=== PATIENT | female | born 1970 | race Caucasian/White ===

== ENCOUNTER 2023-02-09 09:51 | Outpatient (OUT) | payer BC, OTHER, SELFPAY ==
--- NOTE | 2023-02-09 09:52 | VEIN_ITS ---
Patient: GWYN ALVA Exam Date: 02/09/2023 : 1970 Gender:F Ordering : DR KETTY EVERETT M.D. Admission #: [id number] Family : Order #: [id number] CLICK HERE TO VIEW EXAM RADIOLOGY REPORT PROCEDURE: [facility] EST COM[facility]HENS[facility] - OFFICE VISIT INITIAL COMPARISON: None. PROGRESS NOTES: [age] year old female who presents with a 3 year history of leg pain, swelling, muscle cramping, dilated discolored veins. The patient's left leg symptoms are worse than the right. There has been a progression of symptoms over past 3 years. This increases with prolonged leg dependency. The patient describes an improvement with rest, elevation, exercise, support stockings, and [id number] medication. The patient denies any signs and symptoms to suggest arterial ischemia. The patient describes a family history varicose veins on maternal side. The patient has drinking and smoking history of : Occasional alcohol consumption; remote history of smoking. Patient has a past medical history significant for hypercholesterolemia, arthritis. The patient denies a history of deep venous thrombus or pulmonary embolus. See separate history and physical for medication list. No prior treatment for varicose or spider veins. Current use of compression stockings. After review of nurse notes, history and physical exam I discussed at length the pathophysiology of venous hypertension and possible treatments, therapies and strategies available. We discussed at length the importance of elevating the lower extremities above the level of the heart, increased physical activity and compression stocking use. Ultrasound venous reflux study performed today was discussed at length with the patient. The report demonstrates minimal dilation and incompetency of the left great saphenous vein. Additional scattered areas of mild reflux but no corresponding abnormal vein dilation.. PHYSICAL EXAM: The right leg demonstrates no significant varicosities, extensive reticular and spider veins, no ulceration, mild edema, no skin discoloration. The left leg demonstrates no significant varicosities, extensive reticular and spider veins, no ulceration, mild edema, no skin discoloration. Both thighs, legs and feet were symmetrically warm to the touch. Good posterior tibial and dorsalis pedis pulses were present bilaterally. VEIN/[facility] Facility EST Comprehensive IMPRESSION: 1. Prominent bilateral reticular veins and spider veins, but no significant treatable venous insufficiency other than with sclerotherapy. 2. Early developing lower extremity varicose veins 3. Mild lower extremity subcutaneous edema 4. No flow significant arterial disease 5. CEAP: C, E, A, P PLAN: 1. Continued use of compression stockings 2. Elevated legs and increased physical activity symptomatic relief 3. Patient will hold off until varicose vein disease progresses to the point of being amendable to treatment. Patient declined sclerotherapy at this time. Nurse notes, history and physical were reviewed and confirmed, see attached forms. The nurse was present throughout the physical exam and consultation Dictated by: Karl Hardy M.D. on 02/09/2023 at 11:50 Approved by: Karl Hardy M.D. on 02/09/2023 at 11:55
--- NOTE | 2023-02-09 09:52 | VEIN_ITS ---
Patient: GWYN ALVA Exam Date: 02/09/2023 : 1970 Gender:F Ordering : DR KETTY EVERETT M.D. Admission #: [id number] Family : Order #: [id number] CLICK HERE TO VIEW EXAM RADIOLOGY REPORT PROCEDURE: VC EXT VENOUS REFLUX LINA LMTD COMPARISON: None. INDICATIONS: I83.813 Painful varicose veins of bilat lower extremities TECHNIQUE: Duplex imaging of the lower extremity to assess the deep and superficial venous system for the presence of deep or superficial venous incompetence and to document the location and severity of disease. The study includes evaluation of the great saphenous vein (GSV), anterior accessory saphenous vein (AASV) and small saphenous vein (SSV). Patient scanned in reverse Trendelenburg and standing. FINDINGS: RIGHT LOWER EXTREMITY: Saphenofemoral Junction Reflux: Yes 7.6mm 0.8 sec GSV: Diam (mm) Reflux/ Time (sec) Proximal Thigh 2.7 Yes 0.4 Mid Thigh 2.9 No Distal Thigh 3.7 Yes 0.6 Prox Calf 1.8 No Mid Calf 2.0 Yes 0.6 Saphenopopliteal Junction Reflux: 3.4mm No SSV: Proximal Calf 2.2 No Mid Calf 2.1 No AASV: Not present Proximal Thigh Mid Thigh Distal Thigh Thrombi: No acute or chronic thrombus visualized Compressibility: Normal Flow: Normal Preforator: Dist/med calf 2.6mm with 0s reflux. Tech Note: Incompetent SFJ. Patent varicose vein mid/med calf 1.8mm with 0.4s reflux. Patent varicose vein mid/med thigh 2.0mm with 0s reflux. LEFT LOWER EXTREMITY: Saphenofemoral Junction Reflux: Yes 5.6 mm 0.5 sec GSV: Diam (mm) Reflux/Time (sec) Proximal Thigh 5.5 Yes 0.9 Mid Thigh 3.3 Yes 0.6 Distal Thigh 4.5 Prox Calf 3.3 Yes 0.4 Mid Calf 2.6 Saphenopopliteal Junction Relux: 4.4 mm No SSV: Proximal Calf 1.9 No Mid Calf 1.7 Yes 0.7 AASV: Not present Proximal Thigh Mid Thigh Distal Thigh Thrombi: No acute or chronic thrombus visualized Compressibility: Normal Flow: Normal Brazing Machine Feeder: Dist/med 2.5mm with 0.6s reflux. Tech Note: Incompetent SFJ and GSV. No patent varicose vein visualized. CONCLUSION: 1. Mild dilation and reflux within the proximal left GSV. 2. Scattered areas of mild reflux without abnormal vessel dilation. Dictated by: Karl Hardy M.D. on 02/09/2023 at 11:16 Approved by: Karl Hardy M.D. on 02/09/2023 at 11:49
== END 2023-02-09 09:52 | disposition home or self-care (01) ==
PROVIDERS: PCP Radiology Diagnostic Radiology; Visit Provider Radiology Diagnostic Radiology
DX: I83.813 Varicose veins of bilateral lower extremities with pain (principal)
CPT/HCPCS: 93970; G0463

== ENCOUNTER 2023-02-16 08:49 | Outpatient (OUT) | payer BC, OTHER, SELFPAY ==
--- NOTE | 2023-02-16 | MM_ITS ---
Patient: GWYN ALVA Exam Date: 02/16/2023 : 1970 Gender:F Ordering : MRS. BERTHA NETTLES EGYPTOLOGIST-C Admission #: [id number] Family : Order #: [id number] CLICK HERE TO VIEW EXAM RADIOLOGY REPORT PROCEDURE: MM TOMOSYNTHESIS DIAGNOSTIC BI, 02/16/2023, 13:09 US BREAST BI LIMITED, 02/16/2023, 09:00 COMPARISON: MG MAMM SCREEN 3D LINA CAD, 03/10/2022. MG MAMM SCREEN 3D LINA CAD, 02/27/2021. MG MAMM SCREEN LINA W CAD, 03/19/2020. MAMMO LINA SCREEN, 02/12/2018. INDICATIONS: enlarged lymph nodes r59.9 Calculator Name NCI Breast Cancer Risk Assessment Tool 5 Year Breast Cancer Risk 0.70% Lifetime Breast Cancer Risk 5.60% Personal Breast Cancer No Personal Ovarian Cancer No Treatments None Family Cancers None LOCATION: [facility] BREAST COMPOSITION: Extremely dense, which lowers the sensitivity of mammography. FINDINGS: DIAGNOSTIC CATEGORY 1--NEGATIVE. RIGHT BREAST: Skin surface marker localizing patient's palpable lump to the posterior upper-outer quadrant. No significant suspicious finding. No significant change has occurred. LEFT BREAST: Skin surface marker localizing patient's palpable lump to the posterior upper-outer quadrant. No significant suspicious finding. No significant change has occurred. RECOMMENDATIONS: ROUTINE MAMMOGRAM AND CLINICAL EVALUATION IN 12 MONTHS. PLEASE NOTE: A NORMAL MAMMOGRAM DOES NOT EXCLUDE THE POSSIBILITY OF BREAST CANCER. A CLINICALLY SUSPICIOUS PALPABLE LUMP SHOULD BE BIOPSIED. Dictated by: Karl Hardy M.D. on 02/16/2023 at 13:45 Approved by: Karl Hardy M.D. on 02/16/2023 at 13:49
--- NOTE | 2023-02-16 08:53 | US_ITS ---
Patient: GWYN ALVA Exam Date: 02/16/2023 : 1970 Gender:F Ordering : MRS. BERTHA NETTLES TEACHING PASTOR-C Admission #: [id number] Family : Order #: [id number] CLICK HERE TO VIEW EXAM RADIOLOGY REPORT PROCEDURE: MM TOMOSYNTHESIS DIAGNOSTIC BI, 02/16/2023, 13:09 US BREAST BI LIMITED, 02/16/2023, 09:00 COMPARISON: MG MAMM SCREEN 3D LIAN CAD, 03/10/2022. MG MAMM SCREEN 3D LINA CAD, 02/27/2021. MG MAMM SCREEN LINA W CAD, 03/19/2020. MAMMO LINA SCREEN, 02/12/2018. INDICATIONS: enlarged lymph nodes r59.9 Calculator Name NCI Breast Cancer Risk Assessment Tool 5 Year Breast Cancer Risk 0.70% Lifetime Breast Cancer Risk 5.60% Personal Breast Cancer No Personal Ovarian Cancer No Treatments None Family Cancers None LOCATION: [facility] BREAST COMPOSITION: Extremely dense, which lowers the sensitivity of mammography. FINDINGS: DIAGNOSTIC CATEGORY 1--NEGATIVE. RIGHT BREAST: Skin surface marker localizing patient's palpable lump to the posterior upper-outer quadrant. No significant suspicious finding. No significant change has occurred. LEFT BREAST: Skin surface marker localizing patient's palpable lump to the posterior upper-outer quadrant. No significant suspicious finding. No significant change has occurred. RECOMMENDATIONS: ROUTINE MAMMOGRAM AND CLINICAL EVALUATION IN 12 MONTHS. PLEASE NOTE: A NORMAL MAMMOGRAM DOES NOT EXCLUDE THE POSSIBILITY OF BREAST CANCER. A CLINICALLY SUSPICIOUS PALPABLE LUMP SHOULD BE BIOPSIED. Dictated by: Karl Hardy M.D. on 02/16/2023 at 13:45 Approved by: Karl Hardy M.D. on 02/16/2023 at 13:49
== END 2023-02-16 08:50 | disposition home or self-care (01) ==
LOC: US 08:49
PROVIDERS: PCP Nurse Practitioner Family; Visit Provider Nurse Practitioner Family
DX: R59.9 Enlarged lymph nodes, unspecified (principal); R92.8 Other abnormal and inconclusive findings on diagnostic imaging of breast
CPT/HCPCS: 76642; 77066; G0279

== ENCOUNTER 2024-02-15 13:35 | Outpatient (OUT) | payer OTHER, SELFPAY ==
--- NOTE | 2024-02-15 13:39 | MM_ITS ---
Patient Name: GWYN ALVA MR#: [id number] : 1970 Exam Date: 02/15/2024 Ordering Doctor: DR MEGAHAN SWEET RADIOLOGY REPORT PROCEDURE: MM TOMOSYNTHESIS SCREENING BI COMPARISON: MG MAMM SCREEN 3D LINA CAD, 03/10/2022. MM TOMOSYNTHESIS DIAGNOSTIC BI, 02/16/2023. INDICATIONS: Screening Calculator Name NCI Breast Cancer Risk Assessment Tool 5 Year Breast Cancer Risk 0.80% Lifetime Breast Cancer Risk 5.50% Personal Breast Cancer No Personal Ovarian Cancer No Treatments None Family Cancers None LOCATION: [facility] BREAST COMPOSITION: The breasts are extremely dense, which lowers the sensitivity of mammography. FINDINGS: DIAGNOSTIC CATEGORY 2--BENIGN FINDING. NO CHANGE FROM COMPARISON. Scattered benign-appearing calcifications are present. Scattered benign-appearing lymph nodes are present. RIGHT BREAST: No significant suspicious finding. LEFT BREAST: No significant suspicious finding. RECOMMENDATIONS: ROUTINE MAMMOGRAM AND CLINICAL EVALUATION IN 12 MONTHS. PLEASE NOTE: A NORMAL MAMMOGRAM DOES NOT EXCLUDE THE POSSIBILITY OF BREAST CANCER. A CLINICALLY SUSPICIOUS PALPABLE LUMP SHOULD BE BIOPSIED. Dictated by: Moustapha Kidd MD on 02/15/2024 at 15:38 Approved by: Moustapha Kidd MD on 02/15/2024 at 15:40
--- OUTSIDE RECORDS SUMMARY | 2024-02-15 13:47 | XMS_ITS | CCD ---
Author Organization [facility] Care Team Providers Care Manager [employer] Name Role Phone Sharla Richter Primary Care Provider [phone] Vivian Ortiz Primary Care Provider SHARLA RICHTER Primary Care Physician DIANA, DR VIVIAN Connolly Admitting Unavailable DIANA, DR VIVIAN Connolly Attending Unavailable KEE, DR HARDING Attending Unavailable KEE, DR HARDING Admitting Unavailable KARLOS, DR KETTY Barnett Consulting Unavailable KEE, DR HARDING Consulting Unavailable Vivian Ortiz Primary Care Provider VIVIAN ORTIZ Primary Care Unavailable CANDE RAMIREZ Referring Unavailable VIVIAN ORTIZ Primary Care Unavailable CANDE RAMIREZ Attending Unavailable Sharla Richter Primary Care Provider SHARLA RICHTER Primary Care Unavailable JEYSON QUIÑONES Attending Unavailable CEDRIC KATZ Primary Care Physician MIRANDA NETTLES NP-C Primary Care Physician Candace Verdin Unavailable Tim Alcaraz Consulting Unavaila ble HOPE ABEL Karin L Referring Unavailable PAGE, HOPE Karin L Attending Unavailable PAGE, HOPE Karin L Admitting Unavailable Tim Alcaraz Consulting UnavailTim Shultz Consulting UnavailTim Shultz Attending UnavailTim Shultz Admitting Unavaila ble NONE, XXXX Referring Unavailable KONSTANTIN CHAVES Attending Unavailable MIRANDA NETTLES Primary Care Unavailable Melvin CHARGEBACK SPECIALIST-Miranda ARNETT Primary Care Provider Nicki Amin MD Primary Care Provider [phone] Miranda Nettles NP Unavailable MILTON WEN Attending Unavailable MIRANDA NETTLES Attending Unavailable MEAGHAN SWEET Attending Unavailable MEAGHAN SWEET Referring Unavailable MIRANDA NETTLES Attending Unavailable MILTON WEN Attending Unavailable MEAGHAN SWEET Attending Unavailable MILTON WEN Attending Unavailable CORA DRAKE Attending Unavailable CORA DRAKE Referring Unavailable SALIMA NAVARRETE Attending Unavailable CORA DRAKE Referring Unavailable SULEMA VAZQUEZ Attending Unavailable CORA DRAKE Referring Unavailable SALIMA NAVARRETE Attending Unavailable CORA DRAKE Referring Unavailable Allergies Allergy Classification Reported Allergen(s) Allergy Type Date of Onset Reaction(s) Facility (8 sources) bee venom Propensity to adverse reactions to drug 05-09-19 Swelling, Unknown [place], [place] (20 sources) traZODone; Translations: [trazodone] Drug Allergy 03-03-20 Intolerance, function (observable entity), Hives, Unknown [facility] (15 sources) cyclobenzaprine ; Translations: [CYCLOBENZAPRIN E] Drug Allergy 05-09-19 Other: See Comments, Other, Palpitations [facility] (2 sources) BEE VENOM PROTEIN (HONEY BEE); Translations: [BEE VENOM PROTEIN (HONEY BEE)] Propensity to adverse reactions to drug (disorder) 05-09-19 [facility] Repository (1 source) Bee Sting Drug allergy hives awe[facility]sm Other (10 sources) meloxicam; Translations: [MELOXICAM] Drug Allergy 01-18-[address] [facility] 3 Repository (8 sources) Honey bee venom Allergy to substance 09-06-19 23 Unknown [facility] Medications Current Medications Medication Drug Class(es) Dates Sig (Normalized) Sig (Original) Calcium (8 sources) Phosphate Binder, Calcium calcium 200 MG tablet Calcium Active cholecalciferol 0.05 mg oral capsule (8 sources) Vitamin D cholecalciferol (Vitamin D-3) 50 MCG (1999) capsule Orally Active ciclopirox 10 mg/ml medicated shampoo (8 sources) Start: 09-21-2023 Ciclopirox 1 % shampoo Indications: Other seborrheic dermatitis Lather on wet hair, leave on 5 min, rinse 2-3 x week, 30 day supply 120 mL 11 09/21/2023 Active ciprofloxacin 500 mg oral tablet (1 source) Quinolone Antimicrobial take 1 tablet by mouth every twelve hours Cipro 500 MG 1 tablet Orally every 12 hrs Active [id number] 0.3 ml EPINEPHrine 1 mg/ml auto-injector (10 sources) alpha-Adrenergic Agonist, beta-Adrenergic Agonist, Catecholamine Start: 08-14-2023 EPINEPHrine (Epipen) 0.3 MG/0.3ML injection syringe Indications: Anaphylaxis, initial encounter Inject 0.3 mL (0.3 mg) as directed 1 (one) time for 1 dose 0.3 mL 08/14/2023 Active Start: 01-02-2020 EPINEPHrine (E PIPEN 2-NIRMAL) 0.3 MG/0.3ML SOAJ injection Inject 0.3 mLs into the muscle once for 1 dose Use as directed for allergic reaction 0.3 mL 0 01/02/2020 Active famotidine 20 mg oral tablet (2 sources) Histamine-2 Receptor Antagonist Start: 01-02-2020 take 1 tablet by mouth once daily famotidine (PEPCID) 20 MG tablet Take 1 tablet by mouth daily 5 tablet 0 01/02/2020 Active hydrOXYzine hydrochloride 25 mg oral tablet (9 sources) Antihistamine Start: 08-06-2023 take 1 tablet by mouth four times daily as needed for anxiety hydrOXYzine HCl (Atarax) 25 MG tablet Indications: Anxiety Take 1 tablet (25 mg) by mouth 4 (four) times a day as needed for itching (Anxiety) 180 tablet 08/06/2023 Active hydrOXYzine HCl 25 MG Oral for 45 Days Active meloxicam 7.5 mg oral tablet (2 sources) Nonsteroidal Anti-inflammatory Drug Start: 02-02-2023 take 1 tablet by mouth once daily meloxicam 7.5 mg Tab 7.5 mg = 1 tab(s), Oral, Daily, # 30 tab(s), Refills(s) 0 Start Date: 02/02/23 Status: Ordered metoprolol tartrate 25 mg oral tablet (1 source) beta-Adrenergic Mitch Start: 01-21-2024 metoprolol tartrate (Lopressor) 25 mg tablet Indications: Paroxysmal supraventricular tachycardia (CMS-HCC) Take one tablet for palps/fast heart rate. Do no exceed more then 2 tablets a day 30 tablet 1 01/21/2024 Active Start: 01-21-2024 metoprolol tar trate (Lopressor) 25 mg tablet Indications: Paroxysmal supraventricular tachycardia (CMS-HCC) Take one tablet for palps/fast heart rate. Do no exceed more then 2 tablets a day 30 tablet 1 01/21/2024 Active minoxidil 50 mg/ml topical solution (13 sources) Arteriolar Vasodilator Start: 06-29-2023 Minoxid il 5 % solution Indications: Androgenic alopecia Apply to scalp daily/90 days 180 mL 3 06/29/2023 Active Start: 07-01-2022 Minoxidil 5 % foam Indications: Hair thinning Apply to affected area once daily. 60 g 2 07/01/2022 Active Start: 06-30-2022 End: 07-01-2022 Minoxidil 2 % external solut ion Indications: Hair loss Apply 1 mL to affected area twice daily. 180 mL 1 06/30/2022 07/01/2022 Discontinued Comment on above: Apply 1 mL to affect ed area twice daily. Apply to affected ar ea once daily. Multiple Vitamin (CALCIUM COMPLEX PO) (1 source) Multiple Vitamin (CALCIUM COMPLEX PO) Take by mouth 0 Active Multivitamin preparation (1 source) Multivitamin Act jamaal ondansetron 4 mg oral tablet (9 sources) Serotonin-3 Receptor Antagonist Start: 4 take 1 tablet by mouth every eight hours as needed ondansetron (Zofran) 4 MG tablet Take 4 mg by mouth every 8 (eight) hours if needed 09/06/2023 Active take 1 tablet by ravi every eight hours as needed Ondansetron HCl 4 MG TAKE 1 TABLET BY MO RUST EVERY 8 HOURS NEEDED Oral for 10 Days Active predniSONE 20 mg oral tablet (1 source) Start: 01-02-2020 End: 01-07-2020 take 2 tablets by mouth once daily predniSONE (DELTASONE) 20 MG tablet Take 2 tablets by mouth daily for 5 days 10 tablet 0 01/02/2020 01/07/2020 Active Rogaine Womens 5 % (1 source) Rogaine Womens 5 % APPLY TO THE AFFECTED AREA(S) topically ONCE DAILY IN THE MORNING External for 30 Days Active SEMAGLUTIDE SUBQ (1 source) SEMAGLUTIDE SUBQ Inject under the skin. Active VITAMIN D PO (1 source) VITAMIN D PO Placido e by mouth 0 Active Completed/Discontinued Medications Medication Drug Class(es) Dates Sig (Normalized) Sig (Original) [id number] 200 actuat albuterol 0.09 mg/actuat metered dose inhaler (12 sources) beta2-Adrenergic Agonist Start: 05-16-2020 take 2 puff(s) by mouth every four hours albuterol HFA (PROVENTIL HFA, VENTOLIN HFA) 90 mcg/actuation inhaler INHALE 2 PUFFS BY MOUTH EVERY 4 HOURS 0 05/16/2020 Active albuterol HFA 90 mcg/act inhaler albuterol sulfate HFA 90 mcg/actuation aerosol inhaler Active Comment on above: INHALE 2 PUFFS BY MO UTH EVERY 4 HOURS albuterol HFA (PROVENTIL HFA, VENTOLIN HFA) 90 mcg/actuation inhaler (1 source) Start: 05-16-19 21 take 2 puff(s) by mouth every four hours albuterol HFA (PROVENTIL HFA, VENTOLIN HFA) 90 mcg/actuation inhaler INHALE 2 PUFFS BY MOUTH EVERY 4 HOURS 0 05/16/2020 Active Comment on above: INHALE 2 PUFFS BY MO UTH EVERY 4 HOURS ascorbic acid 100 mg oral tablet (5 sources) Vitamin C take 1 tablet by mouth once daily Ascorbic Acid (VITAMIN C) 100 mg tablet Take 100 mg by mouth once daily. 0 Active Comment on above: Take 100 mg by mouth once daily. azelaic acid 0.15 mg/mg topical gel (4 sources) Start: 07-01-19 23 Azelaic Acid (FINACEA) 15 % gel Apply bid to face 50 g 3 06/30/2022 Active Comment on above: Apply bid to face brimonidine 0.0033 mg/mg topical gel (2 sources) alpha-Adrenergic Agonist Start: 06-28-19 End: 07-01-19 23 brimonidine (MIRVASO) 0.33 % glwp Indications: Acne rosacea Apply a pea sized amount to the ENTIRE face qam 30 g 3 06/27/2020 06/30/2022 Discontinued Comment on above: Apply a pea sized am ount to the ENTIRE face qam ergocalciferol, vitamin D2, (VITAMIN D2 ORAL) (5 sources) ergocalciferol, vitamin D2, (VITAMIN D2 ORAL) Take by mouth. 0 Active Comment on above: Take by mouth. fluorouracil 5 mg/ml topical cream (4 sources) Nucleoside Metabolic Inhibitor Start: 07-01-19 23 Fluorouracil 0.5 % cream Indications: Actinic keratosis Apply to affected area once daily. Use for 2 weeks on nose, if not much of a reaction then continue for 2 additional weeks, not to exceed 4 weeks. 30 g 0 06/30/2022 Active Comment on above: Apply to affected ar ea once daily. Use for 2 weeks on nose, if not much of a reaction then continue for 2 additional weeks, not to exceed 4 weeks. fluticasone propionate 0.05 mg/actuat metered dose nasal spray (6 sources) Corticosteroid Start: 05-14-19 21 take 2 spray(s) nasal route once daily fluticasone (FLONASE) 50 mcg/actuation nasal spray Use 2 Sprays in each nostril once daily. 0 05/14/2020 Active Fluticasone Prop ionate 50 MCG/ACT Nasal for 30 Days Active Comment on above: Use 2 Sprays in each nostril once daily. ketoconazole 20 mg/ml topical cream (1 source) Azole Antifungal Start: 1 End: 3 ketoconazole (NIZORAL) 2 % cream Indications: Seborrheic dermatitis Apply to affected area around creases of nose 1-2 times daily as needed 60 g 1 10/30/2020 06/30/2022 Discontinued Comment on above: Apply to affected ar ea around creases of nose 1-2 times daily as needed vitamin b12 0.1 mg oral tablet (5 sources) Vitamin B12 take 1 tablet by mouth once daily cyanocobalamin (VITAMIN B-12) 100 mcg tab Take 100 mcg by mouth once daily. 0 Active Comment on above: Take 100 mcg by mout h once daily. Problems Active Problems Problem Classification Problem Date Documented Date Episodic/Chronic Cardiac dysrhythmias (2 sources) Paroxysmal supraventricular tachycardia; Translations: [Paroxysmal supraventricular tachycardia ([facility])] Onset: 01-21-2024 01-21-2024 Chronic Genitourinary symptoms and ill-defined conditions (8 sources) Urge incontinence of urine; Translations: [Urge incontinence] Onset: 09-05-2022 09-05-2022 Chronic Heart valve disorders (20 sources) Aortic incompetence, non-rheumatic ; Translations: [Nonrheumatic aortic (valve) insufficiency] Onset: 07-28-2019 Chronic Joint disorders and dislocations; trauma-related (8 sources) Derangement of left knee; Translations: [Unspecified internal derangement of left knee] Onset: 09-05-2022 09-05-2022 Chronic Menstrual disorders (8 sources) Menorrhagia; Translations: [Excessive and frequent menstruation with regular cycle] Onset: 09-05-2022 09-05-2022 Chronic Nausea and vomiting (1 source) Nausea with vomiting, unspecified Episodic Nutritional deficiencies (13 sources) Vitamin D deficiency; Translations: [Vitamin D deficiency, unspecified] Onset: 03-14-2019 06-27-2020 Chronic Osteoarthritis (8 sources) Osteoarthritis of knee; Translations: [Osteoarthritis of knee, unspecified] Onset: 09-05-2022 09-05-2022 Chronic Other connective tissue disease (1 source) Pain of left calf; Translations: [Pain in left lower leg] Episodic Other connective tissue disease (1 source) Pain in left lower leg; Translations: [Pain in left lower leg] Onset: 09-03-2022 Episodic Other female genital disorders (8 sources) Pain in female genitalia on intercourse; Translations: [Unspecified dyspareunia] Onset: 09-05-2022 09-05-2022 Chronic Other inflammatory condition of skin (2 sources) Rosacea; Translations: [Acne rosacea] 06-27-2020 Chronic Other inflammatory condition of skin (13 sources) Acne rosacea, erythematous telangiectatic type; Translations: [Other rosacea] Onset: 08-20-2022 Chronic Other inflammatory condition of skin (1 source) Seborrheic dermatitis; Translations: [Seborrheic dermatitis, unspecified] Episodic Other nervous system disorders (8 sources) Difficulty walking; Translations: [Difficulty in walking, not elsewhere classified] Onset: 09-05-2022 09-05-2022 Chronic Other nutritional; endocrine; and metabolic disorders (2 sources) Body mass index (BMI) 25.0-25.9, adult; Translations: [Body mass index (BMI) 25.0-25.9, adult] Onset: 01-21-2024 Episodic Other nutritional; endocrine; and metabolic disorders (2 sources) Overweight in adulthood with body mass index of 25 or more but less than 30; Translations: [Body mass index (BMI) 25.0-25.9, adult] Onset: 01-21-2024 01-21-2024 Episodic Other screening for suspected conditions (not mental disorders or infectious disease) (4 sources) Encounter for screening mammogram for malignant neoplasm of breast; Translations: [ENC SCR MAMMO MALIG NEOPLASM BREAST] Onset: 03-10-2022 Episodic Other skin disorders (1 source) Ehrhardt - lesion ; Translations: [Corns and callosities] Episodic Other skin disorders (1 source) Nonscarring hair loss, unspecified; Translations: [Hair loss] Onset: 06-30-2022 Episodic Other upper respiratory disease (13 sources) Allergic rhinitis due to pollen; Translations: [Allergic rhinitis due to pollen] Onset: 03-03-2022 06-27-2020 Chronic Other upper respiratory infections (1 source) Sinusitis; Translations: [Chronic sinusitis, unspecified] Chronic Poisoning by nonmedicinal substances (1 source) Bee sting; Translations: [Bee sting reaction, accidental or unintentional, initial encounter] Episodic Residual codes; unclassified (1 source) Pain, unspecified Episodic Screening and history of mental health and substance abuse codes (4 sources) Personal history of nicotine dependence; Translations: [Ex-smoker] Onset: 01-21-2024 Episodic Spondylosis; intervertebral disc disorders; other back problems (4 sources) Myofascial pain syndrome; Translations: [Dorsalgia, unspecified] 01-25-2024 Episodic Unclassified (1 source) Supraventricular tachycardia, unspecified (CMS-HCC); Translations: [Supraventricular tachycardia, unspecified (CMS-HCC)] Onset: 01-21-2024 Past or Other Problems Problem Classification Problem Date Documented Date Episodic/Chronic Abdominal pain (9 sources) Epigastric pain; Translations: [Epigastric pain] Onset: 02-08-2018 Episodic Allergic reactions (13 sources) Allergy to bee venom; Translations: [Bee allergy status] Onset: 03-03-2022 06-27-2020 Episodic Asthma (13 sources) Exercise-induced asthma; Translations: [Exercise induced bronchospasm] Onset: 03-03-2022 Resolved: 09-23-2022 06-27-2020 Chronic Cardiac dysrhythmias (11 sources) Palpitations; Translations: [Palpitations] Onset: 05-09-2019 Episodic Gastritis and duodenitis (8 sources) Gastroduodenitis; Translations: [Gastroduodenitis, unspecified, without bleeding] Onset: 02-24-2018 09-08-2022 Episodic Nutritional deficiencies (13 sources) Cobalamin deficiency; Translations: [Deficiency of other specified B group vitamins] Onset: 03-03-2022 06-27-2020 Episodic Other connective tissue disease (8 sources) Iliotibial band friction syndrome of right knee; Translations: [Iliotibial band syndrome, right leg] Onset: 09-05-2022 09-05-2022 Episodic Other lower respiratory disease (8 sources) Dyspnea; Translations: [Shortness of breath] Onset: 09-12-2020 09-08-2022 Episodic Other skin disorders (16 sources) Loss of hair; Translations: [Nonscarring hair loss, unspecified] Onset: 03-03-2022 06-27-2020 Episodic Other skin disorders (15 sources) Actinic keratosis; Translations: [Actinic keratosis] Onset: 03-03-2022 06-27-2020 Episodic Other skin disorders (15 sources) Inflamed seborrheic keratosis; Translations: [Inflamed seborrheic keratosis] Onset: 03-03-2022 06-27-2020 Episodic Otitis media and related conditions (8 sources) Dysfunction of bilateral eustachian tubes; Translations: [Unspecified Eustachian tube disorder, bilateral] Onset: 09-05-2022 09-05-2022 Episodic Thyroid disorders (8 sources) Disorder of thyroid gland; Translations: [Disorder of thyroid, unspecified] Onset: 03-21-2020 09-08-2022 Episodic Unclassified (1 source) Supraventricular tachycardia, unspecified (CMS-HCC); Translations: [Supraventricular tachycardia, unspecified (CMS-HCC)] Onset: 01-21-2024 Results Test Name Value Interpretation Reference Range Facility ECG 12 Leadon 01-21-2024 ECG reveals normal sinus rhythm, normal ECG [facility] Work Phone: COVID/FLU RT-PCRon SARS-CoV-2 (COVID-19) RNA MINA+probe Ql (Unsp spec) Negative [facility] Other COVID/FLU RT-PCR Negative the grafter [facility] [employer] Other Heart and Vascular Office/Cl inic Noteon 03-14-2023 Heart and Vascular Office/Clinic Note Chief Complaint Annual F/U History of Present Illness Gwyn Garcia is a 52-year-old female who presents today for a follow-up evaluation of palpitations. The patient reports that she was administering liquid intravenous fluids during the summer and experienced an increase in her heart rate, which she attributes to the intake of vitamin B. She inquires if vitamin B could have contributed to this sudden increase in her heart rate. She states she was receiving one dose of liquid intravenous fluid per day, unless she was feeling unwell. The patient's recent MRI scan, conducted at the [facility], revealed a minor degree of valve leakage, which is not a significant concern. The patient reports that her pulse rate remains elevated. The most recent Holter monitor reading was within the normal range. She had a discussion with Karin Abel CNP, regarding the initiation of a beta-mitch. However, she has chosen not to proceed with this treatment. She is averse to any medication that could induce fatigue. The patient expresses the importance of physical activity and acknowledges the potential for an elevated heart rate during exertion, she inquires if this is a common occurrence or generally not a cause for concern. The patient is scheduled for a surgical procedure to remove varicose veins from their lower limbs. She reports that she has noticeably large and enlarged veins, suggesting a possible genetic predisposition, as her mother also has similar veins. 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 She has a history of bursitis in her hip, a condition that may have developed as a result of frequent and repetitive movements associated with getting in and out of vehicles. The patient is advised to be cautious when handling heavy packages to prevent injury to her back. She is going to get varicose veins removed from her leg. She notes that she has some very fat and varicose veins. She believes it is hereditary for her mother. Her legs ache a lot from being a roll on worker. The patient is a roll on worker and has consistently reported feelings of stress and dehydration. Review of Systems PHQ Score Initial Depression Screen Score: 0 Constitutional: no fever, no sweats, no weakness Skin: no rash, no lesions, no bruising/petechiae ENMT: no sore throat, no congestion, no hoarseness Respiratory: no shortness of breath, no cough, no orthopnea, no wheezing Cardiovascular: no chest pain, no palpitations, no edema Gastrointestinal: no nausea, no vomiting, no diarrhea, no GI bleeding Genitourinary: no anuria/oliguria no hematuria Musculoskeletal: no back pain, no trauma Neurologic: no headache, no dizziness, no numbness, no weakness Psychiatric: no sleeping problems, no irritability, no anxiety/depression. Heme/Lymph: no bleeding tendency, no bruising tendency Allergy/Immunologic: no recurrent infections, no impaired immunity Additional ROS info: Except as noted in the above Review of Systems and in the History of Present Illness all other systems have been reviewed and are negative or noncontributory Physical Exam Vitals & Measurements HR: 82(Peripheral) BP: 140/84 SpO2: 98% HT: 64 in HT: 162 cm WT: 66.7 kg WT: 146.74 lb BMI: 25.42 General: alert, no acute distress Skin: warm, dry intact Head: atraumatic, normocephalic Neck: trachea midline, no JVD, no bruit Eye: normal conjunctiva, sclera clear ENMT: oral mucosa moist Cardiovascular: regular rate and rhythm, no murmur, normal peripheral perfusion Respiratory: lungs CTA, respirations non labored Chest wall: no deformity. Gastrointestinal: soft, non-distended, no tenderness, no guarding. Back: no tenderness, normal ROM, normal alignment. Extremities: no edema, no deformity, no trauma Neurological: oriented x 4, LOC appropriate for age, sensation equal & normal bilaterally, speech normal Psychiatric: cooperative, affect appropriate for age, normal judgement, normal psychiatric thoughts. Assessment/Plan 1. Palpitations The patient is doing well. She will continue with her current medication regimen. Beta blockers were discussed as a potential treatment option. The patient has the discretion to decide if she wishes to commence this therapy. Follow up in 1 year. ATTESTATION: Portions of this record may have been created with voice recognition artificial intelligence software, specifically [employer], Dragon Express and or [employer] Experience. Substitutions may have occurred due to the inherent limitations of voice recognition and artificial intelligence software. Documentation services were performed after patient or guardian consented to allow [employer] to record this visit. CHARLI screening specialist and provider reviewed before signing. CHARLI: Selene Canseco Follow-up No qualifying data available Problem List/Past Medical History Ongoing No (more content not included)... [facility] Comment on above: Result Comment: Elec tronically Signed By: Lissa PIMENTEL, Tim Ochoa\.br\Date and Time Signed: 03/14/23 13:30 EST\.br\Electronically Co-Signed By: Selene Canseco\.br\Date and Time Co-Signed: 02/02/23 14:27 EDT Consent for Treatmenton 01-18 Consent for Treatment [id number] #1.00TIFF [facility] Physician Orderon 02-02-2023 Physician Order [id number] 5#1.00TIFF [facility] Consent for Treatmenton 12-20 Consent for Treatment [id number] #1.00CD:127 [facility] Insurance Correspondenceon 0 12-29-2022 Insurance Correspondence [id number] 8#1.00CD:127 [facility] BMPon 09-03-2022 Anion gap [Moles/Vol] 7 mmol/L Low 9 - 17 mmol/L SCI Solution Calcium [Mass/Vol] 9.2 mg/dL 8.6 - 10. 4 mg/dL SCI Solution Chloride [Moles/Vol] 103 mmol/L 98 - 10 7 mmol/L SCI Solution CO2 [Moles/Vol] 26 mmol/L 20 - 31 mmol/L SCI Solution Creatinine [Mass/Vol] 0.44 mg/dL Low 0.50 - 0.90 mg/dL SCI Solution GFR/1.73 sq M.predicted MDRD (S/P/Bld) [Vol rate/Area] - PIN[facility] Comment on above: These results are not intended for use in patients <18 years of age. eGFR results are calculated without a race factor using the 2020 CKD-EPI equation. Careful clinical correlation is recommended, particularly when comparing to results calculated using previous equations. The CKD-EPI equation is less accurate in patients with extremes of muscle mass, extra-renal metabolism of creatine, excessive creatine ingestion, or following therapy that affects renal tubular secretion. Glucose [Mass/Vol] 98 mg/dL 70 - 99 mg/dL [facility] Interpretation and review of laboratory results Abnormal [facility] [facility] Potassium [Moles/Vol] 5.2 mmol/L 3.7 - 5.3 mmol/L [facility] Comment on above: HEMOLYSIS NOTED Sodium [Moles/Vol] 136 mmol/L 135 - 144 mmol/L [facility] Urea nitrogen [Mass/Vol] 15 mg/dL 6 - 20 mg/dL [facility] Urea nitrogen/Creatinine [Mass ratio] 34 mg/mg High [facility] Basic Metabolic Profon 09-03 Potassium [Moles/Vol] 5.2 mmol/L Normal 3.7-5.3 [facility] Comment on above: Result Comment: HEMO LYSIS NOTED Performed By: #### D ANNA, CDP, BMP, CK #### [facility] [address] [place] [address] Plug Shaper Hand: Ketty Figueroa MD Anion gap [Moles/Vol] 7 mmol/L Low - [facility] Comment on above: Performed By: #### D ANNA, CDP, BMP, CK #### [facility] [address] [place] [address] Plug Shaper Hand: Ketty Figueroa MD BUN/CRE Ratio 34 High - [facility] Comment on above: Performed By: #### D ANNA, CDP, BMP, CK #### [facility] [address] [place] [address] Plug Shaper Hand: Ketty Figueroa MD Calcium [Mass/Vol] 9.2 mg/dL Normal 8.6-10.4 [facility] Comment on above: Performed By: #### D ANNA, CDP, BMP, CK #### [facility] [address] [place] [address] Plug Shaper Hand: Ketty Figueroa MD Chloride [Moles/Vol] 103 mmol/L Normal 98-107 [facility] Comment on above: Performed By: #### D ANNA, CDP, BMP, CK #### [facility] [address] [place] [address] Plug Shaper Hand: Ktety Figueroa MD CO2 [Moles/Vol] 26 mmol/L Normal 20-31 [facility] Comment on above: Performed By: #### Kianna WHITTAKERE, CDP, BMP, CK #### [facility] [address] [place] [address] [employer] Shaper Hand: Ketty Figueroa MD Creatinine [Mass/Vol] 0.44 mg/dL Low 0.50-0.90 [facility] Comment on above: Performed By: #### MERVIN HERNADEZ, BMP, CK #### [facility] [address] [place] [address] Plug Shaper Hand: Ketty Figueroa MD GFR/1.73 sq M.predicted among non-blacks MDRD (S/P/Bld) [Vol rate/Area] mL/min/{1.73_m2} Normal >60 [facility] Comment on above: Result Comment: These results are not intended for use in patients <18 years of age. eGFR results are calculated without a race factor using the 2020 CKD-EPI equation. Careful clinical correlation is recommended, particularly when comparing to results calculated using previous equations. The CKD-EPI equation is less accurate in patients with extremes of muscle mass, extra-renal metabolism of creatine, excessive creatine ingestion, or following therapy that affects renal tubular secretion. Performed By: #### D ANNA, CDP, BMP, CK #### [facility] [address] [place], [place] [address] [employer] Sh[employer] Hand: Ketty Figueroa MD Glucose [Mass/Vol] 98 mg/dL Normal 70-99 [facility] Comment on above: Performed By: #### D ANNA, CDP, BMP, CK #### [facility] [address] [place], [place] [id number] Plug Shaper Hand: Ketty Figueroa MD Sodium [Moles/Vol] 136 mmol/L Normal 135-144 [facility] Comment on above: Performed By: #### D ANNA, CDP, BMP, CK #### [facility] [address] [place] [address] Plug Shaper Hand: Ketty Figueroa MD Urea nitrogen [Mass/Vol] 15 mg/dL Normal 6-20 [facility] Comment on above: Performed By: #### D ANNA, CDP, BMP, CK #### [facility] [address] [place] [id number] Plug Shaper Hand: Ketty Figueroa MD CBC with Auto Differentialon 09-03-2022 Basophils (Bld) [#/Vol] 0.09 10*3/uL [facility] Basophils/100 WBC (Bld) 1 % 0 - 2 % [facility] Eosinophils (Bld) [#/Vol] 0.29 10*3/uL [facility] Eosinophils/100 WBC (Bld) 4 % 1 - 4 % [facility] Erythrocyte distribution width (RBC) [Ratio] 13.0 % 11.8 - 14.4 % [facility] Hematocrit (Bld) [Volume fraction] 36.2 % Low 36.3 - 47.1 % [facility] Hemoglobin (Bld) [Mass/Vol] 11.4 g/dL Low 11.9 - 15.1 g/dL [facility] Immature granulocytes (Bld) [#/Vol] [facility] Immature granulocytes/100 WBC (Bld) 0 % 0 [facility] Interpretation and review of laboratory results Abnormal [facility] Lymphocytes/100 WBC (Bld) 30 % 24 - 43 % [facility] Lymphocytes/100 WBC (Bld) 2.06 % [facility] MCH (RBC) [Entitic mass] 27.6 pg 25.2 - 33.5 pg [facility] MCHC (RBC) [Mass/Vol] 31.5 g/dL 28.4 - 34.8 g/dL [facility] MCV (RBC) [Entitic vol] 87.7 fL 82.6 - 102.9 fL [facility] Monocytes/100 WBC (Bld) 7 % 3 - 12 % [facility] Monocytes/100 WBC (Bld) 0.49 % [facility] Neutrophils/100 WBC (Bld) 58 % 36 - 65 % [facility] NRBC Automated 0.0 0.0 per 100 WBC [facility] Platelet mean volume (Bld) [Entitic vol] 9.6 fL 8.1 - 13.5 fL [facility] Platelets (Bld) [#/Vol] 318 10*3/uL [facility] RBC (Bld) [#/Vol] 4.13 10*6/uL 3.95 - 5.1 1 m/uL [facility] Segmented neutrophils/100 WBC (Bld) 3.89 % [facility] WBC other (Bld) [#/Vol] 6.8 [facility] CBC with Diffon 09-03-2022 Abs. Basophil 0.09 k/uL Normal 0.00-0.20 [facility] Comment on above: Performed By: #### D ANNA, CDP, BMP, CK #### [facility] [address] [place] [address] Plug Shaper Hand: Ketty Figueroa MD Abs.Imm.Granulocyte <0.03 Normal 0.00-0.30 [facility] Comment on above: Performed By: #### D ANNA, CDP, BMP, CK #### [facility] [address] [place] [address] Plug Shaper Hand: Ketty Figueroa MD Abs.Neutrophil (Seg) 3.89 k/uL Normal 1.50-8.10 [facility] Comment on above: Performed By: #### D ANNA, CDP, BMP, CK #### [address] [place] [address] Plug Shaper Hand: Ketty Figueroa MD Basophils/100 WBC (Bld) 1 % Normal 0-2 [facility] Comment on above: Performed By: #### D ANNA, CDP, BMP, CK #### [address] [place] [place] [address] Plug Shaper Hand: Ketty Figueroa MD Eosinophils (Bld) [#/Vol] 0.29 10*3/uL Normal 0.00-0.44 [facility] Comment on above: Performed By: #### D ANNA, CDP, BMP, CK #### [address] [place], [place] [address] Plug Shaper Hand: Ketty Figueroa MD Eosinophils/100 WBC (Bld) 4 % Normal 1-4 [facility] Comment on above: Performed By: #### Kianna ANNA, CDP, BMP, CK #### [address] [place] [place] [address] Plug Shaper Hand: Ketty Figueroa MD Erythrocyte distribution width (RBC) [Ratio] 13.0 % Normal 11.8-14.4 [facility] Comment on above: Performed By: #### D ANNA, CDP, BMP, CK #### [address] [place], [facility] Plug Shaper Hand: Ketty Figueroa MD Hematocrit (Bld) [Volume fraction] 36.2 % Low 36.3-47.1 [facility] Comment on above: Performed By: #### D ANNA, CDP, BMP, CK #### [address] [place], [facility] Plug Shaper Hand: Ketty Figueroa MD Hemoglobin (Bld) [Mass/Vol] 11.4 g/dL Low 11.9-15.1 [facility] Comment on above: Performed By: #### D ANNA, CDP, BMP, CK #### [address] [place], [place] [address] Plug Shaper Hand: Ketty Figueroa MD Immature granulocytes/100 WBC (Bld) 0 % Normal 0 [facility] Comment on above: Performed By: #### D ANNA, CDP, BMP, CK #### [facility] [address] [place] [address] Plug Shaper Hand: Ketty Figueroa MD Lymphocytes (Bld) [#/Vol] 2.06 10*3/uL Normal 1.10-3.70 [facility] Comment on above: Performed By: #### Kianna WHITTAKERE, CDP, BMP, CK #### [address] [place], [place] [address] Plug Shaper Hand: Ketty Figueroa MD Lymphocytes/100 WBC (Bld) 30 % Normal 24-43 [facility] Comment on above: Performed By: #### Kianna ANNA, CDP, BMP, CK #### [address] [place], [place] [id number] Plug Shaper Hand: Ketty Figueroa MD MCH (RBC) [Entitic mass] 27.6 pg Normal 25.2-33.5 [facility] Comment on above: Performed By: #### D ANNA, CDP, BMP, CK #### [address] [place], [place] [id number] Plug Shaper Hand: Ketty Figueroa MD MCHC (RBC) [Mass/Vol] 31.5 g/dL Normal 28.4-34.8 [facility] Comment on above: Performed By: #### Kianna ANNA, CDP, BMP, CK #### [address] [place], [place] [address] Plug Shaper Hand: Ketty Figueroa MD MCV (RBC) [Entitic vol] 87.7 fL Normal 82.6-102.9 [facility] Comment on above: Performed By: #### D ANNA, CDP, BMP, CK #### [facility] [address] [place], [place] [address] Plug Shaper Hand: Ketty Figueroa MD Monocytes (Bld) [#/Vol] 0.49 10*3/uL Normal 0.10-1.20 [facility] Comment on above: Performed By: #### D ANNA, CDP, BMP, CK #### [facility] [address] [place] [address] Plug Shaper Hand: Ketty Figueroa MD Monocytes/100 WBC (Bld) 7 % Normal 3-12 [facility] Comment on above: Performed By: #### Kianna ANNA, CDP, BMP, CK #### [address] [place], [place] [address] Plug Shaper Hand: Ketty Figueroa MD Neutrophil (Seg) 58 % Normal 36-65 [facility] Comment on above: Performed By: #### D ANNA, CDP, BMP, CK #### [address] [place], [place] [address] Plug Shaper Hand: Ketty Figueroa MD NRBC Automated 0.0 per 100 WBC Normal 0.0 [facility] Comment on above: Performed By: #### Kianna ANNA, CDP, BMP, CK #### [facility] [address] [place] [address] Dr[place], [facility] Plug Shaper Hand: Ketty Figueroa MD Platelet mean volume (Bld) [Entitic vol] 9.6 fL Normal 8.1-13.5 [facility] Comment on above: Performed By: #### Kianna ANNA, CDP, BMP, CK #### [facility] [address] [place] [address] Plug Shaper Hand: Ketty Figueroa MD Platelets (Bld) [#/Vol] 318 10*3/uL Normal 138-453 [facility] Comment on above: Performed By: #### D ANNA, CDP, BMP, CK #### [facility] [address] [place] [address] Plug Shaper Hand: Ketty Figueroa MD RBC (Bld) [#/Vol] 4.13 10*6/uL Normal 3.95-5.11 [facility] Comment on above: Performed By: #### D ANNA, CDP, BMP, CK #### [facility] [address] [place] [address] Plug Shaper Hand: Ketty Figueroa MD WBC (Bld) [#/Vol] 6.8 10*3/uL Normal 3.5-11.3 [facility] Comment on above: Performed By: #### Kianna ANNA, CDP, BMP, CK #### [facility] [address] [place] [address] Plug Shaper Hand: Ketty Figueroa MD CKon 09-03-2022 CK [Catalytic activity/Vol] 130 U/L 26 - 192 U/L [facility] Creatine Kinaseon 09-03-2022 CK [Catalytic activity/Vol] 130 U/L Normal 26-192 [facility] Comment on above: Performed By: #### Kianna ANNA, CDP, BMP, CK #### [facility] [address] [place] [address] Plug Shaper Hand: Ketty Figueroa MD D-Dimer Teston 09-03-2022 D-Dimer Test <0.27 Normal 0.00-0.59 [facility] Comment on above: Result Comment: When combined with a low clinical probability, a D dimer value of <0.50 ug/mL FEU is considered negative for DVT and PE (negative predictive value of 98%, sensitivity of 97%). If this test is not being used to help rule out DVT and PE, then the following reference range should be utilized: 0.00 - 0.59 ug/mL FEU. The D-Dimer assay is intended for use as an aid in the diagnosis of venous thromboembolism (DVT and PE) and the results should be interpreted in conjunction with the patient's medical history, clinical presentation, and other findings. Elevated levels of D-dimer activity can be seen in any state of coagulation activation and is not recommended in patients with therapeutic dose anticoagulant therapy for >24 hours, fibrinolytic therapy within the previous 7 days, trauma or surgery within the previous 4 weeks, disseminated malignancies, aortic aneurysm, sepsis, severe infections, pneumonia, severe skin infections, liver cirrhosis, advanced age, coronary disease, diabetes, and . A very low percentage of patients with DVT may yield D-dimer results below the cutoff of 0.5 ug/mL FEU. This is known to be more prevalent in patients with distal DVT. Performed By: #### D ANNA, CDP, BMP, CK #### [facility] [address] [place] [address] Plug Shaper Hand: Ketty Figueroa MD D-Dimer, Quantitativeon 08-18 Fibrin D-dimer FEU IA (Bld) [Mass/Vol] [facility] Comment on above: When combined with a low clinical probability, a D dimer value of <0.50 ug/mL FEU is considered negative for DVT and PE (negative predictive value of 98%, sensitivity of 97%). If this test is not being used to help rule out DVT and PE, then the following reference range should be utilized: 0.00 - 0.59 ug/mL FEU. The D-Dimer assay is intended for use as an aid in the diagnosis of venous thromboembolism (DVT and PE) and the results should be interpreted in conjunction with the patient's medical history, clinical presentation, and other findings. Elevated levels of D-dimer activity can be seen in any state of coagulation activation and is not recommended in patients with therapeutic dose anticoagulant therapy for >24 hours, fibrinolytic therapy within the previous 7 days, trauma or surgery within the previous 4 weeks, disseminated malignancies, aortic aneurysm, sepsis, severe infections, pneumonia, severe skin infections, liver cirrhosis, advanced age, coronary disease, diabetes, and . A very low percentage of patients with DVT may yield D-dimer results below the cutoff of 0.5 ug/mL FEU. This is known to be more prevalent in patients with distal DVT. [facility] No Panel Informationon 09-03 [facility] CNPNon 07-01-2022 [facility] GWYN GARCIA ([id number]) 1970 F Date Time Provider Department 07/01/22 CANDE RAMIREZ During your visit today, we recorded the following information about you: Rachel Church MA 07/01/2022 2:47 PM Signed Prior Auth approved for Azelaic Acid (Finacea) 15% gel. Rachel Church MA Allergies As of Date: 07/01/2022 Noted Allergy Reaction BEE VENOM PROTEIN (HONEY BEE) 06/27/2020 7 - Swelling TRAZODONE 03/03/2022 4 - Hives 16 - Unknown CYCLOBENZAPRINE 05/09/2019 14 - Other: See Comments Date Reviewed: 06/30/2022 Reviewed by: Cande Ramirez MD - Fully Assessed Reason for Visit: Medication Problem [65] Cmt: Prior Auth approved for Azelaic Acid 15% gel Prescriptions as of 07/01/2022 - Minoxidil 5 % foam Apply to affected area once daily. - Fluorouracil 0.5 % cream Apply to affected area once daily. Use for 2 weeks on nose, if not much of a reaction then continue for 2 additional weeks, not to exceed 4 weeks. - Azelaic Acid (FINACEA) 15 % gel Apply bid to face - fluticasone (FLONASE) 50 mcg/actuation nasal spray Use 2 Sprays in each nostril once daily. - albuterol HFA (PROVENTIL HFA, VENTOLIN HFA) 90 mcg/actuation inhaler INHALE 2 PUFFS BY MOUTH EVERY 4 HOURS - cyanocobalamin (VITAMIN B-12) 100 mcg tab Take 100 mcg by mouth once daily. - Ascorbic Acid (VITAMIN C) 100 mg tablet Take 100 mg by mouth once daily. - ergocalciferol, vitamin D2, (VITAMIN D2 ORAL) Take by mouth. Problem List As Of Date 07/01/2022 Noted Resolved Bee sting allergy [Z91.030] Vitamin D deficiency [E55.9] Seasonal allergic rhinitis due to pollen [J30.1] Exercise-induced asthma [J45.990] B12 deficiency [E53.8] Acne rosacea, erythematous telangiectatic type * Inflamed seborrheic keratosis [L82.0] Actinic keratosis [L57.0] Hair thinning [L65.9] Mild aortic valve regurgitation [I35.1] 10/30/2020 Encounter Status:Closed by RACHEL CHURCH on 07/01/22 Normal [facility] 25(OH)D3 SerPl-mCncon 2022 25-hydroxyvitamin D3 [Mass/Vol] 87.0 ng/mL High 31.0-80.0 [facility] Comment on above: Order Comment: Spectuyet ball Type: BLOOD SPECIMEN Ordering Facility: [facility] Address: [address] [id number] Result Comment: Clas sification of 25 [place] Vitamin D status: Deficiency/Insufficiency: < or = 30 ng/ml. Sufficiency/Optimal Levels: 31-80 ng/mL Toxicity: > 100 ng/mL. Test performed by chemiluminescent immunoassay. Performed By: #### 1 989-3 #### [facility] CLIA [id number] [address] [place] [address] [place] CBC panel Auto (Bld)on 06-30 Erythrocyte distribution width (RBC) [Ratio] 13.2 % Normal 11.5-15.0 [facility] Comment on above: Order Comment: Bradley ball Type: BLOOD SPECIMEN Ordering Facility: [facility] Address: [address] [id number] Performed By: #### 5 8410-2 #### [facility] CLIA [id number] [address] [place] [address] [place] Hematocrit (Bld) [Volume fraction] 38.6 % Normal 36.0-46.0 [facility] Comment on above: Order Comment: Speci men Type: BLOOD SPECIMEN Ordering Facility: [facility] Address: [address] [place] [address] Performed By: #### 5 8410-2 #### [facility] CLIA [id number] [address] [place] [address] [place] Hemoglobin (Bld) [Mass/Vol] 11.7 g/dL Normal 11.5-15.5 [facility] Comment on above: Order Comment: Speci men Type: BLOOD SPECIMEN Ordering Facility: [facility] Address: [address] [place] [address] Performed By: #### 5 8410-2 #### [facility] CLIA [id number] [address] [place] [address] [place] MCH (RBC) [Entitic mass] 27.2 pg Normal 26.0-34.0 [facility] Comment on above: Order Comment: Speci men Type: BLOOD SPECIMEN Ordering Facility: [facility] Address: [address] [place] [address] Performed By: #### 5 8410-2 #### [facility] CLIA [id number] [address] [place] [address] [place] MCHC (RBC) [Mass/Vol] 30.3 g/dL Low 30.5-36.0 [facility] Comment on above: Order Comment: Speci men Type: BLOOD SPECIMEN Ordering Facility: [facility] Address: [address] [address] Performed By: #### 5 8410-2 #### [facility] CLIA [id number] [address] [place] [address] [place] MCV (RBC) [Entitic vol] 89.8 fL Normal 80.0-100.0 [facility] Comment on above: Order Comment: Speci men Type: BLOOD SPECIMEN Ordering Facility: [facility] Address: [address] [place] [address] Performed By: #### 5 8410-2 #### [facility] CLIA [id number] [address] [place] [address] [place] Nucleated RBC (Bld) [#/Vol] 10*3/uL Normal <0.01 [facility] Comment on above: Order Comment: Speci men Type: BLOOD SPECIMEN Ordering Facility: [facility] Address: [address] [place] [address] Performed By: #### 5 8410-2 #### [facility] CLIA [id number] [address] [place] [address] [place] Platelet mean volume (Bld) [Entitic vol] 9.4 fL Normal 9.0-12.7 [facility] Comment on above: Order Comment: Speci men Type: BLOOD SPECIMEN Ordering Facility: [facility] Address: [address] [place] [address] Performed By: #### 5 8410-2 #### [facility] CLIA [id number] [address] [place] [address] [place] Platelets (Bld) [#/Vol] 324 10*3/uL Normal 150-400 [facility] Comment on above: Order Comment: Speci men Type: BLOOD SPECIMEN Ordering Facility: [facility] Address: [address] [place] [address] Performed By: #### 5 8410-2 #### [facility] CLIA [id number] [address] [place] [address] [place] RBC (Bld) [#/Vol] 4.30 10*6/uL Normal 3.90-5.20 [facility] Comment on above: Order Comment: Speci men Type: BLOOD SPECIMEN Ordering Facility: [facility] Address: [address] [place] [address] Performed By: #### 5 8410-2 #### [facility] CLIA [id number] [address] [place] [address] [place] WBC (Bld) [#/Vol] 7.63 10*3/uL Normal 3.70-11.00 [facility] Comment on above: Order Comment: Speci men Type: BLOOD SPECIMEN Ordering Facility: [facility] Address: [place] [address] Performed By: #### 5 8410-2 #### [facility] CLIA [id number] [address] [place] [address] [place] Erythrocyte distribution width (RBC) [Ratio] 13.2 % 11.5 - 15.0 % [facility] Hematocrit (Bld) [Volume fraction] 38.6 % 36.0 - 46.0 % [facility] ic Hemoglobin (Bld) [Mass/Vol] 11.7 g/dL 11.5 - 15.5 g/dL [facility] MCH (RBC) [Entitic mass] 27.2 pg 26.0 - 34.0 pg [facility] MCHC (RBC) [Mass/Vol] 30.3 g/dL Low 30.5 - 36.0 g/dL [facility] MCV (RBC) [Entitic vol] 89.8 fL 80.0 - 100.0 fL [facility] Nucleated RBC (Bld) [#/Vol] <0.01 k/uL [facility] Platelet mean volume (Bld) [Entitic vol] 9.4 fL 9.0 - 12.7 fL [facility] inic Platelets (Bld) [#/Vol] 324 10*3/uL 150 - 400 k/uL [facility] RBC (Bld) [#/Vol] 4.30 10*6/uL 3.90 - 5.2 0 m/uL [facility] WBC (Bld) [#/Vol] 7.63 10*3/uL 3.70 - 11. 00 k/uL [facility] CNOVon 06-30-2022 CNOV Office Visit ([facility]) GWYN GARCIA ([id number]) 1970 F Date Time Provider Department 06/30/22 2:00 PM CANDE RAMIREZ During your visit today, we recorded the following information about you: Weight Height 65.8 kg 1.626 m Cande Ramirez MD 06/30/2022 4:06 PM Signed Patient presents with: Derm Problem: Lesion on face Hair Loss: Requesting medication to help hair loss Rx: Minoxidil HPI: Gwyn Garcia, 52 year old female, presents in the office today for 2-3 year history of hair loss. She states worst when she washes her hair. She would like to try minoxidil. She has an appointment with dermatology at [facility] for consultation. She also has a lesion on the left side of her nose that is flaky and comes and goes. She also has a lesion on her right forearm that she would like evaluated. She also asked about a freeze lesion on her fourth toe. She has a history of telangiectatic rosacea and face that was prescribed to her but it was too expensive. She wonders if there is a less expensive alternative. She had blood work in February ordered by her PCP. It was a lipid panel and a CMP. PAST MEDICAL HISTORY Diagnosis Date Acne rosacea, erythematous telangiectatic type Actinic keratosis B12 deficiency Bee sting allergy Exercise-induced asthma Hair thinning Inflamed seborrheic keratosis Mild aortic valve regurgitation 10/30/2020 Followed by cardiology/Dr. Allen Seasonal allergic rhinitis due to pollen Vitamin D deficiency Current Outpatient Medications on File Prior to Visit Medication Sig fluticasone (FLONASE) 50 mcg/actuation nasal spray Use 2 Sprays in each nostril once daily. albuterol HFA (PROVENTIL HFA, VENTOLIN HFA) 90 mcg/actuation inhaler INHALE 2 PUFFS BY MOUTH EVERY 4 HOURS cyanocobalamin (VITAMIN B-12) 100 mcg tab Take 100 mcg by mouth once daily. Ascorbic Acid (VITAMIN C) 100 mg tablet Take 100 mg by mouth once daily. ergocalciferol, vitamin D2, (VITAMIN D2 ORAL) Take by mouth. ketoconazole (NIZORAL) 2 % cream Apply to affected area around creases of nose 1-2 times daily as needed (Patient not taking: Reported on 06/30/2022) brimonidine (MIRVASO) 0.33 % glwp Apply a pea sized amount to the ENTIRE face qam (Patient not taking: Reported on 06/30/2022) No current facility-administere d medications on file prior to visit. Allergies: Bee Venom Protein (* Swelling Trazodone Hives, Unknown Cyclobenzaprine Other: See Comments Review of Systems Constitutional: Negative for chills and fever. HENT: Negative for congestion, ear pain and sore throat. Eyes: Negative for discharge. Respiratory: Negative for shortness of breath and wheezing. Cardiovascular: Negative for chest pain and palpitations. Gastrointestinal: Negative for abdominal pain, constipation, diarrhea and nausea. Genitourinary: Negative for dysuria and hematuria. Skin: Negative for rash. Hair loss/hair thinning. Lesion on nose. Lesion on right forearm. Psychiatric/Behavior al: Negative for confusion. Ht 162.6 cm (5' 4 ) Wt 65.8 kg (145 lb) BMI 24.89 kg/m? Physical Exam Vitals reviewed. Constitutional: Appearance: Normal appearance. HENT: Head: Normocephalic and atraumatic. Pulmonary: Effort: Pulmonary effort is normal. Skin: General: Skin is warm. Findings: No bruising. Comments: Erythematous scaly papule on left side of nose. Brown verruciform papule with surrounding erythema on right forearm. Telangiectasias on bilateral cheeks. Mild dryness to scalp. Thinning noted. No bald patches. Firm papule on fourth toe. Neurological: Mental Status: She is alert. Cholesterol 150 - 200 mg/dL 191 Triglycerides 27 - 150 mg/dL 54 HDL Cholesterol >39 mg/dL 76 Comment: HDL <40 mg/dL - High Risk HDL > or = 40mg/dL- Desirable HDL >60 mg/dL - Negative Risk ----- VLDL 0 - 30 mg/dL 11 LDL (calc) <130 mg/dL 104 Sodium 134 - 146 mmol/L 138 Potassium 3.5 - 5.0 mmol/L 4.6 Chloride 98 - 109 mmol/L 104 Carbon Dioxide 22 - 32 mmol/L 27 Anion Gap 5 - 15 mmol/L 7 BUN 5 - 23 mg/dL 13 Creatinine 0.40 - 1.00 mg/dL 0.59 Comment: METHOD TRACEABLE TO IDMS STANDARD Glucose 65 - 99 mg/dL 96 Calcium 8.5 - 10.5 mg/dL 9.2 Total Protein 6.0 - 8.0 g/dL 6.4 Albumin 3.2 - 5.3 g/dL 4.0 Alkaline Phosphatase 39 - 130 U/L 62 AST 0 - 41 U/L 16 ALT 0 - 31 U/L 13 Total bilirubin 0.3 - 1.2 mg/dL 0.4 eGFR (CKD-EPI)non-race dependent >59 ml/min/1.73sq.m >90 Comment: Reported eGFR is based on the CKD-EPI 2020 equation that does not use a race coefficient. ASSESSMENT/PLAN: 1. Hair loss - ICD9: 704.00, ICD10: L65.9 (primary diagnosis) - MINOXIDIL 2 % TOPICAL SOLUTION. Advised her that she may see increased hair growth on face in general. - TSH BLD - VITAMIN D 25 HYDROXY - CONSULT TO DERMATOLOGY - CBC - (more content not included)... Normal [facility] CNPNon 06[facility]30-20[facility] ([facility]) GWYN GARCIA ([id number]) 1970 F Date Time Provider Department 06/30/22 CANDE RAMIREZ [facility] During your visit today, we recorded the following information about you: Estefania Montero Pss 06/30/2022 3:39 PM Signed [facility] [phone] can't order minoxidil 2% but has the 5%. Please advise pharmacy on what to fill for patient. Cande Ramirez MD 07/01/2022 9:03 AM Signed New Rx for the 5% sent but will be once daily. Allergies As of Date: 06/30/2022 Noted Allergy Reaction BEE VENOM PROTEIN (HONEY BEE) 06/27/2020 7 - Swelling TRAZODONE 03/03/2022 4 - Hives 16 - Unknown CYCLOBENZAPRINE 05/09/2019 14 - Other: See Comments Date Reviewed: 06/30/2022 Reviewed by: Cande Ramirez MD - Fully Assessed Reason for Visit: Medication Problem [65] Primary Visit Diagnosis:Hair thinning [L65.9] Order(s):Minoxidil 5 % foamApply to affected area once daily.Disp: 60 gRfl: 2 Prescriptions as of 07/03/2022 - Minoxidil 5 % foam Apply to affected area once daily. - Fluorouracil 0.5 % cream Apply to affected area once daily. Use for 2 weeks on nose, if not much of a reaction then continue for 2 additional weeks, not to exceed 4 weeks. - Azelaic Acid (FINACEA) 15 % gel Apply bid to face - fluticasone (FLONASE) 50 mcg/actuation nasal spray Use 2 Sprays in each nostril once daily. - albuterol HFA (PROVENTIL HFA, VENTOLIN HFA) 90 mcg/actuation inhaler INHALE 2 PUFFS BY MOUTH EVERY 4 HOURS - cyanocobalamin (VITAMIN B-12) 100 mcg tab Take 100 mcg by mouth once daily. - Ascorbic Acid (VITAMIN C) 100 mg tablet Take 100 mg by mouth once daily. - ergocalciferol, vitamin D2, (VITAMIN D2 ORAL) Take by mouth. Problem List As Of Date 06/30/2022 Noted Resolved Bee sting allergy [Z91.030] Vitamin D deficiency [E55.9] Seasonal allergic rhinitis due to pollen [J30.1] Exercise-induced asthma [J45.990] B12 deficiency [E53.8] Acne rosacea, erythematous telangiectatic type * Inflamed seborrheic keratosis [L82.0] Actinic keratosis [L57.0] Hair thinning [L65.9] Mild aortic valve regurgitation [I35.1] 10/30/2020 Prescriptions ordered this encounter Disp Refills Start End MINOXIDIL 5 % TOPICAL FOAM 60 g 2 07/01/2022 Route: TOPICAL Sig: Apply to affected area once daily. Medications Discontinued During This Encounter Prescriptions - Minoxidil 2 % external solution (Discontinued) Apply 1 mL to affected area twice daily. Encounter Status:Closed by RACHEL CHURCH on 07/01/22 Normal [facility] TSH SerPl-aCncon 06-30-2022 TSH Qn 1.170 m[IU]/L Normal 0.270-4.200 [facility] Comment on above: Order Comment: Speci men Type: BLOOD SPECIMEN Ordering Facility: [facility] Address: [address] [place] [address] Performed By: #### 2 132-9, 3016-3 #### [facility] CLIA [id number] [address] [place] [address] OF [facility] Vit B12 SerPl-mCncon 023 Cobalamin (Vitamin B12) [Mass/Vol] 621 pg/mL Normal 232-1245 [facility] Comment on above: Order Comment: Speci men Type: BLOOD SPECIMEN Ordering Facility: [facility] Address: [address] [place] [address] Performed By: #### 2 132-9, 3016-3 #### [facility] CLIA [id number] [address] [place] [address] [place] MG MAMM SCREEN 3D LINA CADon 03-10-2022 MG MAMM SCREEN 3D LINA CAD Patient: GWYN GARCIA Exam Date: 03/10/2022 : 1970 Gender:F Ordering : DR MEAGHAN SWEET Admission #: [id number] Family : Order #: [id number] CLICK HERE TO VIEW EXAM RADIOLOGY REPORT PROCEDURE: MAMMOGRAM SCREENING 3D BILATERAL CAD COMPARISON: MG MAMM SCREEN LINA W CAD, 03/19/2020. MG MAMM SCREEN 3D LINA CAD, 02/27/2021. INDICATIONS: Screening mammography Calculator Name NCI Breast Cancer Risk Assessment Tool 5 Year Breast Cancer Risk 0.70% Lifetime Breast Cancer Risk 5.60% Personal Breast Cancer No Personal Ovarian Cancer No Treatments None Family Cancers None LOCATION: [facility] BREAST COMPOSITION: Extremely dense, which lowers the sensitivity of mammography. FINDINGS: DIAGNOSTIC CATEGORY 1--NEGATIVE. NO CHANGE FROM COMPARISON ASSESSMENT. Scattered benign-appearing calcifications are present. Scattered benign-appearing lymph nodes are present. RIGHT BREAST: No significant suspicious finding. LEFT BREAST: No significant suspicious finding. RECOMMENDATIONS: ROUTINE MAMMOGRAM AND CLINICAL EVALUATION IN 12 MONTHS. PLEASE NOTE: A NORMAL MAMMOGRAM DOES NOT EXCLUDE THE POSSIBILITY OF BREAST CANCER. A CLINICALLY SUSPICIOUS PALPABLE LUMP SHOULD BE BIOPSIED. Dictated by: Ketty Kidd MD on 03/10/2022 at 12:50 Approved by: Ketty Kidd MD on 03/10/2022 at 12:51 Normal [facility] CBC (INCLUDES DIFF/PLT)on Basophils (Bld) [#/Vol] 0.092 10*3/uL Normal 0-200 [facility] Comment on above: Performed By: #### 1 0231, 73141, 6399 #### [facility] of [place] [address] [employer]: Alex Mcfadden MD Basophils/100 WBC (Bld) 2.1 % Normal [facility] Comment on above: Performed By: #### 1 0231, 59746, 6399 #### [facility] of [place] [address] [employer]: Alex Mcfadden MD Eosinophils (Bld) [#/Vol] 0.321 10*3/uL Normal 15-500 [facility] Comment on above: Performed By: #### 1 0231, 60920, 6399 #### [facility] of [place] [address] [employer]: Alex Mcfadden MD Eosinophils/100 WBC (Bld) 7.3 % Normal [facility] Comment on above: Performed By: #### 1 0231, 77231, 6399 #### [facility] of [place] [address] [employer]: Alex Mcfadden MD Erythrocyte distribution width (RBC) [Ratio] 13.1 % Normal 11.0-15.0 [facility] Comment on above: Performed By: #### 1 0231, 05721, 6399 #### [facility] [place] [address] [employer]: Alex Mcfadden MD Hematocrit (Bld) [Volume fraction] 39.3 % Normal 35.0-45.0 [facility] Comment on above: Performed By: #### 1 0231, 47077, 6399 #### [facility] of [address], [address] [place] [address] [employer]: Alex Mcfadden MD Hemoglobin (Bld) [Mass/Vol] 12.4 g/dL Normal 11.7-15.5 [facility] Comment on above: Performed By: #### 1 0231, 49067, 6399 #### [facility] of [place] [address] [employer]: Alex Mcfadden MD Lymphocytes (Bld) [#/Vol] 1.065 10*3/uL Normal 850-3900 [facility] Comment on above: Performed By: #### 1 230, 58777, 6399 #### [facility] of [place] [address] [employer]: Alex Mcfadden MD Lymphocytes/100 WBC (Bld) 24.2 % Normal [facility] Comment on above: Performed By: #### 1 023, 51472, 6399 #### [facility] of [place] [address] [employer]: Alex Mcfadden MD MCH (RBC) [Entitic mass] 28.1 pg Normal 27.0-33.0 [facility] Comment on above: Performed By: #### 1 023, 64845, 6399 #### [facility] of [place] [address] [employer]: Alex Mcfadden MD MCHC (RBC) [Mass/Vol] 31.6 g/dL Low 32.0-36.[address] [facility] Comment on above: Performed By: #### 1 023, 75855, 6399 #### [facility] of [place] [address] [employer]: Alex Mcfadden MD MCV (RBC) [Entitic vol] 88.9 fL Normal 80.0-100.0 [facility] Comment on above: Performed By: #### 1 0231, 81961, 6399 #### [facility] of [place] [address] [employer]: Alex Mcfadden MD Monocytes (Bld) [#/Vol] 0.392 10*3/uL Normal 200-950 [facility] Comment on above: Performed By: #### 1 0231, 36999, 6399 #### [facility] of [place] [address] [employer]: Alex Mcfadden MD Monocytes/100 WBC (Bld) 8.9 % Normal [facility] Comment on above: Performed By: #### 1 023, 44629, 6399 #### [facility] of [place] [address] [employer]: Alex Mcfadden MD Neutrophils (Bld) [#/Vol] 2.53 10*3/uL Normal 4630-9808 [facility] Comment on above: Performed By: #### 1 023, 57728, 6399 #### [facility] of [place] [address] [employer]: Alex Mcfadden MD Neutrophils/100 WBC (Bld) 57.5 % Normal [facility] Comment on above: Performed By: #### 1 023, 67500, 6399 #### [facility] [place] [address] [employer]: Alex Mcfadden MD Platelet mean volume (Bld) [Entitic vol] 9.6 fL Normal 7.5-12.5 [facility] Comment on above: Performed By: #### 1 0231, 41331, 6399 #### [facility] of [place] [address] [employer]: Alex Mcfadden MD Platelets (Bld) [#/Vol] 307 10*3/uL Normal 140-400 [facility] Comment on above: Performed By: #### 1 0231, 88143, 6399 #### [facility] of [address], [address] [place] [address] [employer]: Alex Mcfadden MD RBC (Bld) [#/Vol] 4.42 10*6/uL Normal 3.80-5.10 [facility] Comment on above: Performed By: #### 1 0231, 06431, 6399 #### [facility] of [address], [address] [place] [address] [employer]: Alex Mcfadden MD WBC (Bld) [#/Vol] 4.4 10*3/uL Normal 3.8-10.8 [facility] Comment on above: Performed By: #### 1 0231, 79840, 6399 #### [facility] of [address], [address] [place] [address] [employer]: Alex Mcfadden MD [facility] METABOLIC PANE [facility] 10-05-2021 Albumin [Mass/Vol] 4.2 g/dL Normal 3.6-5.1 [facility] Comment on above: Performed By: #### 1 0231, 54867, 6399 #### [facility] of [address], [address] [place] [address] [employer]: Alex Mcfadden MD Albumin/Globulin [Mass ratio] 1.6 {ratio} Normal 1.0-2.5 [facility] Comment on above: Performed By: #### 1 0231, 90998, 6399 #### [facility] of [address], [address] [place] [address] [employer]: Alex Mcfadden MD ALP [Catalytic activity/Vol] 55 U/L Normal 37-153 [facility] Comment on above: Performed By: #### 1 0231, 43589, 6399 #### [facility] of [address], [address] [place] [address] [employer]: Alex Mcfadden MD ALT [Catalytic activity/Vol] 13 U/L Normal 6-29 [facility] Comment on above: Performed By: #### 1 0231, 14005, 6399 #### [facility] of [address], [address] [place] [address] [employer]: Alex Mcfadden MD AST [Catalytic activity/Vol] 16 U/L Normal 10-35 [facility] Comment on above: Performed By: #### 1 0231, 65802, 6399 #### [facility] of [address], [address] [place] [address] [employer]: Alex Mcfadden MD Bilirubin [Mass/Vol] 0.4 mg/dL Normal 0.2-1.2 [facility] Comment on above: Performed By: #### 1 0231, 48516, 6399 #### [facility] of [address], [address] [place] [address] [employer]: Alex Mcfadden MD BUN/CREATININE RATIO NOT APPLICABLE Normal 6-22 [facility] Comment on above: Performed By: #### 1 0231, 84215, 6399 #### [facility] of [address], [address] [place] [address] [employer]: Alex Mcfadden MD Calcium [Mass/Vol] 9.4 mg/dL Normal 8.6-10.4 [facility] Comment on above: Performed By: #### 1 0231, 91390, 6399 #### [facility] of [address], [address] [place] [address] [employer]: Alex Mcfadden MD Chloride [Moles/Vol] 104 mmol/L Normal 98-110 [facility] Comment on above: Performed By: #### 1 0231, 49438, 6399 #### [facility] of [place] [address] [employer]: Alex Mcfadden MD CO2 [Moles/Vol] 27 mmol/L Normal 20-32 [facility] Comment on above: Performed By: #### 1 0231, 30877, 6399 #### [facility] of [address], [address] [place] [address] [employer]: Alex Mcfadden MD Creatinine [Mass/Vol] 0.60 mg/dL Normal 0.50-1.05 [facility] Comment on above: Result Comment: For patients >49 years of age, the reference limit for Creatinine is approximately 13% higher for people identified as -Prydeinig. Performed By: #### 1 0231, 17886, 6399 #### [facility] [place] [address] [employer]: Alex Mcfadden MD eGFR NON-AFR. GUINEAN 104 mL/min/1.73m2 Normal > OR = 60 [facility] Comment on above: Performed By: #### 1 023, 71807, 6399 #### [facility] [place] [address] [employer]: Alex Mcfadden MD GFR/1.73 sq M.predicted among blacks MDRD (S/P/Bld) [Vol rate/Area] 121 mL/min/{1.73_m2} Normal > OR = 60 [facility] Comment on above: Performed By: #### 1 230, 91965, 6399 #### [facility] [place] [address] [employer]: Alex Mcfadden MD Globulin (S) [Mass/Vol] 2.6 g/dL Normal 1.9-3.7 [facility] Comment on above: Performed By: #### 1 023, 47759, 6399 #### [facility] [place] [address] [employer]: Alex Mcfadden MD Glucose [Mass/Vol] 88 mg/dL Normal 65-99 [facility] Comment on above: Result Comment: Fasting reference interval Performed By: #### 1 0231, 18452, 6399 #### [facility] [place] [address] [employer]: Alex Mcfadden MD Potassium [Moles/Vol] 4.7 mmol/L Normal 3.5-5.[address] [facility] Comment on above: Performed By: #### 1 0231, 57401, 6399 #### [facility] of [place] [address] [employer]: Alex Mcfadden MD Protein [Mass/Vol] 6.8 g/dL Normal 6.1-8.1 [facility] Comment on above: Performed By: #### 1 0231, 53634, 6399 #### [facility] of [place] [address] [employer]: Alex Mcfadden MD Sodium [Moles/Vol] 137 mmol/L Normal 135-146 [facility] Comment on above: Performed By: #### 1 0231, 12614, 6399 #### [facility] of [place] [address] [employer]: Alex Mcfadden MD Urea nitrogen [Mass/Vol] 15 mg/dL Normal 7-25 [facility] Comment on above: Performed By: #### 1 023, 36259, 6399 #### [facility] [place] [address] [employer]: Alex Mcfadden MD TSH+FREE T4on 10-05-2021 Free T4 [Mass/Vol] 1.1 ng/dL Normal 0.8-1.8 [facility] Comment on above: Performed By: #### 1 0231, 78646, 6399 #### [facility] [place] [address] [employer]: Alex Mcfadden MD TSH Qn 1.30 m[IU]/L Normal [facility] Comment on above: Result Comment: Refe rence Range > or = 20 Years 0.40-4.50 Ranges First trimester 0.26-2.66 Second trimester 0.55-2.73 Third trimester 0.43-2.91 Performed By: #### 1 0231, 94179, 6399 #### [facility] of [address] [place] [address] [employer]: Alex Mcfadden MD MRI Knee w/o Lefton 03-26-20 MRI Knee w/o Left HISTORY: Internal derangement of left knee. Osteoarthritis of left knee. Medial meniscus tear. Medial knee pain. COMPARISON: Radiographs of the knee 03/05/2021 TECHNIQUE: Multiplanar multisequence MRI of the left knee was performed without contrast. FINDINGS: Quadriceps and patellar tendons are intact. No knee joint effusion. The anterior ligament and posterior cruciate ligament are intact. The medial collateral ligament, lateral collateral ligament, and popliteus myotendinous unit are intact. The medial meniscus is intact. Discoid lateral meniscus. Tiny vertical tear of the inner margin of the posterior horn of the lateral meniscus. No well defined or measurable articular cartilage defect or subchondral bone marrow edema. Popliteal fossa structures are intact. No Hoffman's cyst. IMPRESSION: Tiny vertical tear of the inner margin of the posterior horn of the lateral meniscus. Report reported and signed by Junaid Mims on 03/27/[address] [facility] COMPREHENSIVE METABOLIC PANE [facility] 03-02-2021 Albumin [Mass/Vol] 4.5 g/dL Normal 3.6-5.1 [facility] Comment on above: Performed By: #### 1 0231, 7600, 39217, 1005 #### [facility] [place] [address] [employer]: Alex Mcfadden MD Albumin/Globulin [Mass ratio] 1.7 {ratio} Normal 1.0-2.5 [facility] Comment on above: Performed By: #### 1 0231, 7600, 34802, 1005 #### [facility] [place] [address] [employer]: Alex Mcfadden MD ALP [Catalytic activity/Vol] 58 U/L Normal 37-153 [facility] Comment on above: Performed By: #### 1 0231, 7600, 46188, 1005 #### [facility] [address], [address] [place], [place] [address] [employer]: Alex Mcfadden MD ALT [Catalytic activity/Vol] 14 U/L Normal 6-29 [facility] Comment on above: Performed By: #### 1 0231, 7600, 47949, 1005 #### [facility] of [place] [address] [employer]: Alex Mcfadden MD AST [Catalytic activity/Vol] 18 U/L Normal 10-35 [facility] Comment on above: Performed By: #### 1 0231, 7600, 53576, 1005 #### [facility] of [address], [address] [place] [address] [employer]: Alex Mcfadden MD Bilirubin [Mass/Vol] 0.4 mg/dL Normal 0.2-1.2 [facility] Comment on above: Performed By: #### 1 0231, 7600, 33617, 1005 #### [facility] [place] [address] [employer]: Alex Mcfadden MD BUN/CREATININE RATIO NOT APPLICABLE Normal 6-22 [facility] Comment on above: Performed By: #### 1 0231, 7600, 62072, 1005 #### [facility] [place] [address] [employer] Operator: Alex Mcfadden MD Calcium [Mass/Vol] 9.5 mg/dL Normal 8.6-10.4 [facility] Comment on above: Performed By: #### 1 0231, 7600, 04188, 1005 #### [facility] [place] [address] [employer]: Alex Mcfadden MD Chloride [Moles/Vol] 104 mmol/L Normal 98-110 [facility] Comment on above: Performed By: #### 1 0231, 7600, 50081, 1005 #### [facility] [place] [address] [employer]: Alex Mcfadden MD CO2 [Moles/Vol] 30 mmol/L Normal 20-32 [facility] Comment on above: Performed By: #### 1 0231, 7600, 79599, 1005 #### [facility] [place] [address] [employer]: Alex Mcfadden MD Creatinine [Mass/Vol] 0.68 mg/dL Normal 0.50-1.05 [facility] Comment on above: Result Comment: For patients >49 years of age, the reference limit for Creatinine is approximately 13% higher for people identified as -Prydeinig. Performed By: #### 1 0231, 7600, 61409, 1005 #### [facility] [address], [address] [place] [address] [employer]: Alex Mcfadden MD eGFR NON-AFR. GUINEAN 100 mL/min/1.73m2 Normal > OR = 60 [facility] Comment on above: Performed By: #### 1 0231, 7600, 67178, 1005 #### [facility] [place] [address] [employer]: Alex Mcfadden MD GFR/1.73 sq M.predicted among blacks MDRD (S/P/Bld) [Vol rate/Area] 116 mL/min/{1.73_m2} Normal > OR = 60 [facility] Comment on above: Performed By: #### 1 0231, 7600, 54362, 1005 #### [facility] [place] [address] [employer]: Alex Mcfadden MD Globulin (S) [Mass/Vol] 2.6 g/dL Normal 1.9-3.7 [facility] Comment on above: Performed By: #### 1 0231, 7600, 43827, 1005 #### [facility] [place] [address] [employer]: Alex Mcfadden MD Glucose [Mass/Vol] 98 mg/dL Normal 65-99 [facility] Comment on above: Result Comment: Fasting reference interval Performed By: #### 1 0231, 7600, 38581, 1005 #### [facility] [address] [employer] [employer] Operator: Alex Mcfadden MD Potassium [Moles/Vol] 4.7 mmol/L Normal 3.5-5.3 [facility] Comment on above: Performed By: #### 1 0231, 7600, 17570, 1005 #### [facility] [place] [address] [employer]: Alex Mcfadden MD Protein [Mass/Vol] 7.1 g/dL Normal 6.1-8.1 [facility] Comment on above: Performed By: #### 1 0231, 7600, 52585, 1005 #### [facility] [place] [address] [employer] Operator: Alex Mcfadden MD Sodium [Moles/Vol] 136 mmol/L Normal 135-146 [facility] Comment on above: Performed By: #### 1 0231, 7600, 76223, 1005 #### [facility] [place] [address] [employer] Operator: Alex Mcfadden MD Urea nitrogen [Mass/Vol] 16 mg/dL Normal 7-25 [facility] Comment on above: Performed By: #### 1 0231, 7600, 95093, 1005 #### [facility] [place] [address] [employer] Operator: Alex Mcfadden MD LIPID PANEL, [address] Cholesterol [Mass/Vol] 220 mg/dL High <200 [facility] Comment on above: Order Comment: FASTI NG:YES FASTING: YES Performed By: #### 1 0231, 7600, 49245, 1005 #### [facility] of [place] [address] [employer]: Alex Mcfadden MD Cholesterol in HDL [Mass/Vol] 77 mg/dL Normal > OR = 50 [facility] Comment on above: Order Comment: FASTI NG:YES FASTING: YES Performed By: #### 1 0231, 7600, 10376, 1005 #### [facility] of [address], [address] [place] [address] [employer]: Alex Mcfadden MD Cholesterol in LDL [Mass/Vol] 130 mg/dL High [facility] Comment on above: Order Comment: FASTI NG:YES FASTING: YES Result Comment: Refe rence range: <100 Desirable range <100 mg/dL for primary prevention; <70 mg/dL for patients with CHD or diabetic patients with > or = 2 CHD risk factors. LDL-C is now calculated using the Dinesh calculation, which is a validated novel method providing better accuracy than the Friedewald equation in the estimation of LDL-C. Darvin SS et al. GABY. 2013;310(39): 8821-1421 (http://education.VisibleGains/faq/TXV443) Performed By: #### 1 0231, 7600, 08377, 1005 #### [facility] [place] [address] [employer]: Alex Mcfadden MD Cholesterol.total/Cho lesterol in HDL [Mass ratio] 2.9 {ratio} Normal <5.0 [facility] Comment on above: Order Comment: FASTI NG:YES FASTING: YES Performed By: #### 1 0231, 7600, 31078, 1005 #### [facility] [place] [address] [employer]: Alex Mcfadden MD NON HDL CHOLESTEROL 143 mg/dL (calc) High <130 [facility] Comment on above: Order Comment: FASTI NG:YES FASTING: YES Result Comment: For patients with diabetes plus 1 major ASCVD risk factor, treating to a non-HDL-C goal of <100 mg/dL (LDL-C of <70 mg/dL) is considered a therapeutic option. Performed By: #### 1 0231, 7600, 30698, 1005 #### [facility] [place] [address] [employer] Operator: Alex Mcfadden MD Triglyceride [Mass/Vol] 43 mg/dL Normal <150 [facility] Comment on above: Order Comment: FASTI NG:YES FASTING: YES Performed By: #### 1 0231, 7600, 89848, 1005 #### [facility] [address], [address] [place] [address] [employer]ing [employer] Operator: Alex Mcfadden MD TEST AUTHORIZATIONon 021 CLIENT CONTACT: EM Hutchison Normal [facility] Comment on above: Performed By: #### 1 0231, 7600, 53746, 1005 #### [facility] [address], [address] [place] [address] [employer] Operator: Alex Mcfadden MD COMMENT Normal [facility] Comment on above: Result Comment: Plea se have the ordering physician or his or her authorized union contract representative sign a copy of this report and promptly return it by faxing it to: [phone] or by returning the form to your resource conservation manager. Performed By: #### 1 0231, 7600, 67227, 1005 #### [facility] [address], [address] [place] [address] [employer] Operator: Alex Mcfadden MD REPORT ALWAYS MESSAGE SIGNATURE Normal [facility] Comment on above: Result Comment: The laboratory testing on this patient was verbally requested or confirmed by the ordering physician or his or her authorized union contract representative after contact with an employee of [facility] [employer]. Federal regulations require that we maintain on file written authorization for all laboratory testing. Accordingly we are asking that the ordering physician or his or her authorized union contract representative sign a copy of this report and promptly return it to the client success director. Signature: Performed By: #### 1 0231, 7600, 40069, 1005 #### [facility] [address], [address] [place] [address] [employer] Operator: Alex Mcfadden MD TEST CODE: [id number] Normal [facility] Comment on above: Performed By: #### 1 0231, 7600, 06368, 1005 #### [facility] [address], [address] [place] [phone] [employer]ing Mill Operator: Alex Mcfadden MD TEST NAME: VITAMIN D,25-OH,TOTAL,IA Normal [facility] Comment on above: Performed By: #### 1 0231, 7600, 74872, 1005 #### [facility] [address] [facility], [address] [place] [phone] [employer]ing [employer] Operator: Alex Mcfadden MD VITAMIN D,25-OH,TOTAL,IAon 1 05-02-2020 VITAMIN D,25-OH,TOTAL,IA 72 ng/mL Normal 30-100 [facility] Comment on above: Result Comment: Kerry min D Status 25-OH Vitamin D: Deficiency: <20 ng/mL Insufficiency: 20 - 29 ng/mL Optimal: > or = 30 ng/mL For 25-OH Vitamin D testing on patients on D2-supplementation and patients for whom quantitation of D2 and D3 fractions is required, the QuestAssureD(TM) 25-OH VIT D, (D2,D3), LC/MS/MS is recommended: order code 76709 (patients >2yrs). See Note 1 Note 1 For additional information, please refer to http://education.LedgerX.Vint Training/faq/[email or web address] (This link is being provided for informational/ educational purposes only.) Performed By: #### 1 0231, 7600, 49856, 1005 #### [facility] [address] [facility], [address] [place] [phone] [employer]ing Mill Operator: Alex Mcfadden MD Vital Signs Date Time Vital Sign Value Performing Clinician Carol simpson 01-21-2024 10:11 Diastolic blood pressure 82 mm[Hg] Konstantin Chaves MD Work Phone: [facility] 01-21-2024 10:11 Systolic blood pressure 134 mm[Hg] Konstantin Chaves MD Work Phone: [facility] 01-21-2024 10:10040 Body height 162.6 cm Konstantin Chaves MD Work Phone: [facility] 01-21-2024 10:100400 Body mass index (BMI) [Ratio] 25.06 kg/m2 Konstantin Chaves MD Work Phone: [facility] 01-21-2024 10:10-0400 Body weight 66.22 kg Konstantin Chaves MD Work Phone: [facility] 01-21-2024 10:10-0400 Heart rate 87 /min Konstantin Chaves MD Work Phone: [facility] 03-14-2023 11:20-0500 Body height 162.56 cm Candace Verdin Other [employer] Other 03-14-2023 11:20-0500 Body mass index (BMI) [Ratio] 25.2 kg/m2 Candace Velvet Other [facility] Other 03-14-2023 11:20-0500 Body temperature 99.1 [degF] Candace Velvet Other [facility] Other 03-14-2023 11:20-0500 Body weight 66.59 kg Candace Velvet Other [facility] Other 03-14-2023 11:20-0500 Diastolic blood pressure 64 mm[Hg] Candace Velvet Other [facility] Other 03-14-2023 11:20-0500 Respiratory rate 18 /min Candace Velvet Other [facility] Other 03-14-2023 11:20-0500 SaO2% (BldA) [Mass fraction] 97 % Candace Velvet Other [facility] Other 03-14-2023 11:20-0500 Systolic blood pressure 120 mm[Hg] Candace Velvet Other [facility] [employer] Other 02-02-2023 13:10-0400 Diastolic blood pressure 84 mm[Hg] Tim Alcaraz [facility] 02-02-2023 13:10-0400 Mean blood pressure 103 mm[Hg] Tim Alcaraz [facility] 02-02-2023 13:10-0400 Systolic blood pressure 140 mm[Hg] Tim Alcaraz [facility] 02-02-2023 13:00-0400 Blood Pressure Location Tim Alcaraz [facility] 02-02-2023 13:00-0400 Heart rate 82 /min Tim Alcaraz [facility] 02-02-2023 13:00-0400 SaO2% (BldA) [Mass fraction] 98 % Tim Alcaraz [facility] 02-02-2023 13:00-0400 Systolic blood pressure 144 mm[Hg] Tim Alcaraz [facility] 09-03-2022 16:50-0400 Body height 162.6 cm Jeyson Quiñones MD [facility] [employer] 09-03-2022 16:50-0400 Body mass index (BMI) [Ratio] 24.03 kg/m2 Jeyson Quiñones MD [facility] 09-03-2022 16:50-0400 Body temperature 98.2 [degF] Jeyson Quiñones MD [facility] [employer] 09-03-2022 16:50-0400 Body weight 63.5 kg Jeyson Quiñones MD [facility] [employer] 09-03-2022 16:50-0400 Diastolic blood pressure 76 mm[Hg] Jeyson Quiñones MD [facility] 09-03-2022 16:50-0400 Heart rate 92 /min Jeyson Quiñones MD [facility] 09-03-2022 16:50-0400 Respiratory rate 14 /min Jeyson Quiñones MD [facility] 09-03-2022 16:50-0400 SaO2% (BldA) [Mass fraction] 99 % Jeyson Quiñones MD [facility] 09-03-2022 16:50-0400 Systolic blood pressure 158 mm[Hg] Jeyson Quiñones MD [facility] 06-30-2022 14:06-0400 Body height 162.6 cm Cande Ramirez MD Work Phone: [facility] 06-30-2022 14:06-0400 Body weight 65.77 kg Cande Ramirez MD Work Phone: [facility] 01-10-2022 11:25-0400 Blood Pressure Location Karinmaxwell ABEL [facility] 01-10-2022 11:25-0400 Diastolic blood pressure 80 mm[Hg] Karin ABEL [facility] 01-10-2022 11:25-0400 Heart rate 77 /min Karin ABEL [facility] 01-10-2022 11:25-0400 Respiratory rate 18 /min Karin ABEL [facility] 01-10-2022 11:25-0400 SaO2% (BldA) [Mass fraction] 100 % Karin ABEL [facility] 01-10-2022 11:25-0400 Systolic blood pressure 125 mm[Hg] Karinmaxwell [facility] 11-15-2021 14:17-0400 Blood Pressure Location Tim Alcaraz [facility] 11-15-2021 14:17-0400 Diastolic blood pressure 74 mm[Hg] Tim Alcaraz [facility] 11-15-2021 14:17-0400 Heart rate 86 /min Tim Alcaraz [facility] 11-15-2021 14:17-0400 Respiratory rate 18 /min Tim Alcaraz [facility] 11-15-2021 14:17-0400 SaO2% (BldA) [Mass fraction] 100 % Tim Alcaraz [facility] 11-15-2021 14:17-0400 Systolic blood pressure 140 mm[Hg] Tim Alcaraz [facility] 06-27-2020 13:40-0500 Body weight 61.96 kg [facility] 06-27-2020 13:40-0500 BP Diastolic 67 mm[Hg] [facility] 06-27-2020 13:40-0500 BP Systolic 125 mm[Hg] [facility] 06-27-2020 13:40-0500 Height 162.6 cm [facility] 06-27-2020 13:40-0500 Pulse (Heart Rate) 91 /min [facility] 06-27-2020 13:40-0500 Pulse Oximetry 100 % [facility] 01-02-2020 16:16-0400 BP Diastolic 79 mm[Hg] [facility] [place] 01-02-2020 16:16-0400 BP Systolic 151 mm[Hg] [facility] [place] 01-02-2020 16:16-0400 Pulse Oximetry 100 % [facility] [place] 01-02-2020 15:34-0400 BMI (Body Mass Index) 23.03 kg/m2 [facility], [place] 01-02-2020 15:34-0400 Body Temperature 98.29 [degF] [facility], [place] 01-02-2020 15:34-0400 Body weight 58.97 kg [facility] [place] 01-02-2020 15:34-0400 Height 160 cm [facility] [place] 01-02-2020 15:34-0400 Pulse (Heart Rate) 102 /min [facility], [place] 01-02-2020 15:34-3700 Respiratory Rate 16 /min Sharla Richter [facility], [place] Encounters Encounter Date Encounter Type Care Provider Facility Start: 02-15-2024 End: 02-15-2024 Bamboo flowsheet Salima Navarrete PT [facility] Start: 02-15-2024 End: 02-15-2024 Bamboo flowsheet Salima Navarrete PT [facility] Start: 02-15-2024 End: 02-15-2024 ambulatory Salima Navarrete PT [facility] Comment on above: Trigger point with b ack pain (Primary Dx) Start: 02-08-2024 End: 02-08-2024 Bamboo flowsheet Salima Navarrete PT [facility] Start: 02-08-2024 End: 02-08-2024 Bamboo flowsheet Salima Navarrete PT [facility] Start: 02-08-2024 End: 02-08-2024 ambulatory Salima Navarrete PT [facility] Comment on above: Trigger point with b ack pain (Primary Dx) Start: 02-01-2024 End: 02-01-2024 Bamboo flowsheet Sulema Vazquez PT Work Phone: [facility] Start: 02-01-2024 End: 02-01-2024 Bamboo flowsheet Sulema Vazquez PT Work Phone: [facility] Start: 02-01-2024 End: 02-01-2024 ambulatory Sulema Vazquez PT Work Phone: [facility] Comment on above: Trigger point with b ack pain (Primary Dx) Start: 01-25-2024 End: 01-25-2024 Bamboo flowsheet Salima Navarrete PT [facility] Start: 01-25-2024 End: 01-25-2024 Bamboo flowsheet Salima Navarrete PT [facility] Start: 01-25-2024 End: 01-25-2024 ambulatory Salima Navarrete PT [facility] Comment on above: Trigger point with b ack pain (Primary Dx) Start: 01-21-2024 End: 01-21-2024 ambulatory KONSTANTIN CHAVES [facility] Ambulatory Start: 01-21-2024 End: 01-21-2024 Office outpatient new 45 minutes Konstantin Chaves MD Work Phone: [facility] Comment on above: Paroxysmal supravent ricular tachycardia (CMS-HCC) (Primary Dx); BMI 25.0-25.9,adult; Former smoker; Mild aortic regurgitation; Palpitations Start: 01-18-2024 End: 01-18-2024 ambulatory CORA Leticia DRAKE Not Available Start: 10-05-2023 End: 10-05-2023 ambulatory MEAGHAN SWEET Not Available Start: 09-21-2023 End: 09-21-2023 ambulatory MILTON A PETITTI Not Available Start: 09-08-2023 End: 09-08-2023 ambulatory MIRANDA NETTLES Not Available Start: 07-14-2023 End: 07-14-2023 ambulatory MEAGHAN SWEET Not Available Start: 06-22-2023 End: 06-22-2023 ambulatory MILTON A PETITTI Not Available Start: 03-23-2023 End: 03-23-2023 ambulatory MILTON A PETITTI Not Available Start: 03-14-2023 End: 03-14-2023 ambulatory Candace Verdin Other [facility] Other Start: 03-14-2023 Office outpatient vi sit 15 minutes Candace Verdin [facility] [place] Start: 03-10-2023 End: 03-10-2023 ambulatory MIRANDA NETTLES Not Available Start: 02-02-2023 End: 02-03-2023 ambulatory Tim Alcaraz Facility[facility] Start: 02-02-2023 End: 02-02-2023 Patient encounter procedure Tim Alcaraz [facility] Start: 01-12-2023 End: 01-13-2023 ambulatory Tim Alcaraz Facility:[facility] Start: 01-12-2023 End: 01-13-2023 Pre-admission assessment Tim Alcaraz [facility] Start: 01-12-2023 End: 01-12-2023 Patient encounter procedure Karin ABEL [facility] Start: 09-03-2022 End: 09-03-2022 Emergency department patient visit SHARLA RICHTER [facility] Start: 09-03-2022 End: 09-03-2022 Emergency department patient visit Jeyson Quiñones MD [facility] ED Comment on above: Pain of left calf (P rimary Dx) Start: 07-01-2022 ambulatory Pcp ([facility] Start: 07-01-2022 Telephone encounter Cande morgan MD Work Phone: [facility] [place] [facility] Comment on above: Medication Problem ( Prior Auth approved for Azelaic Acid 15% gel) Start: 06-30-2022 End: 07-01-2022 ambulatory VIVIAN ORTIZ Facility:[facility] Start: 06-30-2022 End: 06-30-2022 Patient encounter procedure Cande Ramirez MD Work Phone: [facility] [place] Comment on above: Hair loss (Primary D x); Seborrheic dermatitis; Ehrhardt; Inflamed seborrheic keratosis; Actinic keratosis; Acne rosacea, erythematous telangiectatic type Start: 06-30-2022 Telephone encounter Cande morgan MD Work Phone: [facility] [place] Comment on above: Medication Problem Start: 03-10-2022 End: 03-11-[address] MEAGHAN SWEET Facility:[facility] Start: 01-17-[address] VIVIAN ORTIZ Facility :[facility] Start: 01-10-2022 End: 01-10-2022 Patient encounter procedure Karin ABEL [facility] Start: 01-03-2022 End: 01-03-2022 Patient encounter procedure Tim Alcaraz [facility] Start: 12-06-2021 End: 12-06-2021 Patient encounter procedure Tim Alcaraz [facility] Start: 11-15-2021 End: 11-15-2021 Patient encounter procedure Tim Omalleykimberly [facility] Start: 06-27-2020 End: 06-27-2020 Patient encounter procedure Cande Reed Clintlinger Work Phone: [facility] [place] Comment on above: Acne rosacea; Hair thinning; Inflamed seborrheic keratosis; Actinic keratosis Start: 01-02-2020 End: 01-02-2020 Emergency department patient visit [facility] ED Comment on above: Bee sting reaction, accidental or unintentional, initial encounter (Primary Dx) Procedures Date Procedure Procedure Detail Performing Clinician Start: 01-21-2024 Ecg routine ecg w/le ast 12 lds w/i&r Konstantin Chaves MD Work Phone: Start: 10-05-2023 Microscopic observat ion [Identifier] in Cervix by Cyto stain Salima Navarrete PT Start: 02-16-2023 Mammography Salima Navarrete PT Start: 09-03-2022 Basic metabolic pane l calcium total Jeyson Quiñones MD Start: 03-10-2022 Mammography Konstantin dawkins MD Work Phone: Knee region structur e (body structure) Tim Alcaraz Comment on above: Left knee Tear Plan of Treatment Date Care Activity Detail Author Start: 09-09-2027 Screening for malign ant neoplasm of cervix [facility] Start: 02-24-2027 LIPID SCREEN LIPID SCREEN [facility] Start: 10-04-2026 Screening for malign ant neoplasm of cervix Pap Smear [facility] Start: 02-09-2026 Screening for malign ant neoplasm of colon [facility] Start: 09-27-2024 End: 09-27-2024 Patient encounter procedure 09/27/2024 9:50 AM EDT Office Visit [address] [place] [id number] Konstantin Chaves MD [address] [facility] [address] [place] [address] [facility] Start: 09-19-2024 End: 09-19-2024 Patient encounter procedure 09/19/2024 1:05 PM EDT Office Visit [facility] [address] [place] [address] Milton Wen MD [address] [place] [address] [facility] Start: 03-07-2024 End: 03-07-2024 ambulatory 03/07/2024 8:30 AM EST Treatment [facility] [address] [place] [address] Salima Navarrete, PT [facility] Start: 02-17-2024 Screening for malign ant neoplasm of breast Mammogram [facility] Start: 02-16-2024 End: 02-16-2024 Patient encounter procedure 02/16/2024 11:00 AM EDT Office Visit [facility] [address] [facility] [address] [place] [id number] Miranda Nettles, FUSION OPERATOR [address] [place] [address] [facility] Start: 02-15-2024 End: 02-15-2024 ambulatory 02/15/2024 8:30 AM EDT Treatment [facility] [address] [place] [address] Salima Navarrete, PT [facility] Start: 02-08-2024 End: 02-08-2024 ambulatory 02/08/2024 8:30 AM EDT Treatment [facility] [address] [place] [address] Salima Navarrete, PT [facility] Start: 02-01-2024 End: 02-01-2024 ambulatory [facility] Comment on above: Arrived Start: 01-25-2024 End: 01-25-2024 ambulatory 01/25/2024 11:00 AM EDT Evaluation [facility] [address] [place] [address] Salima Navarrete, PT Trigger point with back pain [facility] Comment on above: Trigger point with b ack pain Start: 12-20-2023 COVID-19 Vaccine ( season) COVID-19 Vaccine ( season) [facility] Start: 12-20-2023 Influenza vaccination Influenza Vacc ine (#1) [facility] Start: 07-01-2023 ANNUAL 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 Work Phone: Comment on above: Expected: 06/30/2022 , Expires: 08/30/2022 Start: 06-30-2022 End: 08-30-2022 Cobalamin (Vitamin B12) [Mass/volume] in Serum or Plasma [facility] Work Phone: Comment on above: Expected: 06/30/2022 , Expires: 08/30/2022 Start: 06-30-2022 End: 08-30-2022 Thyrotropin [Units/volume] in Serum or Plasma 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 DISEASE VISIT ANNUAL PCP TEAM CHRONIC DISEASE VISIT [facility] Start: 12-20-2019 Influenza vaccination [facility] [place] [place] Start: 11-10-2019 SHINGRIX VACCINE (2 of 2) SHINGRIX VACCINE (2 of 2) [facility] Start: 02-19-2018 Screening for malign ant neoplasm of colon [facility] Start: 02-19-2013 COLOGUARD (FIT-DNA) COLOGUARD (FIT-D NA) [facility] Start: 02-19-2013 Colonoscopy COLONOSCOPY [facility] Start: 02-19-2013 COLORECTAL CANCER SCREENING COLORECTAL CANCER SCREENING [facility] Start: 02-19-[address] COLONOGRAPHY [facility] Start: 02-19-2013 DIABETES SCREEN DIABETES SCREEN [facility] Start: 02-19-2013 FECAL OCCULT BLOOD FECAL OCCULT BLOO D [facility] Start: 02-19-2013 LIPID SCREEN LIPID SCREEN [facility] Start: 02-19-2013 SIGMOIDOSCOPY SIGMOIDOSCOPY [facility] Start: 2008 Mammography MAMMOGRAM [facility] Start: 02-19-1998 HPV TESTING HPV TESTING [facility] Start: 02-19-1990 DTaP/Tdap/Td Vaccine s (1 - Tdap) DTaP/Tdap/Td Vaccines (1 - Tdap) [facility] Start: 02-19-1989 PAP TESTING PAP TESTING [facility] Start: 02-19-1989 Screening for malign ant neoplasm of cervix [facility] Start: 02-19-1987 DTaP/Tdap/Td vaccine (1 - Tdap) DTaP/Tdap/Td vaccine (1 - Tdap) [facility] Start: 02-19-1987 Hepatitis B Vaccines (1 of 3 - 19+ 3-dose series) Hepatitis B Vaccines (1 of 3 - 19+ 3-dose series) [facility] Start: 02-19-1987 Urine microalbumin profile DTAP,TDAP,TD (1 - Tdap) [facility] Start: 02-19-1986 Diabetes mellitus screening Diabetes Screening [facility] Start: 02-19-1986 HEPATITIS C SCREENING HEPATITIS C [facility] Start: 02-19-1986 Hepatitis C screening Hepatitis C [facility] Start: 02-19-1986 HIV SCREENING HIV SCREENING [facility] Start: 02-19-1986 SPIROMETRY SPIROMETRY [facility] Start: 1980 Adult depression screening assessment DEPRESSION SCREENING [facility] Start: 02-19-1974 PNEUMOCOCCAL (1 - PCV) PNEUMOCOCCAL (1 - PCV) [facility] Start: 02-19-1974 Pneumococcal Vaccine : Pediatrics (0 to 5 Years) and At-Risk Patients (6 to 64 Years) (1 of 2 - PCV) Pneumococcal Vaccine: Pediatrics (0 to 5 Years) and At-Risk Patients (6 to 64 Years) (1 of 2 - PCV) [facility] Start: 02-19-1969 MMR Vaccines (1 of 1 - Standard series) MMR Vaccines (1 of 1 - Standard series) [facility] Start: 1968 COVID-19 VACCINE (#1) COVID-19 VACCI NE (#1) [facility] Start: 1968 HEPATITIS B (1 of 3 - 3-dose series) HEPATITIS B (1 of 3 - 3-dose series) [facility] Start: 1968 HIV screening HIV Screening [facility] Start: 1968 Lipid panel Lipid Panel [facility] Start: 1968 Screening for malign ant neoplasm of colon [facility] Start: 1968 Yearly Adult Physical Yearly Adult P hysical [facility] Immunizations Immunization Date Immunization Notes Care Provider Corry dai 09-15-2019 zoster vaccine recombinant [facility] 03-27-2019 zoster vaccine, unspecified formulation [facility] 03-21-2019 zoster vaccine recombinant Cande Ramirez MD Work Phone: [facility] NEGATED: Highlighted row has not occurred!02-02-2023 influenza virus vaccine, unspecified formulation Tim Alcaraz [facility] Payers Date Payer Category Payer Unknown [id number] 2021 Unknown [employer] FEP PPO [id number] 2021-Present [phone] [address] [place] [address] PPO [id number] 2018 Private Health Insurance AETJEAN NOE CHOICE POS II [id number] 2018-Present POS [id number] 2009 Managed Care HMO (unspecified) [id number] 2009 Private Health Insurance [id number] 2009 Private Health Insurance [id number] 1968 Unknown [id number] [id number] .593 1968 Unknown [id number] 2.16.840.1.591724.3.579.2 .593 1968 Unknown [id number] 2.16.840.1.380790.3.579.2 .173 1968 Unknown [id number] 2.16.840.1.340223.3.579.2 .727 1968 Unknown [id number] 2.16.840.1.742701.3.579.2 .727 1968 Unknown [id number] 2.16.840.1.201425.3.579.2 .1244 1968 Unknown [id number] 2.16.840.1.442235.3.579.2 .1259 1968 Unknown [id number] 2.16.840.1.700963.3.579.2 .1259 1968 Unknown [id number] 2.16.840.1.544062.3.579.2 .1259 1968 Unknown [id number] 2.16.840.1.413502.3.579.2 .1259 1968 Unknown [id number] 2.16.840.1.445183.3.579.2 .9 1968 Unknown [id number] 2.16.840.1.096256.3.579.2 .1259 1968 Unknown [id number] 2.16.840.1.538381.3.579.2 .9 1968 Unknown [id number] 2.16.840.1.174040.3.579.2 .9 1968 Unknown [id number] 2.16.840.1.191636.3.579.2 .9 1968 Unknown [id number] 2.16.840.1.486049.3.579.2 .9 1968 Unknown [id number] 2.16.840.1.775509.3.579.2 .9 1968 Unknown [id number] 2.16.840.1.419596.3.579.2 .1259 1959 Self-pay 1959 Unknown [id number] Social History Date Type Detail Facility Start: 01-02-2020 End: 08-25-2022 Tobacco smoking status MOIS Never smoker [place] Start: 01-02-2020 End: 08-25-2022 Tobacco use and exposure Never used [place] Start: 01-02-2020 End: 01-18-2024 Alcohol intake Current drinker of alcohol (finding) [place] Start: 01-02-2020 Alcohol Comment occasionaly [place] Start: 1970 Sex Assigned At Not on file [place] Start: 06-27-2020 End: 01-21-2024 Tobacco smoking status MOIS Former smoker [facility] End: 03-31-2012 History of tobacco use Current smoker [facility] Start: 06-27-2020 Alcohol Comment WINE ONCE A MONTH [facility] Start: 01-11-2024 End: 01-21-2024 Exposure to SARS-CoV-2 (event) Not sure [facility] Tobacco smoking status No Smokin g Status Entered [facility] Start: 09-08-2023 End: 10-05-2023 Sex Assigned At Female [facility] End: 03-31-2012 History of tobacco use Cigarette Smoker [facility] Start: 09-03-2022 History SDOH Alcohol Frequency 1 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 Yes [facility] Are you now , , , , never or living with a partner? [facility] How often to you hav e a drink containing alcohol? Monthly or less [facility] How many standard dr inks containing alcohol do you have on a typical day? 1 or 2 [facility] How often do you hav e 6 or more drinks on 1 occasion? Never [facility] Do you feel stress - tense, restless, nervous, or anxious, or unable to sleep at night because your mind is troubled all the time - these days [OSQ] Only a little [facility] (I/We) worried wheth er (my/our) food would run out before (I/we) got money to buy more. Never true [facility] In the past 12 month s, was there a time when you were not able to pay the mortgage or rent on time? No [facility] Start: 08-25-2022 Alcohol Comment Frequency: Monthly or less; Caffeine: 1 energy drink daily [facility] Functional Status Date Assessment Result Facility 02-02-2023 Functional Status No [facility] 01-10-2022 Functional Status N/A [facility] 11-15-2021 Functional Status N/A [facility] Clinical Notes 12-28-2019 to 02-15-2024 Salima Navarrete, PT - 02/15/2024 8:30 AM Josef Navarrete, PT - 02/08/2024 8:30 AM Michael Vazquez, PT - 02/01/2024 8:00 AM Rene Chaves MD - 01/21/2024 9:50 AM EDT Note Date & Type Note Facility 02-15-2024 History of Present illness Narrative Physical Therapy Treatment Visit Patient Name: Gwyn Garcia Today's Date: 02/15/2024 Encounter Diagnoses Name Primary? Trigger point with back pain Yes Visit number: 4 Timed Code Treatment Minutes: 54 minutes Total Treatment Time: 54 minutes Time In: 829 Time Out: 931 History: Pt states she has been having pain in low back and right hip for quite some time. Pt states she has been doing massage, chiropractor, and stretching with min relief. States she was given an injection in her right low back which helped some but states she has also been noticing aching in bilateral LE's which has not changed. Having trouble sleeping. Pt states at the end of her work day, the aching in bilateral thighs is really bad. 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 Has a heel lift for right shoe and states it helps when she uses it. States she has to lift a lot at work also, expectation is anything under 75lbs. Precautions: [place] Subjective: Pt states she replaced mattress last week. Back has felt better in the morning. Still gets aching in bilateral thighs throughout the day and during the night hours. Cupping last session helped back pain. Pain: 07/28 Objective: PT Evaluation (01/25/2024) LUMBAR SPINE AROM: full flexion without ERP, extension full without ERP, bilateral SB full without ERP Joint play: hypermobility noted lower lumbar region Strength: bilateral hips 4-/5, quads and ankle DF 4+/5; core strength is good/fair Palpation: mild to moderate tenderness bilateral lumbar paraspinals Special Test: increase low back pain noted with right Slump Testing Neurological: Reflexes: 2+ bilateral patellar Myotomes: negative bilateral Dermatomes: negative bilateral Special Test: negative clonus Treatment: Education: HEP education with demonstration, Educated on Eval Findings and POC Manual Therapy: (12 minutes) Passive ROM, Joint mobilization, Soft Tissue Mobilization, Myofascial Release, Muscle Energy Technique, Neural Mobilization, Myofascial Cupping, Dry Needling, IASTM, and Scar mobilization as needed. MFD with one cup sliding and static placement to lumbar region. Performed stretches with cups in place. Therapeutic Exercise: (42 minutes) Strength, Endurance, Flexibility, ROM, HEP, Neural Mobilization, Power, and Core Stability as needed. Reviewed HEP and issued pictures this date. Added tband ex and issued bands and pictures for home program. Therapeutic Activity: Exercises to improve dynamic activities, functional tasks, functional mobility to return to prior activity level as needed. Neuromuscular re-education: Balance Training, Muscle Facilitation, Dynamic Stability, Core Stabilization, and Blood Flow Restriction Training (BFRT) as needed. Modalities: Heat, Ice, Electrical Stimulation, Ultrasound, Cervical Mechanical Traction, Lumbar Mechanical Traction, Iontophoresis, and Fluidotherapy as needed. Assessment: Pt has completed 4 PT sessions for low back pain and tightness. Pt with 4/5 strength left hip, 4-/5 right hip. Core strength if good/fair. Will re-assess in 2-3 weeks; pt to continue with HEP. Outcome Measure: Back Index: 15/50 Rehab Diagnosis: low back pain Short Term Goal: To be met in 2 weeks Goal 1: Pt to be instructed in home exercise program. It Support Consultant Goals: To be met in 10 weeks Goal 1: Pt to report independence and compliance with home program. Goal 2: Pt to have full trunk ROM without complaints of increase pain at end ranges to assist with functional tasks. Goal 3: Pt to report pain no greater than 1/10 with function tasks, ADL's, and work related activities. Goal 4: Pt to score no greater than 4/50 on Back Index indicating improved QOL. Goal 5: Pt to demo good core strength for improved strength and lumbar stability. Pt will benefit from skilled PT for 2x/week from 01/25/2024 to 04/04/2024 to address the above impairments. I hereby deem this POC medically necessary. Please sign below. Date: documented in this encounter [facility] 02-08-2024 History of Present illness Narrative Physical Therapy Evaluation Visit Patient Name: Gwyn Garcia Today's Date: 02/08/2024 Encounter Diagnoses Name Primary? Trigger point with back pain Yes Visit number: 3 Timed Code Treatment Minutes: 47 minutes Total Treatment Time: 57 minutes Time In: 829 Time Out: 930 History: Pt states she has been having pain in low back and right hip for quite some time. Pt states she has been doing massage, chiropractor, and stretching with min relief. States she was given an injection in her right low back which helped some but states she has also been noticing aching in bilateral LE's which has not changed. Having trouble sleeping. Pt states at the end of her work day, the aching in bilateral thighs is really bad. 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 Has a heel lift for right shoe and states it helps when she uses it. States she has to lift a lot at work also, expectation is anything under 75lbs. Precautions: [place] Subjective: Pt reports getting a massage over the weekend which has helped quite a bit. Still has aching in LE's at night. Continues to feel tightness in back when trying to lift at work. Pain: /10 Objective: PT Evaluation (01/25/2024) LUMBAR SPINE AROM: full flexion without ERP, extension full without ERP, bilateral SB full without ERP Joint play: hypermobility noted lower lumbar region Strength: bilateral hips 4-/5, quads and ankle DF 4+/5; core strength is good/fair Palpation: mild to moderate tenderness bilateral lumbar paraspinals Special Test: increase low back pain noted with right Slump Testing Neurological: Reflexes: 2+ bilateral patellar Myotomes: negative bilateral Dermatomes: negative bilateral Special Test: negative clonus Treatment: Education: HEP education with demonstration, Educated on Eval Findings and POC Manual Therapy: (12 minutes) Passive ROM, Joint mobilization, Soft Tissue Mobilization, Myofascial Release, Muscle Energy Technique, Neural Mobilization, Myofascial Cupping, Dry Needling, IASTM, and Scar mobilization as needed. MFD with one cup sliding and static placement to lumbar region. Performed stretches with cups in place. Therapeutic Exercise: (35 minutes) Strength, Endurance, Flexibility, ROM, HEP, Neural Mobilization, Power, and Core Stability as needed. Progressed core strengthening ex this date with good daxa. Therapeutic Activity: Exercises to improve dynamic activities, functional tasks, functional mobility to return to prior activity level as needed. Neuromuscular re-education: Balance Training, Muscle Facilitation, Dynamic Stability, Core Stabilization, and Blood Flow Restriction Training (BFRT) as needed. Modalities: Heat, Ice, Electrical Stimulation, Ultrasound, Cervical Mechanical Traction, Lumbar Mechanical Traction, Iontophoresis, and Fluidotherapy as needed. CP to lumbar in prone at end of treatment x 10 minutes Assessment: Pt has completed 3 PT sessions for low back pain and tightness. Added core strengthening this date; core strength is good/fair. Bilateral hip strength 4-/5. Will continue to progress as pt tolerates. Outcome Measure: Back Index: 15/50 Rehab Diagnosis: low back pain Short Term Goal: To be met in 2 weeks Goal 1: Pt to be instructed in home exercise program. Fdc Goals: To be met in 10 weeks Goal 1: Pt to report independence and compliance with home program. Goal 2: Pt to have full trunk ROM without complaints of increase pain at end ranges to assist with functional tasks. Goal 3: Pt to report pain no greater than 1/10 with function tasks, ADL's, and work related activities. Goal 4: Pt to score no greater than 4/50 on Back Index indicating improved QOL. Goal 5: Pt to demo good core strength for improved strength and lumbar stability. Pt will benefit from skilled PT for 2x/week from 01/25/2024 to 04/04/2024 to address the above impairments. I hereby deem this POC medically necessary. Please sign below. Date: documented in this encounter [facility] 02-01-2024 History of Present illness Narrative Physical Therapy Evaluation Visit Patient Name: Gwyn Garcia Today's Date: 02/01/2024 Encounter Diagnoses Name Primary? Trigger point with back pain Yes Visit number: 2 Timed Code Treatment Minutes: 42 minutes Total Treatment Time: 52 minutes Time In: 0800 Time Out: 0852 History: Pt states she has been having pain in low back and right hip for quite some time. Pt states she has been doing massage, chiropractor, and stretching with min relief. States she was given an injection in her right low back which helped some but states she has also been noticing aching in bilateral LE's which has not changed. Having trouble sleeping. Pt states at the end of her work day, the aching in bilateral thighs is really bad. 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 Has a heel lift for right shoe and states it helps when she uses it. States she has to lift a lot at work also, expectation is anything under 75lbs. Precautions: [place] Subjective: No change in her back pain. C/c is back feel really tight. Pain: 4-5/10 Objective: PT Evaluation (01/25/2024) LUMBAR SPINE AROM: full flexion without ERP, extension full without ERP, bilateral SB full without ERP Joint play: hypermobility noted lower lumbar region Strength: bilateral hips 4-/5, quads and ankle DF 4+/5; core strength is good/fair Palpation: mild to moderate tenderness bilateral lumbar paraspinals Special Test: increase low back pain noted with right Slump Testing Neurological: Reflexes: 2+ bilateral patellar Myotomes: negative bilateral Dermatomes: negative bilateral Special Test: negative clonus Treatment: Education: HEP education with demonstration, Educated on Eval Findings and POC Manual Therapy: (14 minutes) Passive ROM, Joint mobilization, Soft Tissue Mobilization, Myofascial Release, Muscle Energy Technique, Neural Mobilization, Myofascial Cupping, Dry Needling, IASTM, and Scar mobilization as needed. IDN to right L 3/4/5, piriformis 2x with static placement (5 mins) no charge Therapeutic Exercise: (25 minutes) Strength, Endurance, Flexibility, ROM, HEP, Neural Mobilization, Power, and Core Stability as needed. Pt instructed in and performed home program with good pt understanding. Discussed frequent standing trunk extension ex; following trunk flexion and activities and when getting out of car. Therapeutic Activity: Exercises to improve dynamic activities, functional tasks, functional mobility to return to prior activity level as needed. Neuromuscular re-education: Balance Training, Muscle Facilitation, Dynamic Stability, Core Stabilization, and Blood Flow Restriction Training (BFRT) as needed. Modalities: Heat, Ice, Electrical Stimulation, Ultrasound, Cervical Mechanical Traction, Lumbar Mechanical Traction, Iontophoresis, and Fluidotherapy as needed. CP to lumbar in prone at end of treatment x 10 minutes Assessment: Pt is 53 y/o female with complaints of low back pain and bilateral quad pain. No reproduction of LE sx's noted during eval. Continues to demonstrate increase right piriformis and lumbar paraspinal muscle tightness. DN today to help improve muscle flexibility. Outcome Measure: Back Index: 15/50 Rehab Diagnosis: low back pain Short Term Goal: To be met in 2 weeks Goal 1: Pt to be instructed in home exercise program. It Support Consultant Goals: To be met in 10 weeks Goal 1: Pt to report independence and compliance with home program. Goal 2: Pt to have full trunk ROM without complaints of increase pain at end ranges to assist with functional tasks. Goal 3: Pt to report pain no greater than 1/10 with function tasks, ADL's, and work related activities. Goal 4: Pt to score no greater than 4/50 on Back Index indicating improved QOL. Goal 5: Pt to demo good core strength for improved strength and lumbar stability. Pt will benefit from skilled PT for 2x/week from 01/25/2024 to 04/04/2024 to address the above impairments. I hereby deem this POC medically necessary. Please sign below. Date: documented in this encounter [facility] 01-21-2024 History of Present illness Narrative Cardiology Consultation- New Consult Reason for referral: Self-referral for tachycardia HPI: Gwyn Garcia is a 53 y.o. female who had previously followed with Dr. Gutierrez. When asked why she was following with them she did not know much about her cardiac history. Reviewing the records including notes from Dr. Gutierrez indicated that she had history of mild aortic regurgitation with previous cardiac MRI revealing the same. Her main concern though seem to be tachycardia that comes infrequently but when it comes it is very severe and her watch tells her heart rate of 180 bpm with the last episode several days ago lasting for 20 minutes. This is highly suggestive of PSVT. She has no previous syncope or chest pain, echocardiogram she had done earlier this year revealed normal ejection fraction and normal cardiac size and function with mild aortic regurgitation. Her examination revealed no cardiac murmurs. Her EKG revealed normal sinus rhythm and no abnormalities. She has no other significant medical history whatsoever. She is non-smoker nondrinker and her caffeine consumption is normal. 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 Review of system was essentially unremarkable and examination was normal. Assessment/recommendations: 1-clinical history highly suggestive of PSVT. The events are sporadic and not frequent. Maneuvered to and PSVT was explained in detail to the patient. Will be provided with metoprolol tartrate 25 mg to be used as needed. Avoiding caffeine and alcohol was recommended. She was advised to check into the closest facility to get EKG should this event recur. An event monitor that was carried previously did not capture these events. We discussed about the ablation if this becomes recurrent and captured on EKG. She understands and is going to follow my recommendations. 2-mild aortic regurgitation based on echocardiogram and MRI. Last echocardiogram was done at [facility] January 12, 2023. I will try to pull the echo video for my review. Past Medical History: She has no past medical history on file. Surgical History: She has a past surgical history that includes Patella fracture surgery (Left). Family History: Family History Problem Relation Name Age of Onset Hyperlipidemia Mother Heart attack Father Hyperlipidemia Father Hyperlipidemia Sister Social History: Social History Tobacco Use Smoking status: Former Types: Cigarettes Smokeless tobacco: Never Substance Use Topics Alcohol use: Yes Comment: rarely Allergies: Bee venom protein (honey bee), Meloxicam, Trazodone, and Cyclobenzaprine Current Medications: Current Outpatient Medications: SEMAGLUTIDE SUBQ, Inject under the skin., Disp: , Rfl: metoprolol tartrate (Lopressor) 25 mg tablet, Take one tablet for palps/fast heart rate. Do no exceed more then 2 tablets a day, Disp: 30 tablet, Rfl: 1 Vitals: Vitals: 01/21/24 1010 01/21/24 1011 BP: 136/84 134/82 BP Location: Left arm Left arm Patient Position: Sitting Sitting Pulse: 87 Weight: 66.2 kg (146 lb) Height: 1.626 m (5' 4 ) Review of Systems Cardiovascular: Positive for irregular heartbeat. Neurological: Positive for dizziness and headaches. All other systems reviewed and are negative. Objective Physical Exam Constitutional: Appearance: Normal appearance. HENT: Nose: Nose normal. Neck: Vascular: No carotid bruit. Cardiovascular: Rate and Rhythm: Normal rate. Pulses: Normal pulses. Heart sounds: Normal heart sounds. Pulmonary: Effort: Pulmonary effort is normal. Abdominal: General: Bowel sounds are normal. Palpations: Abdomen is soft. Musculoskeletal: General: Normal range of motion. Cervical back: Normal range of motion. Right lower leg: No edema. Left lower leg: No edema. Skin: General: Skin is warm and dry. Neurological: General: No focal deficit present. Mental Status: She is alert. Psychiatric: Mood and Affect: Mood normal. Behavior: Behavior normal. Thought Content: Thought content normal. Judgment: Judgment normal. Assessment and Plan: 1. Paroxysmal supraventricular tachycardia (CMS-HCC) Follow Up In Cardiology ECG 12 Lead metoprolol tartrate (Lopressor) 25 mg tablet 2. BMI 25.0-25.9,adult 3. Former smoker Scribe Attestation By signing my name below, Puja Pemberton LPN , Scribe attest that this documentation has been prepared under the direction and in the presence of Konstantin Chaves MD. Provider Attestation - Scribe documentation All medical record entries made by the Scribe were at my direction and personally dictated by me. I have reviewed the chart and agree that the record accurately reflects my personal performance of the history, physical exam, discussion and plan. documented in this encounter [facility] Work Phone: 01-21-2024 Instructions Puja Clinton LPN - 01/21/2024 9:50 AM EDT Please bring all medicines, vitamins, and herbal supplements with you when you come to the office. Prescriptions will not be filled unless you are compliant with your follow up appointments or have a follow up appointment scheduled as per instruction of your physician. Refills should be requested at the time of your visit. BMI was above normal measurement. Current weight: 66.2 kg (146 lb) Weight change since last visit (-) denotes wt loss 146 lbs Weight loss needed to achieve BMI 25: 0.7 Lbs Weight loss needed to achieve BMI 30: -28.4 Lbs Provided instructions on dietary changes. PSVT DISCUSSED 6 months Metoprolol as needed documented in this encounter [facility] Work Phone: 03-14-2023 Evaluation note Encounter Date Diagnosis Assessment Notes Feb, Body aches (ICD-10 - R52) Feb, Nausea and vomiting, unspecified vomiting type (ICD-10 - R11.2) Nausea and vomiting: adult material was printed Drink plenty fluids, get plenty of rest. Continue to take your Zofran for nausea. It is highly recommended that you go to the ER today for further evaluation of your abdominal pain and nausea and vomiting. Patient failed a fluid challenge at home after taking Zofran. Patient states she has not kept any fluids down at all today. It is recommended that the patient go to the ER for further evaluation and treatment Feb, Epigastric abdominal pain (ICD-10 - R10.13) [facility] Other 09-26-2023 NoteEchocardiology Procedure Exam Date/Time Accession # Ordering Dr. Grover Transthoracic 01/12/2023 13:48 EDT [id number] Karin ABEL CNP Complete CPT code 64438 [id number] Reason for Exam (Echo Transthoracic Complete) Congenital heart problems;I35.1 Report Version: 1 Study ID: [id number] [id number] Adult Echocardiogram Report Name: GWYN GARCIA Study Date: 01/12/2023, 1: 08 PM Patient Location: [facility] : 1970 (MM/DD/YYYY) Gender: Female Age: 52 Years Height: 162.56 cm BP: 127 / 78 mmHg Weight: 65.318 kg HR: 70 bpm BSA: 1.70 m? Ordering Physician: Karin ABEL Referring Physician: Karin ABEL Performed By: Barbara Zheng RDCS Reason For Study: Congenital heart problems History: Aortic regurgitation Interpretation Summary Ejection Fraction = 60-65%. Normal LV and RV. Mild AI, MR, TR. Normal estimated PA pressure. Normal diastolic filling pattern. Procedure A complete two-dimensional transthoracic echocardiogram was performed (2D, M- mode, spectral and color flow Doppler). Study quality is good. Left Ventricle The left ventricle is normal in size. There is normal left ventricular wall thickness. Ejection Fraction = 60-65%. The left ventricular wall motion is normal. Normal diastolic function. Left Atrium The left atrial size is normal. Echocardiology Report Right Atrium Right atrial size is normal. Right Ventricle The right ventricular systolic function is normal. The right ventricle is normal size. The right ventricular wall motion is normal. Aortic Valve The aortic valve is trileaflet. Mild aortic regurgitation. There is no aortic stenosis. Mitral Valve The mitral valve is normal in structure and function. There is mild mitral regurgitation. No mitral valve stenosis. Tricuspid Valve Structurally normal tricuspid valve. Right ventricular systolic pressure is normal. There is mild tricuspid regurgitation. Pulmonic Valve No evidence of stenosis. There is no pulmonic valve regurgitation. Arteries The aortic root is normal in size. Normal ascending aorta. Pulmonary artery diameter is normal. Venous The inferior vena cava is normal in size, and collapses normally with respiration. Effusion There is no pericardial effusion. Left Ventricle IVSd: 0.93 cm LVIDd: 4.4 cm LVPWd: 0.83 cm LVIDs: 3.1 cm EDV(MOD-sp4): 86.6 ml LVLd ap4: 7.8 cm ESV(MOD-sp4): 36.6 ml LVLs ap4: 6.2 cm EDV(MOD-sp2): 111.0 ml LVLd ap2: 7.7 cm ESV(MOD-sp2): 42.7 ml LVLs ap2: 6.3 cm Right Ventricle TAPSE: 2.06 cm Aortic Valve AI max amy: 366.7 cm/sec AI max P.9 mmHg AI dec slope: 276.3 cm/sec? LV V1 mean P.1 mmHg LV V1 mean: 83.8 cm/sec LV V1 VTI: 24.6 cm Ao V2 VTI: 27.8 cm Ao mean P.5 mmHg Ao V2 mean: 87.8 cm/sec LV V1 max: 115.9 cm/sec LV V1 max P.4 mmHg Ao max P.0 mmHg Ao V2 max: 132.3 cm/sec Mitral Valve MV P1/2t-pr_phl: 52.6 msec Tricuspid Valve TR max P.4 mmHg TR max amy: 247.0 cm/sec Aorta Ao root diam: 2.9 cm asc Aorta Diam: 3.0 cm Echocardiology Report Atria LA dimension: 3.2 cm Diastolic funtion MV dec slope: 475.3 cm/sec? Med Peak E' Amy: 8.1 cm/sec Lat Peak E' Amy: 10.7 cm/sec MV dec time: 0.18 sec MV E max amy: 85.3 cm/sec MV A max amy: 70.6 cm/sec AI dec slope: 276.3 cm/sec? AI max P.9 mmHg AI max amy: 366.7 cm/sec AI P1/2t: 388.7 msec Ao max P.0 mmHg Ao mean P.5 mmHg Ao root area: 6.8 cm? Ao root diam: 2.9 cm Ao V2 max: 132.3 cm/sec Ao V2 mean: 87.8 cm/sec Ao V2 VTI: 27.8 cm AV P1/2t-pr: 389.4 msec AV VR: 0.86 EDV(MOD-sp4): 86.6 ml EDV(Teich): 89.0 ml EF(MOD-sp4): 57.7 % EF(Teich): 56.4 % ESV(MOD-sp4): 36.6 ml ESV(Teich): 38.8 ml FS: 29.3 % IVC Diam: 1.58 cm IVSd: 0.93 cm LA dimension: 3.2 cm LV V1 max: 115.9 cm/sec LV V1 max P.4 mmHg LV V1 mean: 83.8 cm/sec LV V1 mean P.1 mmHg LV V1 VTI: 24.6 cm LVIDd: 4.4 cm LVIDs: 3.1 cm LVLd ap4: 7.8 cm LVLs ap4: 6.2 cm LVPWd: 0.83 cm MV A max amy: 70.6 cm/sec MV dec slope: 475.3 cm/sec? MV dec time: 0.18 sec MV E max amy: 85.3 cm/sec MV E/A: 1.21 MV P1/2t-pr_phl: 52.6 msec RAP systole: 3.0 mmHg RVDd: 3.1 cm RVIDd/LVIDd: 0.70 RVSP(TR): 27.4 mmHg SV(MOD-sp4): 50.0 ml TAPSE: 2.06 cm TR max P.4 mmHg TR max amy: 247.0 cm/sec Echocardiology Report asc Aorta Diam: 3.0 cm E/E' Lat: 8.0 E/E' Med: 10.6 EDV(MOD-sp2): 111.0 ml EF (MOD-bp): 59.4 % EF(MOD-sp2): 61.5 % ESV(MOD-sp2): 42.7 ml LA Vol Index: 24.4 ml/m? Lat Peak E' Amy: 10.7 cm/sec LVLd ap2: 7.7 cm LVLs ap2: 6.3 cm Med Peak E' Amy: 8.1 cm/sec Electronically signed by: Tim Alcaraz MD 01/13/2023, 8: 48 AM FINAL REPORT Dictated: 01/12/2023 1:08 pm Tim Alcaraz MD Signed (Electronic Signature): 12/20 (more content not included)...[facility]05-17-2023 Hospital Discharge instructions* Discharge Instructions * Jeyson Quiñones MD - 09/03/2022 6:05 PM EDT Return to the ED for increasing pain, changes in strength or sensation or any other concerns. At this time there is no evidence of a blood clot. However, persistent or worsening symptoms may require ultrasound imaging. OTC pain medications can be used as needed (according to the instructions on the box) for pain control. * Attachments The following attachments cannot be sent through Care Everywhere. * Leg Pain (Cambodian) documented in this encounterBON [facility] Phone: [phone] Miscellaneous Notes* Telephone Encounter - Rachel Church MA - 07/01/2022 2:45 PM EDT Images from the original note were not included. Prior Auth approved for Azelaic Acid (Finacea) 15% gel. Rachel Church MA documented [facility] NotePatient Outreach ([facility]) GWYN GARCIA ([id number]) 1970 F Date Time Provider Department 07/01/22 PCP (HISTORICAL) [facility] During your visit today, we recorded the following information about you: Eneida De 07/01/2022 11:54 AM Signed POPULATION HEALTH NAVIGATION OUTREACH Action/FYI Pt requested she will call back Patient Identified by Name and : YES, via phone Outreach Outcome/Action Spoke to patient / parent / legal guardian: Patient will return the call or ask for return call Did you use a PCP flex slot to schedule this appointment? No Reason for Outreach Care Gap or Scheduling/Wellness visits Payer: Payor: COMFORT / Plan: COMFORT BCBS FEP PPO / Product Type: PPO / Care Gap Reviewed:: Specialty Scheduling Reminder: Reminder note to check Health Maintenance for items below Health Maintenance items due: HEPATITIS B(1 of 3 - 3-dose series) Never done COVID-19 VACCINE(1) Never done PNEUMOCOCCAL(1 - PCV) Never done SPIROMETRY Never done HEPATITIS C SCREENING Never done HIV SCREENING Never done DTAP,TDAP,TD(1 - Tdap) Never done PAP TESTING Never done HPV TESTING Never done MAMMOGRAM Never done DIABETES SCREEN Never done COLORECTAL CANCER SCREENING Never done INFLUENZA(1) Never done DEPRESSION ASSESSMENT Never done Navigation Signature: Eneida De July 01, 2022 11:54 AM Allergies As of Date: 07/01/2022 Noted Allergy Reaction BEE VENOM PROTEIN (HONEY BEE) 06/27/2020 7 - Swelling TRAZODONE 03/03/2022 4 - Hives 16 - Unknown CYCLOBENZAPRINE 05/09/2019 14 - Other: See Comments Date Reviewed: 06/30/2022 Reviewed by: Cande Ramirez MD - Fully Assessed Prescriptions as of 07/01/2022 - Minoxidil 5 % foam Apply to affected area once daily. - Fluorouracil 0.5 % cream Apply to affected area once daily. Use for 2 weeks on nose, if not much of a reaction then continue for 2 additional weeks, not to exceed 4 weeks. - Azelaic Acid (FINACEA) 15 % gel Apply bid to face - fluticasone (FLONASE) 50 mcg/actuation nasal spray Use 2 Sprays in each nostril once daily. - albuterol HFA (PROVENTIL HFA, VENTOLIN HFA) 90 mcg/actuation inhaler INHALE 2 PUFFS BY MOUTH EVERY 4 HOURS - cyanocobalamin (VITAMIN B-12) 100 mcg tab Take 100 mcg by mouth once daily. - Ascorbic Acid (VITAMIN C) 100 mg tablet Take 100 mg by mouth once daily. - ergocalciferol, vitamin D2, (VITAMIN D2 ORAL) Take by mouth. Problem List As Of Date 07/01/2022 Noted Resolved Bee sting allergy [Z91.030] Vitamin D deficiency [E55.9] Seasonal allergic rhinitis due to pollen [J30.1] Exercise-induced asthma [J45.990] B12 deficiency [E53.8] Acne rosacea, erythematous telangiectatic type * Inflamed seborrheic keratosis [L82.0] Actinic keratosis [L57.0] Hair thinning [L65.9] Mild aortic valve regurgitation [I35.1] 10/30/2020 Encounter Status:Closed by ENEIDA DE on 07/01/22[facility] 07-01-2022 NoteHNO ID: [id number] Author: Eneida De Service: ? Author Type: ? Type: Progress Notes Filed: 07/01/2022 11:54 AM Note Text: POPULATION HEALTH NAVIGATION OUTREACH Action/FYI Pt requested she will call back Patient Identified by Name and : YES, via phone Outreach Outcome/Action Spoke to patient / parent / legal guardian: Patient will return the call or ask for return call Did you use a PCP flex slot to schedule this appointment? No Reason for Outreach Care Gap or Scheduling/Wellness visits Payer: Payor: COMFORT / Plan: COMFORT FLOYD FEP PPO / Product Type: PPO / Care Gap Reviewed:: Specialty Scheduling Reminder: Reminder note to check Health Maintenance for items below Health Maintenance items due: HEPATITIS B(1 of 3 - 3-dose series) Never done COVID-19 VACCINE(1) Never done PNEUMOCOCCAL(1 - PCV) Never done SPIROMETRY Never done HEPATITIS C SCREENING Never done HIV SCREENING Never done DTAP,TDAP,TD(1 - Tdap) Never done PAP TESTING Never done HPV TESTING Never done MAMMOGRAM Never done DIABETES SCREEN Never done COLORECTAL CANCER SCREENING Never done INFLUENZA(1) Never done DEPRESSION ASSESSMENT Never done Navigation Signature: Eneida De July 01, 2022 11:[address] [facility]03-14-2023 History of Present illness Narrative* Eneida De - 07/01/2022 11:53 AM EDT POPULATION HEALTH NAVIGATION OUTREACH Action/FYI Pt requested she will call back Patient Identified by Name and : YES, via phone Outreach Outcome/Action Spoke to patient / parent / legal guardian: Patient will return the call or ask for return call Did you use a PCP flex slot to schedule this appointment? No Reason for Outreach Care Gap or Scheduling/Wellness visits Payer: Payor: COMFORT / Plan: COMFORT [employer] FEP PPO / Product Type: PPO / Care Gap Reviewed:: Specialty Scheduling Reminder: Reminder note to check Health Maintenance for items below Health Maintenance items due: HEPATITIS B(1 of 3 - 3-dose series) Never done COVID-19 VACCINE(1) Never done PNEUMOCOCCAL(1 - PCV) Never done SPIROMETRY Never done HEPATITIS C SCREENING Never done HIV SCREENING Never done DTAP,TDAP,TD(1 - Tdap) Never done PAP TESTING Never done HPV TESTING Never done MAMMOGRAM Never done DIABETES SCREEN Never done COLORECTAL CANCER SCREENING Never done INFLUENZA(1) Never done DEPRESSION ASSESSMENT Never done Navigation Signature: Eneida De July 01, 2022 11:54 AM documented in this encounterCommunity [facility]03-[facility]23 Miscellaneous Notes* Telephone Encounter - Cande Ramirez MD - 07/01/2022 9:03 AM EDT New Rx for the 5% sent but will be once daily. * Telephone Encounter - Estefania Harvey - 06/30/2022 3:38 PM EDT [facility] [phone] can't order minoxidil 2% but has the 5%. Please advise pharmacy on what to fill for patient. documented in this encounterCommunity [facility]03-13-[facility]23 NoteHNO ID: [id number] Author: Cande Ramirez MD Service: ? Author Type: Physician Type: Progress Notes Filed: 06/30/2022 4:06 PM Note Text: Patient presents with: Derm Problem: Lesion on face Hair Loss: Requesting medication to help hair loss Rx: Minoxidil HPI: Gwyn Garcia, 52 year old female, presents in the office today for 2-3 year history of hair loss. She states worst when she washes her hair. She would like to try minoxidil. She has an appointment with dermatology at [facility] for consultation. She also has a lesion on the left side of her nose that is flaky and comes and goes. She also has a lesion on her right forearm that she would like evaluated. She also asked about a freeze lesion on her fourth toe. She has a history of telangiectatic rosacea and face that was prescribed to her but it was too expensive. She wonders if there is a less expensive alternative. She had blood work in February ordered by her PCP. It was a lipid panel and a CMP. PAST MEDICAL HISTORY Diagnosis Date Acne rosacea, erythematous telangiectatic type Actinic keratosis B12 deficiency Bee sting allergy Exercise-induced asthma Hair thinning Inflamed seborrheic keratosis Mild aortic valve regurgitation 10/30/2020 Followed by cardiology/Dr. Allen Seasonal allergic rhinitis due to pollen Vitamin D deficiency Current Outpatient Medications on File Prior to Visit Medication Sig fluticasone (FLONASE) 50 mcg/actuation nasal spray Use 2 Sprays in each nostril once daily. albuterol HFA (PROVENTIL HFA, VENTOLIN HFA) 90 mcg/actuation inhaler INHALE 2 PUFFS BY MOUTH EVERY 4 HOURS cyanocobalamin (VITAMIN B-12) 100 mcg tab Take 100 mcg by mouth once daily. Ascorbic Acid (VITAMIN C) 100 mg tablet Take 100 mg by mouth once daily. ergocalciferol, vitamin D2, (VITAMIN D2 ORAL) Take by mouth. ketoconazole (NIZORAL) 2 % cream Apply to affected area around creases of nose 1-2 times daily as needed (Patient not taking: Reported on 06/30/2022) brimonidine (MIRVASO) 0.33 % glwp Apply a pea sized amount to the ENTIRE face qam (Patient not taking: Reported on 06/30/2022) No current facility-administered medications on file prior to visit. Allergies: Bee Venom Protein (* Swelling Trazodone Hives, Unknown Cyclobenzaprine Other: See Comments Review of Systems Constitutional: Negative for chills and fever. HENT: Negative for congestion, ear pain and sore throat. Eyes: Negative for discharge. Respiratory: Negative for shortness of breath and wheezing. Cardiovascular: Negative for chest pain and palpitations. Gastrointestinal: Negative for abdominal pain, constipation, diarrhea and nausea. Genitourinary: Negative for dysuria and hematuria. Skin: Negative for rash. Hair loss/hair thinning. Lesion on nose. Lesion on right forearm. Psychiatric/Behavioral: Negative for confusion. Ht 162.6 cm (5' 4 ) Wt 65.8 kg (145 lb) BMI 24.89 kg/m? Physical Exam Vitals reviewed. Constitutional: Appearance: Normal appearance. HENT: Head: Normocephalic and atraumatic. Pulmonary: Effort: Pulmonary effort is normal. Skin: General: Skin is warm. Findings: No bruising. Comments: Erythematous scaly papule on left side of nose. Brown verruciform papule with surrounding erythema on right forearm. Telangiectasias on bilateral cheeks. Mild dryness to scalp. Thinning noted. No bald patches. Firm papule on fourth toe. Neurological: Mental Status: She is alert. Cholesterol 150 - 200 mg/dL 191 Triglycerides 27 - 150 mg/dL 54 HDL Cholesterol >39 mg/dL 76 Comment: HDL <40 mg/dL - High Risk HDL > or = 40mg/dL- Desirable HDL >60 mg/dL - Negative Risk VLDL 0 - 30 mg/dL 11 LDL (calc) <130 mg/dL 104 Sodium 134 - 146 mmol/L 138 Potassium 3.5 - 5.0 mmol/L 4.6 Chloride 98 - 109 mmol/L 104 Carbon Dioxide 22 - 32 mmol/L 27 Anion Gap 5 - 15 mmol/L 7 BUN 5 - 23 mg/dL 13 Creatinine 0.40 - 1.00 mg/dL 0.59 Comment: METHOD TRACEABLE TO IDMS STANDARD Glucose 65 - 99 mg/dL 96 Calcium 8.5 - 10.5 mg/dL 9.2 Total Protein 6.0 - 8.0 g/dL 6.4 Albumin 3.2 - 5.3 g/dL 4.0 Alkaline Phosphatase 39 - 130 U/L 62 AST 0 - 41 U/L 16 ALT 0 - 31 U/L 13 Total bilirubin 0.3 - 1.2 mg/dL 0.4 eGFR (CKD-EPI)non-race dependent >59 ml/min/1.73sq.m >90 Comment: Reported eGFR is based on the CKD-EPI 2020 equation that does not use a race coefficient. ASSESSMENT/PLAN: 1. Hair loss - ICD9: 704.00, ICD10: L65.9 (primary diagnosis) - MINOXIDIL 2 % TOPICAL SOLUTION. Advised her that she may see increased hair growth on face in general. - TSH BLD - VITAMIN D 25 HYDROXY - CONSULT TO DERMATOLOGY - CBC - VITAMIN B12 BLOOD 2. Seborrheic dermatitis - ICD9: 690.10, ICD10: L21.9 3. Ehrhardt - ICD9: 700, ICD10: L84 - CONSULT TO PODIATRY 4. Inflamed seborrheic keratosis - ICD9: 702.11, ICD10: L82.0 Plan: Procedures: Cryoth (more content not included)...[facility] 06-30-2022 Instructions* Patient Instructions* Cnade Ramirez MD - 06/30/2022 3:01 PM EDT CeraVe Facial Moisturizing Lotion with Sunscreen. [employer] or [employer] Life for clothing with sun protection documented in this encounterCommunity [facility]03-13-[facility]23 History of Present illness Narrative* Cande Ramirez MD - 06/30/2022 2:30 PM EDT Patient presents with: Derm Problem: Lesion on face Hair Loss: Requesting medication to help hair loss Rx: Minoxidil HPI: Gwyn Garcia, 52 year old female, presents in the office today for 2-3 year history of hair loss. She states worst when she washes her hair. She would like to try minoxidil. She has an appointment with dermatology at [facility] for consultation. She also has a lesion on the left side of her nose that is flaky and comes and goes. She also has a lesion on her right forearm that she would like evaluated. She also asked about a freeze lesion on her fourth toe. She has a history of telangiectatic rosacea and face that was prescribed to her but it was too expensive. She wonders if there is a less expensive alternative. She had blood work in February ordered by her PCP. It was a lipid panel and a CMP. PAST MEDICAL HISTORY Diagnosis Date Acne rosacea, erythematous telangiectatic type Actinic keratosis B12 deficiency Bee sting allergy Exercise-induced asthma Hair thinning Inflamed seborrheic keratosis Mild aortic valve regurgitation 10/30/2020 Followed by cardiology/Dr. Allen Seasonal allergic rhinitis due to pollen Vitamin D deficiency Current Outpatient Medications on File Prior to Visit Medication Sig fluticasone (FLONASE) 50 mcg/actuation nasal spray Use 2 Sprays in each nostril once daily. albuterol HFA (PROVENTIL HFA, VENTOLIN HFA) 90 mcg/actuation inhaler INHALE 2 PUFFS BY MOUTH EVERY 4 HOURS cyanocobalamin (VITAMIN B-12) 100 mcg tab Take 100 mcg by mouth once daily. Ascorbic Acid (VITAMIN C) 100 mg tablet Take 100 mg by mouth once daily. ergocalciferol, vitamin D2, (VITAMIN D2 ORAL) Take by mouth. ketoconazole (NIZORAL) 2 % cream Apply to affected area around creases of nose 1-2 times daily as needed (Patient not taking: Reported on 06/30/2022) brimonidine (MIRVASO) 0.33 % glwp Apply a pea sized amount to the ENTIRE face qam (Patient not taking: Reported on 06/30/2022) No current facility-administered medications on file prior to visit. Allergies: Bee Venom Protein (* Swelling Trazodone Hives, Unknown Cyclobenzaprine Other: See Comments Review of Systems Constitutional: Negative for chills and fever. HENT: Negative for congestion, ear pain and sore throat. Eyes: Negative for discharge. Respiratory: Negative for shortness of breath and wheezing. Cardiovascular: Negative for chest pain and palpitations. Gastrointestinal: Negative for abdominal pain, constipation, diarrhea and nausea. Genitourinary: Negative for dysuria and hematuria. Skin: Negative for rash. Hair loss/hair thinning. Lesion on nose. Lesion on right forearm. Psychiatric/Behavioral: Negative for confusion. Ht 162.6 cm (5' 4 ) Wt 65.8 kg (145 lb) BMI 24.89 kg/m Physical Exam Vitals reviewed. Constitutional: Appearance: Normal appearance. HENT: Head: Normocephalic and atraumatic. Pulmonary: Effort: Pulmonary effort is normal. Skin: General: Skin is warm. Findings: No bruising. Comments: Erythematous scaly papule on left side of nose. Brown verruciform papule with surroundingerythema on right forearm. Telangiectasias on bilateral cheeks. Mild dryness to scalp. Thinning noted. No bald patches. Firm papule on fourth toe. Neurological: Mental Status: She is alert. Cholesterol 150 - 200 mg/dL 191 Triglycerides 27 - 150 mg/dL 54 HDL Cholesterol >39 mg/dL 76 Comment: HDL <40 mg/dL - High Risk HDL > or = 40mg/dL- Desirable HDL >60 mg/dL - Negative Risk VLDL 0 - 30 mg/dL 11 LDL (calc) <130 mg/dL 104 Sodium 134 - 146 mmol/L 138 Potassium 3.5 - 5.0 mmol/L 4.6 Chloride 98 - 109 mmol/L 104 Carbon Dioxide 22 - 32 mmol/L 27 Anion Gap 5 - 15 mmol/L 7 BUN 5 - 23 mg/dL 13 Creatinine 0.40 - 1.00 mg/dL 0.59 Comment: METHOD TRACEABLE TO IDMS STANDARD Glucose 65 - 99 mg/dL 96 Calcium 8.5 - 10.5 mg/dL 9.2 Total Protein 6.0 - 8.0 g/dL 6.4 Albumin 3.2 - 5.3 g/dL 4.0 Alkaline Phosphatase 39 - 130 U/L 62 AST 0 - 41 U/L 16 ALT 0 - 31 U/L 13 Total bilirubin 0.3 - 1.2 mg/dL 0.4 eGFR (CKD-EPI)non-race dependent >59 ml/min/1.73sq.m >90 Comment: Reported eGFR is based on the CKD-EPI 2020 equation that does not use a race coefficient. ASSESSMENT/PLAN: 1. Hair loss - ICD9: 704.00, ICD10: L65.9 (primary diagnosis) - MINOXIDIL 2 % TOPICAL SOLUTION. Advised her that she may see increased hair growth on face in general. - TSH BLD - VITAMIN D 25 HYDROXY - CONSULT TO DERMATOLOGY - CBC - VITAMIN B12 BLOOD 2. Seborrheic dermatitis - ICD9: 690.10, ICD10: L21.9 3. Ehrhardt - ICD9: 700, ICD10: L84 - CONSULT TO PODIATRY 4. Inflamed seborrheic keratosis - ICD9: 702.11, ICD10: L82.0 Plan: Procedures: Cryotherapy Seborrheic Keratosis Indication: Inflamed Location: Right forearm x1 Consent: Verbal consent was obtained and risks were discussed, including, but not limited to risks of scarring, darker or campus security officer pigmentary changes, recurrence, incomplete removal and infection. Method: Liquid nitrogen was used to treat the lesion(s) with one freeze-thaw cycle. Number of lesions treated: 1 Post Procedure Instructions: Instructions were given orally and in writing. The office will be contacted if the lesion fails to resolve despite treatment, or if a side effect develops, such as abnormal crusting, scabbing, redness or tenderness. 5. Actinic keratosis - ICD9: 702.0, ICD10: L57.0 - FLUOROURACIL 0.5 % TOPICAL CREAM. Declined cryotherapy of lesion on nose. Advised her to use 5-fluorouracil twice daily for 2 weeks. If no significant reaction she will use for an additional 2 weeks. She will take a photo of her nose in about 6 weeks and send it to me through [employer] for follow-up. 6. Acne rosacea, erythematous telangiectatic type - ICD9: 695.3, ICD10: L71.8 - AZELAIC ACID 15 % TOPICAL GEL I spent a total of 23 minutes on the date of the service which included preparing to see the patient, [id number] patient care, completing clinical documentation, obtaining and/or reviewing separately obtained history, performing a medically appropriate examination, counseling and educating the pat ient/family/caregiver, ordering medications, tests, or procedures, independently interpreting results (not separately reported), and communicating results to the patient/family/caregiver. Cande Ramirez MD documented in this encounterCommunity [facility] Hospital07-[facility]22 Hospital Discharge instructions Follow Up Care 11/15/2021 15:36:58 With:Lissa PIMENTEL, Tim Ochoa Address: [address] [place] [id number] When:Within 1 Year(s) [facility]07-29-2022 Evaluation + Plan note Future Scheduled Tests Radiology* Echo Transthoracic Complete 12/10/22 * ECG Stress Exercise 11/15/21 [facility]09-09-2020 Evaluation + Plan note Future Appointments Appointment Date:12/13/2021 01:00:00 PM Scheduled Provider: Location:[facility] Appointment Type:CV Echo (FT) Appointment Date:12/27/2021 02:30:00 PM Scheduled Provider:Karin ABEL CNP Location:[facility] Appointment Type:Cardiology Follow Up (FT) Future Scheduled Tests Radiology* Echo Transthoracic Complete 12/13/21 * ECG Stress [facility] App[facility]ments Appointment Date:12/06/2021 09:00:00 AM Scheduled Provider: Location[facility] Appointment Type:CV Stress (FT) Appointment Date:12/06/2021 10:00:00 AM Scheduled Provider: Location[facility] Appointment Type:CV Holter/Event (FT) Appointment Date:12/27/2021 02:30:00 PM Scheduled Provider:Karin ABEL CNP Location:[facility] Appointment Type:Cardiology Follow Up (FT) Future Scheduled Tests Radiology* Echo Transthoracic Complete 11/15/21 * ECG Stress Exercise 12/06/21 * ECG Stress Exercise 11/15/21 [facility] Future Appointments Appointment Date:01/10/2022 11:15:00 AM Scheduled Provider:Karin ABEL CNP Location:[facility] Appointment Type:Cardiology Follow Up (FT) Future Scheduled Tests Radiology* ECG Stress Exercise 11/15/[address] [facility] + Plan note Future Appointments Appointment Date:02/02/2023 01:15:00 PM Scheduled Provider:Tim Alcaraz MD Location:[facility] Appointment Type:Cardiology Follow Up (FT) [facility] note* Diagnosis Hair loss- Primary Alopecia, unspecified Seborrheic dermatitis Seborrheic dermatitis, unspecified Ehrhardt Corns and callosities Inflamed seborrheic keratosis Actinic keratosis Acne rosacea, erythematous telangiectatic type Rosacea documented in this encounter [facility]* Diagnosis Hair thinning- Primary Alopecia, unspecified [facility] this encounter [facility]* Diagnosis Pain of left calf- Primary documented in this encounter [facility] Phone: evaluation note* Diagnosis Paroxysmal supraventricular tachycardia (CMS-HCC)- Primary Paroxysmal supraventricular tachycardia BMI 25.0-25.9,adult Former smoker Personal history of tobacco use, presenting hazards to health Mild aortic regurgitation Palpitations documented in this encounter [facility] Work Phone: Evaluation note* Diagnosis Trigger point with back pain- Primary Unspecified backache documented [facility] encounter [facility]* Diagnosis Trigger point with back pain- Primary Unspecified backache documented in this encounter [facility] HealthcareHistory general Narrative - Reported* Type Description Date Medical History ANXIETY Surgical History LEFT KNEE SURGERY FOR A TEAR Hospitalization History 3 CHILD BIRTHS [email or web address] Other Hospital course Narrative No data available for this section [facility] No data available for this section [facility] No data available for this section [facility] Narrative* Consultation (Routine) - Authorized Specialty Diagnoses / Procedures Referred By Cali smith Referred To Contact Physical Therapy Diagnoses Trigger point with back pain Procedures PA OFFICE/OUTPATIENT NEW HIGH MDM 60 MINUTES Cora Drake PA [address] [facility] [address] [place] [address] Salima Navarrete, ROBERTA Referral ID Status Reason Start Date Expiration Date Visits Requested Visits Authorized [id number] Authorized Consult and Treat 01/18/2024 07/16/2024 99 99 [facility] HealthcareReason for visit Narrative* Consultation (Routine) - Authorized Specialty Diagnoses / Procedures Referred By Cali smith Referred To Contact Physical Therapy Diagnoses Trigger point with back pain Procedures PA OFFICE/OUTPATIENT NEW HIGH MDM 60 MINUTES Cora Drake PA [address] [facility] [address] [place] [address] Phone: tel: fax: Salima Navarrete, ROBERTA Referral ID Status Reason Start Date Expiration Date Visits Requested Visits Authorized [id number] Authorized Consult and Treat 01/18/2024 07/16/2024 99 99 [facility] Healthcare Discharge Instructions * Instructions* Randall Morin APRN - CNP - 01/02/2020 Return to the emergency department for worsening symptoms. * Attachments The following attachments cannot be sent through Care Everywhere. * Insect Stings and Bites (Cambodian) documented in this encounter Assessments Diagnosis Bee sting reaction, accidental or unintentional, initial encounter Diagnosis Acne rosacea Rosacea Hair thinning Alopecia, unspecified Inflamed seborrheic keratosis Actinic keratosis Instructions * Patient Instructions* Cande Ramirez - 06/27/2020 2:05 PM EST [address] Instructions: If the areas blister, may leave alone or pop with a sterilezed needle. May apply vaseline or antibiotic ointment to affected areas. It may take up to 2-3 weeks for healing. Choosing and Using a Sunscreen Why do I need to use a sunscreen? Skin cancer and precancers are the result of the buildup of sun damage the skin receives over the years. Unfortunately, the skin cannot repair damage from the sun, radiation therapy, or other forms of ionizing radiation. Even damage you received as a child is still present, and any additional sun exposure only adds to this damage. Although there is nothing you can do to reverse the damage, you can prevent further sun damage by routinely using sunscreens. What types of sunscreen should I buy? You can buy many different types of sunscreens without a prescription. Most are broad-spectrum sunscreens, which means they absorb both UVB and UVA rays. Ultraviolet B rays are associated with sunburn. Ultraviolet A rays are considered the main cause of wrinkles. Both UVB and UVA damage the skin and contribute to skin cancers. Each sunscreen has a sun protective factor (SPF) number or a sun protective factor index (PFI) listed on its label. The SPF number tells you how well the product will protect you from UVB, the burning rays of the sun,. The larger the SPF number, the greater the amount of protection. Everyone shoulduse a sunscreen with an SPF of at least 15. If you have had a skin cancer of precancers, you shoulduse a sunscreen with an even higher SPF: Many of the new sunscreens have SPF's of 30, 45, or higher. Tips for Buying Sunscreen Select a sunscreen with an SPF of 15 or higher. If you are at risk for skin cancers, buy a sunscreen with a higher SPF. Zinc oxide, that unsightly white cream, still provides the strongest protection. A sunblock, it reflects all UV light rays. Consider using zinc oxide on the nose and tops of the ears. Look for zinc oxide on the label. Some products contain Z-Juli, a transparent form of zinc oxide. These products block the most ultraviolet light. Buy sunscreen every year. Over time, heat and humidity can break down sunscreens and make them lesseffective. Wear a sunscreen on your face and lips. Sunscreen facial lotions and lip balms work well. If your face is prone to acne, look for a sunscreens that won't clog pores (noncomedogenic). When should I use sunscreen? Use sunscreens year-round. Wear a sunscreen on all veronica days in the summer, winter, spring, and fall and on hazy days throughout the summer. Also wear sunscreen year-round when driving a car (on thedays described above). Amazingly, window glass does not protect you from all of the sun's damaging rays. This fact can be seen in men, who often get skin cancers on the left side of the face. Since men generally do most of the driving, it's likely that these skin cancers are from sunlight that has come through the car window. How should I apply sunscreen? Sunscreens are very effective when used properly. Follow these guidelines to give yourself the mostprotection: Apply the sunscreen at least 20 to 30 minutes before you go outdoors, whenever you will be exposed for 30 minutes or more. Reapply sunscreen every 3 hours while you are outdoors, even if the product is labeled all-day. Cover all exposed areas, including your ears, lips, face and back of your hands. Don't skimp; apply a generous layer. Smooth it on rather than rub it in. Do I really need to reapply sunscreen during the day? YES. A sunscreen will only be effective for 2 to 3 hours after you apply it, no matter how high itsSPF number. It's very important to reapply the sunscreen throughout the day in order to keep yourself fully protected. In addition, though many sunscreens claim to be waterproof, most will come off in the water sooner or later. If you go swimming, reapply the sunscreen as soon as you leave the water to ensure that you stay completely protected. Even products that are made to last 8 hours or more can come off in thewater and when you perspire. Conclusion Go ahead and enjoy the veronica days and summertime activities but be mckay and protect yourself with sunscreens throughout the year. You will prevent additional sun damage that could cause new skin cancers and precancers to form. ROSACEA TRIPWIRES Factors that may trigger rosacea flare-ups Foods Liver Yogurt Sour cream Cheese (except cottage cheese) Chocolate Vanilla Soy Sauce Yeast extract (Bread is ok) Vinegar Eggplant Avocados Spinach Broad-leaf beans and pods, including burger, navy or peas [place] fruits, including tomatoes, bananas, red plums, raisins or figs Spicy and thermally hot foods Foods high in histamine Beverages Alcohol, especially red wine, beer, bourbon, gin, vodka or champagne Hot drinks, including hot cider, hot chocolate, coffee or tea Emotional Influences Stress Anxiety Physical Exertion Exercise 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 [place]-alcohol or acetone substances Any substance that causes redness or stinging documented in this encounter History of Present Illness * Cande Ramirez - 06/27/2020 1:34 PM EST This note was created using SocStock[employer]. Subjective Gwyn Garcia is a 50 year old female. She presents today for a skin check. She denies a personal history of skin cancer. She has no lesions that are itchy. She is concerned about her hair that seems to be falling out more than usual. Shedenies any discrete bald patches. She states she discussed this with her primary care doctor who did some blood work. She reports that she was told her thyroid was a little off and was sent for thyroid ultrasound. She states she was told that thyroid ultrasound was normal. She is asking if I could get a copy of that to look at over. In doing her skin exam I discussed with her that she has rosacea. She states she is aware of this but has never tried any medication for it. Review of Systems Constitutional: Negative for chills and fever. HENT: Negative for congestion, ear pain and sore throat. Eyes: Negative for discharge. Respiratory: Negative for shortness of breath and wheezing. Cardiovascular: Negative for chest pain and palpitations. Gastrointestinal: Negative for abdominal pain, constipation, diarrhea and nausea. Genitourinary: Negative for dysuria and hematuria. Skin: Negative for rash. Itchy skin lesions and thinning hair Psychiatric/Behavioral: Negative for confusion. Objective BP 125/67 (BP Site: Left Arm, BP Position: Sitting, BP Cuff Size: Regular Adult) Pulse 91 Ht 162.6 cm (5' 4 ) Wt 62 kg (136 lb 9.6 oz) SpO2 100% BMI 23.45 kg/m Physical Exam Constitutional: Appearance: Normal appearance. HENT: Head: Normocephalic and atraumatic. Right Ear: Tympanic membrane normal. Left Ear: Tympanic membrane normal. Eyes: Extraocular Movements: Extraocular movements intact. Pupils: Pupils are equal, round, and reactive to light. Cardiovascular: Heart sounds: No murmur. Pulmonary: Breath sounds: No wheezing. Abdominal: Tenderness: There is no abdominal tenderness. Musculoskeletal: Cervical back: Normal range of motion and neck supple. Skin: General: Skin is warm. Findings: No rash. Comments: Bilateral cheeks with scattered telangiectasias and erythema. Brown stuck on papules with surrounding erythema on her upper back x5. Erythematous scaly papules in the following locations: Left lateral cheek x1, right forearm x3. Neurological: General: No focal deficit present. Mental Status: She is alert and oriented to person, place, and time. Assessment and Plan ASSESSMENT/PLAN: 1. Acne rosacea - ICD9: 695.3, ICD10: L71.9 - MIR[place] 0.33 % TOPICAL GEL WITH PUMP 2. Inflamed seborrheic keratosis - ICD9: 702.11, ICD10: L82.0 Plan: Procedures: Cryotherapy Seborrheic Keratosis Indication: Inflamed Location: upper back x 5 Consent: Verbal consent was obtained and risks were discussed, including, but not limited to risks of scarring, darker or campus security officer pigmentary changes, recurrence, incomplete removal and infection. Method: Liquid nitrogen was used to treat the lesion(s) with one freeze-thaw cycle. Number of lesions treated: 5 Post Procedure Instructions: Instructions were given orally and in writing. The office will be contacted if the lesion fails to resolve despite treatment, or if a side effect develops, such as abnormal crusting, scabbing, redness or tenderness. 3. Actinic keratosis - ICD9: 702.0, ICD10: L57.0 Plan: Procedures: Cryotherapy Actinic Keratosis Indication: Precancerous Location: right forearm x 3, left lateral cheek x 1 Consent: Verbal consent was obtained and risks were discussed, including, but not limited to risks of scarring, darker or campus security officer pigmentary changes, recurrence, incomplete removal and infection. Method: Liquid nitrogen was used to treat the lesion(s) with one freeze-thaw cycle. Number of lesions treated: 4 Post Procedure Instructions: Instructions were given orally and in writing. The office will be contacted if the lesion fails to resolve despite treatment, or if a side effect develops, such as abnormal crusting, scabbing, redness or tenderness. 4. Hair Thinning-she will sign a release to get her labs and ultrasound for my review. I told her that I can send her to a specific anthropology department chair and she was open to that idea. I will look into whoto send her to and put in that order. Cande Ramirez MD I spent a total of 16 minutes on the date of the service which included preparing to see the patient, [id number] patient care, completing clinical documentation, obtaining and/or reviewing separately obtained history, performing a medically appropriate examination, counseling and educating the pat ient/family/caregiver and ordering medications, tests, or procedures. documented in this encounter Summary Purpose Family History No Family History Records FoundNo Family History Records FoundNo Family History Records FoundNo Family History Records FoundNo Family History Records Found No data available for this section No Family History Records FoundNo Family History Records FoundNo Family History Records Found Advance Directives No Advanced Directives Records FoundNo Advanced Directives Records FoundNo Advanced Directives Records FoundNo Advanced Directives Records FoundNo Advanced Directives Records FoundNo Advanced Directives Records FoundNo Advanced Directives Records FoundNo Advanced Directives Records Found Reason for Referral Specialty Diagnoses / Procedures Referred By Contac t Referred To Contact Diagnoses Paroxysmal supraventricular tachycardia ([facility]) Procedures ECG 12 Lead Konstantin Chaves MD [address] [facility] [address] [place] [address] Referral ID Status Reason Start Date Expiration Date V isits Requested Visits Authorized [id number] Authorized 01/21/2024 01/20/2025 1 1 Specialty Diagnoses / Procedures Referred By Contac t Referred To Contact Cardiology Diagnoses Paroxysmal supraventricular tachycardia ([facility]) Procedures Follow Up In Cardiology Konstantin Chaves MD [address] [place] [address] [address] [place] [address] Konstantin Chaves MD [address] [place] [address] [address], [address] [place] [address] Referral ID Status Reason Start Date Expiration Date V isits Requested Visits Authorized [id number] Authorized 01/21/2024 01/20/2025 1 1 Specialty Diagnoses / Procedures Referred By Contac t Referred To Contact Dermatology Diagnoses Hair loss Procedures CONSULT TO DERMATOLOGY OFFICE/OUTPATIENT [facility] 60-74 MINUTES Cande Ramirez MD [address] [place] [address] Referral ID Status Reason Start Date Expiration Date Visits Requested Visits Authorized [id number] Pending Review PCP Requested Referral 06/30/2022 06/30/2023 1 1 Specialty Diagnoses / Procedures Referred By Contac t Referred To Contact Podiatry Diagnoses [place] Procedures CONSULT TO PODIATRY OFFICE/OUTPATIENT [facility] 60-74 MINUTES Cande Ramirez MD [address] [place] [address] Referral ID Status Reason Start Date Expiration Date Visits Requested Visits Authorized [id number] Pending Review PCP Requested Referral 06/30/2022 06/30/2023 1 1 Additional Source Comments Reason for Visit (unrecogniz ed section and content) Reason Comments Insect Bite bee sting back of ne ck/back. allergic to bees, used epi pen Reason Comments Skin Check Reason Comments Derm Problem Lesion on face Hair Loss Requesting medicatio n to help hair loss Rx: Minoxidil Reason Comments Medication Problem Reason Comments Medication Problem Prior Auth approved for Azelaic Acid 15% gel Reason Comments Leg Pain Left LE pain x coupl e days. Sent by PCP to R/O DVT Reason Comments New Patient Visit Heart racing, Headac hes Specialty Diagnoses / Procedures Referred By Contac t Referred To Contact Diagnoses Paroxysmal supraventricular tachycardia ([facility]) Procedures ECG 12 Lead Konstantin Chaves MD [address] [facility] [address] [place] [address] Referral ID Status Reason Start Date Expiration Date V isits Requested Visits Authorized [id number] Authorized 01/21/2024 01/20/2025 1 1 Source Comments (unrecognize d section and content) In the event this informatio n is protected by the Federal Confidentiality of Alcohol and Drug Abuse Patient Records regulations: The Federal rules restrict any use of the information to criminally investigate or prosecute any alcohol or drug abuse patient.[facility] the event this information is protected by the Federal Confidentiality of Alcohol and Drug Abuse Patient Records regulations: The Federal rules restrict any use of the information to criminally investigate or prosecute any alcohol or drug abuse patient.[facility] the event this information is protected by the Federal Confidentiality of Alcohol and Drug Abuse Patient Records regulations: The Federal rules restrict any use of the information to criminally investigate or prosecute any alcohol or drug abuse patient.[facility] the event this information is protected by the Federal Confidentiality of Alcohol and Drug Abuse Patient Records regulations: The Federal rules restrict any use of the information to criminally investigate or prosecute any alcohol or drug abuse patient.[facility] Hospital[facility] the event this information is protected by the Federal Confidentiality of Alcohol and Drug Abuse Patient Records regulations: The Federal rules restrict any use of the information to criminally investigate or prosecute any alcohol or drug abuse patient.[facility] INFORMATION SOURCE (unrecogn ized section and content) DATE CREATED AUTHOR 03/28/2021 [facility] dical Specialist DATE CREATED AUTHOR AUTHOR'S ORGANIZ ATION 10/05/2021 [facility] DATE CREATED AUTHOR AUTHOR'S ORGANIZ ATION 03/22/2022 [facility] DATE CREATED AUTHOR AUTHOR'S ORGANIZ ATION 07/04/2022 [facility] DATE CREATED AUTHOR AUTHOR'S ORGANIZ ATION 09/04/2022 [facility] DATE CREATED AUTHOR AUTHOR'S ORGANIZ ATION 03/15/2023 [facility] DATE CREATED AUTHOR AUTHOR'S ORGANIZ ATION 01/23/2024 [facility] DATE CREATED AUTHOR AUTHOR'S ORGANIZ ATION 02/09/2024 [facility] dical Specialists EPIC Care Team (unrecognized sect ion and content) Manager [employer] Sales Relationship Specialty Start Date End [place] [address] PCP - General Family Medicine 06/27/20 Manager [employer] Sales Relationship Specialty Start Date [place] [address] PCP - General Family Medicine 06/27/20 Manager [employer] Sales Relationship Specialty Start Date End [place] [address] PCP - General Family Medicine 06/27/20 Manager [employer] Sales Relationship Specialty Start Date End [place] [address] PCP - General Family Medicine 06/27/20 Manager [employer] Sales Relationship Specialty Start Date End Date Sharla Richter PCP - General Internal Medicine 01/02/20 Manager [employer] Sales Relationship Specialty Start Date End Date Miranda Nettles, CHARGEBACK SPECIALIST-BLEACH BOILER PULLER [address] [place] [address] PCP - General Family Medicine 12/18/23 Manager [employer] Sales Relationship Specialty Start Date End Date Nicki Amin MD [address] [place] [address] PCP - General Family Medicine 11/16/23 Miranda Nettles, FUSION OPERATOR [address] [place] [address] Nurse Practitioner Family Medicine 11/16/23 Manager [employer] Sales Relationship Specialty Start Date End Date Nicki Amin MD [address] [place] [address] PCP - General Family Medicine 11/16/23 Miranda Nettles, FUSION OPERATOR [address] [place] [address] Nurse Practitioner Family Medicine 11/16/23 Manager [employer] Sales Relationship Specialty Start Date End Date Nicki Amin MD [address] [place] [address] PCP - General Family Medicine 11/16/23 Miranda Nettles, FUSION OPERATOR [address] [place] [address] Nurse Practitioner Family Medicine 11/16/23 Manager [employer] Sales Relationship Specialty Start Date End Date Nicki mAin MD [address] [place] [address] PCP - General Family Medicine 11/16/23 Miranda Nettles, FUSION OPERATOR [address] [place] [address] Nurse Practitioner Family Medicine 11/16/23 Manager [employer] Sales Relationship Specialty Start Date End Date Nicki Amin MD [address] [place] [address] PCP - General Family Medicine 11/16/23 Miranda Nettles, FUSION OPERATOR [address] [place] [address] Nurse Practitioner Family Medicine 11/16/23 Manager [employer] Sales Relationship Specialty Start Date End Date Nicki Amin MD [address] [place] [address] PCP - General Family Medicine 11/16/23 Miranda Nettles, FUSION OPERATOR [address] [place] [address] Nurse Practitioner Family Medicine 11/16/23 FOR RECORDS PERTAINING TO PATIENTS WHO ARE OR HAVE BEEN ENROLLED IN A CHEMICAL DEPENDENCY/SUBSTANCEABUSE PROGRAM, SOME INFORMATION MAY BE OMITTED. This clinical summary was aggregated from multiple sources. Caution should be exercised in using it in the provision of clinical care. This summary normalizes information from multiple sources, and as a consequence, information in this document may materially change the coding, format and clinical context of patient data. In addition, data may be omitted in some cases. CLINICAL DECISIONS SHOULD BE BASED ON THE PRIMARY CLINICAL RECORDS. [facility] [employer] provides no warranty or guarantee of the accuracy or completeness of information in this document.
== END 2024-02-15 13:36 | disposition home or self-care (01) ==
LOC: MAMMO 13:36
PROVIDERS: PCP Nurse Practitioner Family; Visit Provider Obstetrics & Gynecology
DX: Z12.31 Encounter for screening mammogram for malignant neoplasm of breast (principal)
CPT/HCPCS: 77063; 77067

== ENCOUNTER 2024-06-02 14:11 | Outpatient (OUT) | payer OTHER, SELFPAY ==
[2024-06-03 15:08] LABS: H. pylori Stool Ag, EIA Negative (Negative)
== END 2024-06-02 14:12 | disposition home or self-care (01) ==
LOC: LAB 14:14
PROVIDERS: PCP Nurse Practitioner Family; Visit Provider Internal Medicine Gastroenterology
DX: A04.8 Other specified bacterial intestinal infections (principal)
CPT/HCPCS: 87338

== ENCOUNTER 2025-01-02 07:53 | Outpatient (OUT) | payer OTHER, SELFPAY ==
--- NOTE | 2025-01-02 07:55 | MM_ITS ---
Patient Name: GWYN ALVA MR#: [id number] : 1970 Exam Date: 01/02/2025 Ordering Doctor: DR MEAGHAN SWEET RADIOLOGY REPORT PROCEDURE: MM TOMOSYNTHESIS SCREENING BI COMPARISON: MM TOMOSYNTHESIS SCREENING BI, 02/15/2024. MM TOMOSYNTHESIS DIAGNOSTIC BI, 02/16/2023. MAMMO LINA SCREEN, 02/12/2018. INDICATIONS: Screening Calculator Name NCI Breast Cancer Risk Assessment Tool 5 Year Breast Cancer Risk 0.80% Lifetime Breast Cancer Risk 5.30% Personal Breast Cancer No Personal Ovarian Cancer No Treatments None Family Cancers None LOCATION: [facility] BREAST COMPOSITION: The breasts are extremely dense, which lowers the sensitivity of mammography. FINDINGS: RIGHT BREAST: No significant suspicious finding. LEFT BREAST: No significant suspicious finding. DIAGNOSTIC CATEGORY 1--NEGATIVE. RECOMMENDATIONS: ROUTINE MAMMOGRAM AND CLINICAL EVALUATION IN 12 MONTHS. Dictated by: Reinaldo Rivera DO on 01/02/2025 at 12:56 Approved by: Reinaldo Rivera DO on 01/02/2025 at 12:57
--- OUTSIDE RECORDS SUMMARY | 2025-01-02 07:56 | XMS_ITS | Encounter Summary ---
Author Organization [facility] Address [address] [place] [address] Care Team Providers Care Lead Embedded Software Engineer Name Role Phone Nicki Amin MD Primary Care Provider [phone] Miranda Chalres NURSE COORDINATOR Unavailable [phone] Galdino Mcdaniel DO Unavailable [phone] Encounter Details Date Type Department Care Team (Late st Contact Info) Description 06/08/2024 Abstract [facility] [address] [facility] [address] [place] [address] Nicki Amin MD 112 [facility] 110 [place] [address] Social History Tobacco Use Types Packs/Day Years Used Date Smoking Tobacco: Former Cigarettes Q uit: 03/31/2012 Smokeless Tobacco: Never Alcohol Use Standard Drinks/Week Comments Yes 0 (1 standard drink = 0.6 oz pure alcohol) Frequency: Monthly or less; Caffeine: 1 energy drink daily Social Connection and Isolat ion Panel [NHANES] Answer Date Recorded In a typical week, how many times do you talk on the phone with family, friends, or neighbors? More than three times a week 09/08/2023 How often do you get togethe r with friends or relatives? Once a week 09/08/2023 How often do you attend chur ch or confucianism services? 1 to 4 times per year 09/08/2023 Do you belong to any clubs o r organizations such as oriental orthodox groups, unions, fraternal or athletic groups, or school groups? Yes 09/08/2023 How often do you attend meet ings of the clubs or organizations you belong to? 1 to 4 times per year 09/08/2023 Are you , , di vorced, , never , or living with a partner? 09/08/2023 AUDIT-C Answer Date Recorded Q1: How often do you have a drink containing alc ohol? Monthly or less 10/05/2023 Q2: How many drinks containi ng alcohol do you have on a typical day when you are drinking? 1 or 2 10/05/2023 Q3: How often do you have si x or more drinks on one occasion? Never 10/05/2023 Overall Financial Resource Strain (CARDIA) Answe r Date Recorded How hard is it for you to pa y for the very basics like food, housing, medical care, and heating? Not hard at all 09/08/2023 PHQ-2 Answer Date Recorded Patient Health Questionnaire-2 Score 0 10/05/2023 [facility] - Occupational Stress Questionnaire Answer Date Recorded Do you feel stress - tense, restless, nervous, or anxious, or unable to sleep at night because your mind is troubled all the time - these days? Only a little 09/08/2023 Exercise Vital Sign Answer Date Recorde d On average, how many days pe r week do you engage in moderate to strenuous exercise (like a brisk walk)? 2 days 09/08/2023 On average, how many minutes do you engage in exercise at this level? 30 min 09/08/2023 Hunger Vital Sign Answer Date Recorded Within the past 12 months, y ou worried that your food would run out before you got the money to buy more. Never true 09/08/19 24 Within the past 12 months, t he food you bought just didn't last and you didn't have money to get more. Never true 09/08/2023 PRAPARE - Transportation Answer Date Re corded In the past 12 months, has l ack of transportation kept you from medical appointments or from getting medications? No 08/19 In the past 12 months, has l ack of transportation kept you from meetings, work, or from getting things needed for daily living? No 09/08/2023 Housing Stability Vital Sign Answer Kd e Recorded In the last 12 months, was t here a time when you were not able to pay the mortgage or rent on time? No 09/08/2023 In the last 12 months, how many places have you lived? 1 09/08/2023 In the last 12 months, was t here a time when you did not have a steady place to sleep or slept in a halfway (including now)? No 09/08/2023 Comments No Sex and Gender Information Value Date Recorded Sex Assigned at Not on file Legal Sex Female 7:35 PM EDT Gender Identity Not on file Sexual Orientation Not on file documented as of this encounter Plan of Treatment Not on file documented as of this encounter Visit Diagnoses Not on filedocumented in this encounter Care Teams Lead Embedded Software Engineer Relationship Specialty Start Date End Date Nicki Amin MD [address] [facility] [address] [place], [place] [id number] PCP - General Family Medicine 11/16/23 Miranda Charles, NURSE COORDINATOR [address] [facility] [address] [place] [address] Nurse Practitioner Family Medicine 11/16/23 Galdino Mcdaniel DO [address] [place] [address] Referring Physician Neurology 07/18/24 documented as of this encounter
--- OUTSIDE RECORDS SUMMARY | 2025-01-02 07:56 | XMS_ITS | Clinical Summary ---
Author Organization [facility] Address [address] [place] [address] Phone Care Team Providers Care Bit Welder Name Role Phone MelvinMiranda APPLIANCE PAINTER AND REFINISHER-VARIETY PERFORMER Primary Care Provider Allergies Active Allergy Reactions Criticality Noted Date Comments Bee Venom Protein (Honey Bee) Swelling,Unknown 05/09/2019 Cyclobenzaprine Other,Palpitations Low 05/09/2019 Other Reaction(s): Other: See Comments Meloxicam GI bleeding 01/18/2024 Trazodone Hives,Unknown 03/03/2022 Medications SEMAGLUTIDE SUBQ Inject under the skin. Active metoprolol tartrate (Lopressor) 25 mg tabletIndications:Pa roxysmal supraventricular tachycardia Take one tablet for palps/fast heart rate. Do no exceed more then 2 tablets a day 30 tablet 1 4 Active Active Problems Problem Noted Date Diagnosed Date BMI 25.0-25.9,adult 01/21/2024 Former smoker 01/21/2024 Palpitations 01/21/2024 Paroxysmal supraventricular tachycardia 01/21/20 24 Family History Medical History Relation Name Comments Heart attack Father Hyperlipidemia Father Hyperlipidemia Mother Hyperlipidemia Sister Relation Name Status Comments Father Mother Sister Social History Tobacco Use Types Packs/Day Years Used Date Smoking Tobacco: Former Cigarettes Smokeless Tobacco: Never Alcohol Use Standard Drinks/Week Comments Yes 0 (1 standard drink = 0.6 oz pur e alcohol) rarely Comments Unknown Sex and Gender Information Value Date Recorded Sex Assigned at Not on file Legal Sex Female 11:34 AM EDT Gender Identity Not on file Sexual Orientation Not on file Last Filed Vital Signs Vital Sign Reading Time Taken Comments Blood Pressure 134/82 01/21/2024 10:11 AM EDT Pulse 87 01/21/2024 10:10 AM EDT Temperature - - Respiratory Rate - - Oxygen Saturation - - Inhaled Oxygen Concentration - - Weight 66.2 kg (146 lb) 01/21/2024 10:10 AM EDT Height 162.6 cm (5' 4 ) 01/21/2024 10:10 AM EDT Body Mass Index 25.06 01/21/2024 10:10 AM EDT Plan of Treatment Upcoming Encounters Date Type Department Care Team (Late st Contact Info) Description 01/02/2025 1:40 PM EDT Office Visit [facility] [address] [facility] [address] [place] [address] Konstantin Wray MD [address] [facility] [address] [place] [address] Health Maintenance Due Date Last Done Comments CT Colonography 1968 Colonoscopy 1968 FIT 1968 HIV Screening 1968 Sigmoidoscopy 1968 MMR Vaccines (1 of 1 - Standard series) 02/19/1969 Diabetes Screening 02/19/1986 Hepatitis C Screening 02/19/1986 Hepatitis B Vaccines (1 of 3 - 19+ 3-dose series) 02/19/1987 Pneumococcal Vaccine (1 of 2 - PCV) 02/19/1987 Cervical Cancer Screening 02/19/1989 HPV/Cotest 02/19/1989 Pap Smear 02/19/1989 DTaP/Tdap/Td Vaccines (1 - Tdap) 02/19/1990 Mammogram 02/17/2024 02/16/2023, 02/19, 02/12/2018 COVID-19 Vaccine ( - season) 2024 Influenza Vaccine (#1) 2024 Yearly Adult Physical 10/11/2025 10/10/2024 , 02/16/2024, 02/16/2024, Additional history exists Colorectal Cancer Screening 02/09/2026 FIT-DNA (Cologuard) 02/09/2026 02/09/2023 Lipid Panel 08/22/2029 08/22/2024 Zoster Vaccines Completed 09/15/2019, 11/2018, 03/21/2019 HIB Vaccines Aged Out No longer eligi ble based on patient's age to complete this topic HPV Vaccines Aged Out No longer eligi ble based on patient's age to complete this topic Hepatitis A Vaccines Aged Out No long er eligible based on patient's age to complete this topic IPV Vaccines Aged Out No longer eligi ble based on patient's age to complete this topic Meningococcal Vaccine Aged Out No roque santos eligible based on patient's age to complete this topic Rotavirus Vaccines Aged Out No longer eligible based on patient's age to complete this topic Insurance [facility] Care Teams Bit Welder Relationship Specialty Start Date End Date Miranda Charles, APPLIANCE PAINTER AND REFINISHER-VARIETY PERFORMER [address] [address] PCP - General Family Medicine 12/18/23
--- OUTSIDE RECORDS SUMMARY | 2025-01-02 07:56 | XMS_ITS | Encounter Summary ---
Author Organization [facility] Address [address] [place] [address] Care Team Providers Care Skilled Nursing Case Manager Name Role Phone Bhupendra Garrido MD Primary Care Provider [phone] Nicki Amin MD Primary Care Provider [phone] Miranda Charles BUSINESS SERVICES SPECIALIST SALES Unavailable [phone] Galdino Mcdaniel DO Unavailable [phone] Encounter Details Date Type Department Care Team (Late st Contact Info) Description 02/16/2023 Orders Only [facility] [address] [place] [id number] Miranda Charles BUSINESS SERVICES SPECIALIST SALES [address] [place] [address] Social History Tobacco Use Types Packs/Day Years Used Date Smoking Tobacco: Never Smokeless Tobacco: Never Alcohol Use Standard Drinks/Week Comments Yes 0 (1 standard drink = 0.6 oz pure alcohol) Frequency: Monthly or less; Caffeine: 1 energy drink daily PHQ-2 Answer Date Recorded Patient Health Questionnaire-2 Score 0 09/08/2022 Comments No Sex and Gender Information Value Date Recorded Sex Assigned at Not on file Legal Sex Female 7:35 PM EDT Gender Identity Not on file Sexual Orientation Not on file documented as of this encounter Plan of Treatment Not on file documented as of this encounter Procedures Procedure Name Priority Date/Time Associated Diagnosis Comments MAMMOGRAM* Routine 02/16/2023 1:56 PM EDT documented in this encounter Results * MAMMOGRAM* (02/16/2023 1:56 PM EDT) Anatomical Region Laterality Modality Radiographic Elissa ging us Miranda Charles BUSINESS SERVICES SPECIALIST SALES IMG XR PROCEDURES Final Resu lt documented in this encounter Visit Diagnoses Not on filedocumented in this encounter Care Teams Skilled Nursing Case Manager Relationship Specialty Start Date End Date Bhupendra Garrido MD PCP - General Internal Medicine 10/13/22 11/15/23 Nicki Amin MD 112 [facility] 110 [place] [address] PCP - General Family Medicine 11/16/23 Miranda Charles, EMMA 112 [facility] 110 [place] [address] Nurse Practitioner Family Medicine 11/16/23 Galdino Mcdaniel DO [address] [place] [address] Referring Physician Neurology 07/18/24 documented as of this encounter
--- OUTSIDE RECORDS SUMMARY | 2025-01-02 07:56 | XMS_ITS | Encounter Summary ---
Author Organization [facility] Address [address] [place] [address] Care Team Providers Care Carrier Associate Name Role Phone Nicki Amin MD Primary Care Provider [phone] Miranda Charles MATERIAL FLOW ENGINEER Unavailable [phone] Galdino Mcdaniel DO Unavailable [phone] Encounter Details Date Type Department Care Team (Late st Contact Info) Description 06/08/2024 Abstract [facility] [address] [facility] 110 [place] [address] Nicki Amin MD 112 [facility] 110 [place] [address] Social History Tobacco Use Types Packs/Day Years [...] often do you attend chur ch or alevism services? 1 to 4 times per year 09/08/2023 Do you belong to any clubs o r organizations such as roman catholic groups, unions, fraternal or athletic groups, or [...] Recorded Patient Health Questionnaire-2 Score 0 10/05/2023 [facility] - Occupational Stress Questionnaire Answer Date Recorded [...] place to sleep or slept in a snf (including now)? No 09/08/2023 Comments No Sex and Gender Information Value Date Recorded Sex Assigned at Not on file Legal Sex Female 7:35 PM EDT Gender Identity Not on file Sexual Orientation Not on file documented as of this encounter Plan of Treatment Not on file documented as of this encounter Visit Diagnoses Not on filedocumented in this encounter Care Teams Carrier Associate Relationship Specialty Start Date End Date Nicki Amin MD [address] [facility] [address] [place], [place] [address] PCP - General Family Medicine 11/16/23 Miranda Charles, MATERIAL FLOW ENGINEER [address] [facility] [address] [place] [address] Nurse Practitioner Family Medicine 11/16/23 Galdino Mcdaniel DO [address] [place] [address] Referring Physician Neurology 07/18/24 documented as of this encounter
--- OUTSIDE RECORDS SUMMARY | 2025-01-02 07:56 | XMS_ITS | Encounter Summary ---
Author Organization [facility] Address [id number] [address] [place] [address] Care Team Providers Care Roads Supervisor Name Role Phone Bhupendra Garrido DO Primary Care Provider [phone] Encounter Details Date Type Department Care Team (Late st Contact Info) Description 09/11/2022 Telephone [facility] Physicians Internal Medicine - Family Medicine [address] [place] [address] Bhupendra Garrido DO [address] [place] [address] Social History Tobacco Use Types Packs/Day Years Used Date Smoking Tobacco: Former Cigarettes 0.5 25 Smokeless Tobacco: Never Alcohol Use Standard Drinks/Week Comments Yes 0 (1 standard drink = 0.6 oz pur e alcohol) Social Connection and Isolat ion Panel [NHANES] Answer Date Recorded In a typical week, how many times do you talk on the phone with family, friends, or neighbors? More than three times a week 03/02/2022 How often do you get togethe r with friends or relatives? Twice a week 03/02/2022 How often do you attend chur ch or denominational services? More than 4 times per year 03/02/2022 Do you belong to any clubs o r organizations such as amish groups, unions, fraternal or athletic groups, or school groups? Yes 03/02/2022 How often do you attend meet ings of the clubs or organizations you belong to? 1 to 4 times per year 03/02/2022 Are you , , di vorced, , never , or living with a partner? 03/02/2022 AUDIT-C Answer Date Recorded Q1: How often do you have a drink containing alc ohol? 2-4 times a month 03/02/2022 Q2: How many drinks containi ng alcohol do you have on a typical day when you are drinking? 1 or 2 03/02/2022 Q3: How often do you have si x or more drinks on one occasion? Never 03/02/2022 Overall Financial Resource Strain (CARDIA) Answe r Date Recorded How hard is it for you to pa y for the very basics like food, housing, medical care, and heating? Not hard at all 03/02/2022 PHQ-2 Answer Date Recorded Total Score 4 03/02/2022 [facility] - Occupational Stress Questionnaire Answer Date Recorded Do you feel stress - tense, restless, nervous, or anxious, or unable to sleep at night because your mind is troubled all the time - these days? To some extent 03/02/2022 Exercise Vital Sign Answer Date Recorde d On average, how many days pe r week do you engage in moderate to strenuous exercise (like a brisk walk)? 5 days 03/02/2022 On average, how many minutes do you engage in exercise at this level? 40 min 03/02/2022 PRAPARE - Transportation Answer Date Re corded In the past 12 months, has l ack of transportation kept you from medical appointments or from getting medications? No 02/18 In the past 12 months, has l ack of transportation kept you from meetings, work, or from getting things needed for daily living? No 03/02/2022 Childcare Answer Date Recorded Do problems getting child ca re make it difficult for you to work or study? No 03/02/2022 Employment Answer Date Recorded Do you need help finding a l ocal career center and/or a training program? No 03/02/2022 Purpose - Life Answer Date Recorded I have a purpose and direction in my life. Agree 03/02/2022 Education Answer Date Recorded What is the highest level of school you have completed or the highest degree you have received? 12th grade 03/02/2022 Comments No Sex and Gender Information Value Date Recorded Sex Assigned at Not on file Legal Sex Female 11:24 AM EDT Gender Identity Not on file Sexual Orientation Not on file documented as of this encounter Miscellaneous Notes * Telephone Encounter - Zoie Barth - 09/11/2022 4:10 PM EDT ----- Message from Bhupendra Garrido DO sent at 08/20/2022 3:25 PM EDT ----- Recheck anxiety * Telephone Encounter - Zoie Barth - 09/11/2022 4:10 PM EDT Talked to the patient and she said that she stopped taking the medication so she said she does not need to come in documented in this encounter Plan of Treatment Not on file documented as of this encounter Visit Diagnoses Not on filedocumented in this encounter Additional Health Concerns Assessment Noted Time PHQ-9 Depression Total Score: 4 03/02/20 22 9:53 AM EST documented as of this encounter Care Teams Roads Supervisor Relationship Specialty Start Date End Date Bhupendra Garrido DO [address] [place] [address] PCP - General Internal Medicine 11/10/16 documented as of this encounter
--- OUTSIDE RECORDS SUMMARY | 2025-01-02 07:56 | XMS_ITS | Encounter Summary ---
Author Organization [facility] Address [address] [place] [address] Care Team Providers Care Regional Sales Engineer Name Role Phone Bhupendra Garrido MD Primary Care Provider [phone] Nicki Amin MD Primary Care Provider [phone] Miranda Charles COSMETICS COUNTER MANAGER Unavailable [phone] Galdino Mcdaniel DO Unavailable [phone] Encounter Details Date Type Department Care Team (Late st Contact Info) Description 11/12/2023 Abstract [facility] [address] [place] [id number] Miranda Charles COSMETICS COUNTER MANAGER [address] [place] [address] Social History Tobacco Use Types Packs/Day Years [...] often do you attend chur ch or hinduism services? 1 to 4 times per year 09/08/2023 Do you belong to any clubs o r organizations such as methodist groups, unions, fraternal or athletic groups, or [...] Recorded Patient Health Questionnaire-2 Score 0 10/05/2023 [facility]at ional [facility] - Occupational Stress Questionnaire Answer Date [...] place to sleep or slept in a fci (including now)? No 09/08/2023 Comments No Sex and Gender Information Value Date Recorded Sex Assigned at Not on file Legal Sex Female 7:35 PM EDT Gender Identity Not on file Sexual Orientation Not on file documented as of this encounter Plan of Treatment Not on file documented as of this encounter Visit Diagnoses Not on filedocumented in this encounter Care Teams Regional Sales Engineer Relationship Specialty Start Date End Date Bhupendra Garrido MD PCP - General Internal Medicine 10/13/22 11/15/23 Nicki Amin MD [address] [facility] [address] [place] [address] PCP - General Family Medicine 11/16/23 Miranda Charles NP [address] [facility] [address] [place] [address] Nurse Practitioner Family Medicine 11/16/23 Galdino Mcdaniel DO [address] [place] [address] Referring Physician Neurology 07/18/24 documented as of this encounter
--- OUTSIDE RECORDS SUMMARY | 2025-01-02 07:56 | XMS_ITS | Encounter Summary ---
Author Organization [facility] Address [address] [place] [address] Care Team Providers Care Benefit Specialist Name Role Phone Bhupendra Garrido MD Primary Care Provider [phone] Nicki Amin MD Primary Care Provider [phone] Miranda Charles DIRECTOR PATIENT ACCOUNTING Unavailable [phone] Galdino Mcdaniel DO Unavailable [phone] Encounter Details Date Type Department Care Team (Late st Contact Info) Description 11/12/2023 Abstract [facility] [address] [place] [id number] Miranda Charles DIRECTOR PATIENT ACCOUNTING [address] [place] [address] Social History Tobacco Use Types Packs/Day Years [...] often do you attend chur ch or baptism services? 1 to 4 times per year 09/08/2023 Do you belong to any clubs o r organizations such as bahai groups, unions, fraternal or athletic groups, or [...] Recorded Patient Health Questionnaire-2 Score 0 10/05/2023 [facility]at [facility] - Occupational Stress Questionnaire Answer Date Recorded [...] place to sleep or slept in a group home (including now)? No 09/08/2023 Comments No Sex and Gender Information Value Date Recorded Sex Assigned at Not on file Legal Sex Female 7:35 PM EDT Gender Identity Not on file Sexual Orientation Not on file documented as of this encounter Plan of Treatment Not on file documented as of this encounter Visit Diagnoses Not on filedocumented in this encounter Care Teams Benefit Specialist Relationship Specialty Start Date End Date Bhupendra Garrido MD PCP - General Internal Medicine 10/13/22 11/15/23 Nicki Amin MD [address] [facility] 110 [place] [address] PCP - General Family Medicine 11/16/23 Miranda Charles NP [address] [facility] 110 [place] [address] Nurse Practitioner Family Medicine 11/16/23 Galdino Mcdaniel DO [address] [place] [address] Referring Physician Neurology 07/18/24 documented as of this encounter
--- OUTSIDE RECORDS SUMMARY | 2025-01-02 07:56 | XMS_ITS | Encounter Summary ---
Author Organization [facility] Address [address] [place] [address] Care Team Providers Care Haircutter Name Role Phone Bhupendra Garrido MD Primary Care Provider [phone] Nicki Amin MD Primary Care Provider [phone] Miranda Charles SUPERVISOR PLASTIC SHEETS Unavailable [phone] Galdino Mcdaniel DO Unavailable [phone] Encounter Details Date Type Department Care Team (Late st Contact Info) Description 03/16/2023 Abstract [facility] [address] [place] [address] [place] [id number] Miranda Charles NP [address] [facility] [address] [place] [address] Social History Tobacco Use Types Packs/Day Years [...] on filedocumented in this encounter Care Teams Haircutter Relationship Specialty Start Date End Date Bhupendra Garrido MD PCP - General Internal Medicine 10/13/22 11/15/23 Nicki Amin MD [address] [facility] [address] [place] [address] PCP - General Family Medicine 11/16/23 Miranda Charles NP [address] [facility] [address] [place] [address] Nurse Practitioner Family Medicine 11/16/23 Galdino Mcdaniel DO [address] [place] [address] Referring Physician Neurology 07/18/24 documented as of this encounter
--- OUTSIDE RECORDS SUMMARY | 2025-01-02 07:56 | XMS_ITS | Encounter Summary ---
Author Organization [facility] Address [address] [place] [address] Care Team Providers Care Pharmacy Technician Per Diem Name Role Phone Nicki Amin MD Primary Care Provider [phone] Miranda Charles CUSTODY OFFICER Unavailable [phone] Galdino Mcdaniel DO Unavailable [phone] Encounter Details Date Type Department Care Team ([facility] Contact Info) Description 02/16/2024 [facility] [address] [facility] [address] [place] [address] Nicki Amin MD 112 [facility] [address] [place] [address] Social History Tobacco Use Types Packs/Day Years [...] often do you attend chur ch or anabaptist services? 1 to 4 times per year 09/08/2023 Do you belong to any clubs o r organizations such as hinduism groups, unions, fraternal or athletic groups, or [...] Recorded Patient Health Questionnaire-2 Score 0 10/05/2023 [facility] - Occupational [...] place to sleep or slept in a residential (including now)? No 09/08/2023 Comments No Sex and Gender Information Value Date Recorded Sex Assigned at Not on file Legal Sex Female 7:35 PM EDT Gender Identity Not on file Sexual Orientation Not on file documented as of this encounter Plan of Treatment Not on file documented as of this encounter Visit Diagnoses Not on filedocumented in this encounter Care Teams Pharmacy Technician Per Diem Relationship Specialty Start Date End Date Nicki Amin MD 112 [facility] [address] [place] [address] PCP - General Family Medicine 11/16/23 Miranda Charles, CUSTODY OFFICER 112 [facility] [address] [place] [address] Nurse Practitioner Family Medicine 11/16/23 Galdino Mcdaniel DO [address] [place] [address] Referring Physician Neurology 07/18/24 documented as of this encounter
--- OUTSIDE RECORDS SUMMARY | 2025-01-02 07:56 | XMS_ITS | Clinical Summary ---
Author Organization [employer] [facility] Address [id number] [address] [place] [address] Care Team Providers Care Tow Mate Name Role Phone Bhupendra Garrido Primary Care Provider [phone] Allergies Active Allergy Reactions Criticality Noted Date Comments Bee Venom Protein (Honey Bee) 2019 Cyclobenzaprine Palpitations Low 05/09/2019 Trazodone Hives 03/03/2022 Medications omega-3 fatty acids-fish oil 300-1,000 mg capsule Take 2 g by mouth daily. Active biotin 1 mg capsule Take by mouth. Activ e regan prim-linoleic- gamolenic ac 1,000 mg capsule Take by mouth. Activ e cholecalcifero l, vitamin D3, 2,000 units tablet Take by mouth daily. Active b complex vitamins capsule Take 1 capsule by mouth daily. Active albuterol (PROVENTIL HFA;VENTOLIN HFA) 90 mcg/actuation inhaler albuterol sulfate HFA 90 mcg/actuation aerosol inhaler Active ascorbic acid, vitamin C, (VITAMIN C) 100 MG tablet Take 1 tablet (100 mg total) by mouth in the morning. Active brimonidine (MIRVASO) 0.33 % gel Mirvaso 0.33 % topical gel with pump APPLY a pea sized amount to the entire face EVERY MORNING Active EPINEPHrine (EPIPEN) 0.3 mg/0.3 mL auto-injector epinephrine 0.3 mg/0.3 mL injection, auto-injector INJECT PEN INTRAMUSCULARLY NEEDED Active hydrocortisone (HYTONE) 2.5 % ointment hydrocortisone 2.5 % topical ointment Active cyanocobalamin (VITAMIN B-12) 100 MCG tablet Take 1 tablet (100 mcg total) by mouth in the morning. Active ergocalciferol (DRISDOL) 200 mcg (8,000 units)/mL drops Take by mouth. Activ e metroNIDAZOLE (METROCREAM) 0.75 % creamIndicatio ns:Acne rosacea Apply 1 application topically in the morning and 1 application before bedtime. 45 g 1 03/03/20 22 Active fluticasone propionate (FLONASE) 50 mcg/actuation nasal sprayIndicatio ns:Seasonal allergic rhinitis due to pollen Administer 2 sprays into each nostril in the morning. 16 mL 2 03/03/20 22 Active norethindrone ac-eth estradioL (FEMHRT 04/24) 1-5 mg-mcg tablet Take 1 tablet by mouth in the morning. 03/03/20 22 Active ondansetron (ZOFRAN) 4 mg tabletIndicati ons:COVID-19 Take 1 tablet (4 mg total) by mouth every 8 (eight) hours as needed for nausea or vomiting. 10 tablet 04/07/20 22 Active minoxidiL 5 % foam Apply 1 application. topically in the morning. 07/02/19 23 Active fluorouraciL (EFUDEX) 5 % cream Apply topically to affected area on nose bid. Use for 2 weeks, if not much of a reaction then continue for 2 additional weeks, not to exceed 4 weeks. 07/04/19 23 Active azelaic acid (FINACEA) 15 % cream APPLY TO THE AFFECTED AREA(S) TO THE FACE TWICE DAILY 07/03/19 23 Active hydrOXYzine (VISTARIL) 100 mg capsule TAKE 1 CAPSULE BY MOUTH EVERY 8 HOURS NEEDED FOR ANXIETY 09/09/19 23 Active Active Problems Problem Noted Date Diagnosed Date Acne rosacea, erythematous telangiectatic type 0 08/20/2022 08/20/2022 Actinic keratosis 03/03/2022 B12 deficiency 03/03/2022 Bee sting allergy 03/03/2022 Exercise-induced asthma 03/03/2022 Hair thinning 03/03/2022 Inflamed seborrheic keratosis 03/03/2022 Seasonal allergic rhinitis due to pollen 022 Mild aortic valve regurgitation 10/30/2020 Overview (03/03/2022): Followed by cardiology/Dr. Allen; repeat echo in 3 years recommended Shortness of breath 09/12/2020 Disorder of thyroid gland 03/21/2020 Nonrheumatic aortic valve insufficiency 07/28/19 20 Tachycardia 05/09/2019 Vitamin D deficiency 03/14/2019 Gastritis and duodenitis 02/24/2018 Epigastric pain 02/08/2018 Resolved Problems Problem Noted Date Diagnosed Date Resolved Date Acne rosacea 03/03/2022 08/20/2022 Immunizations Immunization Administration Dates Next Due Zoster Vaccine Recombinant 09/15/2019,03/21/2019 Zoster, unspecified formulation 03/27/2019 Family History Medical History Relation Name Comments Asthma Daughter No Known Problems Father Osteoporosis Mother Ulcerative colitis Mother Breast cancer Neg Hx Relation Name Status Comments Daughter Father Alive Mother Alive Social History Tobacco Use Types Packs/Day Years [...] 03/02/2022 How often do you attend chur or episcopal services? More than 4 times per year 03/02/2022 Do you belong to any clubs o r organizations such as confucianist groups, unions, fraternal or athletic groups, or [...] Answer Date Recorded Total Score 4 03/02/2022 [facility] - Occupational Stress [...] Recorded Do you need help finding a [facility] career center and/or a training program? No [...] Sign Reading Time Taken Comments Blood Pressure 114/77 03/03/2022 10:09 AM EST Pulse 93 03/03/2022 10:09 AM EST Temperature 36.7 C (98.1 F) 03/03/2022 10:09 AM EST Respiratory Rate 16 02/24/2018 11:06 AM EST Oxygen Saturation 98% 03/03/2022 10:09 AM EST Inhaled Oxygen Concentration - - Weight 68 kg (150 lb) 03/03/2022 10:09 AM EST Height 162.6 cm (5' 4 ) 03/03/2022 10:09 AM EST Body Mass Index 25.75 03/03/2022 10:09 AM EST Plan of Treatment Health Maintenance Due Date Last Done Comments Tobacco Screening 1980 DTaP,Tdap and Td Vaccines (1 - Tdap) 02/19/1987 Pap Smear 02/19/1989 Mammogram 02/12/2019 02/12/2018, 11/10/2016 Depression Screening 03/02/2023 03/02/2022 Adult BMI Screening 03/03/2023 03/03/2022 Influenza Vaccine 12/19/2024 Zoster (Shingles) Vaccine Completed 2019, 03/27/2019, 03/21/2019 Medical Devices Not on file Procedures Procedure Name Priority Date/Time Associated Diagnosis Comments MAMM SCREENING BILATERAL W CAD Routine 02/12/2018 12:16 PM EDT Screening for breast cancer from Last 3 Months or Most Recently Relevant to Health Maintenance Results * Mammography screening bilateral with CAD (02/12/2018 12:16 PM EDT) Anatomical Region Laterality Modality Breast Bilateral Mammography 02/12/2018 2:37 PM EDT Narrative 02/12/2018 2:41 PM EDT History: Screening mammogram Technique: Digital mammographic images of both breasts were obtained in CC and MLO projections. Computer-aided detection was utilized. Tomosynthesis was also performed bilaterally. Comparison: 11/10/2016 Findings: Breast Density: The breasts are extremely dense, which lowers the sensitivity of mammography. . There is no evidence of dominant mass lesion, clustered microcalcifications, or skin thickening in either breast to suggest the presence of malignancy. Impression: Both breasts negative for evidence of malignancy by digital mammography. A screening mammogram in one year is recommended. ACR Category: BIRADS 1 - Negative. Finalized by Moustapha Baker MD on 02/12/2018 2:41 PM MAMM 1 YR 1 d Procedure Note Moustapha Baker MD - 02/12/2018 History: Screening mammogram Technique: Digital mammographic images of both breasts were obtained in CCand MLO projections. Computer-aided detection was utilized.Tomosynthesis was also performed bilaterally. Comparison: 11/10/2016 Findings: Breast Density: The breasts are extremely dense, which lowers thesensitivity of mammography. . There is no evidence of dominant mass lesion, clusteredmicrocalcifications, or skin thickening in either breast to suggest thepresence of malignancy. Impression: Both breasts negative for evidence of malignancy by digitalmammography. A screening mammogram in one year is recommended. ACR Category: BIRADS 1 - Negative. Finalized by Moustapha Baker MD on 02/12/2018 2:41 PM MAMM 1 YR 1 d Vivian Meek EXECUTIVE CHEF ASSISTANT-NUTRITION INTERN IMG MAMMOGRAPHY ORDERABLES Final Result from Last 3 Months or Most Recently Relevant to Health Maintenance Insurance ANTH Care Teams Tow Mate Relationship Specialty Start Date End Date Bhupendra Garrido DO [address] [place] [id number] PCP - General Internal Medicine 11/10/16
--- OUTSIDE RECORDS SUMMARY | 2025-01-02 07:56 | XMS_ITS | Encounter Summary ---
Author Organization [facility] Address [address] [place] [address] Care Team Providers Care Key Entry Operator Name Role Phone Nicki Amin MD Primary Care Provider [phone] Miranda Charles LOCATION MAN Unavailable [phone] Galdino Mcdaniel DO Unavailable [phone] Encounter Details Date Type Department Care Team (Late st Contact Info) Description 07/12/2024 Abstract [facility] [address] [facility] [address] [place] [address] Nicki Amin MD 112 [facility] [address] [place] [address] Social History Tobacco Use Types Packs/Day Years [...] Recorded Patient Health Questionnaire-2 Score 0 10/05/2023 [facility] - Occupational Stress Questionnaire Answer Date [...] place to sleep or slept in a half-way (including now)? No 09/08/2023 Comments No Sex and Gender Information Value Date Recorded Sex Assigned at Not on file Legal Sex Female 7:35 PM EDT Gender Identity Not on file Sexual Orientation Not on file documented as of this encounter Plan of Treatment Not on file documented as of this encounter Visit Diagnoses Not on filedocumented in this encounter Care Teams Key Entry Operator Relationship Specialty Start Date End Date Nicki Amin MD [address] [facility] [address] [place], [place] [id number] PCP - General Family Medicine 11/16/23 Miranda Charles, LOCATION MAN [address] [facility] [address] [place] [address] Nurse Practitioner Family Medicine 11/16/23 Galdino Mcdaniel DO [address] [place] [address] Referring Physician Neurology 07/18/24 documented as of this encounter
--- OUTSIDE RECORDS SUMMARY | 2025-01-02 07:56 | XMS_ITS | Clinical Summary ---
Author Organization [facility] Address [address] [place] [address] Care Team Providers Care Machine Engineer Name Role Phone Vivian Meek Cathleen ARNETT Primary Care Provider [phone] Allergies Active Allergy Reactions Criticality Noted Date Comments Bee Venom Protein (Honey Bee) Swelling 2020 Cyclobenzaprine Other: See Comments Low 05/09/2019 Trazodone Hives,Unknown 03/03/2022 Medications fluticasone (FLONASE) 50 mcg/actuation nasal spray Use 2 Sprays in each nostril once daily. 1 Active albuterol HFA (PROVENTIL HFA, VENTOLIN HFA) 90 mcg/actuation inhaler INHALE 2 PUFFS BY MOUTH EVERY 4 HOURS 1 Active cyanocobalamin (VITAMIN B-12) 100 mcg tab Take 100 mcg by mouth once daily. Active Ascorbic Acid (VITAMIN C) 100 mg tablet Take 100 mg by mouth once daily. Active ergocalciferol, vitamin D2, (VITAMIN D2 ORAL) Take by mouth. Activ e Azelaic Acid (FINACEA) 15 % gel Apply bid to face 50 g 3 3 Active Minoxidil 5 % foamIndications :Hair thinning Apply to affected area once daily. 60 g 2 3 Active Fluorouracil 5 % creamIndication s:Actinic keratosis Apply topically to affected area on nose bid. Use for 2 weeks, if not much of a reaction then continue for 2 additional weeks, not to exceed 4 weeks. 40 g 3 Active OXcarbazepine (TRILEPTAL) 150 mg tablet Take 150 mg by mouth two times a day. Active metoprolol succinate ER (TOPROL XL) 25 mg 24 hr tablet Take 25 mg by mouth once daily. 5 Active Active Problems Problem Noted Date Diagnosed Date Mild aortic valve regurgitation 10/30/2020 Overview (10/30/2020): Followed by cardiology/Dr. Allen; repeat echo in 3 years recommended Bee sting allergy Vitamin D deficiency Seasonal allergic rhinitis due to pollen Exercise-induced asthma B12 deficiency Acne rosacea, erythematous telangiectatic type Inflamed seborrheic keratosis Actinic keratosis Hair thinning Immunizations Immunization Administration Dates Next Due zoster (RZV) vaccine, recombinant (SHINGRIX) ,03/21/2019 zoster vaccine, unspecified formulation 03/27/20 19 Family History Relation Status Comments Father Alive Mother Alive Sister 1 Alive Sister 2 Alive Sister 3 Alive Social History Tobacco Use Types Packs/Day Years Used Date Smoking Tobacco: Former Cigarettes Q uit: 03/31/2012 Smokeless Tobacco: Never Tobacco Cessation:Counseling Given: Not Answered Alcohol Use Standard Drinks/Week Comments Yes 0 (1 standard drink = 0.6 oz pur e alcohol) WINE ONCE A MONTH Area Deprivation Index Answer Date Stanley rded National Score (1-100), lower number is lower ri sk 94 09/27/2024 State Score (1-10), lower number is lower risk 9 09/27/2024 Data from: https://www.neighborhoodatlas.medicine.[facility].edu/. Last address used for calculation [address] [facility] 09/27/2024 Comments Unknown Sex and Gender Information Value Date Recorded Sex Assigned at Not on file Legal Sex Female 3:47 PM EST Gender Identity Not on file Sexual Orientation Not on file Last Filed Vital Signs Vital Sign Reading Time Taken Comments Blood Pressure 129/54 10/30/2020 10:00 AM EDT Pulse 94 10/30/2020 10:00 AM EDT Temperature - - Respiratory Rate - - Oxygen Saturation 99% 10/30/2020 10:00 AM EDT Inhaled Oxygen Concentration - - Weight 65.8 kg (145 lb) 06/30/2022 2:06 PM EDT Height 162.6 cm (5' 4 ) 06/30/2022 2:06 PM EDT Body Mass Index 24.89 06/30/2022 2:06 PM EDT Plan of Treatment Health Maintenance Due Date Last Done Comments Anxiety Screening 02/19/1986 Depression Screening 02/19/1986 HIV Screening 02/19/1986 Hepatitis C Screening 02/19/1986 DTaP,Tdap,Td Vaccine (1 - Tdap) 02/19/1987 Hepatitis B Vaccine (1 of 3 - 19+ 3-dose series) 02/19/1987 Cervical Cancer Screening 02/19/1989 CT Colonography 02/19/2013 Cologuard (FIT-DNA) 02/19/2013 Colonoscopy 02/19/2013 Colorectal Cancer Screening 02/19/2013 Fecal Occult Blood 02/19/2013 Sigmoidoscopy 02/19/2013 Pneumococcal Vaccine: 50+ (1 of 1 - PCV) 02/19/2018 Mammogram Screening 03/10/2023 03/10/2022, 02/12/2018, 02/12/2018, Additional history exists Annual PCP Team Chronic Dise ase Visit 07/01/2023 06/30/2022 Influenza Vaccine (#1) 2024 Diabetes Screening 09/03/2025 09/03/2022, 1 04/26/2021, 04/22/2021 Lipid Screening 02/24/2027 02/24/2022 Shingrix Vaccine Completed 09/15/2019, 11/2018, 03/21/2019 Insurance [employer] Care Teams Machine Engineer Relationship Specialty Start Date End Date Vivian Meek, HOPE [address] [facility] [place] [place] [address] PCP - General Family Medicine 06/27/20
--- OUTSIDE RECORDS SUMMARY | 2025-01-02 07:56 | XMS_ITS | Encounter Summary ---
Author Organization [facility] [employer] [facility] Address [id number] [address] [place] [address] Care Team Providers Care Corporate Legal Assistant Name Role Phone Bhupendra Garrido DO Primary Care Provider [phone] Encounter Details Date Type Department Care Team (Late st Contact Info) Description 06/16/2022 Orders Only [facility] Internal Medicine - Family Medicine [address] [place] [address] Bhupendra Garrido DO [address] [place] [address] Social History Tobacco Use Types Packs/Day Years [...] often do you attend chur ch or catholic services? More than 4 times per year 03/02/2022 Do you belong to any clubs o r organizations such as yarsani groups, unions, fraternal or athletic groups, or [...] Answer Date Recorded Total Score 4 03/02/2022 [facility]at ional Health - Occupational [...] documented as of this encounter Care Teams Corporate Legal Assistant Relationship Specialty Start Date End Date Bhupendra Garrido DO [address] [place] [address] PCP - General Internal Medicine 11/10/16 documented as of this encounter
--- OUTSIDE RECORDS SUMMARY | 2025-01-02 07:56 | XMS_ITS | Encounter Summary ---
Author Organization [email or web address] [facility] [employer] Address [id number] [address] [place] [address] Care Team Providers Care Locker Room Clerk Name Role Phone Bhupendra Garrido Jessi MACARIO Primary Care Provider Encounter Details Date Type Department Care Team (Late st Contact Info) Description 04/07/2022 [facility]phone [facility] [address] [place] [id number] Florinda Hughes CMA Social History Tobacco Use Types Packs/Day Years [...] often do you attend chur ch or jew services? More than 4 times per year 03/02/2022 Do you belong to any clubs o r organizations such as episcopal groups, unions, fraternal or athletic groups, or [...] Answer Date Recorded Total Score 4 03/02/2022 [facility] Occupat ional Health - Occupational Stress [...] encounter Miscellaneous Notes * Telephone Encounter - Florinda Hughes CMA - 04/07/2022 8:38 AM EST Pt called and was off till today and she just is not feeling good enough to go back to work today from recovering from Covid. Would you extend her letter through today that Vivian had already did? * Telephone Encounter - Bhupendra Garrido DO - 04/07/2022 8:38 AM EST Needs a telehealth for this. Work note should have come from the urgent care. We technically cannotwrite if we have not evaluated or treated documented in this encounter Plan of Treatment Not on file documented as of this encounter Visit Diagnoses Not on filedocumented in this encounter Additional Health Concerns Assessment Noted Time PHQ-9 Depression Total Score: 4 03/02/20 22 9:53 AM EST documented as of this encounter Care Teams Locker Room Clerk Relationship Specialty Start Date End Date Bhupendra Garrido DO [address] [id number] PCP - General Internal Medicine 11/10/16 documented as of this encounter
--- OUTSIDE RECORDS SUMMARY | 2025-01-02 07:56 | XMS_ITS | Encounter Summary ---
Author [facility] Address [id number] [address] [place] [address] Care Team Providers Care Pulpwood Buyer Name Role Phone Bhupendra Garrido Primary Care Provider [phone] Encounter Details Date Type Department Care Team (Late st Contact Info) Description 01/10/2022 Orders Only [facility] Internal Medicine - Family Medicine [address] [place] [address] External, Scanning Provider Social History Tobacco Use Types Packs/Day Years Used Date Smoking Tobacco: Former Cigarettes 0.5 25 Smokeless Tobacco: Never Alcohol Use Standard Drinks/Week Comments Yes 0 (1 standard drink = 0.6 oz pur e alcohol) AUDIT-C Answer Date Recorded Frequency of Alcohol Consumption Never 05/09/2019 Average Number of Drinks Not on file 020 Frequency of Binge Drinking Not on file 04/21 Childcare Answer Date Recorded Childcare Unknown 09/29/2018 Employment Answer Date Recorded Employment Unknown 09/29/2018 Purpose - Life Answer Date Recorded Purpose and direction in life Unknown Comments No Sex and Gender Information Value Date Recorded Sex Assigned at Not on file Legal Sex Female 11:24 AM EDT Gender Identity Not on file Sexual Orientation Not on file documented as of this encounter Plan of Treatment Not on file documented as of this encounter Procedures Procedure Name Priority Date/Time Associated Diagnosis Comments ECHO DOPPLER Routine 01/10/2022 documented in this encounter Results * Echo Doppler (01/10/2022) Anatomical Region Laterality Modality Chest N/A Ultrasound us Scanning Provider External CV ECHO ORDERABLES Fi nal Result documented in this encounter Visit Diagnoses Not on filedocumented in this encounter Care Teams Pulpwood Buyer Relationship Specialty Start Date End Date Bhupendra Garrido DO [address] [place] [address] PCP - General Internal Medicine 11/10/16 documented as of this encounter
--- OUTSIDE RECORDS SUMMARY | 2025-01-02 07:56 | XMS_ITS | Encounter Summary ---
Author Organization [facility] Address [address] [place] [address] Care Team Providers Care Seasonal Sales Associate Name Role Phone Nicki Amin MD Primary Care Provider [phone] Miranda Charles RUG RECEIVING CLERK Unavailable [phone] Galdino Mcdaniel DO Unavailable [phone] Encounter Details Date Type Department Care Team (Late st Contact Info) Description 06/07/2024 Abstract [facility] [address] [facility] [address] [place] [address] Nicki Amin MD 112 [facility] [address] [place] [address] Social History Tobacco Use Types Packs/Day Years [...] often do you attend chur ch or temple services? 1 to 4 times per year 09/08/2023 Do you belong to any clubs o r organizations such as samaritan groups, unions, fraternal or athletic groups, or [...] Recorded Patient Health Questionnaire-2 Score 0 10/05/2023 [facility] ional [facility] [...] place to sleep or slept in a [place] health care facility (including now)? No 09/08/2023 Comments No Sex and Gender Information Value Date Recorded Sex Assigned at Not on file Legal Sex Female 7:35 PM EDT Gender Identity Not on file Sexual Orientation Not on file documented as of this encounter Plan of Treatment Not on file documented as of this encounter Visit Diagnoses Not on filedocumented in this encounter Care Teams Seasonal Sales Associate Relationship Specialty Start Date End Date Nicki Amin MD [address] [facility] [address] [place], [place] [id number] PCP - General Family Medicine 11/16/23 Miranda Charles, RUG RECEIVING CLERK [address] [facility] [address] [place] [address] Nurse Practitioner Family Medicine 11/16/23 Galdino Mcdaniel DO [address] [place] [address] Referring Physician Neurology 07/18/24 documented as of this encounter
--- OUTSIDE RECORDS SUMMARY | 2025-01-02 07:56 | XMS_ITS | Encounter Summary ---
Author Organization [facility] Address [address] [place] [address] Care Team Providers Care Brush Stainer Name Role Phone Bhupendra Garrido MD Primary Care Provider [phone] Nicki Amin MD Primary Care Provider [phone] Miranda Charles LINUX SYSTEM ENGINEER Unavailable [phone] Galdino Mcdaniel DO Unavailable [phone] Encounter Details Date Type Department Care Team (Late st Contact Info) Description 08/25/2022 Abstract [facility]ON[facility] [address] [facility] [address] [place] [address] Santhosh Paez DO [address] [facility] [address] [place] [address] Social History Tobacco Use Types Packs/Day Years Used Date Smoking Tobacco: Never Smokeless Tobacco: Never Alcohol Use Standard Drinks/Week Comments Yes 0 (1 standard drink = 0.6 oz pure alcohol) Frequency: Monthly or less; Caffeine: 1 energy drink daily Comments Unknown Sex and Gender Information Value Date Recorded Sex Assigned at Not on file Legal Sex Female 7:35 PM EDT Gender Identity Not on file Sexual Orientation Not on file documented as of this encounter Plan of Treatment Not on file documented as of this encounter Visit Diagnoses Not on filedocumented in this encounter Care Teams Brush Stainer Relationship Specialty Start Date End Date Bhupendra Garrido MD PCP - General Internal Medicine 10/13/22 11/15/23 Nicki Amin MD [address] [facility] [address] [place] [address] PCP - General Family Medicine 11/16/23 Miranda Charles NP [address] [facility] [address] [place] [address] Nurse Practitioner Family Medicine 11/16/23 Galdino Mcdaniel DO [address] [place] [address] Referring Physician Neurology 07/18/24 documented as of this encounter
--- OUTSIDE RECORDS SUMMARY | 2025-01-02 07:56 | XMS_ITS | Encounter Summary ---
Author Organization [facility] Address [address] [place] [address] Care Team Providers Care Fleet Coordinator Name Role Phone Nicki Amin MD Primary Care Provider [phone] Miranda Charles SUPERVISOR LAST MODEL DEPARTMENT Unavailable [phone] Galdino Mcdaniel DO Unavailable [phone] Encounter Details Date Type Department Care Team (Late st Contact Info) Description 06/08/2024 Abstract [facility] [address] [facility] 110 [place] [address] Nicki Amin MD 112 [facility] 110 [place] [address] Social History Tobacco Use Types Packs/Day Years [...] often do you attend chur ch or adventist services? 1 to 4 times per year 09/08/2023 Do you belong to any clubs o r organizations such as anglican groups, unions, fraternal or athletic groups, or [...] Recorded Patient Health Questionnaire-2 Score 0 10/05/2023 [facility] of Occupat ional [facility] - Occupational Stress Questionnaire Answer [...] place to sleep or slept in a assisted (including now)? No 09/08/2023 Comments No Sex and Gender Information Value Date Recorded Sex Assigned at Not on file Legal Sex Female 7:35 PM EDT Gender Identity Not on file Sexual Orientation Not on file documented as of this encounter Plan of Treatment Not on file documented as of this encounter Visit Diagnoses Not on filedocumented in this encounter Care Teams Fleet Coordinator Relationship Specialty Start Date End Date Nicki Amin MD [address] [facility] 110 [place], [place] [id number] PCP - General Family Medicine 11/16/23 Miranda Charles, SUPERVISOR LAST MODEL DEPARTMENT [address] [facility] 110 [place] [address] Nurse Practitioner Family Medicine 11/16/23 Galdino Mcdaniel DO [address] [place] [address] Referring Physician Neurology 07/18/24 documented as of this encounter
--- OUTSIDE RECORDS SUMMARY | 2025-01-02 07:56 | XMS_ITS | Encounter Summary ---
Author Organization [facility] Address [address] [place] [address] Care Team Providers Care Manager Float Name Role Phone Nicki Amin MD Primary Care Provider [phone] Miranda Charles NASCAR DRIVER Unavailable [phone] Galdino Mcdaniel DO Unavailable [phone] Encounter Details Date Type Department Care Team ([facility] Contact Info) Description 02/15/2024 Abstract [facility] [address] [facility] 110 [place] [address] Nicki Amin MD 112 [facility] 110 [place] [address] Social History Tobacco Use Types Packs/Day Years [...] often do you attend chur ch or episcopalian services? 1 to 4 times per year 09/08/2023 Do you belong to any clubs o r organizations such as buddhism groups, unions, fraternal or athletic groups, or [...] Recorded Patient Health Questionnaire-2 Score 0 10/05/2023 [facility] of Occupat ional Health - Occupational Stress [...] place to sleep or slept in a penitentiary (including now)? No 09/08/2023 Comments No Sex and Gender Information Value Date Recorded Sex Assigned at Not on file Legal Sex Female 7:35 PM EDT Gender Identity Not on file Sexual Orientation Not on file documented as of this encounter Plan of Treatment Not on file documented as of this encounter Visit Diagnoses Not on filedocumented in this encounter Care Teams Manager Float Relationship Specialty Start Date End Date Nicki Amin MD 112 [facility] 110 [place] [address] PCP - General Family Medicine 11/16/23 Miranda Charles, NASCAR DRIVER 112 [facility] 110 [place] [address] Nurse Practitioner Family Medicine 11/16/23 Galdino Mcdaniel DO [address] [place] [address] Referring Physician Neurology 07/18/24 documented as of this encounter
--- OUTSIDE RECORDS SUMMARY | 2025-01-02 07:56 | XMS_ITS | Encounter Summary ---
Author Organization [facility] Address [address] [place] [address] Care Team Providers Care Planting Material Carrier Name Role Phone Bhupendra Garrido MD Primary Care Provider [phone] Nicki Amin MD Primary Care Provider [phone] Miranda Charles DIRECTOR OF COUNTERINTELLIGENCE Unavailable [phone] Galdino Mcdaniel DO Unavailable [phone] Encounter Details Date Type Department Care Team (Late st Contact Info) Description 11/12/2023 Abstract [facility] [address] [place] [address] Miranda Charles DIRECTOR OF COUNTERINTELLIGENCE [address] [place] [address] Social History Tobacco Use Types Packs/Day Years [...] often do you attend chur ch or methodist services? 1 to 4 times per year 09/08/2023 Do you belong to any clubs o r organizations such as hindu groups, unions, fraternal or athletic groups, or [...] Recorded Patient Health Questionnaire-2 Score 0 10/05/2023 [facility] of Occupat ional [facility] - Occupational Stress Questionnaire Answer Date Recorded [...] place to sleep or slept in a alf (including now)? No 09/08/2023 Comments No Sex and Gender Information Value Date Recorded Sex Assigned at Not on file Legal Sex Female 7:35 PM EDT Gender Identity Not on file Sexual Orientation Not on file documented as of this encounter Plan of Treatment Not on file documented as of this encounter Visit Diagnoses Not on filedocumented in this encounter Care Teams Planting Material Carrier Relationship Specialty Start Date End Date Bhupendra Garrido MD PCP - General Internal Medicine 10/13/22 11/15/23 Nicki Amin MD [address] [facility] 110 [place] [address] PCP - General Family Medicine 11/16/23 Miranda Charles NP [address] [facility] 110 [place] [address] Nurse Practitioner Family Medicine 11/16/23 Galdino Mcdaniel DO [address] [place] [address] Referring Physician Neurology 07/18/24 documented as of this encounter
--- OUTSIDE RECORDS SUMMARY | 2025-01-02 07:56 | XMS_ITS | Encounter Summary ---
Author Organization [employer] Address [id number] [address] [place] [address] Care Team Providers Care Asphalt Mixer Name Role Phone Bhupendra Garrido Jessi MACARIO Primary Care Provider Encounter Details Date Type Department Care Team (Late st Contact Info) Description 03/06/2022 [facility] [address] [place] [address] Florinda Hughes CMA Social History Tobacco Use [...] often do you attend chur ch or buddhism services? More than 4 times per year 03/02/2022 Do you belong to any clubs o r organizations such as adventism groups, unions, fraternal or athletic groups, or [...] Answer Date Recorded Total Score 4 03/02/2022 [facility] of Occupat ional Health - Occupational Stress [...] on file Sexual Orientation Not on file COVID-19 Exposure Response Date Recorded In the last month, have you been in contact with someone who was confirmed or suspected to have Coronavirus / COVID-19? No / Unsure 03/03/2022 9:54 AM EST documented as of this encounter Miscellaneous Notes * Telephone Encounter - Florinda Hughes CMA - 03/06/2022 2:56 PM EST Pt called and wanted to know if you could send a referral to Dr. Simons for her ears. She said whenshe seen you the other day you guys talked about it. * Telephone Encounter - MARYAM Julien - 03/06/2022 2:56 PM EST I sent a referral * Telephone Encounter - Rosio Reeves CMA - 03/06/2022 2:56 PM EST Spoke with the patient and she is going to wait until next week and if she doesn't hear from them, then she will call them back to schedule documented in this encounter Plan of Treatment Not on file documented as of this encounter Visit Diagnoses Not on filedocumented in this encounter Additional Health Concerns Assessment Noted Time PHQ-9 Depression Total Score: 4 03/02/20 22 9:53 AM EST documented as of this encounter Care Teams Asphalt Mixer Relationship Specialty Start Date End Date Bhupendra Garrido DO [address] [place] [address] PCP - General Internal Medicine 11/10/16 documented as of this encounter
--- OUTSIDE RECORDS SUMMARY | 2025-01-02 07:56 | XMS_ITS | Encounter Summary ---
Author Organization [facility] [email or web address] s tem Address [id number] [address] [place] [address] Care Team Providers Care Licensed Practical Nurse Name Role Phone Bhupendra Garrido DO Primary Care Provider [phone] Encounter Details Date Type Department Care Team (Late st Contact Info) Description 09/11/2022 Orders Only [facility] Internal Medicine - Family Medicine [address] [place] [address] Bhupendra Garrido DO [address] [place] [address] Social History Tobacco Use Types Packs/Day Years [...] often do you attend chur ch or religion services? More than 4 times per year [...] documented as of this encounter Care Teams Licensed Practical Nurse Relationship Specialty Start Date End Date Bhupendra Garrido DO [address] [place] [address] PCP - General Internal Medicine 11/10/16 documented as of this encounter
--- OUTSIDE RECORDS SUMMARY | 2025-01-02 07:56 | XMS_ITS | Encounter Summary ---
Author Organization [facility] Address [address] [place] [address] Care Team Providers Care Value Stream Leader Name Role Phone Bhupendra Garrido MD Primary Care Provider [phone] Nicki Amin MD Primary Care Provider [phone] Miranda Charles PHARMACY TECHNICIAN INFUSION Unavailable [phone] Galdino Mcdaniel DO Unavailable [phone] Encounter Details Date Type Department Care Team (Late st Contact Info) Description 01/13/2023 [facility] [address] [place] [address] A, Unknown Practice [address] [place], [place] [address] Social History Tobacco Use Types Packs/Day Years [...] Procedure Name Priority Date/Time Associated Diagnosis Comments CONGENITAL TRANSTHORACIC ECHO (TTE) COMPLETE Routine 01/12/2023 10:53 AM EDT documented in this encounter Results * Congenital transthoracic echo (TTE) complete (01/12/2023 10:53 AM EDT) Anatomical Region Laterality Modality Heart Ultrasound us Unknown Practice A CV ECHO PROCEDURES Final Resu lt documented in this encounter Visit Diagnoses Not on filedocumented in this encounter Care Teams Value Stream Leader Relationship Specialty Start Date End Date Bhupendra Garrido MD PCP - General Internal Medicine 10/13/22 11/15/23 Nicki Amin MD 112 [facility] 110 [place] [address] PCP - General Family Medicine 11/16/23 Miranda Charles NP 112 [facility] 110 [place] [address] Nurse Practitioner Family Medicine 11/16/23 Galdino Mcdaniel DO [address] [facility] [address] [place] [address] Referring Physician Neurology 07/18/24 documented as of this encounter
--- OUTSIDE RECORDS SUMMARY | 2025-01-02 07:56 | XMS_ITS | Encounter Summary ---
Author Organization [employer] Address [id number] [address] [place] [address] Care Team Providers Care Adult Education Teacher Name Role Phone EllaniaBhupendra DO Primary Care Provider [phone] Encounter Details Date Type Department Care Team (Late st Contact Info) Description 07/26/2019 [facility]phone [facility] [address] [place] [address] Jorge Hu [address], [address] [place] [id number] Social History Tobacco Use Types Packs/Day Years Used Date Smoking Tobacco: Former Cigarettes 0.5 25 Smokeless Tobacco: Never Alcohol Use Standard Drinks/Week Comments No 0 (1 standard drink = 0.6 oz pur e alcohol) AUDIT-C Answer Date Recorded Frequency of Alcohol Consumption Never 05/09/2019 Average Number of Drinks Not on file 020 Frequency of Binge Drinking Not on file 04/21 Childcare Answer Date Recorded Childcare Unknown 09/29/2018 Employment Answer Date Recorded Employment Unknown 09/29/2018 Comments No Sex and Gender Information Value Date Recorded Sex Assigned at Not on file Legal Sex Female 11:24 AM EDT Gender Identity Not on file Sexual Orientation Not on file documented as of this encounter Plan of Treatment Not on file documented as of this encounter Visit Diagnoses Not on filedocumented in this encounter Additional Health Concerns Infection Onset Date Last Indicated Resolved Time COVID-19 Rule-Out 05/06/2021 05/06/202105/0705/07/2021 12:22 PM EST documented as of this encounter Care Teams Adult Education Teacher Relationship Specialty Start Date End Date Bhupendra Garrido DO [address] [place] [address] PCP - General Internal Medicine 11/10/16 documented as of this encounter
--- OUTSIDE RECORDS SUMMARY | 2025-01-02 07:56 | XMS_ITS | Encounter Summary ---
Author Organization [facility] Address [address] [place] [address] Care Team Providers Care Oil Well Pumper Name Role Phone Nicki Amin MD Primary Care Provider [phone] Miranda Charles ORNAMENTAL PLASTER STICKER Unavailable [phone] Galdino Mcdaniel DO Unavailable [phone] Encounter Details Date Type Department Care Team (Late st Contact Info) Description 06/09/2024 Abstract [facility] [address] [facility] 110 [place] [address] Nicik Amin MD 112 [facility] 110 [place] [address] Social History Tobacco Use Types Packs/Day Years [...] often do you attend chur ch or druze services? 1 to 4 times per year [...] [facility] of Occupat ional [facility] - Occupational Stress Questionnaire Answer Date [...] on filedocumented in this encounter Care Teams Oil Well Pumper Relationship Specialty Start Date End Date Nicki Amin MD [address] [facility] [address] [place], [place] [address] PCP - General Family Medicine 11/16/23 Miranda Charles, ORNAMENTAL PLASTER STICKER [address] [facility] 110 [place] [address] Nurse Practitioner Family Medicine 11/16/23 Galdino Mcdaniel DO [address] [place] [address] Referring Physician Neurology 07/18/24 documented as of this encounter
--- OUTSIDE RECORDS SUMMARY | 2025-01-02 07:56 | XMS_ITS | Encounter Summary ---
Author Organization [facility] Address [address] [place] [address] Care Team Providers Care Protective Signal Repairer Name Role Phone Nicki Amin MD Primary Care Provider [phone] Bertha Nettles HISTOLOGIC AIDE Unavailable [phone] Galdino Mcdaniel DO Unavailable [phone] Encounter Details Date Type Department Care Team (Late st Contact Info) Description 02/15/2024 Clinisync Result Encounter [facility] External Department Unsolicited Santhosh Paez, DO [address] [facility] [address] [place] [address] Social History Tobacco Use Types Packs/Day Years [...] often do you attend chur ch or roman catholic services? 1 to 4 times per year 09/08/2023 Do you belong to any clubs o r organizations such as gnosticist groups, unions, fraternal or athletic groups, or [...] Recorded Patient Health Questionnaire-2 Score 0 10/05/2023 [facility] of Occupat ional Health - [...] place to sleep or slept in a correction (including now)? No 09/08/2023 Comments No Sex and Gender Information Value Date Recorded Sex Assigned at Not on file Legal Sex Female 7:35 PM EDT Gender Identity Not on file Sexual Orientation Not on file documented as of this encounter Plan of Treatment Not on file documented as of this encounter Procedures Procedure Name Priority Date/Time Associated Diagnosis Comments MM TOMOSYNTHESIS SCREENING BI 02/15/2024 3:40 PM EDT documented in this encounter Results * MM TOMOSYNTHESIS SCREENING BI (02/15/2024 3:40 PM EDT) Anatomical Region Laterality Modality Other 02/15/2024 3:40 PM EDT Narrative 02/15/2024 3:41 [place] [address] Mammography Report Signed Patient: TESS GARCIA MR#: [id number] : 1970 Acct:[id number] Age/Sex: 53 / F ADM Date: 02/15/24 Loc: MAMMO Attending Dr: SANTHOSH PAEZ Ordering Physician: SANTHOSH PAEZ Results: Date of Service: 02/15/24 Follow Up: Procedure(s): MM tomosynthesis screening BI Accession Number(s): [id number] cc: SANTHOSH PAEZ ; BERTHA NETTLES Patient Name: TESS GARCIA MR#: [id number] : 1970 Exam Date: 02/15/2024 Ordering Doctor: DR SANTHOSH PAEZ RADIOLOGY REPORT PROCEDURE: MM TOMOSYNTHESIS SCREENING BI COMPARISON: MG MAMM SCREEN 3D LINA CAD, 03/10/2022. MM TOMOSYNTHESIS DIAGNOSTIC BI, 02/16/2023. INDICATIONS: Screening Calculator Name NCI Breast Cancer Risk Assessment Tool 5 Year Breast Cancer Risk 0.80% Lifetime Breast Cancer Risk 5.50% Personal Breast Cancer No Personal Ovarian Cancer No Treatments None Family Cancers None LOCATION: [facility] BREAST COMPOSITION: The breasts are extremely dense, which lowers the sensitivity of mammography. FINDINGS: DIAGNOSTIC CATEGORY 2--BENIGN FINDING. NO CHANGE FROM COMPARISON. Scattered benign-appearing calcifications are present. Scattered benign-appearing lymph nodes are present. RIGHT BREAST: No significant suspicious finding. LEFT BREAST: No significant suspicious finding. RECOMMENDATIONS: ROUTINE MAMMOGRAM AND CLINICAL EVALUATION IN 12 MONTHS. PLEASE NOTE: A NORMAL MAMMOGRAM DOES NOT EXCLUDE THE POSSIBILITY OF BREAST CANCER. A CLINICALLY SUSPICIOUS PALPABLE LUMP SHOULD BE BIOPSIED. Dictated by: Moustapha Kidd MD on 02/15/2024 at 15:38 Approved by: Moustapha Kidd MD on 02/15/2024 at 15:40 Dictated By: Moustapha Kidd M.D. Signed By: 02/15/24 1541 DD/ 1540 TD/TT: Mussel Farmer: Procedure Note Radiology, Radiologist, - 02/15/2024 [place] [address] Mammography Report Signed Patient: TESS GARCIA LMR#: [id number] : 1970Acct:[id number] Age/Sex: 53 / FADM Date: 02/15/24 Loc: MAMMO Attending Dr: SANTHOSH PAEZ Ordering Physician: SANTHOSH PAEZResults: Date of Service: 02/15/24Follow Up: Procedure(s): MM tomosynthesis screening BI Accession Number(s): [id number] cc: SANTHOSH PAEZ ; BERTHA NETTLES Patient Name: TESS GARCIA MR#: [id number] : 1970 Exam Date: 02/15/2024 Ordering Doctor: DR SANTHOSH PAEZ RADIOLOGY REPORT PROCEDURE: MM TOMOSYNTHESIS SCREENING BI COMPARISON: MG MAMM SCREEN 3D LINA CAD, 03/10/2022. MM TOMOSYNTHESIS DIAGNOSTIC BI, 02/16/2023. INDICATIONS: Screening Calculator Name NCI Breast Cancer Risk Assessment Tool 5 Year Breast Cancer Risk 0.80% Lifetime Breast Cancer Risk 5.50% Personal Breast Cancer No Personal Ovarian Cancer No Treatments None Family Cancers None LOCATION: [facility] BREAST COMPOSITION: The breasts are extremely dense, which lowers the sensitivity of mammography. FINDINGS: DIAGNOSTIC CATEGORY 2--BENIGN FINDING. NO CHANGE FROM COMPARISON. Scattered benign-appearing calcifications are present. Scattered benign-appearing lymph nodes are present. RIGHT BREAST: No significant suspicious finding. LEFT BREAST: No significant suspicious finding. RECOMMENDATIONS: ROUTINE MAMMOGRAM AND CLINICAL EVALUATION IN 12 MONTHS. PLEASE NOTE: A NORMAL MAMMOGRAM DOES NOT EXCLUDE THE POSSIBILITY OFBREAST CANCER. A CLINICALLY SUSPICIOUS PALPABLE LUMP SHOULD BE BIOPSIED. Dictated by: Moustapha Kidd MD on 02/15/2024 at 15:38 Approved by: Moustapha Kidd MD on 02/15/2024 at 15:40 Dictated By: Moustapha Kidd M.D. Signed By:02/15/24 1541 DD/ 1540 TD/TT: Mussel Farmer: Santhosh Paez DO [facility] Final Resu lt documented in this encounter Visit Diagnoses Not on filedocumented in this encounter Care Teams Protective Signal Repairer Relationship Specialty Start Date End Date Nicki Amin MD [address] [facility] 110 [place] [address] PCP - General Family Medicine 11/16/23 Bertha Nettles NP [address] [facility] 110 [place] [address] Nurse Practitioner Family Medicine 11/16/23 Galdino Mcdaniel DO [address] [place] [address] Referring Physician Neurology 07/18/24 documented as of this encounter
--- OUTSIDE RECORDS SUMMARY | 2025-01-02 07:56 | XMS_ITS | Encounter Summary ---
Author Organization [facility] Address [address] [place] [address] Care Team Providers Care Honing Machine Operator Name Role Phone Nicki Amin MD Primary Care Provider [phone] Miranda Charles CONCRETE PUMP OPERATOR Unavailable [phone] Galdino Mcdaniel DO Unavailable [phone] Encounter Details Date Type Department Care Team (Late st Contact Info) Description 08/16/2024 Abstract [facility] [address] [facility] 110 [place] [address] Nicki Amin MD 112 [facility] 110 [place] [address] Social History Tobacco Use Types Packs/Day Years Used Date Smoking Tobacco: Former Cigarettes 1 22.5 0 09/29/1989 - 03/31/2012 Smokeless Tobacco: Never Alcohol Use Standard Drinks/Week Comments Yes 2 (1 standard drink = 0.6 oz pure [...] 09/08/2023 How often do you attend chur or hinduism services? 1 to 4 times per year 09/08/2023 Do you belong to any clubs o r organizations such as denominational groups, unions, fraternal or athletic groups, or [...] Patient Health Questionnaire-2 Score 0 10/05/2023 [facility] of Occupat ional [facility] - Occupational Stress Questionnaire Answer Date [...] on filedocumented in this encounter Care Teams Honing Machine Operator Relationship Specialty Start Date End Date Nicki Amin MD [address] [facility] 110 [place] [address] PCP - General Family Medicine 11/16/23 Miranda Charles CONCRETE PUMP OPERATOR [address] [facility] 110 [place] [address] Nurse Practitioner Family Medicine 11/16/23 Galdino Mcdaniel DO [address] [place] [address] Referring Physician Neurology 07/18/24 documented as of this encounter
--- OUTSIDE RECORDS SUMMARY | 2025-01-02 07:56 | XMS_ITS | Encounter Summary ---
Author Organization [facility] Address [id number] [address] [place] [address] Care Team Providers Care Print Line Inspector Name Role Phone Bhupendra Garrido Primary Care Provider [phone] Encounter Details Date Type Department Care Team (Late st Contact Info) Description 09/18/2020 Orders Only [facility] [address] [place] [address] External, Scanning Provider Social History Tobacco Use [...] have Coronavirus / COVID-19? No / Unsure 09/13/2020 3:24 PM EDT documented as of this encounter Plan of Treatment Not on file documented as of this encounter Procedures Procedure Name Priority Date/Time Associated Diagnosis Comments MULTIPLE LABS Routine 03/20/2020 LIPID PROFILE Routine 03/20/2020 documented in this encounter Results * Lipid profile (03/20/2020) External Cholesterol 232 MANUALLY TRANSCRIBED RESULTS External Hdl Cholesterol 91 MANUALLY TRANSCRIBED RESULTS External Ldl (Calc) 130 MANUALLY TRANSCRIBED RESULTS External Triglycerides 57 MANUALLY TRANSCRIBED RESULTS us Scanning Provider External LAB BLOOD ORDERABLES Edited Result - Final Performing Organization Address City/[facility]/ZIP Co de Phone Number MANUALLY TRANSCRIBED RESULTS * Multiple labs (03/20/2020) us Scanning Provider External CT IMAGING Final Result Performing Organization Address [facility] [place]/[facility] Co de Phone Number MANUALLY TRANSCRIBED RESULTS documented in this encounter Visit Diagnoses Not on filedocumented in this encounter Additional Health Concerns Infection Onset Date Last Indicated Resolved Time COVID-19 Rule-Out 05/06/2021 05/06/2021 05/07/2021 12:22 PM EST documented as of this encounter Care Teams Print Line Inspector Relationship Specialty Start Date End Date Bhupendra Garrido DO [address] [place] [address] PCP - General Internal Medicine 11/10/16 documented as of this encounter
--- OUTSIDE RECORDS SUMMARY | 2025-01-02 07:56 | XMS_ITS | Encounter Summary ---
Author Organization [facility] Address [id number] [address] [place] [address] Care Team Providers Care Plant Inspector Name Role Phone Bhupendra Garrido Jessi MACARIO Primary Care Provider [phone] Reason for Visit * Reason Onset Date Comments covid 04/04/2022 Encounter Details Date Type Department Care Team (Late st Contact Info) Description 04/04/2022 [facility]phone [facility] [address] [place] [phone] Vivian Meek, BIAS MACHINE OPERATOR HELPER-WATER QUALITY CONTROL ENGINEER [address] [place] [address] covid Social History Tobacco Use Types Packs/Day Years [...] often do you attend chur ch or faith services? More than 4 times per year 03/02/2022 Do you belong to any clubs o r organizations such as yazdanism groups, unions, fraternal or athletic groups, or [...] Answer Date Recorded Total Score 4 03/02/2022 [facility] of Occupat ional [...] * Telephone Encounter - Zoie Barth - 04/04/2022 9:09 AM EST Patient is still very tired from covid she was wondering if you would be okay with giving her another day off of work to rest * Telephone Encounter - MARYAM Julien - 04/04/2022 9:09 AM EST I put a note in thru the weekend * Telephone Encounter - Zoie Barth - 04/04/2022 9:09 AM EST Notified patient documented in this encounter Plan of Treatment Not on file documented as of this encounter Visit Diagnoses Not on filedocumented in this encounter Additional Health Concerns Assessment Noted Time PHQ-9 Depression Total Score: 4 03/02/20 22 9:53 AM EST documented as of this encounter Care Teams Plant Inspector Relationship Specialty Start Date End Date Bhupendra Garrido DO [address] [place] [address] PCP - General Internal Medicine 11/10/16 documented as of this encounter
--- OUTSIDE RECORDS SUMMARY | 2025-01-02 07:56 | XMS_ITS | Encounter Summary ---
Author Organization [facility] Address [address] [place] [address] Care Team Providers Care Baggagemaster Name Role Phone Bhupendra Garrido MD Primary Care Provider [phone] Nicki Amin MD Primary Care Provider [phone] Miranda Charles COPY DIRECTOR Unavailable [phone] Galdino Mcdaniel DO Unavailable [phone] Encounter Details Date Type Department Care Team (Late st Contact Info) Description 09/08/2022 Abstract [facility] [address] [facility] [address] [place] [id number] Jen Cornejo MA Social History Tobacco Use Types Packs/Day Years Used Date Smoking Tobacco: Never Smokeless Tobacco: Never Alcohol Use Standard Drinks/Week Comments Yes 0 (1 standard drink = 0.6 oz pure alcohol) Frequency: Monthly or less; Caffeine: 1 energy drink daily PHQ-2 Answer Date Recorded Patient Health Questionnaire-2 Score 0 09/08/2022 Comments Unknown Sex and Gender Information Value Date Recorded Sex Assigned at Not on file Legal Sex Female 7:35 PM EDT Gender Identity Not on file Sexual Orientation Not on file documented as of this encounter Functional Status * Over the past 2 weeks, how often have you been bothered by any of the following problems? Question Answer Date of Assessment Author Little interest or pleasure in doing things Not at all 09/08/2022 2:40 PM EDT Jaz De Los Santos MA Feeling down, depressed, or hopeless Not at all 09/08/2022 2:40 PM EDT Jaz De Los Santos MA Patient Health Questionnaire -2 Score 0 09/08/2022 2:40 PM EDT Jaz De Los Santos MA documented as of this encounter Plan of Treatment Not on file documented as of this encounter Visit Diagnoses Not on filedocumented in this encounter Care Teams Baggagemaster Relationship Specialty Start Date End Date Bhupendra Garrido MD PCP - General Internal Medicine 10/13/22 11/15/23 Nicki Amin MD [address] [facility] [address] [place] [address] PCP - General Family Medicine 11/16/23 Miranda Charles, EMMA [address] [facility] [address] [place] [address] Nurse Practitioner Family Medicine 11/16/23 Galdino Mcdaniel DO [address] [place] [address] Referring Physician Neurology 07/18/24 documented as of this encounter
--- OUTSIDE RECORDS SUMMARY | 2025-01-02 07:56 | XMS_ITS | Encounter Summary ---
Author Organization [facility] Address [address] [place] [address] Care Team Providers Care Promotional Marketing Analyst Name Role Phone Bhupendra Garrido MD Primary Care Provider [phone] Nicki Amin MD Primary Care Provider [phone] Miranda Charles TRAIN PLANNER Unavailable [phone] Galdino Mcdaniel DO Unavailable [phone] Encounter Details Date Type Department Care Team (Late st Contact Info) Description 11/12/2023 Abstract [facility] [address] [place] [phone] Miranda Charles TRAIN PLANNER [address] [place] [address] Social History Tobacco Use Types Packs/Day Years [...] often do you attend chur ch or holiness services? 1 to 4 times per year 09/08/2023 Do you belong to any clubs o r organizations such as cheondoism groups, unions, fraternal or athletic groups, or [...] Recorded Patient Health Questionnaire-2 Score 0 10/05/2023 [facility] of Occupat ional [facility] - Occupational Stress Questionnaire Answer Date Recorded [...] place to sleep or slept in a skilled nursing (including now)? No 09/08/2023 Comments No Sex and Gender Information Value Date Recorded Sex Assigned at Not on file Legal Sex Female 7:35 PM EDT Gender Identity Not on file Sexual Orientation Not on file documented as of this encounter Plan of Treatment Not on file documented as of this encounter Visit Diagnoses Not on filedocumented in this encounter Care Teams Promotional Marketing Analyst Relationship Specialty Start Date End Date Bhupendra Garrido MD PCP - General Internal Medicine 10/13/22 11/15/23 Nicki Amin MD [address] [facility] [address] [place] [address] PCP - General Family Medicine 11/16/23 Miranda Charles NP [address] [facility] [address] [place] [address] Nurse Practitioner Family Medicine 11/16/23 Galdino Mcdaniel DO [address] [place] [address] Referring Physician Neurology 07/18/24 documented as of this encounter
--- OUTSIDE RECORDS SUMMARY | 2025-01-02 07:56 | XMS_ITS | Encounter Summary ---
Author Organization [facility] Address [address] [place] [address] Care Team Providers Care Rn Anesthetist Name Role Phone Nicki Amin MD Primary Care Provider [phone] Miranda Charles PURCHASING ADMINISTRATIVE ASSISTANT Unavailable [phone] Galdino Mcdaniel DO Unavailable [phone] Encounter Details Date Type Department Care Team ([facility] Contact Info) Description 01/21/2024 Abstract [facility] [address] [facility] [address] [place] [address] Nicki Amin MD 112 [facility] 110 [place] [address] Social History Tobacco Use Types Packs/Day Years [...] often do you attend chur ch or presybeterian services? 1 to 4 times per year 09/08/2023 Do you belong to any clubs o r organizations such as quaker groups, unions, fraternal or athletic groups, or [...] Recorded Patient Health Questionnaire-2 Score 0 10/05/2023 [facility] of Occupat ional Health - Occupational [...] place to sleep or slept in a nursing home (including now)? No 09/08/2023 Comments No Sex and Gender Information Value Date Recorded Sex Assigned at Not on file Legal Sex Female 7:35 PM EDT Gender Identity Not on file Sexual Orientation Not on file documented as of this encounter Plan of Treatment Not on file documented as of this encounter Visit Diagnoses Not on filedocumented in this encounter Care Teams Rn Anesthetist Relationship Specialty Start Date End Date Nicki Amin MD 112 [facility] [address] [place] [address] PCP - General Family Medicine 11/16/23 Miranda Charles, PURCHASING ADMINISTRATIVE ASSISTANT 112 [facility] [address] [place] [address] Nurse Practitioner Family Medicine 11/16/23 Galdino Mcdaniel DO [address] [place] [address] Referring Physician Neurology 07/18/24 documented as of this encounter
--- OUTSIDE RECORDS SUMMARY | 2025-01-02 07:56 | XMS_ITS | Encounter Summary ---
Author Organization [facility] Address [address] [place] [address] Care Team Providers Care Construction Manager Name Role Phone Bhupendra Garrido MD Primary Care Provider [phone] Nicki Amin MD Primary Care Provider [phone] Miranda Charles STRUCTURAL STEEL WORKER HELPER Unavailable [phone] Galdino Mcdaniel DO Unavailable [phone] Encounter Details Date Type Department Care Team (Late st Contact Info) Description 11/12/2023 Abstract [facility] [address] [place] [address] Miranda Charles STRUCTURAL STEEL WORKER HELPER [address] [place] [address] Social History Tobacco Use Types Packs/Day Years [...] any clubs o r organizations such as restoration groups, unions, fraternal or athletic groups, or [...] Recorded Patient Health Questionnaire-2 Score 0 10/05/2023 [facility] of Occupat ional [facility] - Occupational Stress Questionnaire Answer Date [...] on filedocumented in this encounter Care Teams Construction Manager Relationship Specialty Start Date End Date Bhupendra Garrido MD PCP - General Internal Medicine 10/13/22 11/15/23 Nicki Amin MD [address] [facility] 110 [place] [address] PCP - General Family Medicine 11/16/23 Miranda Charles NP [address] [facility] [address] [place] [address] Nurse Practitioner Family Medicine 11/16/23 Galdino Mcdaniel DO [address] [place] [address] Referring Physician Neurology 07/18/24 documented as of this encounter
--- OUTSIDE RECORDS SUMMARY | 2025-01-02 07:57 | XMS_ITS | Encounter Summary ---
Author Organization [facility] Address [address] [place] [address] Phone Care Team Providers Care Didactic Program In Dietetics Director Name Role Phone Miranda Charles COMMUNICATIONS SUPERINTENDENT-SENIOR MANUFACTURING SUPERVISOR Primary Care Provider Encounter Details Date Type Department Care Team (Late st Contact Info) Description 01/12/2023 Scanned Document [facility] [address] [place] [phone] Scanning, Generic Provider Social History Tobacco Use Types Packs/Day Years Used Date Smoking Tobacco: Never Assessed Comments Unknown Sex and Gender Information Value Date Recorded Sex Assigned at Not on file Legal Sex Female 11:34 AM EDT Gender Identity Not on file Sexual Orientation Not on file documented as of this encounter Plan of Treatment Upcoming Encounters Date Type Department Care Team (Late st Contact Info) Description 01/02/2025 1:40 PM EDT Office Visit [facility] [address] [facility] [address] [place] [address] Konstantin Wray MD [address] [facility] [address], [address] [place], [place] [phone] documented as of this encounter Procedures Procedure Name Priority Date/Time Associated Diagnosis Comments ECHOCARDIOGRAM 01/12/2023 documented in this encounter Results * Echocardiogram (01/12/2023) Narrative 01/12/2023 Ordered by an unspecified provider. us Generic Provider Scanning CV ECHO PROCEDURES Fin al Result documented in this encounter Visit Diagnoses Not on filedocumented in this encounter Care Teams Didactic Program In Dietetics Director Relationship Specialty Start Date End Date Miranda Charles, COMMUNICATIONS SUPERINTENDENT-SENIOR MANUFACTURING SUPERVISOR [address] [place] [id number] PCP - General Family Medicine 12/18/23 documented as of this encounter
--- OUTSIDE RECORDS SUMMARY | 2025-01-02 07:57 | XMS_ITS | Encounter Summary ---
Author Organization [facility] Address [address] [place] [address] Phone Care Team Providers Care Radiocommunications Technician Name Role Phone Miranda Charles FACILITIES MAINTENANCE WORKER-CUE SELECTOR Primary Care Provider Encounter Details Date Type Department Care Team (Late st Contact Info) Description 02/12/2023 Scanned Document [facility] [address] [place] [phone] Scanning, Generic Provider Social History Tobacco Use [...] Description 01/02/2025 1:40 PM EDT Office Visit [facility] [address] [facility] [address] [place] [address] Konstantin Wrya MD [address] [facility] [address], [address] [place], [place] [phone] documented as of this encounter Visit Diagnoses Not on filedocumented in this encounter Care Teams Radiocommunications Technician Relationship Specialty Start Date End Date Miranda Charles, FACILITIES MAINTENANCE WORKER-CUE SELECTOR [address] [place] [address] PCP - General Family Medicine 12/18/23 documented as of this encounter
--- OUTSIDE RECORDS SUMMARY | 2025-01-02 07:57 | XMS_ITS | Encounter Summary ---
Author Organization [facility] Address [address] [place] [address] Care Team Providers Care Children'S Ministries Director Name Role Phone Bhupendra Garrido MD Primary Care Provider [phone] Nicki Amin MD Primary Care Provider [phone] FIRE PREVENTION RESEARCH ENGINEER Unavailable [phone] Galdino Mcdaniel DO Unavailable [phone] Encounter Details Date Type Department Care Team (Late st Contact Info) Description 02/16/2023 Clinisync Result Encounter [facility] External Department Unsolicited Bertha Nettles, FIRE PREVENTION RESEARCH ENGINEER [address] [place] [address] Social History Tobacco Use Types Packs/Day Years [...] Procedure Name Priority Date/Time Associated Diagnosis Comments US BREAST BI LIMITED 02/16/2023 1:49 PM EDT documented in this encounter Results * US BREAST BI LIMITED (02/16/2023 1:49 PM EDT) Anatomical Region Laterality Modality Other 02/16/2023 1:49 PM EDT Narrative 02/16/2023 1:49 PM EDT [facility] [place] [id number] Ultrasound Report Signed Patient: Tess Garcia MR#: [id number] : 1970 Acct:[id number] Age/Sex: 52 / F ADM Date: 02/16/23 Loc: US Attending Dr: BERTHA NETTLES Ordering Physician: BERTHA NETTLES Date of Service: 02/16/23 Procedure(s): US breast BI limited Accession Number(s): [id number] cc: BERTHA NETTLES Patient: TESS GARCIA. Exam Date: 02/16/2023 : 1970 Gender:F Ordering : MRS. BERTHA NETTLES FIRE PREVENTION RESEARCH ENGINEER-C Admission #: [id number] Family : Order #: [id number] CLICK HERE TO VIEW EXAM RADIOLOGY REPORT PROCEDURE: MM TOMOSYNTHESIS DIAGNOSTIC BI, 02/16/2023, 13:09 US BREAST BI LIMITED, 02/16/2023, 09:00 COMPARISON: MG MAMM SCREEN 3D LINA CAD, 03/10/2022. MG MAMM SCREEN 3D LINA CAD, 02/27/2021. MG MAMM SCREEN LINA W CAD, 03/19/2020. MAMMO LINA SCREEN, 02/12/2018. INDICATIONS: enlarged lymph nodes r59.9 Calculator Name NCI Breast Cancer Risk Assessment Tool 5 Year Breast Cancer Risk 0.70% Lifetime Breast Cancer Risk 5.60% Personal Breast Cancer No Personal Ovarian Cancer No Treatments None Family Cancers None LOCATION: [facility] BREAST COMPOSITION: Extremely dense, which lowers the sensitivity of mammography. FINDINGS: DIAGNOSTIC CATEGORY 1--NEGATIVE. RIGHT BREAST: Skin surface marker localizing patient's palpable lump to the posterior upper-outer quadrant. No significant suspicious finding. No significant change has occurred. LEFT BREAST: Skin surface marker localizing patient's palpable lump to the posterior upper-outer quadrant. No significant suspicious finding. No significant change has occurred. RECOMMENDATIONS: ROUTINE MAMMOGRAM AND CLINICAL EVALUATION IN 12 MONTHS. PLEASE NOTE: A NORMAL MAMMOGRAM DOES NOT EXCLUDE THE POSSIBILITY OF BREAST CANCER. A CLINICALLY SUSPICIOUS PALPABLE LUMP SHOULD BE BIOPSIED. Dictated by: Karl Hardy M.D. on 02/16/2023 at 13:45 Approved by: Kral Hardy M.D. on 02/16/2023 at 13:49 Dictated By: Karl Hardy M.D. Signed By: 02/16/23 1352 DD/ 1349 TD/TT: Senior Back End Java Developer: Procedure Note Radiology, Radiologist, MD - 02/16/20[address] [place] [address] Ultrasound Report Signed Patient: Tess Garcia LMR#: [id number] : 1970Acct:[id number] Age/Sex: 52 / FADM Date: 02/16/23 Loc: US Attending Dr: BERTHA NETTLES Ordering Physician: BERTHA NETTLES Date of Service: 02/16/23 Procedure(s): US breast BI limited Accession Number(s): [id number] cc: BERTHA NETTLES Patient: TESS GARCIA Exam Date: 02/16/2023 : 1970 Gender:F Ordering : MRS. STONE YOON FIRE PREVENTION RESEARCH ENGINEER-C Admission #: [id number] Family : Order #: [id number] CLICK HERE TO VIEW EXAM RADIOLOGY REPORT PROCEDURE: MM TOMOSYNTHESIS DIAGNOSTIC BI, 02/16/2023, 13:09 US BREAST BI LIMITED, 02/16/2023, 09:00 COMPARISON: MG MAMM SCREEN 3D LINA CAD, 03/10/2022. MG MAMM SCREEN 3DBIL CAD, 02/27/2021. MG MAMM SCREEN LINA W CAD, 03/19/2020. MAMMO LINA SCREEN, 02/12/2018. INDICATIONS: enlarged lymph nodes r59.9 Calculator Name NCI Breast Cancer Risk Assessment Tool 5 Year Breast Cancer Risk 0.70% Lifetime Breast Cancer Risk 5.60% Personal Breast Cancer No Personal Ovarian Cancer No Treatments None Family Cancers None LOCATION: [facility] BREAST COMPOSITION: Extremely dense, which lowers the sensitivity of mammography. FINDINGS: DIAGNOSTIC CATEGORY 1--NEGATIVE. RIGHT BREAST: Skin surface marker localizing patient's palpable lump tothe posterior upper-outer quadrant. No significant suspicious finding. No significant change has occurred. LEFT BREAST: Skin surface marker localizing patient's palpable lump tothe posterior upper-outer quadrant. No significant suspicious finding. No significant change has occurred. RECOMMENDATIONS: ROUTINE MAMMOGRAM AND CLINICAL EVALUATION IN 12 MONTHS. PLEASE NOTE: A NORMAL MAMMOGRAM DOES NOT EXCLUDE THE POSSIBILITY OFBREAST CANCER. A CLINICALLY SUSPICIOUS PALPABLE LUMP SHOULD BE BIOPSIED. Dictated by: Karl Hardy M.D. on 02/16/2023 at 13:45 Approved by: Karl Hardy M.D. on 02/16/2023 at 13:49 Dictated By: Karl Hardy M.D. Signed By:02/16/23 1355 DD/ 1349 TD/TT: Senior Back End Java Developer: Bertha Nettles FIRE PREVENTION RESEARCH ENGINEER [facility] Final Resu lt documented in this encounter Visit Diagnoses Not on filedocumented in this encounter Care Teams Children'S Ministries Director Relationship Specialty Start Date End Date Bhupendra Garrido MD PCP - General Internal Medicine 10/13/22 11/15/23 Nicki Amin MD 112 [facility] [address] [place], [place] [phone] PCP - General Family Medicine 11/16/23 Bertha Nettles NP [address] [facility] [address] [place] [address] Nurse Practitioner Family Medicine 11/16/23 Galdino Mcdaniel DO [address] [place] [address] Referring Physician Neurology 07/18/24 documented as of this encounter
--- OUTSIDE RECORDS SUMMARY | 2025-01-02 07:57 | XMS_ITS | Encounter Summary ---
Author Organization [facility] Address [address] [place] [address] Care Team Providers Care Electrical Software Engineer Name Role Phone Bhupendra Garrido MD Primary Care Provider [phone] Nicki Amin MD Primary Care Provider [phone] Miranda Charles PARTY CHIEF Unavailable [phone] Galdino Mcdaniel DO Unavailable [phone] Encounter Details Date Type Department Care Team (Late st Contact Info) Description 02/16/2023 Abstract [facility] [address] [facility] 110 [place] [address] Nicki Amin MD 112 [facility] 110 [place] [address] Social History Tobacco Use Types Packs/Day Years [...] on filedocumented in this encounter Care Teams Electrical Software Engineer Relationship Specialty Start Date End Date Bhupendra Garrido MD PCP - General Internal Medicine 10/13/22 11/15/23 Nicki Amin MD [address] [place] [facility] 110 [place] [address] PCP - General Family Medicine 11/16/23 Miranda Charles NP [address] [place] [facility] 110 [place] [address] Nurse Practitioner Family Medicine 11/16/23 Galdino Mcdaniel DO [address] [place] [address] Referring Physician Neurology 07/18/24 documented as of this encounter
--- OUTSIDE RECORDS SUMMARY | 2025-01-02 07:57 | XMS_ITS | Clinical Summary ---
Author Organization [facility] Address [address], [address] [place] [address] Care Team Providers Care Inhalation Therapy Aide Name Role Phone Bhupendra Garrido DO Primary Care Provider [phone] Allergies Active Allergy Reactions Criticality Noted Date Comments Bee Venom 01/02/2020 Medications EPINEPHrine (EPIPEN 2-NIRMAL) 0.3 MG/0.3ML SOAJ injection Inject 0.3 mLs into the muscle once for 1 dose Use as directed for allergic reaction 0.3 mL 01/02/2020 Active famotidine (PEPCID) 20 MG tablet Take 1 tablet by mouth daily 5 tablet 01/02/2020 Active VITAMIN D PO Take by mouth Act jamaal Multiple Vitamin (CALCIUM COMPLEX PO) Take by mouth Acti ve Social History Tobacco Use Types Packs/Day Years Used Date Smoking Tobacco: Never Smokeless Tobacco: Never Alcohol Use Standard Drinks/Week Comments Yes 0 (1 standard drink = 0.6 oz pur e alcohol) occasionaly AUDIT-C Answer Date Recorded Q1: How often do you have a drink containing alc ohol? Never 09/03/2022 Average Number of Drinks Not on file 023 Frequency of Binge Drinking Not on file 08/18 Comments Unknown Sex and Gender Information Value Date Recorded Sex Assigned at Not on file Legal Sex Female 1:10 PM EST Gender Identity Not on file Sexual Orientation Not on file Last Filed Vital Signs Vital Sign Reading Time Taken Comments Blood Pressure 158/76 09/03/2022 4:50 PM EDT Pulse 92 09/03/2022 4:50 PM EDT Temperature 36.8 C (98.2 F) 09/03/2022 4:50 PM EDT Respiratory Rate 14 09/03/2022 4:50 PM EDT Oxygen Saturation 99% 09/03/2022 4:50 PM EDT Inhaled Oxygen Concentration - - Weight 63.5 kg (140 lb) 09/03/2022 4:50 PM EDT Height 162.6 cm (5' 4 ) 09/03/2022 4:50 PM EDT Body Mass Index 24.03 09/03/2022 4:50 PM EDT Plan of Treatment Health Maintenance Due Date Last Done Comments DTaP/Tdap/Td vaccine (1 - Tdap) 02/19/1987 Flu vaccine (#1) 11/18/2024 COVID-19 Vaccine (2023-2 5 season) 2024 Polio vaccine Aged Out No longer elig ible based on patient's age to complete this topic Insurance [employer] [facility] Care Teams Inhalation Therapy Aide Relationship Specialty Start Date End Date Bhupendra Garrido DO PCP - General Internal Medicine 01/02/20
--- OUTSIDE RECORDS SUMMARY | 2025-01-02 07:57 | XMS_ITS | Encounter Summary ---
Author Organization [facility] Address [address] [place] [address] Care Team Providers Care Human Factors Engineer Name Role Phone Bhupendra Garrido MD Primary Care Provider [phone] Nicki Amin MD Primary Care Provider [phone] Bertha Nettles ASSET ADMINISTRATOR Unavailable [phone] Galdino Mcdaniel DO Unavailable [phone] Encounter Details Date Type Department Care Team (Late st Contact Info) Description 02/16/2023 Clinisync Result Encounter [facility] Department Unsolicited Bertha Nettles, ASSET ADMINISTRATOR [address] [place] [address] Social History Tobacco Use Types Packs/Day Years [...] Priority Date/Time Associated Diagnosis Comments MM TOMOSYNTHESIS DIAGNOSTIC BI 02/16/2023 1:49 PM EDT documented in this encounter Results * MM TOMOSYNTHESIS DIAGNOSTIC BI (02/16/2023 1:49 PM EDT) Anatomical Region Laterality Modality Other 02/16/2023 1:49 PM EDT Narrative 02/16/2023 1:49 PM EDT [address] [address] Mammography Report Signed Patient: Tess Garcia MR#: [id number] : 1970 Acct:[id number] Age/Sex: 52 / F ADM Date: 02/16/23 Loc: US Attending Dr: BERTHA NETTLES Ordering Physician: BERTHA NETTLES Results: Date of Service: 02/16/23 Follow Up: Procedure(s): MM tomosynthesis diagnostic BI Accession Number(s): [id number] cc: BERTHA NETTLES Patient: TESS GARCIA. Exam Date: 02/16/2023 : 1970 Gender:F Ordering : MRS. BERTHA NETTLES ASSET ADMINISTRATOR-C Admission #: [id number] Family : Order #: [id number] CLICK HERE TO VIEW EXAM RADIOLOGY REPORT [...] Treatments None Family Cancers None LOCATION: [facility] BREAST COMPOSITION: Extremely dense, which lowers the [...] Signed By: 02/16/23 1352 DD/ 1349 TD/TT: Bread Wrapper Operator: Procedure Note Radiology, Radiologist, MD - 02/16/2023 [place] [address] Mammography Report Signed Patient: Tess Garcia LMR#: [id number] : 1970Acct:[id number] Age/Sex: 52 / FADM Date: 02/16/23 Loc: US Attending Dr: BERTHA NETTLES Ordering Physician: Valdez NETTLESults: Date of Service: 02/16/23Follow Up: Procedure(s): MM tomosynthesis diagnostic BI Accession Number(s): [id number] cc: BERTHA NETTLES Patient: TESS GARCIA Exam Date: 02/16/2023 : 1970 Gender:F Ordering : MRS. STONE YOON ASSET ADMINISTRATOR-C Admission #: [id number] Family : Order #: [id number] CLICK HERE TO VIEW EXAM RADIOLOGY REPORT [...] Treatments None Family Cancers None LOCATION: [facility] BREAST COMPOSITION: Extremely dense, which lowers the [...] Dictated By: Karl Hardy M.D. Signed By:02/16/23 1352 DD/ 1349 TD/TT: Bread Wrapper Operator: Bertha Nettles ASSET ADMINISTRATOR [facility] Final Resu lt documented in this encounter Visit Diagnoses Not on filedocumented in this encounter Care Teams Human Factors Engineer Relationship Specialty Start Date End Date Bhupendra Garrido MD PCP - General Internal Medicine 10/13/22 11/15/23 Nicki Amin MD [address] [facility] [address] [place] [address] PCP - General Family Medicine 11/16/23 Bertha Nettles NP [address] [facility] [address] [place] [address] Nurse Practitioner Family Medicine 11/16/23 Galdino Mcdaniel DO [address] [place] [address] Referring Physician Neurology 07/18/24 documented as of this encounter
--- OUTSIDE RECORDS SUMMARY | 2025-01-02 07:57 | XMS_ITS | Clinical Summary ---
Author Organization [facility] Address [address] [place] [address] Care Team Providers Care Historic Sites Supervisor Name Role Phone Nicki Amin MD Primary Care Provider Bertha Charles [employer] Unavailable [phone] Galdino Mcdaniel DO Unavailable [phone] Allergies Active Allergy Reactions Criticality Noted Date Comments Bee Venom Unknown 09/05/2022 Cyclobenzaprine Palpitations Low 05/09/2019 Other Reaction(s): Other: See Comments Meloxicam GI bleeding 01/18/2024 Trazodone Unknown 09/05/2022 Medications albuterol HFA 90 mcg/act inhaler albuterol sulfate HFA 90 mcg/actuation aerosol inhaler Active omeprazole (PriLOSEC) [address] capsule Take 40 mg by mouth in the morning and 40 mg before bedtime. 04/06/20 24 Active polyethylene glycol, PEG, 3350 (Glycolax) 17 GM/SCOOP powder Take 17 g by mouth Daily PRN 03/21/20 24 Active saccharomyces boulardii (Florastor) 250 MG capsule Take 250 mg by mouth Daily Active minoxidil (Rogaine) 2 % external solutionIndications:A ndrogenic alopecia Apply topically Daily 60 mL 11 05/02/19 25 Active EPINEPHrine (Epipen) 0.3 MG/0.3ML injection syringeIndications:An aphylaxis, initial encounter Inject 0.3 mL (0.3 mg) as directed 1 (one) time for 1 dose 0.3 mL 06/28/19 25 Active Ubrelvy 50 MG tabletIndications:Chr onic migraine with aura and with status migrainosus, not intractable TAKE 1 TABLET BY MOUTH DAILY NEEDED FOR MIGRAINE 10 tablet 11 07/05/19 25 Active tiZANidine (Zanaflex) 4 MG tabletIndications:Rig ht temporomandibular joint disorder, unspecified Take 1 tablet (4 mg) by mouth at bedtime 30 tablet 07/05/19 25 Active famotidine (Pepcid) 40 MG tablet Take 40 mg by mouth at bedtime 07/25/19 25 Active busPIRone (Buspar) 10 MG tabletIndications:Str ess reaction Take 1 tablet (10 mg) by mouth 2 (two) times a day as needed (Anxiety) 60 tablet 1 08/24/19 25 Active metoprolol succinate XL (Toprol-XL) 25 MG 24 hr tabletIndications:Par oxysmal supraventricular tachycardia (HCC) TAKE 1 TABLET BY MOUTH DAILY 100 tablet 3 09/14/19 25 Active Allergy Relief/Nasal Decongest 5-120 MG 12 hr tablet Take 1 tablet by mouth every 12 (twelve) hours 09/21/19 25 Active norethindrone-ethinyl estradiol (Femhrt 04/24) 1-5 MG-MCG tabletIndications:Hot flashes TAKE 1 TABLET BY MOUTH DAILY 28 tablet 11 10/12/19 25 026 Active OXcarbazepine (Trileptal) 150 MG tabletIndications:Tri geminal neuralgia of right side of face Take 1 tablet (150 mg) by mouth in the morning and 1 tablet (150 mg) before bedtime. 180 tablet 3 10/28/19 25 026 Active meloxicam (Mobic) 7.5 MG tabletIndications:Caitlyn kamari osteoarthritis of both knees Take 1 tablet (7.5 mg) by mouth Daily 90 tablet 3 12/28/19 25 026 Active Active Problems Problem Noted Date Diagnosed Date Granulomatous disease 11/04/2024 Trigeminal neuralgia of right side of face 08/23 Former smoker 01/21/2024 Paroxysmal supraventricular tachycardia 01/21/20 24 Difficulty walking 09/05/2022 Dysfunction of both eustachian tubes 09/05/2022 Iliotibial band syndrome, right leg 09/05/2022 Internal derangement of left knee 09/05/2022 Osteoarthritis of knee 09/05/2022 Urge incontinence of urine 09/05/2022 Acne rosacea, erythematous telangiectatic type 0 08/20/2022 Actinic keratosis 03/03/2022 B12 deficiency 03/03/2022 Bee sting allergy 03/03/2022 Hair thinning 03/03/2022 Inflamed seborrheic keratosis 03/03/2022 Seasonal allergic rhinitis due to pollen 022 Mild aortic valve regurgitation 10/30/2020 Overview (09/08/2022): Followed by cardiology/Dr. Allen; repeat echo in 3 years recommended Followed by cardiology/Dr. Allen; repeat echo in 3 years recommended Disorder of thyroid gland 03/21/2020 Nonrheumatic aortic valve insufficiency 07/28/19 Vitamin D deficiency 03/14/2019 Gastritis and duodenitis 02/24/2018 Resolved Problems Problem Noted Date Diagnosed Date Resolved Date Overweight 08/23/2024 12/12/2024 BMI 25.0-25.9,adult 01/21/2024 08/24/19 Palpitations 01/21/2024 12/12/2024 Menorrhagia 09/05/2022 07/18/2024 Pain in female genitalia on intercourse 09/05/2022 07/18/2024 Exercise-induced asthma 03/03/2022 06/0 09/2022 Shortness of breath 09/12/2020 07/19/19 25 Tachycardia 05/09/2019 12/12/2024 Epigastric pain 02/08/2018 12/12/2024 Encounters Date Type Department Care Team Description 12/12/2024 10:15 AM EDT Ancillary Procedure [facility] [address] [place] [id number] Abnormal uterine bleeding (AUB); Dyspareunia in female 12/12/2024 Travel 11/28/2024 Telephone [facility] [address] [place] [phone] Estefania Cornelius LPN 10/27/2024 Telephone [facility] [address] [place] [address] Nikci Amin MD 10/27/2024 Refill [facility] [address] [place] [address] Galdino Mcdaniel, Trigeminal neuralgia of right side of face 10/24/2024 2:00 PM EDT Ancillary Procedure [facility] [address] [place] [id number] Lesion of brain 10/24/2024 Travel 10/10/2024 11:15 AM EDT Office Visit [facility] [address] [place] [phone] Meaghan Sweet, DO Encounter for gynecological examination without abnormal finding (Primary Dx); Encounter for Papanicolaou smear of cervix; Breast cancer screening by mammogram; Hot flashes 10/10/2024 Refill [facility] [address] [place] [address] Meaghan Sweet, Hot flashes 10/10/2024 Travel 10/10/2024 Refill [facility] [address] [place] [address] Galdino Mcdaniel, Trigeminal neuralgia of right side of face from Last 3 Months Immunizations Immunization Administration Dates Next Due Zoster, Recombinant 09/15/2019,03/21/2019 Zoster, Unspecified 03/27/2019 Family History Medical History Relation Name Comments Arthritis Father Don brown Heart disease Father Don brown Dementia Mother Chelly garcianberg Depression Mother Chelly garcianbjusto Hearing loss Mother Chelly dirnberg Osteoarthritis Mother Chelly dirnberg Dementia Sister 1 Ann joaquin Melanoma Neg Hx Relation Name Status Comments Daughter 1 Alive Daughter 2 Alive Father Don brown Alive Mother Chelly garcianberg Alive Sister 1 Ann joaquin Alive Sister 2 Alive Sister 3 Alive Son Alive Social History Tobacco Use Types Packs/Day Years Used Date Smoking Tobacco: Former Cigarettes 1 22.5 0 09/29/1989 - 03/31/2012 Smokeless Tobacco: Never Tobacco Cessation:Counseling Given: Not Answered Alcohol Use Standard Drinks/Week Comments Yes 2 [...] often do you attend chur ch or scientologist services? 1 to 4 times per year 09/08/2023 Do you belong to any clubs o r organizations such as synagogue groups, unions, fraternal or athletic groups, or [...] drink containing alc ohol? Monthly or less 10/10/2024 Q2: How many drinks containi ng alcohol do you have on a typical day when you are drinking? 1 or 2 10/10/2024 Q3: How often do you have si x or more drinks on one occasion? Never 10/10/2024 Overall Financial Resource Strain (CARDIA) Answe r Date Recorded How hard is it for you to pa y for the very basics like food, housing, medical care, and heating? Not hard at all 09/08/2023 PHQ-2 Answer Date Recorded Patient Health Questionnaire-2 Score 0 10/10/2024 [facility] - Occupational [...] place to sleep or slept in a senior care (including now)? No 09/08/2023 Comments No Sex and Gender Information Value Date Recorded Sex Assigned at Not on file Legal Sex Female 7:35 PM EDT Gender Identity Not on file Sexual Orientation Not on file Last Filed Vital Signs Vital Sign Reading Time Taken Comments Blood Pressure 120/76 10/10/2024 11:10 AM EDT Pulse 70 08/23/2024 4:32 PM EDT Temperature 36.4 C (97.5 F) 03/10/2023 9:23 AM EST Respiratory Rate 16 08/23/2024 4:32 PM EDT Oxygen Saturation 99% 08/23/2024 4:32 PM EDT Inhaled Oxygen Concentration - - Weight 69.4 kg (153 lb) 10/10/2024 11:10 AM EDT Height 162.6 cm (5' 4 ) 10/10/2024 11:10 AM EDT Body Mass Index 26.26 10/10/2024 11:10 AM EDT Plan of Treatment Health Maintenance Due Date Last Done Comments CT Colonography 1968 FIT 1968 FOBT 1968 Lung Cancer Screening Shared Decision Making 1970 Sigmoidoscopy 1970 Influenza Vaccine (#1) 2024 Mammogram 02/14/2025 02/15/2024, 01/20, 02/16/2023, Additional history exists FIT-DNA 02/09/2026 02/09/2023 Pap Smear 10/04/2026 10/05/2023, 08/19, 03/04/2022 Cervical Cancer Screening 10/10/2029 HPV/Cotest 10/10/2029 10/10/2024, 09/08/2022 Colonoscopy 03/28/2034 03/28/2024, 03/28/2024 Colorectal Cancer Screening 03/28/2034 Procedures Procedure Name Priority Date/Time Associated Diagnosis Comments US PELVIS TRANSVAGINAL Routine 12/12/2024 10:31 AM EDT Abnormal uterine bleeding (AUB) Dyspareunia in female MR BRAIN W AND WO CONTRAST (IACS) Routine 10/24/2024 3:03 PM EDT Lesion of brain IGP, APT HPV,RFX 16/18,45 Routine 10/10/2024 12:00 AM EDT Encounter for Papanicolaou smear of cervix MM TOMOSYNTHESIS SCREENING BI 02/15/2024 3:40 PM EDT THINPREP TIS PAP AND HPV MRNA E6/E7 WITH REFLEX TO HPV 16,18/45 Routine 10/05/2023 10:24 AM EDT Encounter for Papanicolaou smear of cervix LAB COLOGUARD COLON CANCER SCREEN Routine 02/09/2023 12:01 AM EDT Screening for colon cancer from Last 3 Months or Most Recently Relevant to Health Maintenance Results * US pelvis transvaginal (12/12/2024 10:31 AM EDT) Anatomical Region Laterality Modality Pelvis Ultrasound Study GA Study Date Study KIERSTEN Working KIERSTEN (Source) 12/12/2024 Narrative 12/13/2024 8:18 AM EDT Images from the original result were not included. Obstetrics & Gynecology [address] [place] [address] [address] [facility] [address] [address] [place] [address] - - - - - - - - - - - - - - - - - - - - - - - - - - - - - - - - - - - - - - - - - - - - - - - - - - - - - - - - - - - - - - - - - - Pelvic Ultrasound Patient name: Gwyn Garcia : 1970 (54 y.o.) Date of exam: 12/12/24 - - - - - - - - - - - - - - - - - - - - - - - - - - - - - - - Indication: dyspareunia, abnormal uterine bleeding Surgical History: no previous gynecological surgeries Method: Transvaginal ultrasound examination View: Sufficient - - - - - - - - - - - - - - - - - - - - - - - - - - - - - - - Measurements: Uterus: 8.0 x 4.9 x 3.6 cm Volume: 73.6 cm Endometrial thickness: 4.0 mm Right ovary: 2.4 x 1.1 x 1.1 cm Volume: 1.5 cm Left ovary: 2.0 x 1.4 x 1.0 cm Volume: 1.5 cm - - - - - - - - - - - - - - - - - - - - - - - - - - - - - - - Findings: Uterus: The uterus is normal in size and contour. Position: Retroverted Malformations: none Myometrium: The myometrium is rather inhomogenous in echotexture, without overt fibroid. Fibroid(s): no overt fibroid(s) Endometrium: The endometrium appears normal in contour and thickness. Polyp(s): no overt polyp(s) Cervix: The cervix appears unremarkable. - - - - - - - - - - - - - - - - - - - - - - - - - - - - - - - Right ovary: Visualized Morphology: normal appearing Cyst(s): no cysts visualized Doppler: power doppler shows ovarian blood profusion Right adnexa: no overt adnexal mass - - - - - - - - - - - - - - - - - - - - - - - - - - - - - - - Left ovary: Visualized Morphology: normal appearing Cyst(s): no cysts visualized Doppler: power doppler shows ovarian blood profusion Left adnexa: no overt adnexal mass - - - - - - - - - - - - - - - - - - - - - - - - - - - - - - - Cul de Sac: no free fluid - - - - - - - - - - - - - - - - - - - - - - - - - - - - - - - - - - - - - - - - - - - - - - - - - - - - - - - - - - - - - - - - - - Impression: The uterus is normal in size and contour. The myometrium is somewhat inhomogenous in echotexture, without overt fibroid. The endometrium appears normal in contour and measures 4.0 mm in thickness. Both ovaries are visible and appear normal in size and echotexture. There is no overt adnexal mass. There is no free fluid visible within the pelvis. - - - - - - - - - - - - - - - - - - - - - - - - - - - - - - - - - - - - - - - - - - - - - - - - - - - - - - - - - - - - - - - - - - Ordering/Reading Provider: Meaghan Sweet D.O. Laborer Stores: [facility] us Meaghan Sweet DO IMG US PROCEDURES Final Resu lt * MR brain w and wo contrast IACs (10/24/2024 3:03 PM EDT) Anatomical Region Laterality Modality Brain Magnetic Resonan ce 10/26/2024 11:0 7 AM EDT Impressions 10/26/2024 11:26 AM EDT Lesion of the right petrous apex as discussed, grossly similar to CT 09/19/2024. Differential as discussed on the prior study with leading differential including petrous apicitis. ELECTRONICALLY SIGNED BY: Cristofer Madrid MD Narrative 10/26/2024 11:26 AM EDT HISTORY: Abnormal CT. Right-sided facial pain and headache. TECHNIQUE: IAC brain MRI protocol without and with contrast including diffusion images. COMPARISON: CT IAC 09/19/2024. MRI brain 08/29/2024. CT head 04/28/2024. RESULT: Acute Change: There appears to be a small amount of restricted diffusion at the right petrous apex as below. No evidence for restricted diffusion to suggest acute infarct. Hemorrhage: No evidence of prior parenchymal hemorrhage. Mass Lesion/ Mass Effect: Correlating with the recent CT from 09/19/2024, there is an enhancing expansile lesion within the medial right petrous apex, mostly with heterogeneous enhancement and some rim enhancement. The cortical breakthrough is better appreciated on the recent CT. Possible slight extension into the middle cranial fossa, with portions appearing to abut Meckel's cave and portions of the dura without discrete focal dural enhancement. No distinct abnormal parenchymal enhancement. Chronic Change: The white matter is within normal limits of signal intensity for age. Parenchyma: No significant volume loss for age. Ventricles: Normal caliber and morphology. Skull Base: Hypothalamic and pituitary region are grossly normal. Craniocervical junction is normal. No significant marrow replacement process. Vasculature: Major intracranial arterial structures, and dural venous sinuses show typical flow void, suggesting patency. Other: Mild thickening in the paranasal sinuses. Fluid within the right mastoid air cells, grossly unchanged. Orbits grossly unremarkable. Soft tissues grossly unremarkable. Procedure Note Cristofer Madrid MD - 10/26/2024 HISTORY: Abnormal CT. Right-sided facial pain and headache. TECHNIQUE: IAC brain MRI protocol without and with contrast includingdiffusion images. COMPARISON: CT IAC 09/19/2024. MRI brain 08/29/2024. CT head 04/28/2024. RESULT: Acute Change: There appears to be a small amount of restricted diffusionat the right petrous apex as below. No evidence for restricted diffusionto suggest acute infarct. Hemorrhage: No evidence of prior parenchymal hemorrhage. Mass Lesion/ Mass Effect: Correlating with the recent CT from 09/19/2024,there is an enhancing expansile lesion within the medial right petrousapex, mostly with heterogeneous enhancement and some rim enhancement. Thecortical breakthrough is better appreciated on the recent CT. Possibleslight extension into the middle cranial fossa, with portions appearing toabut Meckel's cave and portions of the dura without discrete focal duralenhancement. No distinct abnormal parenchymal enhancement. Chronic Change: The white matter is within normal limits of signalintensity for age. Parenchyma: No significant volume loss for age. Ventricles: Normal caliber and morphology. Skull Base: Hypothalamic and pituitary region are grossly normal.Craniocervical junction is normal. No significant marrow replacementprocess. Vasculature: Major intracranial arterial structures, and dural venoussinuses show typical flow void, suggesting patency. Other: Mild thickening in the paranasal sinuses. Fluid within the rightmastoid air cells, grossly unchanged. Orbits grossly unremarkable. Softtissues grossly unremarkable. IMPRESSION: Lesion of the right petrous apex as discussed, grossly similar to CT09/19/2024. Differential as discussed on the prior study with leadingdifferential including petrous apicitis. ELECTRONICALLY SIGNED BY: Cristofer Madrid MD Bertha Charles [employer] IMG MRI PROCEDURES Final Res ult * IGP, APT HPV,RFX 16/18,45 (10/10/2024 12:00 AM EDT) Diagnosis: Comment [facility] Comment:NEGATIVE FOR INTRAEP ITHELIAL LESION OR MALIGNANCY. Specimen Adequacy: Comment [facility] Comment: Satisfactory for evaluation. Endocervical and/or squamous metaplastic cells (endocervical component) are present. Clinician Provided ICD10: Comment [facility] Comment:Z12.4 Performed By: Comment [facility] Comment:Mayuri Gannon ytologist (ASC) Cyto Comments . [facility] Note: Comment [facility] Comment: The Pap smear is a screening test designed to aid in the detection of premalignant and malignant conditions of the uterine cervix. It is not a diagnostic procedure and should not be used as the sole means of detecting cervical cancer. Both false-positive and false-negative reports do occur. Test Methodology: Comment [facility] Comment: This liquid based ThinPrep(R) pap test was screened with the use of an image guided system. HPV Aptima Negative Negative [facility] Comment: This nucleic acid amplification test detects fourteen high-risk HPV types (16,18,31,33,35,39,45,51,52,56,58,59,66,68) without differentiation. Swab 10/10/2024 10/11/2024 Narrative [facility] - 10/12/2024 1:07 PM EDT Performed at: - [facility] [id number] Building Maintenance Engineer: Lydia Lee MD, Phone: [phone] Performed at: - [facility] [id number] Building Maintenance Engineer: Lydia Lee MD, Phone: [phone] Specimen Comment: No. of containers..01 ThinPrep Vial Meaghan Sweet DO LAB BLOOD ORDERABLES Final R esult [facility] * MM TOMOSYNTHESIS SCREENING BI (02/15/2024 3:40 PM EDT) Anatomical Region Laterality Modality Other 02/15/2024 3:40 PM EDT Narrative 02/15/2024 3:41 [place] [address] Mammography Report Signed Patient: GWYN GARCIA MR#: [id number] : 1970 Acct:[id number] Age/Sex: 53 / F ADM Date: 02/15/24 Loc: MAMMO Attending Dr: MEAGHAN SWEET Ordering Physician: MEAGHAN SWEET Results: Date of Service: 02/15/24 Follow Up: Procedure(s): MM tomosynthesis screening BI Accession Number(s): [id number] cc: MEAGHAN SWEET ; BERTHA CHARLES Patient Name: GWYN GARCIA MR#: [id number] : 1970 Exam Date: 02/15/2024 Ordering Doctor: DR MEAGHAN SWEET RADIOLOGY REPORT PROCEDURE: MM TOMOSYNTHESIS SCREENING BI COMPARISON: MG MAMM SCREEN 3D LINA CAD, 03/10/2022. MM TOMOSYNTHESIS DIAGNOSTIC BI, 02/16/2023. INDICATIONS: Screening Calculator Name NCI Breast Cancer Risk Assessment Tool 5 Year Breast Cancer Risk 0.80% Lifetime Breast Cancer Risk 5.50% Personal Breast Cancer No Personal Ovarian Cancer No Treatments None Family Cancers None LOCATION: [facility] [place] BREAST COMPOSITION: The breasts are extremely dense, [...] Signed By: 02/15/24 1541 DD/ 1540 TD/TT: Case Preparer And Liner: Procedure Note Radiology, Radiologist, - 02/15/2024 [place] [address] Mammography Report Signed Patient: GWYN GARCIA LMR#: [id number] : 1970Acct:[id number] Age/Sex: 53 / FADM Date: 02/15/24 Loc: MAMMO Attending Dr: MEAGHAN SWEET Ordering Physician: MEAGHAN SWEETResults: Date of Service: 02/15/24Follow Up: Procedure(s): MM tomosynthesis screening BI Accession Number(s): [id number] cc: MEAGHAN SWEET SHERRI Patient Name: GWYN GARCIA MR#: [id number] : 1970 Exam Date: 02/15/2024 Ordering Doctor: DR MEAGHAN SWEET RADIOLOGY REPORT PROCEDURE: MM TOMOSYNTHESIS SCREENING BI COMPARISON: MG MAMM SCREEN 3D LINA CAD, 03/10/2022. MM TOMOSYNTHESIS DIAGNOSTIC BI, 02/16/2023. INDICATIONS: Screening Calculator Name NCI Breast Cancer Risk Assessment Tool 5 Year Breast Cancer Risk 0.80% Lifetime Breast Cancer Risk 5.50% Personal Breast Cancer No Personal Ovarian Cancer No Treatments None Family Cancers None LOCATION: [facility] [place] BREAST COMPOSITION: The breasts are extremely dense, [...] M.D. Signed By:02/15/24 1541 DD/ 1540 TD/TT: Case Preparer And Liner: Meaghan Sweet DO [facility] Final Resu lt * THINPREP TIS PAP AND HPV MRNA E6/E7 WITH REFLEX TO HPV 16,18/45 (10/05/2023 10:24 AM EDT) CLINICAL INFORMATION [facility] Comment:None given LMP [facility] Comment:09/24/23 PREV. PAP [facility] Comment:NEG PREV. BX [facility] Comment:NONE GIVEN SOURCE [facility] Comment:None given STATEMENT OF ADEQUACY [facility] Comment: Satisfactory for evaluation. Endocervical/transformation zone component present. GENERAL CATEGORIZATION [facility] Comment:Cytology Results: Ot her; see interpretation/result INTERPRETATION/RESU LT [facility] Comment: Negative for intraepithelial lesion. Endometrial cells present in a woman 45 years of age or older. COMMENT [facility] Comment: This Pap test has been evaluated with computer assisted technology. The clinical significance of endometrial cells should be interpreted in the context of menstrual history and reproductive status. If out of phase of cycle or after menopause, this finding may be associated with normal functioning endometrium, benign endometrium with stromal breakdown, hormonal alterations and, less commonly, endometrial neoplasia. Clinical correlation is suggested. PROFESSOR OF MECHANICAL ENGINEERING [facility] Comment: BLM, CT(ASCP) CT Screening Location: [place] [address] PATHOLOGIST [facility] Comment: Seda Garza MD Board Certified in Anatomic and Clinical Pathology Board Certified in Cytopathology (electronic signature) For questions regarding this report call Anatomic Pathology at [phone] (ALWAYS MESSAGE) [facility] Comment: EXPLANATORY NOTE: The Pap is a screening test for cervical cancer. It is not a diagnostic test and is subject to false negative and false positive results. It is most reliable when a satisfactory sample, regularly obtained, is submitted with relevant clinical findings and history, and when the Pap result is evaluated along with historic and current clinical information. HPV MRNA E6/E7 Not Detected Not Detected [facility] Comment: Methodology: Voice Systems Engineer-Mediated Amplification This assay detects E6/E7 viral messenger RNA (mRNA) from 14 high-risk HPV types (16,18,31,33,35,39,45,51,52,56,58,59,66,68). Cervical sources are required for HPV testing. If a vaginal source from a patient who has had a total hysterectomy with removal of cervix was submitted, please contact the testing laboratory for alternative testing options. For additional information, please refer to http://education.Ahonya/faq/KBU493e6 (This link if provided for information/ educational purposes only.) Swab (Endocervix) 10/05/2023 10:24 AM EDT 10/06/2023 3:20 AM EDT Narrative Resulting Agency Comment Performing Organization Information Site ID: [id number] Name: [facility] Address: [address] [place] [address], [address] [place] [id number] Director: Alex Mcfadden MD Meaghan Sweet DO LAB CYTOLOGY ORDERABLES Pia tony Result [facility] * Cologuard?? colon cancer screening (02/09/2023 12:01 AM EDT) NONINV COLON CA DNA+OCC BLD SCRN STL-IMP Negative Negative 02/15/2023 10:08 AM EDT [facility] (CLIA #:[id number]) Comment: NEGATIVE TEST RESULT. A negative Cologuard result indicates a low likelihood that a colorectal cancer (CRC) or advanced adenoma (adenomatous polyps with more advanced pre-malignant features) is present. The chance that a person with a negative Cologuard test has a colorectal cancer is less than 1 in 1500 (negative predictive value >99.9%) or has an advanced adenoma is less than 5.3% (negative predictive value 94.7%). These data are based on a prospective cross-sectional study of 10,000 individuals at average risk for colorectal cancer who were screened with both Cologuard and colonoscopy. (Adeline Martinez al, N Engl J Med 2014;370(14):9591-6219) The normal value (reference range) for this assay is negative. COLOGUARD RE-SCREENING RECOMMENDATION: Periodic colorectal cancer screening is an important part of preventive healthcare for asymptomatic individuals at average risk for colorectal cancer. Following a negative Cologuard result, the [place] [employer] and U.S. Multi-Society Task Force screening guidelines recommend a Cologuard re-screening interval of 3 years. References: [employer] Guideline for Colorectal Cancer Screening: https://www.cancer.org/cancer/fdmhc-hrxmec-ynvris/fjimvwyuy-ijahuzvzc-xkdbisj/ac s-rec ommendations.html.; Joaquin DK, Chon SERRANO, Charity KellyK, Colorectal Cancer Screening: Recommendations for Physicians and Patients from the U.S. Multi-Society Task Force on Colorectal Cancer Screening , Am J Gastroenterology 2017; 112:5674-6801. TEST DESCRIPTION: Composite algorithmic analysis of stool DNA-biomarkers with hemoglobin immunoassay. Quantitative values of individual biomarkers are not reportable and are not associated with individual biomarker result reference ranges. Cologuard is intended for colorectal cancer screening of adults of either sex, 45 years or older, who are at average-risk for colorectal cancer (CRC). Cologuard has been approved for use by the U.S. FDA. The performance of Cologuard was established in a cross sectional study of average-risk adults aged 50-84. Cologuard performance in patients ages 45 to 49 years was estimated by sub-group analysis of near-age groups. Colonoscopies performed for a positive result may find as the most clinically significant lesion: colorectal cancer [4.0%], advanced adenoma (including sessile serrated polyps greater than or equal to 1cm diameter) [20%] or non- advanced adenoma [31%]; or no colorectal neoplasia [45%]. These estimates are derived from a prospective cross-sectional screening study of 10,000 individuals at average risk for colorectal cancer who were screened with both Cologuard and colonoscopy. (Adeline Avalos et al, N Engl J Med 2014;370(14):1368-0205.) Cologuard may produce a false negative or false positive result (no colorectal cancer or precancerous polyp present at colonoscopy follow up). A negative Cologuard test result does not guarantee the absence of CRC or advanced adenoma (pre-cancer). The current Cologuard screening interval is every 3 years. ([employer] [employer] and U.S. Multi-Society Task Force). Cologuard performance data in a 10,000 patient pivotal study using colonoscopy as the reference method can be accessed at the following location: www.[employer].com/results. Additional description of the Cologuard test process, warnings and precautions can be found at www.cologuard.[employer]. Stool specimen (specimen) 02/09/2023 12:01 AM EDT 02/10/2023 12:56 PM EDT Bertha Charles NP LAB MOLECULAR DIAGNOSTICS OR DERABLES Final Result .[facility] (CLIA #:[id number]) [address] [id number], [employer] (CLIA #:[id number]) [address] [address] from Last 3 Months or Most Recently Relevant to Health Maintenance Insurance AETNA AETNA Care Teams Historic Sites Supervisor Relationship Specialty Start Date End Date Nicki Amin MD [address] [facility] [address] [place] [address] PCP - General Family Medicine 11/16/23 Bertha Charles, [employer] [address] [facility] [address] [place] [address] Nurse Practitioner Family Medicine 11/16/23 Galdino Mcdaniel DO [address] [place] [address] Referring Physician Neurology 07/18/24
--- OUTSIDE RECORDS SUMMARY | 2025-01-02 07:57 | XMS_ITS | Encounter Summary ---
Author Organization [facility] Address [address] [place] [address] Care Team Providers Care Regulatory Affairs Portfolio Leader Name Role Phone Nicki Amin MD Primary Care Provider [phone] Miranda Charles CIVIL PREPAREDNESS COORDINATOR Unavailable [phone] Galdino Mcdaniel DO Unavailable [phone] Reason for Visit * Reason Onset Date Comments Med Refill 10/27/2024 Encounter Details Date Type Department Care Team (Late st Contact Info) Description 10/27/2024 Refill THADDEUS AKIN [address] [place] [phone] Galdino Mcdaniel DO [address] [place] [id number] Trigeminal neuralgia of right side of face Social History Tobacco Use Types Packs/Day Years [...] How often do you attend chur or taoist services? 1 to 4 times per year 09/08/2023 Do you belong to any clubs o r organizations such as yazidi groups, unions, fraternal or athletic groups, or [...] Recorded Patient Health Questionnaire-2 Score 0 10/10/2024 [facility] - Occupational [...] place to sleep or slept in a retirement (including now)? No 09/08/2023 Comments No Sex and Gender Information Value Date Recorded Sex Assigned at Not on file Legal Sex Female 7:35 PM EDT Gender Identity Not on file Sexual Orientation Not on file documented as of this encounter Plan of Treatment Not on file documented as of this encounter Visit Diagnoses Diagnosis Trigeminal neuralgia of right side of face documented in this encounter Care Teams Regulatory Affairs Portfolio Leader Relationship Specialty Start Date End Date Nicki Amin MD [address] [place] [address] PCP - General Family Medicine 11/16/23 Miranda Charles, EMMA [address] [place] [address] Nurse Practitioner Family Medicine 11/16/23 Galdino Mcdaniel DO [address] [place] [address] Referring Physician Neurology 07/18/24 documented as of this encounter
--- OUTSIDE RECORDS SUMMARY | 2025-01-02 07:57 | XMS_ITS | Encounter Summary ---
Author Organization [facility] Address [address] [place] [address] Care Team Providers Care Ore Bridge Operator Name Role Phone Nicki Amin MD Primary Care Provider [phone] Miranda Charles ACCOUNTING LECTURER Unavailable [phone] Galdino Mcdaniel DO Unavailable [phone] Reason for Visit * Reason Onset Date Comments Med Refill 10/10/2024 Encounter Details Date Type Department Care Team (Late st Contact Info) Description 10/10/2024 Refill THADDEUS AKIN [address] [place] [phone] Galdino Mcdaniel DO [address] [place] [address] Trigeminal neuralgia of right side of [...] How often do you attend chur or latter day services? 1 to 4 times per year [...] Recorded Patient Health Questionnaire-2 Score 0 10/10/2024 [facility] - Occupational [...] place to sleep or slept in a fpc (including now)? No 09/08/2023 Comments No Sex and Gender Information Value Date Recorded Sex Assigned at Not on file Legal Sex Female 7:35 PM EDT Gender Identity Not on file Sexual Orientation Not on file documented as of this encounter Functional Status * Audit-C Score Answer Date of Assessment Author 1 10/10/2024 11:09 AM Dada Lynn MA * Question Answer Date of Assessment Author Q1: How often do you have a drink containing alcohol? Monthly or less 10/10/2024 11:09 AM Grady Lynn MA Q2: How many drinks containing alcohol do you have on a typical day when you are drinking? 1 or 2 10/10/2024 11:09 AM Jaz Lynn M A Q3: How often do you have six or more drinks on one occasion? Never 10/10/2024 11:09 AM Jaz Lynn M A * Over the past 2 weeks, how often have you been bothered by any of the following problems? Question Answer Date of Assessment Author Little interest or pleasure in doing things Not at all 10/10/2024 11:09 AM Jaz Lynn M A Feeling down, depressed, or hopeless Not at all 10/10/2024 11:09 AM Jaz Lynn M A Patient Health Questionnaire -2 Score 0 10/10/2024 11:09 AM Jaz Lynn M A documented as of this encounter Plan of Treatment Not on file documented as of this encounter Visit Diagnoses Diagnosis Trigeminal neuralgia of right side of face documented in this encounter Care Teams Ore Bridge Operator Relationship Specialty Start Date End Date Nicki Amin MD [address] [place] [address] PCP - General Family Medicine 11/16/23 Miranda Charles, ACCOUNTING LECTURER [address] [facility] [address] [place] [address] Nurse Practitioner Family Medicine 11/16/23 Galdino Mcdaniel DO [address] [place] [address] Referring Physician Neurology 07/18/24 documented as of this encounter
--- OUTSIDE RECORDS SUMMARY | 2025-01-02 07:57 | XMS_ITS | Encounter Summary ---
Author Organization [facility] Address [address] [place] [address] Care Team Providers Care Sales Development Manager Name Role Phone Nicki Amin MD Primary Care Provider [phone] Miranda Charles SILVERLIGHT DEVELOPER Unavailable [phone] Galdino Mcdaniel DO Unavailable [phone] Encounter Details Date Type Department Care Team ([facility] Contact Info) Description 08/29/2024 Results Follow-Up MARTITAViry [facility] [address] [facility] [address] [place] [phone] Kristi Garrison PA [address] [facility] [address] [place], [place] [phone] MR brain wo contrast Social History Tobacco Use Types Packs/Day Years [...] How often do you attend chur or judaism services? 1 to 4 times per year 09/08/2023 Do you belong to any clubs o r organizations such as buddhist groups, unions, fraternal or athletic groups, or [...] Date Recorded Patient Health Questionnaire-2 Score 0 08/23/2024 [facility] - Occupational Stress [...] place to sleep or slept in a jail (including now)? No 09/08/2023 Comments No Sex and Gender Information Value Date Recorded Sex Assigned at Not on file Legal Sex Female 7:35 PM EDT Gender Identity Not on file Sexual Orientation Not on file documented as of this encounter Miscellaneous Notes * Telephone Encounter - JEWELL Casey - 08/29/2024 4:44 PM EDT Called and notified pt that the MRI of her brain showed fluid accumulation in the right mastoid aircells could be infectious or inflammatory. Otherwise it was normal in appearance. Advised her I would like her to see Dr. Simons again to discuss treatment options. I will speak with Dr. Simons' staff tomorrow regarding the MRI results. In the meantime, I spoke with Dr. Sim about the results and he recommends that she go on Augmentin, an antibiotic until Dr. Simons is able to evaluate her. I recommend a probiotic while she is on the antibiotic. Pt is in agreement with the above. documented in this encounter Plan of Treatment Not on file documented as of this encounter Visit Diagnoses Diagnosis Acute mastoiditis of right side- Primary documented in this encounter Care Teams Sales Development Manager Relationship Specialty Start Date End Date Nicki Amin MD [address] [facility] [address] [place] [address] PCP - General Family Medicine 11/16/23 Miranda Charles NP [address] [facility] [address] [place] [address] Nurse Practitioner Family Medicine 11/16/23 Galdino Mcdaniel DO [address] [place] [address] Referring Physician Neurology 07/18/24 documented as of this encounter
--- OUTSIDE RECORDS SUMMARY | 2025-01-02 07:58 | XMS_ITS | CCD ---
Author Organization [facility] Inform ion Partnership [facility] Care Team Providers Care Supervisor Tower Name Role Phone Sharla Richter Primary Care Provider Vivian Ortiz Primary Care Provider [phone] SHARLA RICHTER Primary Care Physician [phone] DR VIVIAN ORTIZ Admitting Unavailable DIANA, DR VIVIAN Connolly Attending Unavailable KEE, DR HARDING Attending Unavailable KEE, DR HARDING Admitting Unavailable KARLOS, DR KETTY Barnett Consulting Unavailable KEE, DR HARDING Consulting Unavailable Vivian Ortiz Primary Care Provider Sharla Richter Primary Care Provider SHARLA RICHTER Primary Care Unavailable JEYSON QUIÑONES Attending Unavailable CRISTOFER KATZ Primary Care Physician [phone] KYRIE NETTLES NP-Mayuri Primary Care Physician [phone] Candace Verdin Unavailable Tim Alcaraz Consulting Unavaila carine ABEL CNP Karin L Referring Unavailable HOPE ABEL Karin L Attending Unavailable HOPE ABEL Karin L Admitting Unavailable Tim Alcaraz Consulting Unavaila Tim Crabtree Consulting Unavaila Tim Crabtree Attending Unavaila Tim Crabtree Admitting Unavaila ble NONE, XXXX Referring Unavailable Yoon MATHEW-Kyrie ARNETT Primary Care Provider Mari Amin MD Primary Care Provider Kyrie Nettles NP Unavailable Nativiadd Omer Attending Unavailable Natividad Omer Admitting Unavailable NON STAFF Primary Care Unavailable Ly Natividad MACARIO Attending Provider NON STAFF Primary Care Provider Unavailabl e Jonas MACARIO, Christopher Unavailable Jonas MACARIO, Kaydenopher Unavailable [phone] Vivian Ortiz CNP Primary Care Provider KARTHIK CINTRON Attending Unavailable DIANAVIVIAN Primary Care Unavailable KONSTANTIN CHAVES Attending Unavailable KYRIE NETTLES Primary Care Unavailable Jonas MACARIO, Christopher Unavailable [phone] Jonas MACARIO, Christopher Unavailable KYRIE NETTLES Attending Unavailable RAMESH GONZALEZ Attending Unavailable LAURIE ESPARZA Referring Unavailable JOSE ANGEL MCDANIEL Attending Unavailable JOCELYNMARI Garland Referring Unavailable KEESANTHOSH Attending Unavailable HEMMERKRISTI Attending Unavailable HEMMERKRISTI Referring Unavailable DRAKECORA Attending Unavailable DRAKECORA Referring Unavailable NAVARRETESALIMA Attending Unavailable CORA DRAKE Referring Unavailable BLACKSSULEMA MARIO Attending Unavailable DRAKECORA Referring Unavailable HEMMERKRISTI Referring Unavailable KEESANTHOSH Attending Unavailable YOONKYRIE Referring Unavailable NAVARRETESALIMA Attending Unavailable DRAKECORA Referring Unavailable NAVARRETESALIMA Attending Unavailable DRAKECORA Referring Unavailable YOONKYRIE Attending Unavailable YOON, KYRIE Reed Referring Unavailable HEMMERKRISTI Attending Unavailable HEMMERKRISTI Referring Unavailable PETMILTON PERSAUD Attending Unavailable Allergies Allergy Classification Reported Allergen(s) Allergy Type Date of Onset Reaction(s) Facility (9 sources) bee venom Propensity to adverse reactions to drug 05-09-19 Swelling, Unknown [place], [place] (20 sources) traZODone; Translations: [trazodone] Drug Allergy 03-03-20 Intolerance, function (observable entity), Hives, Unknown [facility] (20 sources) cyclobenzaprine ; Translations: [CYCLOBENZAPRIN E] Drug Allergy 05-09-19 Other: See Comments, Other, Palpitations [facility] (1 source) Bee Sting Drug allergy [employer] Other (2 sources) meloxicam; Translations: [MELOXICAM] Drug Allergy 01-18-20 24 GI bleeding [facility] Work Phone: (20 sources) Honey bee venom Allergy to substance 09-06-19 23 Unknown [facility] (20 sources) meloxicam Drug Allergy 01-18-20 24 GI bleeding [facility] (3 sources) bee venom protein (honey bee); Translations: [BEE VENOM PROTEIN (HONEY BEE)] Drug allergy (disorder) 05-09-19 [facility] Medications Current Medications Medication Drug Class(es) Dates Sig (Normalized) Sig (Original) [id number] 200 actuat albuterol 0.09 mg/actuat metered dose inhaler (20 sources) beta2-Adrenergic Agonist Start: 08-03-2024 Albuterol Sulfate 90 mcg/actuation HFA aerosol inhaler Active 1 INH INHALATION Every 6 hours August 03, 2024 12:00am Start: 05-16-2020 take 2 puff(s) by mo uth every four hours albuterol HFA (PROVENTIL HFA, VENTOLIN HFA) 90 mcg/actuation inhaler INHALE 2 PUFFS BY MOUTH EVERY 4 HOURS 05/16/2020 Active albuterol HFA 90 mcg/act inhaler albuterol sulfate HFA 90 mcg/actuation aerosol inhaler Active Comment on above: INHALE 2 PUFFS BY MO UTH EVERY 4 HOURS amoxicillin 875 mg / clavulanate 125 mg oral tablet (1 source) Penicillin-class Antibacterial Start: 08-30-19 End: 09-09-19 take 1 tablet by mouth in the morning amoxicillin-clavulan ate (Augmentin) 875-125 MG tablet Indications: Acute mastoiditis of right side Take 1 tablet (875 mg) by mouth in the morning and 1 tablet (875 mg) in the evening. Take with meals. Do all this for 10 days. 20 tablet 08/29/2024 09/08/2024 Active ascorbic acid 100 mg oral tablet (6 sources) Vitamin C take 1 tablet by mouth once daily Ascorbic Acid (VITAMIN C) 100 mg tablet Take 100 mg by mouth once daily. Active Comment on above: Take 100 mg by mouth once daily. Atogepant (Qulipta) 60 MG tablet (5 sources) Start: 07-01-19 End: 07-31-19 take 1 tablet by mouth once daily Atogepant (Qulipta) 60 MG tablet Indications: Chronic migraine with aura and with status migrainosus, not intractable (CMS/HCC) Take 60 mg by mouth Daily 30 tablet 11 06/30/2024 07/30/2024 Active azelaic acid 0.15 mg/mg topical gel (8 sources) Start: 07-01-19 End: 01-18-20 24 Azelaic Acid (FINACEA) 15 % gel Apply bid to face 50 g 3 06/30/2022 Active Comment on above: Apply bid to face bismuth subsalicylate 262 mg chewable tablet (9 sources) Bismuth Start: 04-06-20 End: 05-04-19 bismuth subsalicylate (Pepto Bismol) 262 MG chewable tablet Chew 262 mg in the morning and 262 mg at noon and 262 mg in the evening and 262 mg before bedtime. Chew before meals. 04/06/2024 05/04/2024 Active Start: 04-04-2024 End: 05-16-2024 take 1 tablet by mouth every twenty-four hours Bismuth Subsalicylate (Bismuth) 262 mg tablet,chewable Discontinued 2 TAB PO Four times daily 112 April 04, 2024 1:00am May 16, 2024 9:51am do not exceed 16 tabs per 24 hrs busPIRone hydrochloride 10 mg oral tablet (8 sources) Start: 08-23-2024 take 1 tablet by mouth twice daily as needed for anxiety busPIRone (Buspar) 10 MG tablet Indications: Stress reaction Take 1 tablet (10 mg) by mouth 2 (two) times a day as needed (Anxiety) 60 tablet 1 08/23/2024 Active Calcium (14 sources) Phosphate Binder, Calcium End: 02-16-2024 calcium 200 MG tablet Calcium 02/16/2024 Discontinued calcium 200 MG t ablet Calcium Active 12 hr cetirizine hydrochloride 5 mg / pseudoephedrine hydrochloride 120 mg extended release oral tablet (5 sources) alpha-Adrenergic Agonist, Histamine-1 Receptor Antagonist Start: 09-20-2024 take 1 tablet by mouth every twelve hours Allergy Relief/Nasal Decongest 5-120 MG 12 hr tablet Take 1 tablet by mouth every 12 (twelve) hours 09/20/2024 Active Start: 06-05-2024 take 1 tablet by ravi th every twelve hours, then take 1 tablet by mouth every twelve hours Cetirizine-Pseudoephedrine (Zyrtec-D) 5- 120 mg tablet extended release 12 hr Active 1 TAB PO Every 12 hours 14 June 05, 2024 1:00am Start: 06-05-2024 take 1 tablet by ravi th every twelve hours, then take 1 tablet by mouth every twelve hours Cetirizine-Pseudoephedrine (Zyrtec-D) 5- 120 mg tablet extended release 12 hr Active 1 TAB PO Every 12 hours 31 10June 05, 2024 12:00am cholecalciferol 0.05 mg oral capsule (14 sources) Vitamin D End: 02-16-2024 cholecalciferol (Vitamin D-3) 50 MCG (1999 UT) capsule Orally 02/16/2024 Discontinued ciclopirox 10 mg/ml medicated shampoo (17 sources) Start: 09-21-2023 End: 02-16-2024 Ciclopirox 1 % shampoo Indications: Other seborrheic dermatitis Lather on wet hair, leave on 5 min, rinse 2-3 x week, 30 day supply 120 mL 09/21/2023 02/16/2024 Discontinued Start: 09-21-2023 End: 01-18-2024 ciclopirox (Loprox) 0.77 % c ream Indications: Other seborrheic dermatitis Apply thin layer to affected area once a day, 30 day supply 30 g 09/21/2023 01/18/2024 Discontinued ciprofloxacin 500 mg oral tablet (1 source) Quinolone Antimicrobial take 1 tablet by mouth every twelve hours Cipro 500 MG 1 tablet Orally every 12 hrs Active [id number] 0.3 ml EPINEPHrine 1 mg/ml auto-injector (20 sources) alpha-Adrenergic Agonist, beta-Adrenergic Agonist, Catecholamine Start: 06-28-19 EPINEPHrine (Epipen) 0.3 MG/0.3ML injection syringe Indications: Anaphylaxis, initial encounter Inject 0.3 mL (0.3 mg) as directed 1 (one) time for 1 dose 0.3 mL 06/27/2024 Active Start: 08-14-2023 EPINEPHrine (E pipen) 0.3 MG/0.3ML injection syringe Indications: Anaphylaxis, initial encounter Inject 0.3 mL (0.3 mg) as directed 1 (one) time for 1 dose 0.3 mL 08/14/2023 Active Start: 01-02-2020 EPINEPHrine (E PIPEN 2-NIRMAL) 0.3 MG/0.3ML SOAJ injection Inject 0.3 mLs into the muscle once for 1 dose Use as directed for allergic reaction 0.3 mL 0 01/02/2020 Active ergocalciferol, vitamin D2, (VITAMIN D2 ORAL) (6 sources) ergocalciferol, vitamin D2, (VITAMIN D2 ORAL) Take by mouth. Active ergocalciferol, vitamin D2, (VITAMIN D2 ORAL) Take by mouth. 0 Active Comment on above: Take by mouth. ethinyl estradiol 0.005 mg / norethindrone acetate 1 mg oral tablet (2 sources) Estrogen Start: 5 End: 6 norethindrone-ethin yl estradiol (Femhrt 04/24) 1-5 MG-MCG tablet Indications: Hot flashes TAKE 1 TABLET BY MOUTH DAILY 28 tablet 11 10/11/2024 10/11/2025 Active famotidine 40 mg oral tablet (14 sources) Histamine-2 Receptor Antagonist Start: 5 take 1 tablet by mouth at bedtime famotidine (Pepcid) 40 MG tablet Take 40 mg by mouth at bedtime 07/24/2024 Active Start: 01-02-2020 take 1 tablet by ravi once daily famotidine (PEPCID) 20 MG tablet Take 1 tablet by mouth daily 5 tablet 0 01/02/2020 Active fluorouracil 50 mg/ml topical cream (5 sources) Nucleoside Metabolic Inhibitor Start: 07-03-2022 Fluorouracil 5 % cre am Indications: Actinic keratosis Apply topically to affected area on nose bid. Use for 2 weeks, if not much of a reaction then continue for 2 additional weeks, not to exceed 4 weeks. 40 g 07/03/2022 Active Start: 06-30-2022 Fluorouracil 0 .5 % cream Indications: Actinic keratosis Apply to [...] additional weeks, not to exceed 4 weeks. hydrOXYzine hydrochloride 25 mg oral tablet (15 sources) Antihistamine Start: 08-06-19 End: 02-16-20 take 1 tablet by mouth four times daily as needed for anxiety hydrOXYzine HCl (Atarax) 25 MG tablet Indications: Anxiety Take 1 tablet (25 mg) by mouth 4 (four) times a day as needed for itching (Anxiety) 180 tablet 08/06/2023 02/16/2024 Discontinued hydrOXYzine HCl 25 MG Oral for 45 Days Active meclizine hydrochloride 25 mg oral tablet (5 sources) Antiemetic Start: 04-26-2024 End: 05-06-2024 take 1 tablet by mouth three times daily as needed for dizziness meclizine (Antivert) 25 MG tablet Indications: Dizziness Take 1 tablet (25 mg) by mouth 3 (three) times a day as needed for dizziness for up to 10 days 30 tablet 04/26/2024 05/06/2024 Active 24 hr metoprolol succinate 25 mg extended release oral tablet (20 sources) beta-Adrenergic Mitch Start: 05-16-2024 take 1 tablet by mouth once daily metoprolol succinate XL (Toprol-XL) 25 MG 24 hr tablet Indications: Paroxysmal supraventricular tachycardia (HCC) TAKE 1 TABLET BY MOUTH DAILY 100 tablet 3 09/13/2024 Active Start: 04-26-2024 take 1 tablet by ravi th once daily metoprolol succinate XL (Toprol-XL) 25 MG 24 hr tablet Indications: Paroxysmal supraventricular tachycardia (CMS/HCC) Take 1 tablet (25 mg) by mouth Daily Do not crush or chew. 30 tablet 5 04/26/2024 Active Start: 01-21-2024 metoprolol tar trate (Lopressor) 25 mg tablet Indications: Paroxysmal supraventricular tachycardia (CMS-HCC) Take one tablet for palps/fast heart rate. Do no exceed more then 2 tablets a day 30 tablet 1 01/21/2024 Active End: 04-26-2024 take 1 tablet by mouth in the morning metoprolol tartrate (Lopressor) 25 MG tablet Take 25 mg by mouth in the morning and 25 mg before bedtime. PRN palpitations. 04/26/2024 Discontinued minoxidil 20 mg/ml topical solution (20 sources) Arteriolar Vasodilator Start: 05-02-2024 minoxid il (Rogaine) 2 % external solution Indications: Androgenic alopecia Apply topically Daily 60 mL 11 05/02/2024 Active Start: 06-29-2023 End: 02-16-2024 Minoxidil 5 % solution Indic ations: Androgenic alopecia Apply to scalp daily/90 days 180 mL 3 06/29/2023 02/16/2024 Discontinued Start: 07-01-2022 Minoxidil 5 % foam Indications: [...] Multivitamin preparation (1 source) Multivitamin Act jamaal omeprazole 40 mg delayed release oral capsule (20 sources) Proton Pump Inhibitor Start: take 1 capsule by mouth in the morning omeprazole (PriLOSEC) [address] capsule Take 40 mg by mouth in the morning and 40 mg before bedtime. 04/06/2024 Active Start: 04-04-2024 End: 05-16-2024 take 1 capsule by mouth twice daily Omeprazole 40 mg capsule,delayed release(DR/EC) Discontinued 40 MG PO Twice daily April 04, 2024 1:00am May 16, 2024 9:51am ondansetron 4 mg oral tablet (17 sources) Serotonin-3 Receptor Antagonist Start: 02-16-2024 End: 03-17-2024 take 1 tablet by mouth every six hours for nausea ondansetron (Zofran) 4 MG tablet Indications: Nausea and vomiting, unspecified vomiting type Take 1 tablet (4 mg) by mouth every 6 (six) hours if needed for nausea or vomiting 60 tablet 02/16/2024 03/17/2024 Active Start: 09-06-2023 End: 02-16-2024 take 1 tablet by mouth every eight hours as needed ondansetron (Zofran) 4 MG tablet Take 4 mg by mouth every 8 (eight) hours if needed 09/06/2023 02/16/2024 Discontinued take 1 tablet by ravi th every eight hours as needed Ondansetron HCl 4 MG TAKE 1 TABLET BY MOUTH EVERY 8 HOURS NEEDED Oral for 10 Days Active OXcarbazepine 150 mg oral tablet (16 sources) Anti-epileptic Agent Start: 07-18-2024 End: 10-27-2025 take 1 tablet by mouth in the morning OXcarbazepine (Trileptal) 150 MG tablet Indications: Trigeminal neuralgia of right side of face Take 1 tablet (150 mg) by mouth in the morning and 1 tablet (150 mg) before bedtime. 180 tablet 3 10/27/2024 10/27/2025 Active take 1 tablet by mouth twice janett ly OXcarbazepine (TRILEPTAL) 150 mg tablet Take 150 mg by mouth two times a day. Active polyethylene glycol 3350 72556 mg powder for oral solution (20 sources) Osmotic Laxative Start: 03-21-2024 End: 03-24-2024 polyethylene glycol, PEG, 3350 (Glycolax) 17 GM/SCOOP powder Take 17 g by mouth Daily PRN 03/21/2024 Active Rogaine Womens 5 % (1 source) Rogaine Womens 5 % APPLY TO THE AFFECTED AREA(S) topically ONCE DAILY IN THE MORNING External for 30 Days Active saccharomyces boulardii 250 mg oral capsule (20 sources) take 1 capsule by mouth once daily saccharomyces boulardii (Florastor) 250 MG capsule Take 250 mg by mouth Daily Active SEMAGLUTIDE SUBQ (1 source) SEMAGLUTIDE SUBQ Inject under the skin. Active Semaglutide-Weigh t Management (Wegovy) 0.25 MG/0.5ML solution auto-injector (4 sources) Start: 06-02-2024 End: 07-02-2024 inject 0.25 mg by subcutaneous injection every week Semaglutide-Weight Management (Wegovy) 0.25 MG/0.5ML solution auto-injector Indications: BMI 26.0-26.9,adult , Primary osteoarthritis of both knees , Mild aortic valve regurgitation , Nonrheumatic aortic valve insufficiency , Tachycardia , Paroxysmal supraventricular tachycardia (CMS/HCC) Inject 0.25 mg under the skin 1 (one) time per week 2 mL 06/02/2024 07/02/2024 Active tiZANidine 4 mg oral tablet (14 sources) Central alpha-2 Adrenergic Agonist Start: 07-04-2024 End: 08-03-2024 take 1 tablet by mouth at bedtime tiZANidine (Zanaflex) 4 MG tablet Indications: Right temporomandibular joint disorder, unspecified Take 1 tablet (4 mg) by mouth at bedtime 30 tablet 07/04/2024 Active triamcinolone acetonide 5 mg/ml topical cream (3 sources) Corticosteroid Start: 08-23-2024 End: 09-02-2024 triamcinolone (Kenalog) 0.5 % cream Indications: Skin irritation Apply topically in the morning and before bedtime. Do all this for 10 days. 15 g 1 08/23/2024 09/02/2024 Active ubrogepant 50 mg oral tablet (20 sources) Start: 07-04-2024 take 1 tablet by mouth once daily as needed Ubrelvy 50 MG tablet Indications: Chronic migraine with aura and with status migrainosus, not intractable TAKE 1 TABLET BY MOUTH DAILY NEEDED FOR MIGRAINE 10 tablet 11 07/04/2024 Active Start: 06-30-2024 take 1 tablet by ravi th once daily as needed Ubrogepant (Ubrelvy) 50 MG tablet Indications: Chronic migraine with aura and with status migrainosus, not intractable (CMS/HCC) Take 50 mg by mouth Daily as needed (migraine) 6 tablet 11 06/30/2024 Active Start: 04-29-2024 End: 05-17-2024 take 1 tablet by mouth once daily as needed Ubrogepant (Ubrelvy) 100 MG tablet Indications: Frequent headaches Take 1 tablet by mouth Daily as needed (Migraine) for up to 15 days 8 tablet 5 05/02/2024 05/17/2024 Active Start: 04-26-2024 take 1 tablet by ravi th once daily Ubrogepant (Ubrelvy) 100 MG tablet Indications: Frequent headaches Take 1 tablet by mouth Daily 8 tablet 04/26/2024 Active Start: 04-26-2024 take 1 tablet by ravi th once daily Ubrogepant (Ubrelvy) 100 MG tablet Indications: Frequent headaches Take 1 tablet by mouth Daily 8 tablet 04/26/2024 Active vitamin b12 0.1 mg oral tablet (6 sources) Vitamin B12 take 1 tablet by mouth once daily cyanocobalamin (VITAMIN B-12) 100 mcg tab Take 100 mcg by mouth once daily. Active Comment on above: Take 100 mcg by mout h once daily. VITAMIN D PO (1 source) VITAMIN D PO Placido e by mouth 0 Active Completed/Discontinued Medications Medication Drug Class(es) Dates Sig (Normalized) Sig (Original) albuterol HFA (PROVENTIL HFA, VENTOLIN HFA) 90 mcg/actuation inhaler (1 source) Start: 05-16-2020 take 2 puff(s) by mouth every four hours albuterol HFA (PROVENTIL HFA, VENTOLIN HFA) 90 mcg/actuation inhaler INHALE 2 PUFFS BY MOUTH EVERY 4 HOURS 0 05/16/2020 Active Comment on above: INHALE 2 PUFFS BY MO UTH EVERY 4 HOURS betamethasone 0.0005 mg/mg topical ointment (3 sources) Corticosteroid Start: 03-23-2023 End: 01-18-2024 betamethasone dipropionate (Diprolene) 0.05 % ointment Indications: Other atopic dermatitis Apply to affected areas on hands, up to twice a day when flared, do not use one the face, groin, or underarms, 30 day supply 45 g 11 03/23/2023 01/18/2024 Discontinued brimonidine 0.0033 mg/mg topical gel (2 sources) alpha-Adrenergic Agonist Start: 06-27-2020 End: 06-30-2022 brimonidine (MIRVASO) 0.33 % glwp Indications: Acne rosacea Apply a pea sized amount to the ENTIRE face qam 30 g 3 06/27/2020 06/30/2022 Discontinued Comment on above: Apply a pea sized am ount to the ENTIRE face qam finasteride 5 mg oral tablet (3 sources) 5-alpha Reductase Inhibitor Start: 09-21-2023 End: 09-20-2024 take 1 tablet by mouth once daily finasteride (Proscar) 5 MG tablet Indications: Androgenic alopecia Take 1 tablet (5 mg) by mouth Daily Do not crush, chew, or split. 90 tablet 3 09/21/2023 01/18/2024 Discontinued fluticasone propionate 0.05 mg/actuat metered dose nasal spray (10 sources) Corticosteroid Start: 05-28-2023 End: 01-18-2024 take 2 spray(s) nasal route in the morning fluticasone (Flonase) 50 MCG/ACT nasal spray Indications: Seasonal allergies Administer 2 sprays into each nostril in the morning. 48 g 3 05/28/2023 01/18/2024 Discontinued Start: 05-14-2020 take 2 spray(s) nasa l route once daily fluticasone (FLONASE) 50 mcg/actuation nasal spray Use 2 Sprays in each nostril once daily. 05/14/2020 Active Fluticasone Prop ionate 50 MCG/ACT Nasal for 30 Days Active Comment on above: Use 2 Sprays in each nostril once daily. ketoconazole 20 mg/ml topical cream (1 source) Azole Antifungal Start: 10-31-19 21 End: 07-01-19 23 ketoconazole (NIZORAL) 2 % cream Indications: Seborrheic dermatitis Apply to affected area around creases of nose 1-2 times daily as needed 60 g 1 10/30/2020 06/30/2022 Discontinued Comment on above: Apply to affected ar ea around creases of nose 1-2 times daily as needed meloxicam 7.5 mg oral tablet (5 sources) Nonsteroidal Anti-inflammatory Drug Start: 05-28-19 24 End: 05-27-19 take 1 tablet by mouth in the morning meloxicam (Mobic) 7.5 MG tablet Indications: Osteoarthritis of both knees, unspecified osteoarthritis type Take 1 tablet (7.5 mg) by mouth in the morning. 90 tablet 3 05/28/2023 01/18/2024 Discontinued Start: 02-02-2023 take 1 tablet by ravi once daily meloxicam 7.5 mg Tab 7.5 mg = 1 tab(s), Oral, Daily, # 30 tab(s), Refills(s) 0 Start Date: 02/02/23 Status: Ordered 1 ml methylPREDNISolone acetate 40 mg/ml injection (4 sources) Corticosteroid Start: 01-18-2024 End: 01-18-2024 methylPREDNISolone acetate (DEPO-Medrol) injection 40 mg Start: 01-18-2024 End: 01-18-2024 40 mg, Injection, Once PRN P rocedure, Starting on 01/18/24 at 1458, For 1 dose metroNIDAZOLE 500 mg oral tablet (9 sources) Nitroimidazole Antimicrobial Start: 03-21-2024 End: 05-16-2024 take 1 tablet by mouth three times daily Metronidazole 500 mg tablet Discontinued 500 MG PO Three times daily 42 April 04, 2024 1:00am May 16, 2024 9:51am olopatadine 2 mg/ml ophthalmic solution (3 sources) Histamine-1 Receptor Inhibitor Start: 09-09-2023 End: 01-18-2024 take 1 drop(s) into the eye(s) once daily olopatadine (Pataday) 0.2 % ophthalmic solution Indications: Acute allergic conjunctivitis of both eyes Administer 1 drop into affected eye(s) Daily 2.5 mL 2 09/09/2023 01/18/2024 Discontinued 24 hr oxybutynin chloride 10 mg extended release oral tablet (3 sources) Cholinergic Muscarinic Antagonist Start: 10-05-2023 End: 01-18-2024 oxybutynin XL (Ditropan-XL) 10 MG 24 hr tablet Indications: Urge incontinence , Urinary urgency Do not crush, chew, or split. Take 1 daily 90 tablet 3 10/05/2023 01/18/2024 Discontinued predniSONE 20 mg oral tablet (4 sources) Start: 06-05-2024 End: 08-03-2024 take 1 tablet by mouth twice daily Prednisone 20 mg tablet Discontinued 20 MG PO Twice daily 10 5 June 05, 2024 1:00am August 03, 2024 8:24am Start: 01-02-2020 End: 01-07-2020 take 2 tablets by mouth once daily predniSONE (DELTASONE) 20 MG tablet Take 2 tablets by mouth daily for 5 days 10 tablet 0 01/02/2020 01/07/2020 Active rimegepant 75 mg disintegrating oral tablet (7 sources) Start: 06-05-2024 End: 08-03-2024 Rimegepant (Nurtec Odt) 75 m g tablet,disintegrating Discontinued MG PO June 05, 2024 1:00am August 03, 2024 8:24am Start: 06-02-2024 End: 07-02-2024 take 1 tablet by mouth once Rimegepant Sulfate (Nurtec ) 75 MG tablet dispersible Indications: Chronic migraine with aura without status migrainosus, not intractable (CMS/HCC) Take 75 mg by mouth 1 (one) time if needed (headaches) 30 tablet 06/02/2024 06/30/2024 Discontinued (Ineffective) Tacrolimus (18 sources) Calcineurin Inhibitor Immunosuppressant Start: 06-05-2024 End: 08-03-2024 Tacrolimus 0.1 % ointment Discontinued APPLIC TOPICAL June 05, 2024 1:00am August 03, 2024 8:25am Start: 06-05-2024 Tacrolimus 0.1 % ointment Active APPLIC TOPICAL June 05, 2024 12:00am Start: 05-02-2024 End: 08-23-2024 tacrolimus (Protopic) 0.1 % ointment Indications: Other atopic dermatitis Apply to affected areas eyelids bid prn when flared 60 g 11 05/02/2024 08/23/2024 Discontinued (Other) tetracycline hydrochloride 500 mg oral tablet (13 sources) Tetracycline-class Antimicrobial Start: 04-21-2024 End: 05-04-2024 tetracycline 500 MG capsule Take 500 mg by mouth in the morning and 500 mg at noon and 500 mg in the evening and 500 mg before bedtime. 04/21/2024 05/04/2024 Active Start: 04-04-2024 End: 08-03-2024 take 1 tablet by mouth four times daily Tetracycline 500 mg tablet Discontinued 500 MG PO Four times daily 56 14 May 16, 2024 9:51am August 03, 2024 8:25am Problems Active Problems Problem Classification Problem Date Documented Da te Episodic/Chronic Allergic reactions (2 sources) Atopic dermatitis; Translations: [Other atopic dermatitis] 05-02-2024 Chronic Anxiety disorders (2 sources) Acute stress disorder; Translations: [Acute stress reaction] 08-23-2024 Chronic Cardiac dysrhythmias (20 sources) Paroxysmal supraventricular tachycardia; Translations: [Paroxysmal supraventricular tachycardia (CMS-HCC)] Onset: 01-21-2024 Chronic Conditions associated with dizziness or vertigo (8 sources) Dizziness; Translations: [Dizziness and giddiness] 04-26-2024 Episodic Disorders of lipid metabolism (2 sources) Raised low density lipoprotein cholesterol; Translations: [Pure hypercholesterolemia, unspecified] 08-23-2024 Chronic Gastritis and duodenitis (6 sources) Unspecified chronic gastritis without bleeding; Translations: [Chronic Helicobacter pylori gastritis] 05-16-2024 Chronic Gastrointestinal hemorrhage (7 sources) Hemorrhage of anus and rectum; Translations: [Rectal hemorrhage] Onset: 4 03-21-2024 Episodic Genitourinary symptoms and ill-defined conditions (20 sources) Urge incontinence of urine; Translations: [Urge incontinence] Onset: 3 09-05-2022 Chronic Headache; including migraine (5 sources) Transformed migraine; Translations: [Chronic migraine with aura without status migrainosus, not intractable (CMS/HCC)] 06-02-2024 Chronic Headache; including migraine (16 sources) Frequent headache; Translations: [Frequent headaches] 04-26-2024 Episodic Heart valve disorders (20 sources) Aortic incompetence, non-rheumatic ; Translations: [Nonrheumatic aortic (valve) insufficiency] Onset: 0 Chronic Joint disorders and dislocations; trauma-related (20 sources) Derangement of left knee; Translations: [Unspecified internal derangement of left knee] Onset: 3 09-05-2022 Chronic Nausea and vomiting (3 sources) Nausea with vomiting, unspecified; Translations: [Nausea and vomiting] Episodic Nutritional deficiencies (20 sources) Vitamin D deficiency; Translations: [Vitamin D deficiency, unspecified] Onset: 9 06-27-2020 Chronic Osteoarthritis (20 sources) Osteoarthritis of knee; Translations: [Osteoarthritis of knee, unspecified] Onset: 3 09-05-2022 Chronic Other bone disease and musculoskeletal deformities (1 source) Other specified disorders of bone, other site; Translations: [Other disorders of bone and cartilage] 09-20-2024 Episodic Other circulatory disease (4 sources) Elevated blood pressure; Translations: [Elevated blood-pressure reading, without diagnosis of hypertension] 04-26-2024 Episodic Other connective tissue disease (1 source) Pain of left calf; Translations: [Pain in left lower leg] Episodic Other connective tissue disease (1 source) Pain in left lower leg; Translations: [Pain in left lower leg] Onset: 3 Episodic Other ear and sense organ disorders (1 source) Impacted cerumen, right ear; Translations: [Impacted cerumen] 06-05-2024 Episodic Other ear and sense organ disorders (3 sources) Ear lesion; Translations: [Unspecified disorder of ear, unspecified ear] 09-27-2024 Episodic Other ear and sense organ disorders (1 source) Unspecified disorder of ear, unspecified ear; Translations: [Ear lesion] Onset: 5 Episodic Other gastrointestinal disorders (2 sources) Diarrhea; Translations: [Diarrhea, unspecified] 04-26-2024 Episodic Other gastrointestinal disorders (4 sources) Chronic constipation; Translations: [Other constipation] 03-21-2024 Episodic Other gastrointestinal disorders (4 sources) Other constipation; Translations: [Constipation, unspecified] 03-21-2024 Episodic Other inflammatory condition of skin (2 sources) Rosacea; Translations: [Acne rosacea] 06-27-2020 Chronic Other inflammatory condition of skin (20 sources) Acne rosacea, erythematous telangiectatic type; Translations: [Other rosacea] Onset: Chronic Other inflammatory condition of skin (1 source) Seborrheic dermatitis; Translations: [Seborrheic dermatitis, unspecified] Episodic Other nervous system disorders (20 sources) Difficulty walking; Translations: [Difficulty in walking, not elsewhere classified] Onset: 3 09-05-2022 Chronic Other nervous system disorders (2 sources) Chronic pain; Translations: [Other chronic pain] 08-03-2024 Chronic Other nervous system disorders (5 sources) Other chronic pain; Translations: [Other chronic pain] 08-03-2024 Chronic Other nervous system disorders (18 sources) Right trigeminal neuralgia; Translations: [Trigeminal neuralgia] Onset: 5 07-18-2024 Episodic Other nutritional; endocrine; and metabolic disorders (10 sources) Overweight; Translations: [Overweight] Onset: 5 08-23-2024 Episodic Other screening for suspected conditions (not mental disorders or infectious disease) (2 sources) Radiology result abnormal; Translations: [Abnormal findings on diagnostic imaging of other specified body structures] 09-20-2024 Chronic Other screening for suspected conditions (not mental disorders or infectious disease) (11 sources) Encounter for screening mammogram for malignant neoplasm of breast; Translations: [Patient encounter status] Onset: 2 Episodic Other skin disorders (1 source) Archie - lesion ; Translations: [Corns and callosities] Episodic Other skin disorders (2 sources) Male pattern alopecia; Translations: [Androgenic alopecia, unspecified] 05-02-2024 Episodic Other skin disorders (2 sources) Skin irritation ; Translations: [Other skin changes] 08-23-2024 Episodic Other upper respiratory disease (20 sources) Allergic rhinitis due to pollen; Translations: [Allergic rhinitis due to pollen] Onset: 2 06-27-2020 Chronic Other upper respiratory infections (1 source) Sinusitis; Translations: [Chronic sinusitis, unspecified] Chronic Poisoning by nonmedicinal substances (1 source) Bee sting; Translations: [Bee sting reaction, accidental or unintentional, initial encounter] Episodic Residual codes; unclassified (1 source) Pain, unspecified Episodic Residual codes; unclassified (2 sources) Flushing; Translations: [Flushing] 07-18-2024 Episodic Spondylosis; intervertebral disc disorders; other back problems (8 sources) Myofascial pain syndrome; Translations: [Dorsalgia, unspecified] 01-25-2024 Episodic Unclassified (1 source) Supraventricular tachycardia, unspecified (CMS-HCC); Translations: [Supraventricular tachycardia, unspecified (CMS-HCC)] Onset: 4 Past or Other Problems Problem Classification Problem Date Documented Date Episodic/Chronic Abdominal pain (20 sources) Epigastric pain; Translations: [Epigastric pain] Onset: 02-08-2018 Episodic Allergic reactions (20 sources) Allergy to bee venom; Translations: [Bee allergy status] Onset: 03-03-2022 06-27-2020 Episodic Asthma (20 sources) Exercise-induced asthma; Translations: [Exercise induced bronchospasm] Onset: 03-03-2022 Resolved: 09-23-2022 06-27-2020 Chronic Cardiac dysrhythmias (20 sources) Palpitations; Translations: [Palpitations] Onset: 05-09-2019 Episodic Gastritis and duodenitis (20 sources) Gastroduodenitis; Translations: [Gastroduodenitis, unspecified, without bleeding] Onset: 02-24-2018 09-08-2022 Episodic Menstrual disorders (20 sources) Menorrhagia; Translations: [Excessive and frequent menstruation with regular cycle] Onset: 09-05-2022 Resolved: 07-18-2024 09-05-2022 Chronic Nutritional deficiencies (20 sources) Cobalamin deficiency; Translations: [Deficiency of other specified B group vitamins] Onset: 03-03-2022 06-27-2020 Episodic Other connective tissue disease (20 sources) Iliotibial band friction syndrome of right knee; Translations: [Iliotibial band syndrome, right leg] Onset: 09-05-2022 09-05-2022 Episodic Other female genital disorders (20 sources) Pain in female genitalia on intercourse; Translations: [Unspecified dyspareunia] Onset: 09-05-2022 Resolved: 07-18-2024 09-05-2022 Chronic Other lower respiratory disease (20 sources) Dyspnea; Translations: [Shortness of breath] Onset: 09-12-2020 Resolved: 07-18-2024 09-08-2022 Episodic Other nutritional; endocrine; and metabolic disorders (20 sources) Overweight in adulthood with body mass index of 25 or more but less than 30; Translations: [Body mass index (BMI) 25.0-25.9, adult] Onset: 01-21-2024 Resolved: 08-23-2024 01-21-2024 Episodic Other nutritional; endocrine; and metabolic disorders (2 sources) Body mass index (BMI) 25.0-25.9, adult; Translations: [Body mass index (BMI) 25.0-25.9, adult] Onset: 01-21-2024 Episodic Other skin disorders (20 sources) Loss of hair; Translations: [Nonscarring hair loss, unspecified] Onset: 03-03-2022 06-27-2020 Episodic Other skin disorders (20 sources) Actinic keratosis; Translations: [Actinic keratosis] Onset: 03-03-2022 06-27-2020 Episodic Other skin disorders (20 sources) Inflamed seborrheic keratosis; Translations: [Inflamed seborrheic keratosis] Onset: 03-03-2022 06-27-2020 Episodic Otitis media and related conditions (20 sources) Dysfunction of bilateral eustachian tubes; Translations: [Unspecified Eustachian tube disorder, bilateral] Onset: 09-05-2022 09-05-2022 Episodic Screening and history of mental health and substance abuse codes (20 sources) Ex-smoker; Translations: [Personal history of nicotine dependence] Onset: 01-21-2024 01-21-2024 Episodic Thyroid disorders (20 sources) Disorder of thyroid gland; Translations: [Disorder of thyroid, unspecified] Onset: 03-21-2020 09-08-2022 Episodic Unclassified (4 sources) Patient encounter status 02-16-2024 Unclassified (1 source) Supraventricular tachycardia, unspecified (CMS-HCC); Translations: [Supraventricular tachycardia, unspecified (CMS-HCC)] Onset: 01-21-2024 Unclassified (1 source) Mass of petrous temporal bone 09-20-2024 Results Test Name Value Interpretation Reference Range Facility MR BRAIN W AND WO CONTRAST ( IACS)on 10-24-2024 MR BRAIN W AND WO CONTRAST (IACS) HISTORY: Abnormal CT. Right-sided facial pain and [...] Orbits grossly unremarkable. Soft tissues grossly unremarkable. IMPRESSION: Lesion of the right petrous apex as discussed, grossly similar to CT 09/19/2024. Differential as discussed on the prior study with leading differential including petrous apicitis. ELECTRONICALLY SIGNED BY: Cristofer Madrid MD Normal Not Available Comment on above: Order Comment: . Ero sive, expansile lesion of the right petrous apex with cortical breakthrough. Differential considerations include petrous apicitis (most likely), cholesterol granuloma, cholesteatoma, mucocele, chondroid tumor. MRI pre and post IV contrast recommended with IAC protocol (the previous MRI was a routine brain MRI without IV contrast). CNOVon 09-27-2024 CNOV Office Visit (OTOLST ) GWYN GARCIA ([id number]) 1970 F Date Time Provider Department 09/27/24 2:40 PM KARTHIK CINTORN OTOLST During your visit today, we recorded the following information about you: Karthik Cintron MD 09/27/2024 2:58 PM Signed History: Gwyn Garcia, a 54 year old female, presents for evaluation of R petrous apex lesion. H/o constant R frontal headaches with radiation to R ear and R side of mandible multiple times per d, lasting secs, since 05/14. Headaches resolved. T-bone CT 08/29/24: expansile multifocal lesion of medial petrous apex 2.1 x 1.1 cm. Denies hearing change, tinnitus, dizziness, itching, drainage, nasal congestion, runny-nose, post-nasal drip. No history of noise exposure. No history of ear infections. No history of ear surgery. No history of ear trauma. No history of allergies. PAST MEDICAL HISTORY Diagnosis Date Acne rosacea, erythematous telangiectatic type Actinic keratosis B12 deficiency Bee sting allergy Exercise-induced asthma (HCC) Hair thinning Inflamed seborrheic keratosis Mild aortic valve regurgitation 10/30/2020 Followed by cardiology/Dr. Allen Seasonal allergic rhinitis due to pollen Vitamin D deficiency History reviewed. No pertinent surgical history. PE: Alert; oriented; well-developed; no apparent distress. Normal voice; normal communication. Eyes: EOMI, pupils symmetric and reactive bilaterally. Nose: patent, normal mucosa, no congestion, no rhinorrhea. Oral cavity, oropharynx: No ulcerative or mass lesions, tongue midline, palate elevates symmetrically, tongue base and floor of mouth soft. Neck: nontender, no lymphadenopathy or masses. Thyroid: no masses. Face: symmetric, sinuses nontender, skin without lesions. Salivary glands: normal size, nontender, no masses. Ears: R: EAC free of lesions. TM clear and mobile. L: EAC free of lesions. TM clear and mobile. Neurologic: painter helper II-XII grossly intact. Assessment/Plan: R petrous apex lesion. Rec audio, consult Dr. Abebe or Dr. Jackson for further evaluation. Medical Decision Making: Problems: Moderate: New problem with uncertain prognosis Risk: Low: Low risk from testing/treatment Medical Decision Making Level: 3 - Low Allergies As of Date: 09/27/2024 Noted Allergy Reaction BEE VENOM PROTEIN (HONEY BEE) 06/27/2020 7 - Swelling TRAZODONE 03/03/2022 4 - Hives 16 - Unknown CYCLOBENZAPRINE 05/09/2019 14 - Other: See Comments Date Reviewed: 09/27/2024 Reviewed by: Carlie Daniel MA - Fully Assessed Reason for Visit: Consult [173] Primary Visit Diagnosis:Ear lesion [H93.90] Order(s):CONSULT TO ENT [9008] Order #: [id number]: 1 FUTURE HEARING TEST/AUDIOGRAM [1129983] Order #: [id number]: 1 FUTURE Prescriptions as of 09/27/2024 - OXcarbazepine (TRILEPTAL) 150 mg tablet Take 150 mg by mouth two times a day. - metoprolol succinate ER (TOPROL XL) 25 mg 24 hr tablet Take 25 mg by mouth once daily. - Fluorouracil 5 % cream Apply topically to affected area on nose bid. Use for 2 weeks, if not much of a reaction then continue for 2 additional weeks, not to exceed 4 weeks. - Minoxidil 5 % foam Apply to affected area once daily. - Azelaic Acid (FINACEA) 15 % gel [...] by mouth. Problem List As Of Date 09/27/2024 Noted Resolved Bee sting allergy [Z91.030] Vitamin D deficiency [E55.9] Seasonal allergic rhinitis due to pollen [J30.1] Exercise-induced asthma [J45.990] B12 deficiency [E53.8] Acne rosacea, erythematous telangiectatic type * Inflamed seborrheic keratosis [L82.0] Actinic keratosis [L57.0] Hair thinning [L65.9] Mild aortic valve regurgitation [I35.1] 10/30/2020 Encounter Status:Closed by KARTHIK CINTRON on 09/27/[address] [facility] [address] INTERNAL AUDITORY CANALS/ POSTERIOR FOSSA WO IV CONTRASTon 09-19-2024 CT INTERNAL AUDITORY CANALS/POSTERIOR FOSSA WO IV CONTRAST ORIGINAL REPORT EXAM: CT/Posterior Fossa Without IV Contrast. REASON FOR EXAM: Right sided headaches, no trauma. COMPARISON: MRI brain August 29, 2024. TECHNIQUE: Multiplanar noncontrast images of the IACs obtained. FINDINGS: The paranasal sinuses are notable for mild mucosal thickening of the maxillary sinuses. No fluid levels. Mild mucosal thickening of the ethmoid air cells on the right. The zygomatic arches are intact. The temporomandibular joints are normal. The mastoid air cells demonstrate increased density on the right. This includes medially where there is an expansile multifocal lesion of the medial petrous apex with thin corticated borders which measures approximately 2.1 x 1.1 cm. There is cortical breakthrough anteriorly into the middle cranial fossa at one level. This is asymmetric from the other side. The auricular ossicles are symmetric. The middle ear cavities are symmetric. The facial nerve on the left is dehiscent. The cochlea and semicircular canals are intact. The cavernous carotids and jugular foramina are symmetric. The external auditory canals are patent. Minimal debris bilaterally nonspecific. The pterygopalatine fossa are intact. The orbits are symmetric. No intra or extraconal intraorbital mass lesions. The visualized brain is without abnormality. The cervical medullary junction and foramen magnum are normal. The sella turcica is not enlarged. IMPRESSION: 1. Erosive, expansile lesion of the right petrous apex with cortical breakthrough. Differential considerations include petrous apicitis (most likely), cholesterol granuloma, cholesteatoma, mucocele, chondroid tumor. MRI pre and post IV contrast recommended with IAC protocol (the previous MRI was a routine brain MRI without IV contrast). 2. Fluid or debris in the inferior right mastoid air cells. Correlate for labyrinthitis, eustachian tube dysfunction or inflammatory mastoid disease. This has different characteristics than the petrous lesion. *This report is generated using voice recognition reporting ([employer]). On occasion [employer] erroneously drops words from the report or replaces the spoken word with similar sounding words. Please call with any questions/concerns regarding this report.* Dictated and transcribed 09/19/24/dpd This report has been electronically signed and approved by the interpreting radiologist. ADDENDUM #1 ADDENDUM: Results were called to KRISTI CORCORAN on 09/20/2024 8:47 a.m. Patient has been referred to specialist for further care. EXAM: CT/Posterior Fossa Without IV Contrast. REASON FOR EXAM: Right sided headaches, no trauma. COMPARISON: MRI brain August 29, 2024. TECHNIQUE: Multiplanar noncontrast images of the IACs obtained. FINDINGS: The paranasal sinuses are notable for mild mucosal thickening of the maxillary sinuses. No fluid levels. Mild mucosal thickening of the ethmoid air cells on the right. The zygomatic arches are intact. The temporomandibular joints are normal. The mastoid air cells demonstrate increased density on the right. This includes medially where there is an expansile multifocal lesion of the medial petrous apex with thin corticated borders which measures approximately 2.1 x 1.1 cm. There is cortical breakthrough anteriorly into the middle cranial fossa at one level. This is asymmetric from the other side. The auricular ossicles are symmetric. The middle ear cavities are symmetric. The facial nerve on the left is dehiscent. The cochlea and semicircular canals are intact. The cavernous carotids and jugular foramina are symmetric. The external auditory canals are patent. Minimal debris bilaterally nonspecific. The pterygopalatine fossa are intact. The orbits are symmetric. No intra or extraconal intraorbital mass lesions. The visualized brain is without abnormality. The cervical medullary junction and foramen magnum are normal. The sella turcica is not enlarged. IMPRESSION: 1. Erosive, expansile lesion of the right petrous apex with cortical breakthrough. Differential considerations include petrous apicitis (most likely), cholesterol granuloma, cholesteatoma, mucocele, chondroid tumor. MRI pre and post IV contrast recommended with IAC protocol (the previous MRI was a routine brain MRI without IV contrast). 2. Fluid or debris in the inferior right mastoid air cells. Correlate for labyrinthitis, eustachian tube dysfunction or inflammatory mastoid disease. This has different characteristics than the petrous lesion. *This report is generated using voice recognition reporting ([employer]). On occasion [employer] erroneously drops words from the report or replaces the spoken word with similar sounding words. Please call with any questions/concerns regarding this report.* Dictated and transcribed 09/19/24/dpd This report has been electronically signed and approved by the interpreting radiologist. Normal Not Available MR BRAIN WO CONTRASTon 08-29 MR BRAIN WO CONTRAST Exam: MR BRAIN WO CONTRAST Clinical History: Right sided headache and facial pain Reference Exam: CT scanning 04/28/2024 Technique: Multiplanar MRI evaluation of the brain is submitted, having been acquired in the dedicated neurovascular coil, without IV contrast, performed on 1.5 [employer] MRI system. Imaging findings: Ventricles/sulci/fiss ures: Normal appearing CSF-containing spaces. Masses/hemorrhage/mid line shift: Negative for mass effect or midline shift. White matter: Negative for dysmyelinating process. Morales-white differentiation: Preserved. Extraaxial spaces: No extra-axial fluid collection. Calvarium: Intact. Vascular structures: Appropriate vascular flow voids resides in the vessels at the base of the brain. Sagittal midline structures: Negative for cerebellar tonsillar ectopia. The cerebellar folia are preserved. The corpus callosum is midline. Pituitary stalk and gland are normal in appearance. Paranasal sinuses/mastoid air cells: Adequate development and aeration of the paranasal sinuses, and the left mastoid air cells. Fluid accumulation in the right mastoid air cells. Orbits: Negative. Visualized upper neck: Negative. Diffusion Weighted Imaging: There is appropriate diffusion weighted imaging signal without evidence of diffusion restriction. Impression: 1. Fluid accumulation in the right mastoid air cells could be infectious or inflammatory. 2. Negative for mass effect, midline shift, extra-axial fluid collection, dysmyelinating process, intracranial hemorrhagic phenomenon, or acute ischemia/infarct. Dictated on: 08/29/2024 1:44 PM This report has been electronically signed and approved by the interpreting Radiologist. Normal Not Available LIPID PANEL, STANDARDon 05-0 Cholesterol [Mass/Vol] 188 mg/dL Normal <200 [facility] Comment on above: Order Comment: FASTI NG:YES FASTING: YES Performed By: #### 7 600 #### [facility] [address], [address] [place] [address] Charge Weigher: Alex Mcfadden MD Cholesterol in HDL [Mass/Vol] 66 mg/dL Normal > OR = 50 [facility] Comment on above: Order Comment: FASTI NG:YES FASTING: YES Performed By: #### 7 600 #### [facility] [address], [address] [place] [address] Charge Weigher: Alex Mcfadden MD Cholesterol in LDL [Mass/Vol] 107 mg/dL High [facility] Comment on above: [...] of LDL-C. Darvin SS et al. GABY. 2013;310(19): 1801-7958 (http://education.[employer].[place]/faq/SEJ562) Performed By: #### 7 600 #### [facility] [address], [address] [place] [address] Charge Weigher: Alex Mcfadden MD Cholesterol.total/Chol esterol in HDL [Mass ratio] 2.8 {ratio} Normal <5.0 [facility] Comment on above: Order Comment: FASTI NG:YES FASTING: YES Performed By: #### 7 600 #### [facility] [address], [address] [place] [address] Charge Weigher: Alex Mcfadden MD NON HDL CHOLESTEROL 122 mg/dL (calc) Normal <130 [facility] Comment on above: Order Comment: FASTI NG:YES FASTING: YES Result Comment: For patients with diabetes plus 1 major ASCVD risk factor, treating to a non-HDL-C goal of <100 mg/dL (LDL-C of <70 mg/dL) is considered a therapeutic option. Performed By: #### 7 600 #### [facility] [address], [address] [place] [address] Charge Weigher: Alex Mcfadden MD Triglyceride [Mass/Vol] 63 mg/dL Normal <150 [facility] Comment on above: Order Comment: FASTI NG:YES FASTING: YES Performed By: #### 7 600 #### [facility] [address], [address] [place] [address] Charge Weigher: Alex Mcfadden MD H. PYLORI STOOL AG, EIAon [facility] H. PYLORI STOOL AG, EIA Negative Negative [facility] Comment on above: Performed at: [address] [id number] Pad Hand: Luca Warren PhD, Phone: [phone] [facility] No Panel Informationon 05-[address] [facility] [address] HEAD WO IV CONTRASTon CT HEAD WO IV CONTRAST CT HEAD WO IV CONTRAST INDICATION: Frequent headaches for three weeks COMPARISON: None. TECHNIQUE: Axial images were obtained through the brain without the use of intravenous contrast. Coronal and Sagittal reformations were generated. FINDINGS: CEREBRUM: Normal morphology. No mass lesions or hemorrhage. CEREBELLUM: Normal. BRAINSTEM: Normal. VENTRICLES AND EXTRA-AXIAL SPACES: The ventricles are normal in size and symmetric. There are no extra-axial fluid collections. SKULL/SCALP: Normal. PARANASAL SINUSES AND MASTOID AIR CELLS: Normal. IMPRESSION: Negative noncontrast CT of the head Dictated on: 04/28/2024 1:36 PM This report has been electronically signed and approved by the interpreting Radiologist. Normal Not Available Comment on above: Order Comment: DIZZI NESS, HIGH BLOOD PRESSURE, FREQ HEADACHES HCG ( test) IA.rapi d Ql (U)Ordered By: Natividad Omer on 03-28-2024 HCG ( test) Ql (U) Urine human chorionic gonadotropin (hCG) detection by immunoassay [facility] HCG,Urineon 03-28-2024 Beta HCG ( test) Ql (U) Negative Normal [facility] Comment on above: Result Comment: PERF ORMED BY: [place] [address] PATHOLOGIST ENVIRONMENTAL HEALTH INSPECTOR DANIA KEITH M.D. Performed By: #### U HCG #### [facility] [address] [place] [address] No Panel InformationOrdered By: Natividad Omer on 03-28-2024 Miscellaneous Pathology Test See comment [facility] Comment on above: See report. Scanned copy available in EMR. Pathology Request for Lab Co rpon 03-28-2024 Pathology Request for Lab Ember Normal [facility] Comment on above: Order Comment: PATHO LOGY GI SPECIMEN Result Comment: See report. Scanned copy available in EMR. PERFORMED BY: [place] [address] PATHOLOGIST ENVIRONMENTAL HEALTH INSPECTOR DANIA KEITH M.D. Performed By: #### P ATH TO [facility] #### [facility] [address] [place] [address] CT LUNG SCREENING LOW DOSEon 02-29-2024 CT LUNG SCREENING LOW DOSE This is a summary report. The complete report is available in the patient's medical record. If you cannot access the medical record, please contact the sending organization for a detailed fax or copy. LOW DOSE CT IMAGING OF THE CHEST WITHOUT INTRAVENOUS CONTRAST MEDIUM. HISTORY: Tobacco use. TECHNICAL FACTORS: Without IV contrast axial helical 1.25mm slice thickness low dose images of the chest performed for lung cancer screening. Findings: No suspicious lung nodule, mass or parenchymal consolidation. No pleural or pericardial effusion. No significant mediastinal or hilar lymphadenopathy. IMPRESSION: Lung Rads: LUNGRADS 1 - Negative Follow-up Recommendation: LDCT 1 Year Lung Rads categories Category 0: Incomplete Additional Imaging Categories 1 & 2: Negative/Benign Continue annual screening Category 3: Probable benign 6 month f/u CT Chest wo Category 3s: Clinically significant or potentially clinically significant findings Category 4A/B Suspicious 4A: [address] Chest wo; PET/CT when > 8mm solid nodule component exists 4B: Chest w/ contrast; PET/CT and/or biopsy All CT scans at this facility use dose modulation, iterative reconstruction, and/or weight based dosing when appropriate to reduce radiation dose to as low as reasonably achievable. TRANSCRIBED BY: ELECTRONICALLY SIGNED BY: Michael Allen MD Normal Not Available CBC (H/H, RBC, INDICES, WBC, PLT)on 02-17-2024 Erythrocyte distribution width (RBC) [Ratio] 12.7 % Normal 11.0-15.0 [facility] Comment on above: Performed By: #### 7 600, 927, 14342, 82240, 1759, 899 #### [facility] [address], [address] [place], [place] [id number] Charge Weigher: Alex Mcfadden MD Hematocrit (Bld) [Volume fraction] 38.9 % Normal 35.0-45.0 [facility] Comment on above: Performed By: #### 7 600, 927, 84749, 69975, 1759, 899 #### [facility] [address], [address] [place], [place] [id number] Charge Weigher: Alex Mcfadden MD Hemoglobin (Bld) [Mass/Vol] 13.0 g/dL Normal 11.7-15.5 [facility] Comment on above: Performed By: #### 7 600, 927, 35115, 76885, 175, 899 #### [facility] [place] [address] Charge Weigher: Alex Mcfadden MD MCH (RBC) [Entitic mass] 30.9 pg Normal 27.0-33.0 [facility] Comment on above: Performed By: #### 7 600, 927, 08185, 45388, 175, 899 #### [facility] [place] [address] Charge Weigher: Alex Mcfadden MD MCHC (RBC) [Mass/Vol] 33.4 g/dL Normal 32.0-36.0 [facility] Comment on above: Result Comment: For adults, a slight decrease in the calculated MCHC value (in the range of 30 to 32 g/dL) is most likely not clinically significant; however, it should be interpreted with caution in correlation with other red cell parameters and the patient's clinical condition. Performed By: #### 7 600, 927, 09004, 77853, 175, 899 #### [facility] [place] [address] Charge Weigher: Alex Mcfadden MD MCV (RBC) [Entitic vol] 92.4 fL Normal 80.0-100.0 [facility] Comment on above: Performed By: #### 7 600, 927, 71630, 40590, 175, 899 #### [facility] [place] [address] Charge Weigher: Alex Mcfadden MD Platelet mean volume (Bld) [Entitic vol] 9.6 fL Normal 7.5-12.5 [facility] Comment on above: Performed By: #### 7 600, 927, 51976, 40085, 1759, 899 #### [facility] [place] [address] Charge Weigher: Alex Mcfadden MD Platelets (Bld) [#/Vol] 293 10*3/uL Normal 140-400 [facility] Comment on above: Performed By: #### 7 600, 927, 84351, 12474, 1759, 899 #### [facility] of [place] [address] Charge Weigher: Alex Mcfadden MD RBC (Bld) [#/Vol] 4.21 10*6/uL Normal 3.80-5.10 [facility] Comment on above: Performed By: #### 7 600, 927, 30367, 75941, 1759, 899 #### [facility] of [address], [address] [place] [address] Charge Weigher: Alex Mcfadden MD WBC (Bld) [#/Vol] 5.2 10*3/uL Normal 3.8-10.8 [facility] Comment on above: Performed By: #### 7 600, 927, 12528, 77520, 1759, 899 #### [facility] of [place] [address] Charge Weigher: Alex Mcfadden MD [facility] METABOLIC [facility] 02-17-2024 Albumin [Mass/Vol] 4.5 g/dL Normal 3.6-5.1 [facility] Comment on above: Performed By: #### 7 600, 927, 36094, 14479, 1759, 899 #### [facility] of [place] [address] Charge Weigher: Alex Mcfadden MD Albumin/Globulin [Mass ratio] 2.0 {ratio} Normal 1.0-2.5 [facility] Comment on above: Performed By: #### 7 600, 927, 74018, 69914, 1759, 899 #### [facility] of [place] [address] Charge Weigher: Alex Mcfadden MD ALP [Catalytic activity/Vol] 59 U/L Normal 37-153 [facility] Comment on above: Performed By: #### 7 600, 927, 87684, 31010, 1759, 899 #### [facility] of [place] [id number] Charge Weigher: Alex Mcfadden MD ALT [Catalytic activity/Vol] 14 U/L Normal 6-29 [facility] Comment on above: Performed By: #### 7 600, 927, 84812, 85959, 1759, 899 #### [facility] [place] [address] Charge Weigher: Alex Mcfadden MD AST [Catalytic activity/Vol] 17 U/L Normal 10-35 [facility] Comment on above: Performed By: #### 7 600, 927, 09481, 81701, 1759, 899 #### [facility] [place] [address] Charge Weigher: Alex Mcfadden MD Bilirubin [Mass/Vol] 0.5 mg/dL Normal 0.2-1.2 [facility] Comment on above: Performed By: #### 7 600, 927, 79397, 11585, 1759, 899 #### [facility] [place] [address] Charge Weigher: Alex Mcfadden MD BUN/CREATININE RATIO SEE NOTE: Normal 6-22 [facility] Comment on above: Result Comment: Not Reported: BUN and Creatinine are within reference range. Performed By: #### 7 600, 927, 97251, 17665, 1759, 899 #### [facility] [place] [address] Charge Weigher: Alex Mcfadden MD Calcium [Mass/Vol] 9.4 mg/dL Normal 8.6-10.4 [facility] Comment on above: Performed By: #### 7 600, 927, 09481, 38772, 1759, 899 #### [facility] [place] [address] Charge Weigher: Alex Mcfadden MD Chloride [Moles/Vol] 103 mmol/L Normal 98-110 [facility] Comment on above: Performed By: #### 7 600, 927, 57729, 93321, 1759, 899 #### [facility] [address], [address] [place] [address] Charge Weigher: Alex Mcfadden MD CO2 [Moles/Vol] 29 mmol/L Normal 20-32 [facility] Comment on above: Performed By: #### 7 600, 927, 96751, 55047, 1759, 899 #### [facility] [place] [address] Charge Weigher: Alex Mcfadden MD Creatinine [Mass/Vol] 0.62 mg/dL Normal 0.50-1.03 [facility] Comment on above: Performed By: #### 7 600, 927, 61677, 18257, 175, 899 #### [facility] [place] [address] Charge Weigher: Alex Mcfadden MD GFR/1.73 sq M.predicted among non-blacks MDRD (S/P/Bld) [Vol rate/Area] 105 mL/min/{1.73_m2} Normal > OR = 60 [facility] Comment on above: Performed By: #### 7 600, 927, 60086, 28211, 175, 899 #### [facility] [place] [address] Charge Weigher: Alex Mcfadden MD Globulin (S) [Mass/Vol] 2.3 g/dL Normal 1.9-3.7 [facility] Comment on above: Performed By: #### 7 600, 927, 25992, 67337, 175, 899 #### [facility] [place] [address] Charge Weigher: Alex Mcfadden MD Glucose [Mass/Vol] 91 mg/dL Normal 65-99 [facility] Comment on above: Result Comment: Fasting reference interval Performed By: #### 7 600, 927, 21469, 83987, 1759, 899 #### [facility] [place] [address] Charge Weigher: Alex Mcfadden MD Potassium [Moles/Vol] 4.6 mmol/L Normal 3.5-5.[address] [facility] Comment on above: Performed By: #### 7 600, 927, 85723, 07664, 1759, 899 #### [facility] of [place] [address] Charge Weigher: Alex Mcfadden MD Protein [Mass/Vol] 6.8 g/dL Normal 6.1-8.1 [facility] Comment on above: Performed By: #### 7 600, 927, 44920, 82700, 1759, 899 #### [facility] of [place] [address] Charge Weigher: Alex Mcfadden MD Sodium [Moles/Vol] 138 mmol/L Normal 135-146 [facility] Comment on above: Performed By: #### 7 600, 927, 28469, 93318, 1759, 899 #### [facility] of [place] [address] Charge Weigher: Alex Mcfadden MD Urea nitrogen [Mass/Vol] 9 mg/dL Normal 7-25 [facility] Comment on above: Performed By: #### 7 600, 927, 89270, 51592, 1759, 899 #### [facility] [place] [address] Charge Weigher: Alex Mcfadden MD LIPID PANEL, [facility] 10-3 0-2023 Cholesterol [Mass/Vol] 221 mg/dL High <200 [facility] Comment on above: Performed By: #### 7 600, 927, 21440, 00722, 1759, 899 #### [facility] of [place] [address] Charge Weigher: Alex Mcfadden MD Cholesterol in HDL [Mass/Vol] 65 mg/dL Normal > OR = 50 [facility] Comment on above: Performed By: #### 7 600, 927, 72515, 92923, 1759, 899 #### [facility] of [address], [address] [place] [address] Charge Weigher: Alex Mcfadden MD Cholesterol in LDL [Mass/Vol] 140 mg/dL High [facility] Comment on above: Result Comment: Refe rence range: <100 Desirable range <100 mg/dL for primary prevention; <70 mg/dL for patients with CHD or diabetic patients with > or = 2 CHD risk factors. LDL-C is now calculated using the Dinesh calculation, which is a validated novel method providing better accuracy than the Friedewald equation in the estimation of LDL-C. Darvin THOMPSON et al. GABY. 2013;310(19): 8775-1143 (http://education.[employer].[place]/faq/MYQ789) Performed By: #### 7 600, 927, 16421, 50542, 1759, 899 #### [facility] [place] [address] Charge Weigher: Alex Mcfadden MD Cholesterol.total/Chol esterol in HDL [Mass ratio] 3.4 {ratio} Normal <5.0 [facility] Comment on above: Performed By: #### 7 600, 927, 98243, 25284, 1759, 899 #### [facility] [place] [address] Charge Weigher: Alex Mcfadden MD NON HDL CHOLESTEROL 156 mg/dL (calc) High <130 [facility] Comment on above: Result Comment: For patients with diabetes plus 1 major ASCVD risk factor, treating to a non-HDL-C goal of <100 mg/dL (LDL-C of <70 mg/dL) is considered a therapeutic option. Performed By: #### 7 600, 927, 57223, 93983, 1759, 899 #### [facility] [place] [address] Charge Weigher: Alex Mcfadden MD Triglyceride [Mass/Vol] 72 mg/dL Normal <150 [facility] Comment on above: Performed By: #### 7 600, 927, 20550, 39396, 1759, 899 #### [facility] [place] [address] Charge Weigher: Alex Mcfadden MD TSHon 02-17-2024 TSH Qn 0.82 m[IU]/L Normal [facility] Comment on above: Result Comment: Miles christopher Range > or = 20 Years 0.40-4.50 Ranges First trimester 0.26-2.66 Second trimester 0.55-2.73 Third trimester 0.43-2.91 Performed By: #### 7 600, 927, 91335, 40460, 1759, 899 #### [facility] [address], [address] [place] [address] Charge Weigher: Alex Mcfadden MD VITAMIN B12on 02-17-2024 Cobalamin (Vitamin B12) [Mass/Vol] 368 pg/mL Normal 200-1100 [facility] Comment on above: Result Comment: Please Note: Although the reference range for vitamin B12 is 200-1100 pg/mL, it has been reported that between 5 and 10% of patients with values between 200 and 400 pg/mL may experience neuropsychiatric and hematologic abnormalities due to occult B12 deficiency; less than 1% of patients with values above 400 pg/mL will have symptoms. Performed By: #### 7 600, 927, 55031, 69505, 1759, 899 #### [facility] [place] [address] Charge Weigher: Alex Mcfadden MD VITAMIN D,25-OH,TOTAL,IAon 1 VITAMIN D,25-OH,TOTAL,IA 39 ng/mL Normal 30-100 [facility] Comment on above: Result Comment: Kerry min D Status 25-OH Vitamin D: Deficiency: <20 ng/mL Insufficiency: 20 - 29 ng/mL Optimal: > or = 30 ng/mL For 25-OH Vitamin D testing on patients on D2-supplementation and patients for whom quantitation of D2 and D3 fractions is required, the QuestAssureD(TM) 25-OH VIT D, (D2,D3), LC/MS/MS is recommended: order code 48391 (patients >2yrs). See Note 1 Note 1 For additional information, please refer to http://education.[employer]/faq/TGP387 (This link is being provided for informational/ educational purposes only.) Performed By: #### 7 574, 779, 08381, 50076, 1755, 899 #### [facility] [address], [address] [place] [address] Charge Weigher: Alex Mcfadden MD ECG 12 Leadon 01-21-2024 ECG reveals normal sinus rhythm, normal ECG [facility] Work Phone: No Panel Informationon 01-17 JEWELL Cervantes 01/18/2024 3:01 PM Trigger Point Injection (CPT 42716 [place] [address]) on 01/18/2024 2:58 PM Back muscles: Right lower lumbar paraverterbral Indications: pain and muscle spasm Details: 21 G needle Medications: 40 mg methylPREDNISolone acetate 40 MG/ML Consent was given by the patient. Patient was prepped and draped in the usual sterile fashion. 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 She [...] legs ache a lot from being a ironworker foreman. 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 Substitutions may have occurred due to the inherent limitations of voice recognition and artificial intelligence software. Documentation services were performed after patient or guardian consented to allow [employer] to record this visit. CHARLI assistive technology specialist and provider reviewed before signing. CHARLI: Selene Canseco Follow-up No qualifying data available Problem List/Past Medical History Ongoing No (more content not included)... [facility] Comment on above: Result Comment: Elec tronically Signed By: Lissa PIMENTEL, Tim Ochoa\.br\Date and Time Signed: 03/14/23 13:30 EST\.br\Electronically Co-Signed By: Selene Canseco\Date and Time Co-Signed: 02/02/23 14:27 EDT Consent for Treatmenton 01-18 Consent for Treatment [id number]#1 .00TIFF [facility] Physician Orderon 02-02-2023 Physician Order [id number]# 1.00TIFF [facility] Consent for Treatmenton 092 Consent for Treatment [id number]#1 .00CD:127 [facility] Insurance Correspondenceon 0 12-29-2022 Insurance Correspondence [id number]# 1.00CD:127 [facility] BMPon 09-03-2022 Anion gap [Moles/Vol] 7 mmol/L Low 9 - 17 mmol/L [facility] Calcium [Mass/Vol] 9.2 mg/dL 8.6 - 10. 4 mg/dL [facility] Chloride [Moles/Vol] 103 mmol/L 98 - 10 7 mmol/L [facility] CO2 [Moles/Vol] 26 mmol/L 20 - 31 mmol/L [facility] Creatinine [Mass/Vol] 0.44 mg/dL Low 0.50 - 0.90 mg/dL [facility] GFR/1.73 sq M.predicted MDRD (S/P/Bld) [Vol rate/Area] - PINF [facility] Comment on above: These results are not [...] [Mass/Vol] 98 mg/dL 70 - 99 mg/dL [facility] Interpretation and review of laboratory results Abnormal [facility] Potassium [Moles/Vol] 5.2 mmol/L 3.7 - 5.3 mmol/L [facility] Comment on above: HEMOLYSIS NOTED Sodium [Moles/Vol] 136 mmol/L 135 - 144 mmol/L [facility] Urea nitrogen [Mass/Vol] 15 mg/dL 6 - 20 mg/dL [facility] Urea nitrogen/Creatinine [Mass ratio] 34 mg/mg High 9 - 20 [facility] Basic Metabolic Profon 09-03 Potassium [Moles/Vol] 5.2 mmol/L Normal 3.7-5.3 [facility] Comment on above: Result Comment: HEMO LYSIS NOTED Performed By: #### D PAULA, CDP, BMP, CK #### [facility] [address] [place], [place] [id number] Pad Hand: Ketty Figueroa MD Anion gap [Moles/Vol] 7 mmol/L Low 9-17 [facility] Comment on above: Performed By: #### D PAULA, CDP, BMP, CK #### [facility] [address] [place] [address] Pad Hand: Ketty Figueroa MD BUN/CRE Ratio 34 High 9-20 [facility] Comment on above: Performed By: #### D PAULA, CDP, BMP, CK #### [facility] [address] [place], [place] [id number] Pad Hand: Ketty Figueroa MD Calcium [Mass/Vol] 9.2 mg/dL Normal 8.6-10.4 [facility] Comment on above: Performed By: #### D PAULA, CDP, BMP, CK #### [facility] [address] [place] [address] Dr[place], [place] [id number] Pad Hand: Ketty Figueroa MD Chloride [Moles/Vol] 103 mmol/L Normal 98-107 [facility] Comment on above: Performed By: #### D PAULA, CDP, BMP, CK #### [facility] [address] [place], [place] [id number] Pad Hand: Ketty Figueroa MD CO2 [Moles/Vol] 26 mmol/L Normal 20-31 [facility] Comment on above: Performed By: #### D PAULA, CDP, BMP, CK #### [facility] [address] [place] [address] Pad Hand: Ketty Figueroa MD Creatinine [Mass/Vol] 0.44 mg/dL Low 0.50-0.90 [facility] Comment on above: Performed By: #### D PAULA, CDP, BMP, CK #### [facility] [address] [place] [address] Pad Hand: Ketty Figueroa MD GFR/1.73 sq M.predicted among non-blacks MDRD (S/P/Bld) [Vol rate/Area] mL/min/{1.73_m2} Normal >60 [facility] Comment on above: Result Comment: These results [...] renal tubular secretion. Performed By: #### D PAULA, CDP, BMP, CK #### [facility] [address] [place] [address] [place] [address] Pad Hand: Ketty Figueroa MD Glucose [Mass/Vol] 98 mg/dL Normal 70-99 [facility] Comment on above: Performed By: #### D PAULA, CDP, BMP, CK #### [address] [place] [address] Pad Hand: Ketty Figueroa MD Sodium [Moles/Vol] 136 mmol/L Normal 135-144 [facility] Comment on above: Performed By: #### D PAULA, CDP, BMP, CK #### [facility] [address] [place] [address] Pad Hand: Ketty Figueroa MD Urea nitrogen [Mass/Vol] 15 mg/dL Normal 6-20 [facility] Comment on above: Performed By: #### D PAULA, CDP, BMP, CK #### [facility] [address] [place] [address] Pad Hand: Ketty Figueroa MD CBC with Auto Differentialon 09-03-2022 Basophils (Bld) [#/Vol] 0.09 10*3/uL [facility] Basophils/100 WBC (Bld) 1 % 0 - 2 % [facility] Eosinophils (Bld) [#/Vol] 0.29 10*3/uL [facility] Eosinophils/100 WBC (Bld) 4 % 1 - 4 % [facility] Erythrocyte distribution width (RBC) [Ratio] 13.0 % 11.8 - 14.4 % [facility] Hematocrit (Bld) [Volume fraction] 36.2 % Low 36.3 - 47.1 % [facility] Hemoglobin (Bld) [Mass/Vol] 11.4 g/dL Low 11.9 - 15.1 g/dL [facility] Immature granulocytes (Bld) [#/Vol] [facility] Immature granulocytes/100 WBC (Bld) 0 % 0 [facility] Interpretation and review of laboratory results Abnormal [facility] Lymphocytes/100 WBC (Bld) 30 % 24 - 43 % [facility] Lymphocytes/100 WBC (Bld) 2.06 % [facility] MCH (RBC) [Entitic mass] 27.6 pg 25.2 - 33.5 pg [facility] MCHC (RBC) [Mass/Vol] 31.5 g/dL 28.4 - 34.8 g/dL [facility] MCV (RBC) [Entitic vol] 87.7 fL 82.6 - 102.9 fL [facility] Monocytes/100 WBC (Bld) 7 % 3 - 12 % [facility] Monocytes/100 WBC (Bld) 0.49 % [facility] Neutrophils/100 WBC (Bld) 58 % 36 - 65 % [facility] NRBC Automated 0.0 0.0 per 100 WBC [facility] Platelet mean volume (Bld) [Entitic vol] 9.6 fL 8.1 - 13.5 fL [facility] Platelets (Bld) [#/Vol] 318 10*3/uL [facility] RBC (Bld) [#/Vol] 4.13 10*6/uL 3.95 - 5.1 1 m/uL [facility] Segmented neutrophils/100 WBC (Bld) 3.89 % [facility] WBC other (Bld) [#/Vol] 6.8 [facility] CBC with Diffon 09-03-2022 Abs. Basophil 0.09 k/uL Normal 0.00-0.20 [facility] Comment on above: Performed By: #### D PAULA, CDP, BMP, CK #### [facility] [address] [place] [address] [place], [place] [id number] Pad Hand: Ketty Figueroa MD Abs.Imm.Granulocyte <0.03 Normal 0.00-0.30 [facility] Comment on above: Performed By: #### D PAULA, CDP, BMP, CK #### [address] [place] [id number] Pad Hand: Ketty Figueroa MD Abs.Neutrophil (Seg) 3.89 k/uL Normal 1.50-8.10 [facility] Comment on above: Performed By: #### D PAULA, CDP, BMP, CK #### [address] [place], [place] [address] Pad Hand: Ketty Figueroa MD Basophils/100 WBC (Bld) 1 % Normal 0-2 [facility] Comment on above: Performed By: #### Kianna PAULA, CDP, BMP, CK #### [address] [place], [place] [address] Pad Hand: Ketty Figueroa MD Eosinophils (Bld) [#/Vol] 0.29 10*3/uL Normal 0.00-0.44 [facility] Comment on above: Performed By: #### D PAULA, CDP, BMP, CK #### [address] [place] [address] Pad Hand: Ketty Figueroa MD Eosinophils/100 WBC (Bld) 4 % Normal 1-4 [facility] Comment on above: Performed By: #### D PAULA, CDP, BMP, CK #### [address] [place] [id number] Pad Hand: Ketty Figueroa MD Erythrocyte distribution width (RBC) [Ratio] 13.0 % Normal 11.8-14.4 [facility] Comment on above: Performed By: #### D PAULA, CDP, BMP, CK #### [address] [place], [facility] Pad Hand: Ketty Figueroa MD Hematocrit (Bld) [Volume fraction] 36.2 % Low 36.3-47.1 [facility] Comment on above: Performed By: #### D PAULA, CDP, BMP, CK #### [address] [place], [facility] Pad Hand: Ketty Figueroa MD Hemoglobin (Bld) [Mass/Vol] 11.4 g/dL Low 11.9-15.1 [facility] Comment on above: Performed By: #### Kianna PAULA, CDP, BMP, CK #### [address] [place], [facility] Pad Hand: Ketty Figueroa MD Immature granulocytes/100 WBC (Bld) 0 % Normal 0 [facility] Comment on above: Performed By: #### D PAULA, CDP, BMP, CK #### [address] [place], [facility] Pad Hand: Ketty Figueroa MD Lymphocytes (Bld) [#/Vol] 2.06 10*3/uL Normal 1.10-3.70 [facility] Comment on above: Performed By: #### D PAULA, CDP, BMP, CK #### [address] [place], [facility] Pad Hand: Ketty Figueroa MD Lymphocytes/100 WBC (Bld) 30 % Normal 24-43 [facility] Comment on above: Performed By: #### D PAULA, CDP, BMP, CK #### [facility] [address] [address] [place], [facility] Pad Hand: Ketty Figueroa MD MCH (RBC) [Entitic mass] 27.6 pg Normal 25.2-33.5 [facility] Comment on above: Performed By: #### D PAULA, CDP, BMP, CK #### [address] [place], [facility] Pad Hand: Ketty Figueroa MD MCHC (RBC) [Mass/Vol] 31.5 g/dL Normal 28.4-34.8 [facility] Comment on above: Performed By: #### D PAULA, CDP, BMP, CK #### [address] [place], [place] [address] Pad Hand: Ketty Figueroa MD MCV (RBC) [Entitic vol] 87.7 fL Normal 82.6-102.9 [facility] Comment on above: Performed By: #### D PAULA, CDP, BMP, CK #### [address] [place], [facility] Pad Hand: Ketty Figueroa MD Monocytes (Bld) [#/Vol] 0.49 10*3/uL Normal 0.10-1.20 [facility] Comment on above: Performed By: #### D PAULA, CDP, BMP, CK #### [address] [place], [place] [id number] Pad Hand: Ketty Figueroa MD Monocytes/100 WBC (Bld) 7 % Normal 3-12 [facility] Comment on above: Performed By: #### D PAULA, CDP, BMP, CK #### [facility] [address] [place], [facility] Pad Hand: Ketty Figueroa MD Neutrophil (Seg) 58 % Normal 36-65 [facility] Comment on above: Performed By: #### D PAULA, CDP, BMP, CK #### [address] [place], [place] [id number] Pad Hand: Ketty Figueroa MD NRBC Automated 0.0 per 100 WBC Normal 0.0 [facility] Comment on above: Performed By: #### D PAULA, CDP, BMP, CK #### [address] [place], [facility] Pad Hand: Ketty Figueroa MD Platelet mean volume (Bld) [Entitic vol] 9.6 fL Normal 8.1-13.5 [facility] Comment on above: Performed By: #### D PAULA, CDP, BMP, CK #### [address] [place], [place] [address] Pad Hand: Ketty Figueroa MD Platelets (Bld) [#/Vol] 318 10*3/uL Normal 138-453 [facility] Comment on above: Performed By: #### D PAULA, CDP, BMP, CK #### [address] [place], [facility] Pad Hand: Ketty Figueroa MD RBC (Bld) [#/Vol] 4.13 10*6/uL Normal 3.95-5.11 [facility] Comment on above: Performed By: #### D PAULA, CDP, BMP, CK #### [address] [place], [facility] Pad Hand: Ketty Figueroa MD WBC (Bld) [#/Vol] 6.8 10*3/uL Normal 3.5-11.3 [facility] Comment on above: Performed By: #### D PAULA, CDP, BMP, CK #### [address] [place], [facility] Pad Hand: Ketty Figueroa MD CKon 09-03-2022 CK [Catalytic activity/Vol] 130 U/L 26 - 192 U/L [facility] Creatine Kinaseon 09-03-2022 CK [Catalytic activity/Vol] 130 U/L Normal 26-192 [facility] Comment on above: Performed By: #### D MERVIN CASTILLO BMP, CK #### [facility] [address] [place] [address] Pad Hand: Ketty Figueroa MD D-Dimer Teston 09-03-2022 D-Dimer Test <0.27 Normal 0.00-0.59 [facility] Comment on above: Result Comment: When combined [...] with distal DVT. Performed By: #### D MERVIN CASTILLO, BMP, CK #### [facility] [address] [place] [address] Pad Hand: Ketty Figueroa MD D-Dimer, Quantitativeon 08-18 Fibrin D-dimer FEU IA (Bld) [Mass/Vol] [facility] Comment on above: When combined with a [...] more prevalent in patients with distal DVT. [facility] No Panel Informationon 09-03 [facility] CBC panel Auto (Bld)on 06-30 Erythrocyte distribution width (RBC) [Ratio] 13.2 % 11.5 - 15.0 % [facility] Hematocrit (Bld) [Volume fraction] 38.6 % 36.0 - 46.0 % [facility] Hemoglobin (Bld) [Mass/Vol] 11.7 g/dL 11.5 - 15.5 g/dL [facility] MCH (RBC) [Entitic mass] 27.2 pg 26.0 - 34.0 pg [facility] MCHC (RBC) [Mass/Vol] 30.3 g/dL Low 30.5 - 36.0 g/dL [facility] MCV (RBC) [Entitic vol] 89.8 fL 80.0 - 100.0 fL [facility] Nucleated RBC (Bld) [#/Vol] <0.01 k/uL [facility] Platelet mean volume (Bld) [Entitic vol] 9.4 fL 9.0 - 12.7 fL [facility] Platelets (Bld) [#/Vol] 324 10*3/uL 150 - 400 k/uL [facility] RBC (Bld) [#/Vol] 4.30 10*6/uL 3.90 - 5.2 0 m/uL [facility] WBC (Bld) [#/Vol] 7.63 10*3/uL 3.70 - 11. 00 k/uL [facility] MG MAMM SCREEN 3D LINA CADon 03-10-2022 MG MAMM SCREEN 3D LINA CAD Patient: GWYN GARCIA Exam Date: 03/10/2022 : 1970 Gender:F Ordering : DR SANTHOSH PAEZ Admission #: [id number] Family : Order #: [id number] CLICK HERE TO VIEW EXAM RADIOLOGY REPORT [...] Treatments None Family Cancers None LOCATION: [facility] BREAST COMPOSITION: Extremely dense, which lowers [...] MD on 03/10/2022 at 12:51 Normal [facility] MRI Knee w/o Lefton 03-26-20 MRI Knee [...] by Junaid Mims on 03/27/2021 0959 Normal [facility] Vital Signs Date Time Vital Sign Value Performing Clinician Zeniai calvin 10-10-2024 11:10-0400 Body height 162.6 cm Santhosh Paez Vetr Work Phone: [facility] [employer] 10-10-2024 11:10-0400 Body mass index (BMI) [Ratio] 26.26 kg/m2 Santhosh Paez Vetr Work Phone: [facility] 10-10-2024 11:10-0400 Body weight 69.4 kg Santhosh Paze Vetr Work Phone: [facility] 10-10-2024 11:10-0400 Diastolic blood pressure 76 mm[Hg] Santhosh Paez Vetr Work Phone: [facility] [employer] 10-10-2024 11:10-0400 Systolic blood pressure 120 mm[Hg] Santhosh Paez Vetr Work Phone: [facility] [employer] 09-19-2024 15:56-0400 Diastolic blood pressure 64 mm[Hg] [facility] 09-19-2024 15:56-0400 Heart rate 67 /min [facility] 09-19-2024 15:56-0400 SaO2% (BldA) [Mass fraction] 97 % [facility] 09-19-2024 15:56-0400 Systolic blood pressure 110 mm[Hg] [facility] 08-23-2024 17:06-0400 Diastolic blood pressure 82 mm[Hg] Kristi CORCORAN Work Phone: [facility] 08-23-2024 17:06-0400 Systolic blood pressure 138 mm[Hg] Kristi CORCORAN Work Phone: [facility] 08-23-2024 16:32-0400 Body height 162.6 cm Kristi Hemmer PA Work Phone: [facility] 08-23-2024 16:32-0400 Body mass index (BMI) [Ratio] 26.61 kg/m2 Kristi Hemmer PA Work Phone: [facility] 08-23-2024 16:32-0400 Body weight 70.31 kg Kristi Hemmer PA Work Phone: [facility] 08-23-2024 16:32-0400 Heart rate 70 /min Kristi Hemmer PA Work Phone: [facility] 08-23-2024 16:32-0400 Respiratory rate 16 /min Kristi Hemmer PA Work Phone: [facility] 08-23-2024 16:32-0400 SaO2% (BldA) [Mass fraction] 99 % Kristi Hemmer PA Work Phone: [facility] 08-15-2024 16:24-0400 Body height 162.56 cm [facility] 08-15-2024 16:24-0400 Body mass index (BMI) [Ratio] 26.9 kg/m2 [facility] 08-15-2024 16:24-0400 Body weight 71.21 kg [facility] 08-15-2024 16:24-0400 Diastolic blood pressure 80 mm[Hg] [facility] 08-15-2024 16:24-0400 Heart rate 75 /min [facility] 08-15-2024 16:24-0400 SaO2% (BldA) [Mass fraction] 99 % [facility] 08-15-2024 16:24-0400 Systolic blood pressure 124 mm[Hg] [facility] 08-03-2024 16:19-0400 Diastolic blood pressure 72 mm[Hg] [facility] 08-03-2024 16:19-0400 Heart rate 75 /min [facility] 08-03-2024 16:19-0400 SaO2% (BldA) [Mass fraction] 99 % [facility] 08-03-2024 16:19-0400 Systolic blood pressure 130 mm[Hg] [facility] 07-18-2024 15:23-0400 Body mass index (BMI) [Ratio] 26.43 kg/m2 Santhosh Paez DO Work Phone: [facility] 07-18-2024 15:23-0400 Body weight 69.85 kg Santhosh Paez DO Work Phone: [facility] 07-18-2024 15:23-0400 Diastolic blood pressure 80 mm[Hg] Santhosh Paez DO Work Phone: [facility] 07-18-2024 15:23-0400 Systolic blood pressure 118 mm[Hg] Santhosh Paez DO Work Phone: [facility] 07-18-2024 10:58-0400 Body mass index (BMI) [Ratio] 26.54 kg/m2 Jose Angel Mcdaniel DO Work Phone: [facility] 07-18-2024 10:58-0400 Body weight 70.13 kg Jose Angel Mcdaniel DO Work Phone: [facility] 07-18-2024 10:58-0400 Diastolic blood pressure 80 mm[Hg] Jose Angel Mcdaniel DO Work Phone: [facility] 07-18-2024 10:58-0400 Heart rate 65 /min Jose Angel Mcdaniel DO Work Phone: [facility] 07-18-2024 10:58-0400 SaO2% (BldA) [Mass fraction] 98 % Jose Angel Mcdaniel DO Work Phone: [facility] 07-18-2024 10:58-0400 Systolic blood pressure 126 mm[Hg] Jose Angel Duttaett DO Work Phone: [facility] 06-05-2024 13:38-0500 Body height 162.56 cm Natividad Omer DO Work Phone: [facility] 06-05-2024 13:38-0500 Body mass index (BMI) [Ratio] 26.9 kg/m2 Natividad Ly DO Work Phone: [facility] 06-05-2024 13:38-0500 Body temperature 98.1 [degF] Natividad Ly DO Work Phone: [facility] 06-05-2024 13:38-0500 Body weight 71.21 kg Natividad Ly DO Work Phone: [facility] 06-05-2024 13:38-0500 Diastolic blood pressure 80 mm[Hg] Natividad Ly DO Work Phone: [facility] 06-05-2024 13:38-0500 Heart rate 71 /min Natividad Ly DO Work Phone: [facility] 06-05-2024 13:38-0500 Respiratory rate 18 /min Natividad Ly DO Work Phone: [facility] 06-05-2024 13:38-0500 SaO2% (BldA) [Mass fraction] 98 % Natividad Ly DO Work Phone: [facility] 06-05-2024 13:38-0500 Systolic blood pressure 119 mm[Hg] Natividad Ly DO Work Phone: [facility] 06-02-2024 13:32-0500 Body height 162.6 cm Kyrie Nettlse [employer] Work Phone: [facility] 06-02-2024 13:32-0500 Body mass index (BMI) [Ratio] 26.67 kg/m2 Kyrie Nettles [employer] Work Phone: [facility] 06-02-2024 13:32-0500 Body weight 70.49 kg Kyrie Nettles [employer] Work Phone: [facility] 06-02-2024 13:32-0500 Diastolic blood pressure 78 mm[Hg] Kyrie Nettles [employer] Work Phone: [facility] 06-02-2024 13:32-0500 Heart rate 73 /min Kyrie Nettles [employer] Work Phone: [facility] 06-02-2024 13:32-0500 Respiratory rate 17 /min Kyrie Yoon [employer] Work Phone: [facility] 06-02-2024 13:32-0500 SaO2% (BldA) [Mass fraction] 98 % Kyrie Nettles [employer] Work Phone: [facility] 06-02-2024 13:32-0500 Systolic blood pressure 122 mm[Hg] Kyrie Yoon [employer] Work Phone: [facility] 05-16-2024 08:50-0500 Body height 162.56 cm Natividad Ly DO Work Phone: [facility] 05-16-2024 08:50-0500 Body mass index (BMI) [Ratio] 24.9 kg/m2 Natividad Ly DO Work Phone: [facility] 05-16-2024 08:50-0500 Body weight 65.77 kg Natividad Ly DO Work Phone: [facility] 04-26-2024 11:34-0500 Body height 162.6 cm Kristi Hemmer PA Work Phone: [facility] 04-26-2024 11:34-0500 Body mass index (BMI) [Ratio] 25.51 kg/m2 Kristi Hemmer PA Work Phone: [facility] 04-26-2024 11:34-0500 Body weight 67.41 kg Kristi Hemmer PA Work Phone: [facility] 04-26-2024 11:34-0500 Diastolic blood pressure 86 mm[Hg] Kristi Hemmer PA Work Phone: [facility] 04-26-2024 11:34-0500 Heart rate 108 /min Kristi Hemmer PA Work Phone: [facility] 04-26-2024 11:34-0500 Respiratory rate 16 /min Kristi Hemmer PA Work Phone: [facility] 04-26-2024 11:34-0500 SaO2% (BldA) [Mass fraction] 96 % Kristi Hemmer PA Work Phone: [facility] 04-26-2024 11:34-0500 Systolic blood pressure 158 mm[Hg] Kristi CORCORAN Work Phone: [facility] 03-28-2024 09:47-0500 Diastolic blood pressure 79 mm[Hg] Natividad Ly DO Work Phone: [facility] 03-28-2024 09:47-0500 Heart rate 72 /min Natividad Ly DO Work Phone: [facility] 03-28-2024 09:47-0500 Respiratory rate 20 /min Natividad Ly DO Work Phone: [facility] 03-28-2024 09:47-0500 SaO2% (BldA) [Mass fraction] 100 % Natividad Ly DO Work Phone: [facility] 03-28-2024 09:47-0500 Systolic blood pressure 119 mm[Hg] Natividad Ly DO Work Phone: [facility] 03-28-2024 07:09-0500 Body height 162.56 cm Natviidad Ly DO Work Phone: [facility] 03-28-2024 07:09-0500 Body temperature 98.1 [degF] Natividad Ly DO Work Phone: [facility] 03-28-2024 07:09-0500 Body weight 66.67 kg Natividad Ly DO Work Phone: [facility] 03-21-2024 11:01-0500 Body height 162.56 cm Natividad Ly DO Work Phone: [facility] 03-21-2024 11:01-0500 Body mass index (BMI) [Ratio] 24.9 kg/m2 Natividad Ly DO Work Phone: [facility] 03-21-2024 11:01-0500 Body weight 65.77 kg Natividad Ly DO Work Phone: [facility] 02-16-2024 10:55-0400 Body height 162.6 cm Kyrie Nettles [employer] Work Phone: [facility] 02-16-2024 10:55-0400 Body mass index (BMI) [Ratio] 25.23 kg/m2 Kyrie Nettles [employer] Work Phone: [facility] 02-16-2024 10:55-0400 Body weight 66.68 kg Kyrie Gaovely [employer] Work Phone: [facility] 02-16-2024 10:55-0400 Diastolic blood pressure 78 mm[Hg] Kyrie Nettles [employer] Work Phone: [facility] 02-16-2024 10:55-0400 Heart rate 86 /min Kyrie Nettles [employer] Work Phone: [facility] 02-16-2024 10:55-0400 SaO2% (BldA) [Mass fraction] 99 % Kyrie Nettles [employer] Work Phone: [facility] 02-16-2024 10:55-0400 Systolic blood pressure 132 mm[Hg] Kyrie Nettles [employer] Work Phone: [facility] 01-21-2024 10:11-0400 Diastolic blood pressure 82 mm[Hg] Konstantin Chaves MD Work Phone: [facility] 01-21-2024 10:11-0400 Systolic blood pressure 134 mm[Hg] Konstantin Chaves MD Work Phone: [facility] 01-21-2024 10:10-0400 Body height 162.6 cm Konstantin Chaves MD Work Phone: [facility] 01-21-2024 10:10-0400 Body mass index (BMI) [Ratio] 25.06 kg/m2 Konstantin Chaves MD Work Phone: [facility] 01-21-2024 10:10-0400 Body weight 66.22 kg Konstantin Chaves MD Work Phone: [facility] 01-21-2024 10:10-0400 Heart rate 87 /min Konstantin Chaves MD Work Phone: [facility] 01-18-2024 13:24-0400 Body height 162.6 cm Cora Drake PA Work Phone: [facility] 01-18-2024 13:24-0400 Body mass index (BMI) [Ratio] 25.75 kg/m2 Cora Drake PA Work Phone: [facility] 01-18-2024 13:24-0400 Body weight 68.04 kg Cora Drake PA Work Phone: [facility] 03-14-2023 11:20-0500 Body height 162.56 cm Candace Verdin Other [employer] Other 03-14-2023 11:20-0500 Body mass index (BMI) [Ratio] 25.2 kg/m2 Candace Verdin Other [employer] Other 03-14-2023 11:20-0500 Body temperature 99.1 [degF] Candace Verdin Other [employer] Other 03-14-2023 11:20-0500 Body weight 66.59 kg Candace Verdin Other [employer] Other 03-14-2023 11:20-0500 Diastolic blood pressure 64 mm[Hg] Candace Verdin Other [employer] Other 03-14-2023 11:20-0500 Respiratory rate 18 /min Candace Verdin Other [employer] Other 03-14-2023 11:20-0500 SaO2% (BldA) [Mass fraction] 97 % Candace Verdin Other [employer] Other 03-14-2023 11:20-0500 Systolic blood pressure 120 mm[Hg] Candace Verdin Other [facility] [employer] Other 02-02-2023 13:10-0400 Diastolic blood pressure 84 mm[Hg] Tim Alcaraz [facility] 02-02-2023 13:10-0400 Mean blood pressure 103 mm[Hg] Tim Alcaraz [facility] 02-02-2023 13:10-0400 Systolic blood pressure 140 mm[Hg] Tim Moniqueoffkimberly [facility] 02-02-2023 13:00-0400 Blood Pressure Location Tim Alcaraz [facility] 02-02-2023 13:00-0400 Heart rate 82 /min Tim Alcaraz [facility] 02-02-2023 13:00-0400 SaO2% (BldA) [Mass fraction] 98 % Tim Alcaraz [facility] 02-02-2023 13:00-0400 Systolic blood pressure 144 mm[Hg] Tim Alcaraz [facility] 09-03-2022 16:50-0400 Body height 162.6 cm Jeyson Qui[facility]ones [facility] 09-03-2022 16:50-0400 Body mass index (BMI) [Ratio] 24.03 kg/m2 Jeyson Quiñones MD [facility] 09-03-2022 16:50-0400 Body temperature 98.2 [degF] Jeyson Quiñones [facility] [employer] 09-03-2022 16:50-0400 Body weight 63.5 kg Jeyson Quiñones [facility] [employer] 09-03-2022 16:50-0400 Diastolic blood pressure 76 mm[Hg] Jeyson Quiñones MD [facility] 09-03-2022 16:50-0400 Heart rate 92 /min Jeyson Quiñones MD [facility] 09-03-2022 16:50-0400 Respiratory rate 14 /min Jeyson Quiñones MD [facility] 09-03-2022 16:50-0400 SaO2% (BldA) [Mass fraction] 99 % Jeyson Quiñones MD [facility] 09-03-2022 16:50-0400 Systolic blood pressure 158 mm[Hg] Jeyson Quiñones MD [facility] 06-30-2022 14:06-0400 Body height 162.6 cm Ashley Delacruz MD Work Phone: [facility] 06-30-2022 14:06-0400 Body weight 65.77 kg Ashley Delacruz MD Work Phone: [facility] 01-10-2022 11:25-0400 Blood Pressure Location Karin ABEL [facility] 01-10-2022 11:25-0400 Diastolic blood pressure 80 mm[Hg] Karin ABEL [facility] 01-10-2022 11:25-0400 Heart rate 77 /min Karinmaxwell ABEL [facility] 01-10-2022 11:25-0400 Respiratory rate 18 /min Karin ESTRADAG [facility] 01-10-2022 11:25-0400 SaO2% (BldA) [Mass fraction] 100 % Karinmaxwell ABEL [facility] 01-10-2022 11:25-0400 Systolic blood pressure 125 mm[Hg] Karinmaxwell ESTRADAG [facility] 11-15-2021 14:17-0400 Blood Pressure Location Tim Alcaraz [facility] 11-15-2021 14:17-0400 Diastolic blood pressure 74 mm[Hg] Tim Alcaraz [facility] 11-15-2021 14:17-0400 Heart rate 86 /min Tim Alcaraz [facility] 11-15-2021 14:17-0400 Respiratory rate 18 /min Tim Alcaraz [facility] 11-15-2021 14:17-0400 SaO2% (BldA) [Mass fraction] 100 % Tim Alcaraz [facility] 11-15-2021 14:17-0400 Systolic blood pressure 140 mm[Hg] Tim Alcaraz [facility] 06-27-2020 13:40-0500 Body weight 61.96 kg [facility] 06-27-2020 13:40-0500 BP Diastolic 67 mm[Hg] [facility] 06-27-2020 13:40-0500 BP Systolic 125 mm[Hg] [facility] 06-27-2020 13:40-0500 Height 162.6 cm [facility] 06-27-2020 13:40-0500 Pulse (Heart Rate) 91 /min [facility] 06-27-2020 13:40-0500 Pulse Oximetry 100 % [facility] 01-02-2020 16:16-0400 BP Diastolic 79 mm[Hg] [facility] [place] 01-02-2020 16:16-0400 BP Systolic 151 mm[Hg] [facility] [place] 01-02-2020 16:16-0400 Pulse Oximetry 100 % [facility] [place] 01-02-2020 15:34-0400 BMI (Body Mass Index) 23.03 kg/m2 [facility] 01-02-2020 15:34-0400 Body Temperature 98.29 [degF] [facility], [place] 01-02-2020 15:34-0400 Body weight 58.97 kg [facility] , [place] 01-02-2020 15:34-0400 Height 160 cm Sharla Anguiano [facility] , [place] 01-02-2020 15:34-0400 Pulse (Heart Rate) 102 /min Sharla Anguiano [facility] [place], [place] 01-02-2020 15:34-0400 Respiratory Rate 16 /min Sharla Anguiano [facility] [place] Encounters Encounter Date Encounter Type Care Provider Facility Start: 12-12-2024 End: 12-12-2024 ambulatory KYRIE NETTLES Not Available Start: 10-27-2024 End: 10-27-2024 Telephone encounter Mari Amin MD Work Phone: [facility] Start: 10-24-2024 End: 10-24-2024 ambulatory KYRIE NETTLES Not Available Start: 10-10-2024 End: 10-10-2024 Patient encounter status Santhosh Paez DO Work Phone: [facility] Start: 10-10-2024 End: 10-10-2024 Periodic preventive med est patient 40-64yrs Santhosh Paez DO Work Phone: [facility] Comment on above: Encounter for gyneco logical examination without abnormal finding (Primary Dx); Encounter for Papanicolaou smear of cervix; Breast cancer screening by mammogram; Hot flashes Start: 10-10-2024 End: 10-10-2024 ambulatory SANTHOSH PAEZ Not Available Start: 09-27-2024 End: 09-27-2024 Patient encounter procedure Karthik Cintron MD Work Phone: Otolaryngology Comment on above: Ear lesion (Primary Dx) Start: 09-27-2024 End: 09-27-2024 ambulatory KARTHIK CINTRON Facility:[facility] Start: 09-23-2024 End: 09-23-2024 Telephone encounter Kristi CORCORAN Work Phone: [facility] Start: 09-20-2024 End: 09-20-2024 Follow-up encounter Kristi CORCORAN Work Phone: [facility] Comment on above: Abnormal finding on radiology exam (Primary Dx); Mass of petrous temporal bone Start: 09-19-2024 End: 09-19-2024 ambulatory [facility] Work Phone: Start: 09-19-2024 End: 09-19-2024 Patient encounter procedure [facility] Work Phone: Start: 09-19-2024 End: 09-19-2024 ambulatory KRISTI PASTOR Not Available Start: 09-16-2024 End: 09-19-2024 Telephone encounter Mari Amin MD Work Phone: [facility] Start: 09-01-2024 End: 09-02-2024 Telephone encounter Kristi CORCORAN Work Phone: [facility] Comment on above: plan Start: 08-29-2024 End: 08-29-2024 ambulatory KRISTI PASTOR Not Available Start: 08-23-2024 End: 08-23-2024 Office outpatient visit 25 minutes Kristi CORCORAN Work Phone: [facility] Comment on above: Elevated LDL cholest cesar level (CMS/HCC) (Primary Dx); Stress reaction; Overweight; Recurrent headache; Trigeminal neuralgia of right side of face (CMS/HCC); Skin irritation; Dizziness; Tachycardia Start: 08-23-2024 End: 08-23-2024 ambulatory KRISTI PASTOR Not Available Start: 08-23-2024 End: 08-23-2024 Bamboo flowsheet Kristi Pastor PA Work Phone: [facility] Start: 08-23-2024 End: 08-23-2024 Bamboo flowsheet Kristi Pastor PA Work Phone: [facility] Start: 08-16-2024 End: 08-17-2024 Telephone encounter Mari Amin MD Work Phone: [facility] Start: 08-15-2024 End: 08-15-2024 ambulatory [facility] Work Phone: Start: 08-15-2024 End: 08-15-2024 Patient encounter procedure [facility] Work Phone: Start: 08-03-2024 End: 08-03-2024 Patient encounter procedure [facility] Work Phone: Start: 07-18-2024 End: 07-18-2024 Office outpatient visit 15 minutes Santhosh Paez DO Work Phone: [facility] Comment on above: Hot flashes (Primary Dx) Start: 07-18-2024 End: 07-18-2024 ambulatory SANTHOSH PAEZ Not Available Start: 07-18-2024 End: 07-18-2024 Bamboo flowsheet Jose Angel Mcdaniel DO Work Phone: [facility] Start: 07-18-2024 End: 07-18-2024 Bamboo flowsheet Jose Angel Mcdaniel DO Work Phone: [facility] Start: 07-18-2024 End: 07-18-2024 Office outpatient new 45 minutes Jose Angel Mcdaniel DO Work Phone: [facility] Comment on above: Trigeminal neuralgia of right side of face (CMS/HCC) (Primary Dx) Start: 07-18-2024 End: 07-18-2024 ambulatory JOSE ANGEL MCDANIEL Not Available Start: 07-04-2024 End: 07-04-2024 ambulatory RAMESH GONZALEZ Not Available Start: 06-30-2024 End: 06-30-2024 Telephone encounter Kyrie Nettles NP Work Phone: [facility] Start: 06-05-2024 End: 06-05-2024 ambulatory NON STAFF [facility] Work Phone: Start: 06-05-2024 End: 06-05-2024 Patient encounter procedure Natividad Omer DO Work Phone: [facility] [place] Work Phone: Start: 06-02-2024 End: 06-02-2024 Bamboo flowsheet Kyrie Nettles [employer]ATCHER WOOD WELDER Work Phone: [facility] Start: 06-02-2024 End: 06-03-2024 Bamboo flowsheet Kyrie Nettles PATCHER WOOD WELDER Work Phone: [facility] Start: 06-02-2024 End: 06-03-2024 Clinisync Result Encounter Generic External Data Provider [facility] External Department Unsolicited Start: 06-02-2024 End: 06-02-2024 Office outpatient visit 25 minutes Kyrie Nettles [employer] WOOD WELDER Work Phone: [facility] Comment on above: Chronic migraine wit h aura without status migrainosus, not intractable (CMS/HCC) (Primary Dx); BMI 26.0-26.9,adult; Primary osteoarthritis of both knees; Mild aortic valve regurgitation; Nonrheumatic aortic valve insufficiency; Tachycardia; Paroxysmal supraventricular tachycardia (CMS/HCC) Start: 06-02-2024 End: 06-02-2024 ambulatory YKRIE NETTLES Not Available Start: 05-16-2024 End: 05-16-2024 ambulatory NON STAFF [facility] Work Phone: Start: 05-16-2024 End: 05-16-2024 Patient encounter procedure Natividad Omer DO Work Phone: [facility] Work Phone: Start: 05-02-2024 End: 05-02-2024 Office outpatient visit 25 minutes Milton Wen MD Work Phone: [facility] Comment on above: Other atopic dermati tis (Primary Dx); Androgenic alopecia; Seborrheic keratosis, inflamed Start: 05-02-2024 End: 05-02-2024 ambulatory MILTON WEN Not Available Start: 05-02-2024 End: 05-02-2024 Telephone encounter Mari Amin MD Work Phone: [facility] Start: 04-28-2024 End: 04-28-2024 ambulatory KRISTI PASTOR Not Available Start: 04-26-2024 End: 04-26-2024 Bamboo flowsheet Kristi Pastor PA Work Phone: [facility] Start: 04-26-2024 End: 04-26-2024 Bamboo flowsheet Kristi M Meli PA Work Phone: [facility] Start: 04-26-2024 End: 04-26-2024 Office outpatient visit 25 minutes Kristi Reed eMli PA Work Phone: [facility] Comment on above: Paroxysmal supravent ricular tachycardia (CMS/HCC) (Primary Dx); Dizziness; Elevated blood pressure reading; Diarrhea, unspecified type; Frequent headaches Start: 04-26-2024 End: 04-26-2024 ambulatory KRISTI PASTOR Not Available Start: 03-28-2024 Non-patient / Non-visit Cather ine Ly DO Work Phone: [facility] Work Phone: Start: 03-28-2024 End: 03-28-2024 Admission to same day surgery center Natividad Ly DO Work Phone: [facility] Work Phone: Start: 03-28-2024 End: 03-28-2024 ambulatory Natividad L Ly Facility:[facility] Start: 03-21-2024 End: 03-21-2024 Patient encounter procedure Natividad Ly DO Work Phone: [facility] Work Phone: Start: 02-29-2024 End: 02-29-2024 ambulatory KYRIE NETTLES Not Available Start: 02-16-2024 End: 02-16-2024 Bamboo flowsheet Kyrie Nettles PATCHER WOOD WELDER Work Phone: [facility] Start: 02-16-2024 End: 02-16-2024 Bamboo flowsheet Kyrie Nettles PATCHER WOOD WELDER Work Phone: [facility] Start: 02-16-2024 End: 02-16-2024 Patient encounter status Kyrie Nettles PATCHER WOOD WELDER Work Phone: [facility] Start: 02-16-2024 End: 02-16-2024 Periodic preventive med est patient 40-64yrs Kyrie Nettles PATCHER WOOD WELDER Work Phone: [facility] Comment on above: Wellness examination (Primary Dx); Exercise-induced asthma (CMS/HCC); Epigastric pain; Shortness of breath; Mild aortic valve regurgitation; Nonrheumatic aortic valve insufficiency; Tachycardia; Primary osteoarthritis of both knees; B12 deficiency; Disorder of thyroid gland (CMS/HCC); Vitamin D deficiency; Acne rosacea, erythematous telangiectatic type; Seasonal allergic rhinitis due to pollen; Screening for lipid disorders; Screening for lung cancer; Personal history of nicotine dependence; Nausea and vomiting, unspecified vomiting type Start: 02-16-2024 End: 02-16-2024 ambulatory KYRIE NETTLES Not Available Start: 02-15-2024 End: 02-15-2024 Bamboo flowsheet Salima [...] Start: 02-01-2024 End: 02-01-2024 Bamboo flowsheet Sulema Mata PT Work Phone: [facility] Start: 02-01-2024 End: 02-01-2024 Bamboo flowsheet Sulema Mata PT Work Phone: [facility] Start: 02-01-2024 End: 02-01-2024 ambulatory Sulema Mata PT Work Phone: [facility] Comment on above: Trigger point with b ack pain (Primary Dx) Start: 01-25-2024 End: 01-25-2024 Bamboo flowsheet Salimageovany Navarrete PT [facility] Start: 01-25-2024 End: 01-25-2024 Bamboo flowsheet Salmia Landon PT [facility] Start: 01-25-2024 End: 01-25-2024 ambulatory Salima Landon PT [facility] Comment on above: Trigger point with b ack pain (Primary Dx) Start: 01-21-2024 End: 01-21-2024 ambulatory [facility]ulatory Start: 01-21-2024 End: 01-21-2024 Office outpatient new 45 minutes Konstantin [facility] Work Phone: [facility] Comment on above: Paroxysmal supravent ricular tachycardia (CMS-HCC) (Primary Dx); BMI 25.0-25.9,adult; Former smoker; Mild aortic regurgitation; Palpitations Start: 01-18-2024 End: 01-18-2024 Bamboo flowsheet Cora Drake PA Work Phone: [facility] Start: 01-18-2024 End: 01-18-2024 Bamboo flowsheet Cora Drake PA Work Phone: [facility] Start: 01-18-2024 End: 01-18-2024 Office outpatient visit 25 minutes Cora Drake PA Work Phone: [facility] Comment on above: Lumbar pain (Primary Dx); Trigger point with back pain Start: 01-18-2024 End: 01-18-2024 ambulatory CORA DRAKE Not Available Start: 03-14-2023 End: 03-14-2023 ambulatory Candace Verdin Other [employer] Other Start: 03-14-2023 Office outpatient vi sit 15 minutes Candace Verdin [facility] [place] Start: 02-02-2023 End: 10-17-2023 ambulatory Tim Alcaraz Facility:[facility] Start: 02-02-2023 End: 02-02-2023 Patient encounter procedure Tim Alcaraz [facility] Start: 01-12-2023 End: 01-13-2023 ambulatory Tim Alcaraz Facility:[facility] Start: 01-12-2023 End: 01-13-2023 Pre-admission assessment Tim Alcaraz [facility] Start: 01-12-2023 End: 01-12-2023 Patient encounter procedure Karinmaxwell ABEL [facility] Start: 09-03-2022 End: 09-03-2022 [facility] Start: 09-03-2022 End: 09-03-2022 Emergency department patient visit Jeyson Quiñones MD [facility] ED Comment on above: Pain of left calf (P rimary Dx) Start: 07-01-2022 ambulatory Pcp (Historical) [facility] Start: 07-01-2022 Telephone encounter Ashley morgan MD Work Phone: [facility] [place] Comment on above: Medication Problem ( Prior Auth approved for Azelaic Acid 15% gel) Start: 06-30-2022 End: 06-30-2022 Patient encounter procedure Ashley Delacruz MD Work Phone: [facility] [place] Comment on above: Hair loss (Primary D x); Seborrheic dermatitis; Archie; Inflamed seborrheic keratosis; Actinic keratosis; Acne rosacea, erythematous telangiectatic type Start: 06-30-2022 Telephone encounter Ashley morgan MD Work Phone: [facility] [place] Comment on above: Medication Problem Start: 03-10-2022 End: 03-11-[address] SANTHOSH PAEZ Facility:[facility] Start: 01-17-[address] VIVIAN ORTIZ Facility :[facility] Start: 01-10-2022 End: 01-10-2022 Patient encounter procedure Karin ABEL [facility] Start: 01-03-2022 End: 01-03-2022 Patient encounter procedure Tim Alcaraz [facility] Start: 12-06-2021 End: 12-06-2021 Patient encounter procedure Tim Alcaraz [facility] Start: 11-15-2021 End: 11-15-2021 Patient encounter procedure iTm Omalleykimberly [facility] Start: 06-27-2020 End: 06-27-2020 Patient encounter procedure Ashley Delacruz Work Phone: [facility] [place] Comment on above: Acne rosacea; Hair thinning; Inflamed seborrheic keratosis; Actinic keratosis Start: 01-02-2020 End: 01-02-2020 Emergency department patient visit [facility] ED Comment on above: Bee sting reaction, accidental or unintentional, initial encounter (Primary Dx) Procedures Date Procedure Procedure Detail Performing Clinician Start: 06-02-2024 H. PYLORI STOOL AG, EIA Generic External Data Provider Start: 05-02-2024 CRYOTHERAPY SKIN LESION Milton Wen MD Work Phone: Start: 03-28-2024 Esophagogastroduodenoscopy Natividad Omer DO Work Phone: Start: 02-15-2024 Mammography Kyrie Nettles NP Work Phone: Start: 01-21-2024 Ecg routine ecg w/least 12 lds w/i&r Konstantin Chaves MD Work Phone: Start: 01-18-2024 [facility] TRIGGER POINT INJECTION Cora CORCORAN Work Phone: Start: 10-05-2023 Microscopic observation [Identifier] in Cervix by Cyto stain Cora CORCORAN Work Phone: Start: 02-16-2023 Mammography Cora CORCORAN Work Phone: Start: 09-03-2022 Basic metabolic panel calcium total Jeyson Quiñones MD Start: 03-10-2022 Mammography Konstantin Chaves MD Work Phone: Start: 02-24-2022 Lipid 1996 panel - Serum or Plasma Karthik Cintron MD Work Phone: Knee region structur e (body structure) Tim Alcaraz Comment on above: Left knee Tear Plan of Treatment Date Care Activity Detail Author Start: 10-10-2029 Screening for malign ant neoplasm of cervix [facility] Start: 09-09-2027 Screening for malign ant neoplasm of cervix [facility] Start: 02-24-2027 Lipid panel Lipid Screening [facility] Start: 02-24-2027 LIPID SCREEN LIPID SCREEN [facility] Start: 10-04-2026 Screening for malign ant neoplasm of cervix Pap Smear [facility] Start: 02-09-2026 Screening for malign ant neoplasm of colon [facility] Start: 09-03-2025 Diabetes Screening Diabetes Screenin g [facility] Start: 02-15-2025 End: 12-10-2025 DBT Breast - bilateral screening Bilateral screening mammogram with tomosynthesis Imaging Routine Breast cancer screening by mammogram Expected: 02/15/2025, Expires: 12/10/2025 [facility] Comment on above: Expected: 02/15/2025 , Expires: 12/10/2025 Start: 02-14-2025 Screening for malign ant neoplasm of breast Mammogram [facility] Start: 12-19-[address] [facility] Start: 10-10-2024 End: 10-10-2024 Patient encounter procedure THADDEUS AKIN Start: 09-27-2024 End: 09-27-2024 Patient encounter procedure 09/27/2024 9:50 AM EDT Office Visit [address] [place] [address] Konstantin Chaves MD [address] [place] [address] [facility] Start: 09-19-2024 End: 09-19-2024 Patient encounter procedure 09/19/2024 1:05 PM EDT Office Visit [facility] [address] [place] [address] Milton Wen MD [address] [place] [address] [facility] Start: 09-02-2024 End: 09-02-2025 CT Posterior fossa WO contrast CT internal auditory canals/posterior fossa wo IV contrast Imaging Routine Acute mastoiditis of right side Expected: 09/02/2024, Expires: 09/02/2025 [facility] Work Phone: Comment on above: Expected: 09/02/2024 , Expires: 09/02/2025 Start: 08-23-2024 End: 08-23-2024 Patient encounter procedure [facility] Comment on above: Arrived Start: 08-23-2024 End: 08-23-2025 MR Brain WO contrast MR brain wo contrast Imaging Routine Recurrent headache Trigeminal neuralgia of right side of face (CMS/HCC) Dizziness Expected: 08/23/2024, Expires: 08/23/2025 [facility] Work Phone: Comment on above: Expected: 08/23/2024 , Expires: 08/23/2025 Start: 08-16-2024 End: 08-16-2025 Lipid 1996 panel - Serum or Plasma Lipid panel Lab Routine Screening for lipid disorders Expected: 08/16/2024 (Approximate), Expires: 08/16/2025 [facility] Work Phone: Comment on above: Expected: 08/16/2024 (Approximate), Expires: 08/16/2025 Start: 07-18-2024 End: 07-18-2024 Patient encounter procedure THADDEUS GERARDO Comment on above: Chronic migraine wit h aura without status migrainosus, not intractable (CMS/HCC) Start: 07-04-2024 End: 07-04-2024 Patient encounter procedure 07/04/2024 9:40 AM EDT Office Visit [facility] [address] [place] [address] Ramesh Gonzalez MD [address] [place] [address] [facility] Start: 06-13-2024 End: 06-13-2024 Patient encounter procedure 06/13/2024 2:45 PM EST Office Visit [facility] [address] [place] [id number] Santhosh Paez DO [address] [place] [address] [facility] Start: 06-02-2024 End: 06-02-2024 Patient encounter procedure 06/02/2024 1:30 PM EST Office Visit [facility] [address] [place] [phone] Kyrie Nettles PATCHER WOOD WELDER [address] [place] [address] Arrived [facility] Comment on above: Arrived Start: 05-02-2024 End: 05-02-2024 Patient encounter procedure 05/02/2024 2:30 PM EST Office Visit [facility] [address] [place] [address] Milton Wen MD [address] [place] [address] [facility] Start: 04-26-2024 End: 04-26-2025 CT Head WO contrast CT head wo IV contrast Imaging Routine Dizziness Elevated blood pressure reading Frequent headaches Expected: 04/26/2024, Expires: 04/26/2025 [facility] Work Phone: Comment on above: Expected: 04/26/2024 , Expires: 04/26/2025 Start: 04-26-2024 End: 04-26-2024 Patient encounter procedure 04/26/2024 11:30 AM EST Office Visit [facility] [address] [place] [address] Kristi Pastor PA [address] [place] [address] Arrived [facility] Comment on above: Arrived Start: 03-28-2024 [facility] Start: 03-07-2024 End: 03-07-2024 ambulatory 03/07/2024 8:30 AM EST Treatment [facility] [address] [place] [address] Salima Navarrete, PT [facility] Start: 02-17-2024 Screening for malign ant neoplasm of breast Mammogram [facility] Start: 02-16-2024 End: 02-15-2025 25-hydroxyvitamin D3 [Mass/volume] in Serum or Plasma Vitamin D 25 hydroxy Lab Routine Vitamin D deficiency Wellness examination Expected: 02/16/2024 (Approximate), Expires: 02/15/2025 [facility] Comment on above: Expected: 02/16/2024 (Approximate), Expires: 02/15/2025 Start: 02-16-2024 End: 02-15-2025 CBC panel - Blood by Automated count CBC Lab Routine Shortness of breath Primary osteoarthritis of both knees Seasonal allergic rhinitis due to pollen Wellness examination Expected: 02/16/2024 (Approximate), Expires: 02/15/2025 [facility] Comment on above: Expected: 02/16/2024 (Approximate), Expires: 02/15/2025 Start: 02-16-2024 End: 02-15-2025 Cobalamin (Vitamin B12) [Mass/volume] in Serum or Plasma Vitamin B12 Lab Routine B12 deficiency Wellness examination Expected: 02/16/2024 (Approximate), Expires: 02/15/2025 [facility] Work Phone: Comment on above: Expected: 02/16/2024 (Approximate), Expires: 02/15/2025 Start: 02-16-2024 End: 02-15-2025 Comprehensive metabolic 2000 panel - Serum or Plasma Comprehensive metabolic panel Lab Routine Mild aortic valve regurgitation Nonrheumatic aortic valve insufficiency Disorder of thyroid gland (CMS/HCC) Wellness examination Expected: 02/16/2024 (Approximate), Expires: 02/15/2025 [facility] Comment on above: Expected: 02/16/2024 (Approximate), Expires: 02/15/2025 Start: 02-16-2024 End: 02-15-2025 CT Chest for screening WO contrast CT lung screening low dose Imaging Routine Wellness examination Screening for lung cancer Personal history of nicotine dependence Expected: 02/16/2024, Expires: 02/15/2025 [facility] Comment on above: Expected: 02/16/2024 , Expires: 02/15/2025 Start: 02-16-2024 End: 02-15-2025 Lipid 1996 panel - Serum or Plasma Lipid panel Lab Routine Wellness examination Screening for lipid disorders Expected: 02/16/2024 (Approximate), Expires: 02/15/2025 [facility] Comment on above: Expected: 02/16/2024 (Approximate), Expires: 02/15/2025 Start: 02-16-2024 End: 02-15-2025 Thyrotropin [Units/volume] in Serum or Plasma TSH Lab Routine Disorder of thyroid gland (CMS/HCC) Wellness examination Expected: 02/16/2024 (Approximate), Expires: 02/15/2025 [facility] Comment on above: Expected: 02/16/2024 (Approximate), Expires: 02/15/2025 Start: 02-16-2024 End: 02-16-2024 Patient encounter procedure [facility] Comment on above: Wellness examination (Primary Dx); Exercise-induced asthma (CMS/HCC); Epigastric pain; Shortness of breath; Mild aortic valve regurgitation; Nonrheumatic aortic valve insufficiency; Tachycardia; Primary osteoarthritis of both knees; B12 deficiency; Disorder of thyroid gland (CMS/HCC); Vitamin D deficiency; Acne rosacea, erythematous telangiectatic type; Seasonal allergic rhinitis due to pollen; Screening for lipid disorders Start: 02-15-2024 End: 02-15-2024 ambulatory 02/15/2024 8:30 AM EDT Treatment [facility] [address] [place] [address] Salima Navarrete, PT [facility] Start: 02-08-2024 End: 02-08-2024 ambulatory 02/08/2024 8:30 AM EDT Treatment [facility] [address] [facility] [address] [place] [address] Salima Navarrete, PT [facility] Start: 02-01-2024 End: 02-01-2024 ambulatory [facility] Comment on above: Arrived Start: 01-25-2024 End: 01-25-2024 ambulatory 01/25/2024 11:00 AM EDT Evaluation [facility] [address] [facility] [address] [place] [address] Salima Navarrete, PT Trigger point with back pain [facility] Comment on above: Trigger point with b ack pain Start: 01-18-2024 End: 01-18-2024 Patient encounter procedure 01/18/2024 1:30 PM EDT Office Visit [facility] [address] [facility] [address] [place] [id number] Cora Drake PA [address] [facility] [address] [place] [address] Acute right hip pain (Primary Dx) [facility] Comment on above: Acute right hip pain (Primary Dx) Start: 12-20-2023 COVID-19 Vaccine ( season) COVID-19 Vaccine ( season) [facility] Start: 12-20-2023 Covid-19 Vaccine ( season) Covid-19 Vaccine ( season) [facility] Start: 12-20-2023 Influenza vaccination Influenza Vacc ine (#1) [facility] Start: 07-01-2023 ANNUAL PCP TEAM CREDIT ANALYSIS MANAGER CELE DISEASE VISIT ANNUAL PCP TEAM CHRONIC DISEASE VISIT [facility] Start: 03-10-2023 Screening for malign ant neoplasm of breast [facility] Start: 11-18-2022 Influenza vaccination Flu vacc ine (Season Ended) [facility] Start: 06-30-2022 End: 08-30-2022 25-hydroxyvitamin D3 [Mass/volume] in Serum or Plasma [facility] Work Phone: Comment on above: Expected: 06/30/2022 , Expires: 08/30/2022 Start: 06-30-2022 End: 08-30-2022 Cobalamin (Vitamin B12) [Mass/volume] in Serum or Plasma [facility] Work Phone: Comment on above: Expected: 06/30/2022 , Expires: 08/30/2022 Start: 06-30-2022 End: 08-30-2022 Thyrotropin [Units/volume] in Serum or Plasma [facility] Work Phone: Comment on above: Expected: 06/30/2022 , Expires: 08/30/2022 Start: 04-20-2022 DEPRESSION ASSESSMENT DEPRESSION ASS ESSMENT [facility] Start: 12-19-2021 Influenza vaccination INFLUENZA (#1) [facility] Start: 06-27-2021 ANNUAL PCP TEAM CREDIT ANALYSIS MANAGER CELE DISEASE VISIT ANNUAL PCP TEAM CHRONIC DISEASE VISIT [facility] Start: 12-20-2019 Influenza vaccination [facility] Start: 11-10-2019 SHINGRIX VACCINE (2 of 2) SHINGRIX VACCINE (2 of 2) [facility] Start: 02-19-2018 Pneumococcal Vaccine : 50+ (1 of 1 - PCV) Pneumococcal Vaccine: 50+ (1 of 1 - PCV) [facility] Start: 02-19-2018 Screening for malign ant neoplasm of colon [facility] Start: 02-19-2013 COLOGUARD (FIT-DNA) COLOGUARD (FIT-D NA) [facility] Start: 02-19-2013 Colonoscopy COLONOSCOPY [facility] Start: 02-19-2013 COLORECTAL CANCER SCREENING COLORECTAL CANCER SCREENING [facility] Start: 02-19-[address] COLONOGRAPHY [facility] Start: 02-19-2013 DIABETES SCREEN DIABETES SCREEN [facility] Start: 02-19-2013 FECAL OCCULT BLOOD FECAL OCCULT BLOO D [facility] Start: 02-19-2013 LIPID SCREEN LIPID SCREEN [facility] Start: 02-19-2013 Screening for malign ant neoplasm of colon [facility] Start: 02-19-2013 SIGMOIDOSCOPY SIGMOIDOSCOPY [facility] Start: 2008 Mammography MAMMOGRAM [facility] Start: 02-19-1998 HPV TESTING HPV TESTING [facility] Start: 02-19-1990 DTaP/Tdap/Td Vaccine s (1 - Tdap) DTaP/Tdap/Td Vaccines (1 - Tdap) [facility] Start: 02-19-1989 PAP TESTING PAP TESTING [facility] Start: 02-19-1989 Screening for malign ant neoplasm of cervix [facility] Start: 02-19-1987 DTaP/Tdap/Td vaccine (1 - Tdap) DTaP/Tdap/Td vaccine (1 - Tdap) [facility] Start: 02-19-1987 Hepatitis B Vaccine (1 of 3 - 19+ 3-dose series) Hepatitis B Vaccine (1 of 3 - 19+ 3-dose series) [facility] Start: 02-19-1987 Hepatitis B Vaccines (1 of 3 - 19+ 3-dose series) Hepatitis B Vaccines (1 of 3 - 19+ 3-dose series) [facility] Start: 02-19-1987 Urine microalbumin profile [facility] Start: 02-19-1986 Anxiety Screening Anxiety Screening [facility] Start: 02-19-1986 Depression Screening Depression Scre ening [facility] Start: 02-19-1986 Diabetes mellitus screening Diabetes Screening [facility] Start: 02-19-1986 HEPATITIS C SCREENING HEPATITIS C [facility] Start: 02-19-1986 Hepatitis C screening Hepatitis C [facility] Start: 02-19-1986 HIV SCREENING HIV SCREENING [facility] Start: 02-19-1986 HIV screening HIV Screening [facility] Start: 02-19-1986 SPIROMETRY SPIROMETRY [facility] Start: 1980 Adult depression screening assessment DEPRESSION SCREENING [facility] Start: 02-19-1974 PNEUMOCOCCAL (1 - PCV) PNEUMOCOCCAL (1 - PCV) [facility] Start: 02-19-1974 Pneumococcal Vaccine : Pediatrics (0 to 5 Years) and At-Risk Patients (6 to 64 Years) (1 of 2 - PCV) Pneumococcal Vaccine: Pediatrics (0 to 5 Years) and At-Risk Patients (6 to 64 Years) (1 of 2 - PCV) [facility] Start: 02-19-1969 MMR Vaccines (1 of 1 - Standard series) MMR Vaccines (1 of 1 - Standard series) [facility] Start: 1968 COVID-19 VACCINE (#1) COVID-19 VACCI NE (#1) [facility] Start: 1968 HEPATITIS B (1 of 3 - 3-dose series) HEPATITIS B (1 of 3 - 3-dose series) [facility] Start: 1968 HIV screening HIV Screening [facility] Start: 1968 Lipid panel Lipid Panel [facility] Start: 1968 Screening for malign [facility] [facility] Start: 1970 Screening for malign ant neoplasm of lung Lung Cancer Screening Shared Decision Making [facility] Start: 1970 [facility] End: 09-28-2025 HEARING TEST/AUDIOGRAM HEARING TEST/AUDIOGRAM Audiology Routine Ear lesion 1 Occurrences starting 09/27/2024 until 09/28/2025 [facility] Work Phone: Comment on above: 1 Occurrences starti ng 09/27/2024 until 09/28/2025 IGP, APT HPV,RFX 16/18,45 IGP, APT HPV,RFX 16/18,45 Lab Routine Encounter for Papanicolaou smear of cervix Ordered: 10/10/2024 [facility] Work Phone: Comment on above: Ordered: 10/10/2024 Patient Education [facility] Work Phone: XR Lumbar spine 2 or 3 Views XR lumbar spine 2 or 3 views Imaging Routine Lumbar pain 01/18/2024 1:26 PM EDT [facility] Work Phone: Immunizations Immunization Date Immunization Notes Care Provider Fa malaika 09-15-2019 zoster vaccine recombinant Ashley Delacruz [facility] 03-27-2019 zoster vaccine, unspecified formulation Ashley Delacruz [facility] 03-21-2019 zoster vaccine recombinant Ashley Delacruz MD Work Phone: [facility] NEGATED: Highlighted row has not occurred!02-02-2023 influenza virus vaccine, unspecified formulation Tim Alcaraz [facility] Payers Date Payer Category Payer Private Health Insurance [id number] 2024 Private Health Insurance [id number] 2022 Unknown [id number]. [id number] 2021 Unknown [employer] BS FEP PPO [id number] 2021-Present [phone] [address] [place] [address] PPO [id number] 2018 Private Health Insurance [employer] A ETNA CHOICE POS II [id number] 2018-Present POS [id number]. [id number] 2009 Managed Care HMO (unspecified) [id number]. [id number] 2009 Private Health Insurance [id number] .[id number]. [id number] 2009 Private Health Insurance [id number] 1.2.840.059984.1.13.239.2. [id number] 1968 Unknown [id number] 2.16.840.1.827753.3.579.2. 593 1968 Unknown [id number] 2.16.840.1.257738.3.579.2. 593 1968 Unknown [id number] 2.16.840.1.143753.3.579.2. 173 1968 Unknown [id number] 2.16.840.1.576339.3.579.2. 727 1968 Unknown [id number] 2.16.840.1.993370.3.579.2. 727 1968 Unknown [id number] 2.16.840.1.644298.3.579.2. 1244 1968 Unknown [id number] 2.16.840.1.506778.3.579.2. 1258 1968 Unknown [id number] 2.16.840.1.443980.3.579.2. 1258 1968 Unknown [id number] 2.16.840.1.239418.3.579.2. 1258 1968 Unknown [id number] 2.16.840.1.597163.3.579.2. 1258 1968 Unknown [id number] 2..840.1.302056.3.579.2. 1258 1968 Unknown [id number] 2.840.1.750017.3.579.2. 1258 1968 Unknown [id number] 2.840.1.438871.3.579.2. 1258 1968 Unknown [id number] 2.840.1.476692.3.579.2. 1258 1968 Unknown [id number] 2.840.1.376595.3.579.2. 1258 1968 Unknown [id number] 2.840.1.899594.3.579.2. 1258 1968 Unknown [id number] 2..840.1.428712.3.579.2. 1258 1968 Unknown [id number] 2.16.840.1.789838.3.579.2. 1258 1968 Unknown [id number] 2.16.840.1.092122.3.579.2. 1258 1968 Unknown [id number] 2.16840.1.452989.3.579.2. 1258 1968 Unknown [id number] 2.16.840.1.296587.3.579.2. 1259 1968 Unknown [id number] 2.16.840.1.672821.3.579.2. 9 1968 Unknown [id number] 2.16.840.1.759941.3.579.2. 9 1968 Unknown [id number] 2.16.840.1.522634.3.579.2. 1258 1968 Unknown [id number] 2.16.840.1.967058.3.579.2. 9 1968 Unknown [id number] 2.16.840.1.027985.3.579.2. 1258 1968 Unknown [id number] 2.16.840.1.814083.3.579.2. 1259 1959 Self-pay 1959 Unknown [id number] Unknown [id number] 2.16.840.1.191284.3.579.2. 531 Social History Date Type Detail Facility Start: 01-02-2020 End: 08-25-2022 Tobacco smoking status TXIS Never smoker [place] Start: 01-02-2020 End: 07-18-2024 Tobacco use and exposure Never used [place], [place] Start: 01-02-2020 End: 10-10-2024 Alcohol intake Current drinker of alcohol (finding) [place], [place] Start: 01-02-2020 Alcohol Comment occasionaly [place] Start: 1970 Sex Assigned At Not on file [place] Start: 06-27-2020 End: 07-18-2024 Tobacco smoking status TXIS Former smoker [facility] Start: 09-29-1989 End: 03-31-2012 History of tobacco use Current smoker [facility] Start: 06-27-2020 Alcohol Comment WINE ONCE A MONTH [facility] Start: 01-11-2024 End: 01-21-2024 Exposure to SARS-CoV-2 (event) Not sure [facility] Tobacco smoking status No Smokin g Status Entered [facility] Start: 09-08-2023 End: 10-10-2024 Sex Assigned At Female [facility] Start: 09-29-1989 End: 03-31-2012 History of tobacco use Cigarette Smoker [facility] Start: 09-03-2022 History SDOH Alcohol Frequency 1 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 Start: 01-21-2024 Alcohol Comment rarely [facility] Work Phone: Start: 09-08-2023 End: 10-10-2024 History of Social function [facility] Do you belong to any clubs or organizations such as zoroastrian groups, unions, fraternal or athletic groups, or [...] Caffeine: 1 energy drink daily [facility] Start: 05-16-2024 End: 09-19-2024 Sex Female (finding) [facility] Start: 1970 Sex Assigned At Female [facility] Goals Date Patient Goal Desired Activity /State Functional Status Date Assessment Result Facility 10-10-2024 Total score [AUDIT-C] 1 10/11/19 25 11:09 AM Jaz Lynn MA [facility] 10-10-2024 Patient Health Quest ionnaire 2 item (PHQ-2) [Reported] [facility] 08-23-2024 Patient Health Quest ionnaire 2 item (PHQ-2) [Reported] [facility] 02-02-2023 Functional Status No [facility] 01-10-2022 Functional Status N/A [facility] 11-15-2021 Functional Status N/A [facility] Clinical Notes 12-28-2019 to 10-27-2024 Telephone Encounter - JEWELL Casey - 10/27/2024 1:07 PM EDTTelephone Encounter - JEWELL Casey - 10/27/2024 1:07 PM EDTTelephone Encounter - Eva Wang - 10/27/2024 11:52 AM EDT Note Date & Type Note Facility 10-27-2024 Telephone encounter Note Sent. [facility] 10-27-2024 Miscellaneous Notes Sent. Patient says she is no longer seeing her neurologist who normally prescribes her headache medication and she asked if kyrie would be able to take over this med for her. She asked for OXcarbazepine (Trileptal) 150 MG tablet to be called into drug [facility] [place] documented in this encounter [facility] 10-27-2024 Telephone encounter Note Patient says she is no longer seeing her neurologist who normally prescribes her headache medication and she asked if kyrie would be able to take over this med for her. She asked for OXcarbazepine (Trileptal) 150 MG tablet to be called into drug [facility] [place] [facility] 10-10-2024 History of Presen t illness Narrative Images from the original note were not included. Santhosh Paez, DO Obstetrics and Gynecology Gwynjerry Garcia 1970 10/10/24 [id number] Yearly Wellness Exam Chief Complaint Patient presents with Gynecologic Exam LMP: 06/27/24 BC: - vasectomy Last pap 10-05-23 neg. Last mammogram 02-15-24 [facility]. Denies breast, urinary, or bowel concerns. Menopause Reports ongoing hot flashes, night sweats, body aches, mood swings. Did not try Veozah, since samples were , but admits she does not want to do blood work every 3 months. Would like to discuss HRT. Dyspareunia Occasional pain with intercourse- penetration and during. Does not think positional. Tries to use lube. Questions HRT cream? Headache Had CT d/t headaches- found Erosive, expansile lesion of the right petrous apex with cortical breakthrough. Has October appt with ENT for fluid behind ear. Visit Vitals BP 120/76 Ht 5' 4 Wt 153 lb LMP 06/27/2024 (Approximate) BMI 26.26 kg/m OB Status Having periods Smoking Status Former BSA 1.77 m OB History Para Term AB Living 3 3 3 SAB IAB Ectopic Multiple Live Births 3 # Outcome Date GA Lbr Jose/2nd Weight Sex Type Anes PTL Lv 3 Para Vag-Spont EDER 2 Para Vag-Spont EDER 1 Para Vag-Spont EDER Obstetric Comments Heaviest weighed 8 lbs 9 oz Current Outpatient Medications Medication Sig Dispense Refill Allergy Relief/Nasal Decongest 5-120 MG 12 hr tablet Take 1 tablet by mouth every 12 (twelve) hours albuterol HFA 90 mcg/act inhaler albuterol sulfate HFA 90 mcg/actuation aerosol inhaler busPIRone (Buspar) 10 MG tablet Take 1 tablet (10 mg) by mouth 2 (two) times a day as needed (Anxiety) 60 tablet 1 EPINEPHrine (Epipen) 0.3 MG/0.3ML injection syringe Inject 0.3 mL (0.3 mg) as directed 1 (one) time for 1 dose 0.3 mL 0 famotidine (Pepcid) 40 MG tablet Take 40 mg by mouth at bedtime metoprolol succinate XL (Toprol-XL) 25 MG 24 hr tablet TAKE 1 TABLET BY MOUTH DAILY 100 tablet 3 minoxidil (Rogaine) 2 % external solution Apply topically Daily 60 mL 11 norethindrone-ethinyl estradiol (Jinteli) 1-5 MG-MCG tablet Take 1 tablet by mouth Daily 90 tablet 3 omeprazole (PriLOSEC) [address] capsule Take 40 mg by mouth in the morning and 40 mg before bedtime. OXcarbazepine (Trileptal) 150 MG tablet Take 1 tablet (150 mg) by mouth in the morning and 1 tablet (150 mg) before bedtime. 60 tablet 2 polyethylene glycol, PEG, 3350 (Glycolax) 17 GM/SCOOP powder Take 17 g by mouth Daily PRN saccharomyces boulardii (Florastor) 250 MG capsule Take 250 mg by mouth Daily tiZANidine (Zanaflex) 4 MG tablet Take 1 tablet (4 mg) by mouth at bedtime 30 tablet 0 Ubrelvy 50 MG tablet TAKE 1 TABLET BY MOUTH DAILY NEEDED FOR MIGRAINE 10 tablet 11 No current facility-administered medications for this visit. Allergies Allergen Reactions Bee Venom Unknown Meloxicam GI bleeding Trazodone Unknown Cyclobenzaprine Palpitations Other Reaction(s): Other: See Comments Past Surgical History: Procedure Laterality Date KNEE SURGERY 04/2021 RT KNEE SCOPE-DR WILL Past Medical History: Diagnosis Date Actinic keratosis Arthritis Asthma (HCC) Brain lesion Bursitis of hip COVID-19 05/2021 COVID-19 03/2022 ETD (Eustachian tube dysfunction), bilateral Headache, tension-type Helicobacter pylori gastritis Patient reports she was dx by [facility] History of varicose veins Hypertension Menopause ovarian failure Migraine Tear of meniscus of knee ROS Const: Denies appetite change, fever, chills. Allergy: Denies medication reaction. Ocular: Denies visual acuity change. ENT: Denies hearing change. Endoc: Denies weight loss. Resp: Denies dyspnoea, wheezing. Cardiac: Denies angina, palpitations. GI: Denies nausea, vomiting. Haem: Denies bleeding. : Denies incontinence. MSK: Denies arthralgias, joint oedema. Derm: Denies rash, hair loss. Neuro: Denies ataxia, tremor. Also see HPI for elements of ROS documented therein and for details of positive findings, which shall supersede the foregoing. EXAM GENERAL EXAMINATION alert oriented well developed, well nourished. HEAD: normocephalic atraumatic. EYES: sclera anicteric. EARS: no obvious hearing deficit. NECK/THYROID: neck supple no cervical lymphadenopathy no thyromegaly. LYMPH NODES: no axillary, supraclavicular or inguinal adenopathy. SKIN: warm and dry. HEART: regular rate and rhythm. LUNGS: clear to auscultation bilaterally. CHEST:axillary nodes grossly normal. BREASTS:no masses palpable bilaterally, normal nipples bilaterally - everted -fatty replaced - dense - well supported- axilla negative. ABDOMEN: soft, nontender, nondistended, no masses palpable. BACK: no costovertebral angle tenderness, no obvious scoliosis/kyphosis. 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 RECTAL:normal tone , no masses palpable , only small external hemorrhoids. EXTREMITIES no edema. NEUROLOGIC: alert and oriented. PSYCH: cooperative with exam. ICD-10-CM 1. Encounter for gynecological examination without abnormal finding Z01.419 Pelvic and breast exam completed. Findings of today's exam discussed with the patient. Continue MSBE. Ca/Vit D recommendations reviewed with the patient. The patient is to contact the office with any changes to her gynecological condition or any changes with breast or bleeding. The patient is to return in 1 year or as needed 2. Encounter for Papanicolaou smear of cervix Z12.4 IGP, APT HPV,RFX 16/18,45 Thinprep collected. Will notify patient if results are abnormal. 3. Breast cancer screening by mammogram Z12.31 Bilateral screening mammogram with tomosynthesis Screening mammogram ordered. Patient to call and schedule. 4. Hot flashes R23.2 norethindrone-ethinyl estradiol (Jinteli) 1-5 MG-MCG tablet She will see ENT Neuro specialist in 3 weeks with [facility]. Discussed waiting to start HRT until after seeing specialist. Educated on WHI study. Wilian sent in, start after appointment if specialist is okay with. IF starts call office with update. Entered by Nakia Murdock MA acting as scribe for Dr. Santhosh Paez. Signature Nakia Murdock MA Date 10/10/24 . Time 11:38 AM . The documentation recorded by the scribe accurately reflects the service(s) I personally performed and the decisions I made. Signature Eliana Paez D.O. Date 10/10/24 Time 5:00PM. documented in this encounter [facility] 09-27-2024 Note HNO ID: [id number] Author: KARTHIK CINTRON MD Service: ? Author Type: Physician Type: Progress Notes Filed: 09/27/2024 14:58 Note Text: History: Gwyn Garcia, a 54 year old female, presents for evaluation of R petrous apex lesion. H/o constant R frontal headaches with radiation to R ear and R side of mandible multiple times per d, lasting secs, since 05/14. Headaches resolved. T-bone CT 08/29/24: expansile multifocal lesion of medial petrous apex 2.1 x 1.1 cm. Denies hearing change, tinnitus, dizziness, itching, drainage, nasal congestion, runny-nose, post-nasal drip. No history of noise exposure. No history of ear infections. No history of ear surgery. No history of ear trauma. No history of allergies. PAST MEDICAL HISTORY Diagnosis Date Acne rosacea, erythematous telangiectatic type Actinic keratosis B12 deficiency Bee sting allergy Exercise-induced asthma (HCC) Hair thinning Inflamed seborrheic keratosis Mild aortic valve regurgitation 10/30/2020 Followed by cardiology/Dr. Allen Seasonal allergic rhinitis due to pollen Vitamin D deficiency History reviewed. No pertinent surgical history. PE: Alert; oriented; well-developed; no apparent distress. Normal voice; normal communication. Eyes: EOMI, pupils symmetric and reactive bilaterally. Nose: patent, normal mucosa, no congestion, no rhinorrhea. Oral cavity, oropharynx: No ulcerative or mass lesions, tongue midline, palate elevates symmetrically, tongue base and floor of mouth soft. Neck: nontender, no lymphadenopathy or masses. Thyroid: no masses. Face: symmetric, sinuses nontender, skin without lesions. Salivary glands: normal size, nontender, no masses. Ears: R: EAC free of lesions. TM clear and mobile. L: EAC free of lesions. TM clear and mobile. Neurologic: painter helper II-XII grossly intact. Assessment/Plan: R petrous apex lesion. Rec audio, consult Dr. Abebe or Dr. Jackson for further evaluation. Medical Decision Making: Problems: Moderate: New problem with uncertain prognosis Risk: Low: Low risk from testing/treatment Medical Decision Making Level: 3 - Low [facility] 09-27-2024 History of Presen t illness Narrative History: Gwyn Garcia, a 54 year old female, presents for evaluation of R petrous apex lesion. H/o constant R frontal headaches with radiation to R ear and R side of mandible multiple times per d, lasting secs, since 05/14. Headaches resolved. T-bone CT 08/29/24: expansile multifocal lesion of medial petrous apex 2.1 x 1.1 cm. Denies hearing change, tinnitus, dizziness, itching, drainage, nasal congestion, runny-nose, post-nasal drip. No history of noise exposure. No history of ear infections. No history of ear surgery. No history of ear trauma. No history of allergies. PAST MEDICAL HISTORY Diagnosis Date Acne rosacea, erythematous telangiectatic type Actinic keratosis B12 deficiency Bee sting allergy Exercise-induced asthma (HCC) Hair thinning Inflamed seborrheic keratosis Mild aortic valve regurgitation 10/30/2020 Followed by cardiology/Dr. Allen Seasonal allergic rhinitis due to pollen Vitamin D deficiency History reviewed. No pertinent surgical history. PE: Alert; oriented; well-developed; no apparent distress. Normal voice; normal communication. Eyes: EOMI, pupils symmetric and reactive bilaterally. Nose: patent, normal mucosa, no congestion, no rhinorrhea. Oral cavity, oropharynx: No ulcerative or mass lesions, tongue midline, palate elevates symmetrically, tongue base and floor of mouth soft. Neck: nontender, no lymphadenopathy or masses. Thyroid: no masses. Face: symmetric, sinuses nontender, skin without lesions. Salivary glands: normal size, nontender, no masses. Ears: R: EAC free of lesions. TM clear and mobile. L: EAC free of lesions. TM clear and mobile. Neurologic: painter helper II-XII grossly intact. Assessment/Plan: R petrous apex lesion. Rec audio, consult Dr. Abebe or Dr. Jackson for further evaluation. Medical Decision Making: Problems: Moderate: New problem with uncertain prognosis Risk: Low: Low risk from testing/treatment Medical Decision Making Level: 3 - Low documented in this encounter [facility] 09-23-2024 Telephone encounter Note Called and left message for patient letting her know that I do not have any new or different information other than what was already discussed with her on 09/20/2024. Advised will need to wait and see what the specialist has to say. Advised she can call back and LM with any specific questions she may have. [facility] 09-23-2024 Miscellaneous Notes Called and left message for patient letting her know that I do not have any new or different information other than what was already discussed with her on 09/20/2024. Advised will need to wait and see what the specialist has to say. Advised she can call back and LM with any specific questions she may have. Gwyn called asking if Kristi would have time to call her today to explain her CT scan. She stated she did not want to talk to the nurse. documented in this encounter [facility] 09-23-2024 Telephone encounter Note Gwyn called asking if Kristi would have time to call her today to explain her CT scan. She stated she did not want to talk to the nurse. [facility] 09-20-2024 Telephone encounter Note Reviewed CT of temporal bones results with Dr. Gonzalez. He recommends that the patient see Dr. Thomas Salvador at [facility]. Referral was sent. Dr. Gonzalez did reach out to Dr. Salvador and requested that pt bring copies of the MRI and most recent CT to the office visit. Called pt and informed of CT results, petrous apicitis vs possible mass. Advised pt of the above and she is agreeable to the referral. She can hold off on seeing Neurology or Pain Management until afte her appointment with Dr. Salvador. She is to contact the office if she does not hear from them by Thursday morning. She agrees to pick of discs of imaging to take with her to her appointment. She does state that the headaches have gotten better. Pt in agreement with treatment plan as outlined above. [facility] 09-20-[address] CT of temporal bones results with Dr. Gonzalez. He recommends that the patient see Dr. Thomas Salvador at [facility]. Referral was sent. Dr. Gonzalez did reach out to Dr. Salvador and requested that pt bring copies of the MRI and most recent CT to the office visit. Called pt and informed of CT results, petrous apicitis vs possible mass. Advised pt of the above and she is agreeable to the referral. She can hold off on seeing Neurology or Pain Management until afte her appointment with Dr. Salvador. She is to contact the office if she does not hear from them by Thursday morning. She agrees to pick of discs of imaging to take with her to her appointment. She does state that the headaches have gotten better. Pt in agreement with treatment plan as outlined above. documented in this encounter [facility] 09-19-2024 Telephone encounter Note Acknowledged. [facility] 09-19-2024 Miscellaneous Notes Acknowledged. Spoke with patient and she will call the office on Thursday to see my they canceled her appointment and see if she can see another Doctor there. If she needs a new referral we can send one then. I also told her she can let us know when she needs a refill I am sorry they are doing that to her. I don't know why they would cancel her appointment. I will be happy to provide pt with referral to new Neurologist is she is planning to continue the medication they gave her. We can refill any medications she needs until she can get established with him. Just have her let me know. Ok to refer pt to Dr. Tremayne Keating if she would like to do so. Gwyn called, she is not sure what to do. She was seeing Dr. Orr for Neurology and he was prescribing her medication. She had an appointment scheduled with him and got a letter in the mail stating they were no longer with [facility] and her appointment was cancelled. She does have 1 refill left but does not know if she needs a new referral for someone else or what to do now? Please advise. documented in this encounter [facility] 09-16-2024 Telephone encounter Note Spoke with patient and she will call the office on Thursday to see my they canceled her appointment and see if she can see another Doctor there. If she needs a new referral we can send one then. I also told her she can let us know when she needs a refill [facility] 09-16-2024 Telephone encounter Note I am sorry they are doing that to her. I don't know why they would cancel her appointment. I will be happy to provide pt with referral to new Neurologist is she is planning to continue the medication they gave her. We can refill any medications she needs until she can get established with him. Just have her let me know. Ok to refer pt to Dr. Tremayne Keating if she would like to do so. [facility] 09-16-2024 Telephone encounter Note Gwyn called, she is not sure what to do. She was seeing Dr. Orr for Neurology and he was prescribing her medication. She had an appointment scheduled with him and got a letter in the mail stating they were no longer with [facility] and her appointment was cancelled. She does have 1 refill left but does not know if she needs a new referral for someone else or what to do now? Please advise. [facility] 09-02-[address] ordered. [facility] 09-02-[address] ordered. Pt agrees to plan would [facility] Please let pt know that I spoke with Dr. Gonzalez. He does not think that the findings on the MRI are the cause of the pain she has been having. He recommended a CT that focuses on the Temporal bones for closer exam of the area. If she is agreeable I can send that order in. She can also follow up with the specialist doing the injections if she would like to as that did seem to be helping her. documented in this encounter [facility] 09-01-2024 Telephone encounter Note Pt agrees to plan would like ct scan order sent to [facility] 09-01-2024 Telephone encounter Note Please let pt know that I spoke with Dr. Gonzalez. He does not think that the findings on the MRI are the cause of the pain she has been having. He recommended a CT that focuses on the Temporal bones for closer exam of the area. If she is agreeable I can send that order in. She can also follow up with the specialist doing the injections if she would like to as that did seem to be helping her. [facility] 08-23-2024 History of Presen t illness Narrative Images from the original note were not included. HPI skin irrritation Additional comments: She feels she is allergic to the elastic in her underwear and she is wanting to get a cream for the irritation in the groin area. lab results Additional comments: Discuss lipid panel. She is hoping her numbers improved and she won't have to go on medicine. Last edited by Keshia Ley LPN on 08/23/2024 4:31 PM. Subjective Patient ID: Gwyn Garcia is a 54 y.o. female who presents for headaches. Gwyn is present today for follow up on headaches. She is currently on Ubrelvy and was seen by neurology and they diagnosed her with Trigeminal neuralgia and prescribed Trileptal 150 mg BID and amee referred to pain mgmg. Pain mgmt put an injection in her forehead and it has helped her migraines. Wants to know if the trileptal will need to be continued. Will be having a second injection, and if it goes well, they will be planning to do a nerve ablation. Therapy and mouthguard did not help her symptoms. Doesn't always, but does try to eat healthy for the most part. Tried to improve her portions. States cannot exercise due to headaches. Does have a lot of stress between work and helping to care for her mom. States her BP has been running normally for her at home. Current Outpatient Medications on File Prior to Visit Medication Sig Dispense Refill famotidine (Pepcid) 40 MG tablet Take 40 mg by mouth at bedtime albuterol HFA 90 mcg/act inhaler albuterol sulfate HFA 90 mcg/actuation aerosol inhaler EPINEPHrine (Epipen) 0.3 MG/0.3ML injection syringe Inject 0.3 mL (0.3 mg) as directed 1 (one) time for 1 dose 0.3 mL 0 metoprolol succinate XL (Toprol-XL) 25 MG 24 hr tablet Take 1 tablet (25 mg) by mouth Daily for 6 days Do not crush or chew. 6 tablet 0 minoxidil (Rogaine) 2 % external solution Apply topically Daily 60 mL 11 omeprazole (PriLOSEC) [address] capsule Take 40 mg by mouth in the morning and 40 mg before bedtime. OXcarbazepine (Trileptal) 150 MG tablet Take 1 tablet (150 mg) by mouth in the morning and 1 tablet (150 mg) before bedtime. 60 tablet 2 polyethylene glycol, PEG, 3350 (Glycolax) 17 GM/SCOOP powder Take 17 g by mouth Daily PRN saccharomyces boulardii (Florastor) 250 MG capsule Take 250 mg by mouth Daily tiZANidine (Zanaflex) 4 MG tablet Take 1 tablet (4 mg) by mouth at bedtime 30 tablet 0 Ubrelvy 50 MG tablet TAKE 1 TABLET BY MOUTH DAILY NEEDED FOR MIGRAINE 10 tablet 11 [DISCONTINUED] tacrolimus (Protopic) 0.1 % ointment Apply to affected areas eyelids bid prn when flared (Patient not taking: Reported on 07/18/2024) 60 g 11 No current facility-administered medications on file prior to visit. I have reviewed and reconciled the history and medication list with the patient today. Allergies Allergen Reactions Bee Venom Unknown Meloxicam GI bleeding Trazodone Unknown Cyclobenzaprine Palpitations Other Reaction(s): Other: See Comments Social History Tobacco Use Smoking status: Former Current packs/day: 0.00 Average packs/day: 1 pack/day for 22.5 years (22.5 ttl pk-yrs) Types: Cigarettes Start date: 09/29/1989 Quit date: 03/31/2012 Years since quittin.4 Smokeless tobacco: Never Vaping Use Vaping status: Never Used Substance Use Topics Alcohol use: Yes Alcohol/week: 2.0 standard drinks of alcohol Types: 2 Glasses of wine per week Comment: Frequency: Monthly or less; Caffeine: 1 energy drink daily Drug use: Never Family History Problem Relation Name Age of Onset Osteoarthritis Mother Chelly dirnberg Heart disease Father Dementia Sister Melanoma Neg Hx Past Medical History: Diagnosis Date Actinic keratosis Arthritis Asthma COVID-19 05/2021 COVID-19 03/2022 ETD (Eustachian tube dysfunction), bilateral Helicobacter pylori gastritis Patient reports she was dx by [facility] History of varicose veins Hypertension (CMS/HCC) Menopause ovarian failure Past Surgical History: Procedure Laterality Date KNEE SURGERY 04/2021 RT KNEE SCOPE-DR WILL Visit Vitals BP 138/82 (BP Location: Left arm) Pulse 70 Resp 16 Ht 5' 4 Wt 155 lb SpO2 99% BMI 26.61 kg/m OB Status Having periods Smoking Status Former BSA 1.78 m Review of Systems Constitutional: Negative for chills, fatigue and fever. Respiratory: Negative for cough, shortness of breath and wheezing. Cardiovascular: Negative for chest pain, palpitations and leg swelling. Gastrointestinal: Negative for abdominal pain, constipation, diarrhea, nausea and vomiting. Skin: Positive for rash. Neurological: Positive for headaches (Improving). Objective Physical Exam Constitutional: General: She is not in acute distress. Appearance: Normal appearance. She is well-developed. HENT: Head: Normocephalic and atraumatic. Eyes: General: No scleral icterus. Conjunctiva/sclera: Conjunctivae normal. Cardiovascular: Rate and Rhythm: Normal rate and regular rhythm. Heart sounds: Normal heart sounds. No murmur heard. Pulmonary: Effort: Pulmonary effort is normal. No respiratory distress. Breath sounds: Normal breath sounds. No wheezing, rhonchi or rales. Skin: General: Skin is warm and dry. Comments: Slight erythema along left inguinal region in a linear pattern, consistent with mild skin irritation due to clothing. No open areas, no drainage. Neurological: General: No focal deficit present. Mental Status: She is alert and oriented to person, place, and time. Psychiatric: Mood and Affect: Mood normal. Behavior: Behavior normal. Telephone on 08/16/2024 Component Date Value Ref Range Status CHOLESTEROL, TOTAL 08/22/2024 188 <200 mg/dL Final HDL CHOLESTEROL 08/22/2024 66 > OR = 50 mg/dL Final TRIGLYCERIDES 08/22/2024 63 <150 mg/dL Final LDL-CHOLESTEROL 08/22/2024 107 (H) mg/dL (calc) Final Comment: Reference range: <100 Desirable range <100 mg/dL for primary prevention; <70 mg/dL for patients with CHD or diabetic patients with > or = 2 CHD risk factors. LDL-C is now calculated using the Darvin-Marin calculation, which is a validated novel method providing better accuracy than the Friedewald equation in the estimation of LDL-C. Darvin SS et al. GABY. 2013;310(19): 6736-8433 (http://education.Patreon.com/faq/DAR649) CHOL/HDLC RATIO 08/22/2024 2.8 <5.0 (calc) Final NON HDL CHOLESTEROL 08/22/2024 122 <130 mg/dL (calc) Final Comment: For patients with diabetes plus 1 major ASCVD risk factor, treating to a non-HDL-C goal of <100 mg/dL (LDL-C of <70 mg/dL) is considered a therapeutic option. Assessment/Plan Diagnoses and all orders for this visit: Elevated LDL cholesterol level (CMS/HCC) Advised pt that her LDL cholesterol is significantly improved from 140 to 107. HDL and Triglycerides are normal. Medication is not indicated at this time. Will continue to monitor with routine labs. Continue portion control, aim for healthy diet. Stress reaction - busPIRone (Buspar) 10 MG tablet; Take 1 tablet (10 mg) by mouth 2 (two) times a day as needed (Anxiety) Can take Buspar up to twice a day as needed for her anxiety/stress. Contact office with any concerns. Overweight Advised pt that while her weight is above where she would like it to be, she is not at a BMI that would indicate GLP injections. I did discourage her from pursuing this and encouraged instead that she continue with healthy diet and portion control. Once headaches improve, she will be able to begin exercising regularly again. She has maintained her weight over the last two months. Recurrent headache - MR brain wo contrast; Future Pt requesting to proceed with MRI at this time. Will r/o intracranial cause of pt's headaches due to severity and duration of symptoms. She has seen ENT, Dentistry, Neurology, and Pain Management with continued headaches that limit her ability to function during the day. Migraine treatments have been ineffective. Will notify pf of results once received. She will have this done at [facility] in [place]. Will plan to send a copy of pt's report to Dr. Greenfield. Trigeminal neuralgia of right side of face (CMS/HCC) - MR brain wo contrast; Future Did note some improvement with recent injection, majority of the relief only lasted for about an hour, but states the headaches may be slightly improved, though are still occurring and are still severe. Continue to follow up with Dr. Greenfield. Skin irritation - triamcinolone (Kenalog) 0.5 % cream; Apply topically in the morning and before bedtime. Do all this for 10 days. Start Triamcinolone as prescribed to affected areas as needed. Dizziness - MR brain wo contrast; Future Proceed with MRI of the brain for further evaluation. Tachycardia Pulse is staying WNL with the Metoprolol. BP is much improved on recheck. Will continue to monitor. No follow-ups on file. documented in this encounter [facility] 08-16-2024 Telephone encounter Note Order placed [facility] 08-16-2024 Miscellaneous Notes Order placed Spoke with patient she said that since her cholesterol was off at her last visit it was recommended to her that she get that rechecked in July so she wanted to do that before her next visit - please advise She is not due for labs until Jan. Pt called asking for her cholesterol lab to be ordered by Thursday so she can come in the day before her appt to complete that lab. Pa already completed today. This message is for patient Gwyn Garcia. Her dr. is Rhonda Nettles. I am calling in regards to mutual patient on a Jose date of 1970, calling in regards to have prior authorization for a prescription drug gov. If you guys can please give us a callback that will be great call back number [phone]. Um, this is my final attend in regards to checking status. If the [place] if the doctor's office would like to move forward with the prioritization for the patient, I will go and close out the case. So, um, if you guys would like to go ahead and call back. That will be great at [phone]. Thank you. documented in this encounter [facility] 08-16-2024 Telephone encounter Note Spoke with patient she said that since her cholesterol was off at her last visit it was recommended to her that she get that rechecked in July so she wanted to do that before her next visit - please advise [facility] 08-16-2024 Telephone encounter Note She is not due for labs until Jan. [facility] 08-16-2024 Telephone encounter Note Pt called asking for her cholesterol lab to be ordered by Thursday so she can come in the day before her appt to complete that lab. [facility] 08-16-2024 Telephone encounter Note Pa already completed today. [facility] 08-16-2024 Telephone encounter Note This message is for patient Gwyn Garcia. Her dr. is Rhonda Nettles. I am calling in regards to mutual patient on a Jose date of 1970, calling in regards to have prior authorization for a prescription drug gov. If you guys can please give us a callback that will be great call back number [phone]. Um, this is my final attend in regards to checking status. If the [place] if the doctor's office would like to move forward with the prioritization for the patient, I will go and close out the case. So, um, if you guys would like to go ahead and call back. That will be great at [phone]. Thank you. [facility] 08-03-2024 Evaluation note Diagnosis Onset Date Resolution Frontal headache acute August 032024 3:53pm Other chronic pain acute August 03, 2024 3:53pm Frontal headache acute August 152024 4:08pm Other chronic pain acute August 15, 2024 4:08pm Frontal headache acute September 3:48pm Other chronic pain acute September 192024 3:48pm [facility] Work Phone: 1(127) 713-297903-31-2025 History of Present illness Narrative* Nakia Murdock MA - 07/18/2024 3:30 PM EDT Images from the original note were not included. Santhosh Paez, DO Obstetrics and Gynecology Gwyn Garcia 1970 07/18/24 [id number] Exam Chief Complaint Patient presents with Menopause Pt here to discuss increased hot flashes/ night sweats. LMP 06/27/24 irregular, has skipped months. Headache Seeing neuro- HTN related to headaches. Found nerve RT side of face causing nerve migraines, too. Visit Vitals BP 118/80 Wt 154 lb LMP 06/27/2024 BMI 26.43 kg/m OB Status Having periods Smoking Status Former BSA 1.78 m OB History Para Term AB Living 3 3 3 SAB IAB Ectopic Multiple Live Births 3 # Outcome Date GA Lbr Jose/2nd Weight Sex Type Anes PTL Lv 3 Para Vag-Spont EDER 2 Para Vag-Spont EDER 1 Para Vag-Spont EDER Obstetric Comments Heaviest weighed 8 lbs 9 oz Current Outpatient Medications Medication Sig Dispense Refill albuterol HFA 90 mcg/act inhaler albuterol sulfate HFA 90 mcg/actuation aerosol inhaler Atogepant (Qulipta) 60 MG tablet Take 60 mg by mouth Daily (Patient not taking: Reported on 07/18/2024) 30 tablet 11 EPINEPHrine (Epipen) 0.3 MG/0.3ML injection syringe Inject 0.3 mL (0.3 mg) as directed 1 (one) timefor 1 dose 0.3 mL 0 metoprolol succinate XL (Toprol-XL) 25 MG 24 hr tablet Take 1 tablet (25 mg) by mouth Daily for 6 days Do not crush or chew. 6 tablet 0 minoxidil (Rogaine) 2 % external solution Apply topically Daily 60 mL 11 omeprazole (PriLOSEC) [address] capsule Take 40 mg by mouth in the morning and 40 mg before bedtime. OXcarbazepine (Trileptal) 150 MG tablet Take 1 tablet (150 mg) by mouth in the morning and 1 tablet(150 mg) before bedtime. 60 tablet 2 polyethylene glycol, PEG, 3350 (Glycolax) 17 GM/SCOOP powder Take 17 g by mouth Daily PRN saccharomyces boulardii (Florastor) 250 MG capsule Take 250 mg by mouth Daily tacrolimus (Protopic) 0.1 % ointment Apply to affected areas eyelids bid prn when flared (Patient not taking: Reported on 07/18/2024) 60 g 11 tiZANidine (Zanaflex) 4 MG tablet Take 1 tablet (4 mg) by mouth at bedtime 30 tablet 0 Ubrelvy 50 MG tablet TAKE 1 TABLET BY MOUTH DAILY NEEDED FOR MIGRAINE 10 tablet 11 No current facility-administered medications for this visit. Allergies Allergen Reactions Bee Venom Unknown Meloxicam GI bleeding Trazodone Unknown Cyclobenzaprine Palpitations Other Reaction(s): Other: See Comments Past Surgical History: Procedure Laterality Date KNEE SURGERY 04/2021 RT KNEE SCOPE-DR WILL Past Medical History: Diagnosis Date Actinic keratosis Arthritis Asthma COVID-19 05/2021 COVID-19 03/2022 ETD (Eustachian tube dysfunction), bilateral Helicobacter pylori gastritis Patient reports she was dx by [facility] History of varicose veins Hypertension ([facility]/HCC) Menopause ovarian failure ROS See HPI EXAM GENERAL EXAMINATION alert oriented well developed, well nourished. HEAD: normocephalic atraumatic. EYES: sclera anicteric. EARS: no obvious hearing deficit. NECK/THYROID: neck supple no cervical lymphadenopathy no thyromegaly. LYMPH NODES: no axillary, supraclavicular or inguinal adenopathy. SKIN: warm and dry. HEART: regular rate and rhythm. LUNGS: clear to auscultation bilaterally. EXTREMITIES no edema. NEUROLOGIC: alert and oriented. PSYCH: cooperative with exam. ICD-10-CM 1. Hot flashes R23.2 Reviewed neurologist note from today. Migraine/ pain daily. Going to try Trileptal 150 mg p.o. b.I.d being managed by neurologist. She had a referral placed for pain management as well. Hot flashes/ night sweats. Educated on Veozah. Wakes her up at night. With her starting a new medication today, would not recommend starting 2 new medications at once. Wait for trail period of new medication before starting. ALKALINE PHOSPHATASE 02/16/24 37 - 153 U/L 59 Once starts medication redraw CMP. If tolerates Veozah well can send to pharmacy. Educated about repeat CMP draws. 14 days of sample given. Entered by Nakia Murdock MA acting as scribe for Dr. Santhosh Paez. Signature Nakia Murdock MA Date 07/18/24 . Time 3:35 PM . The documentation recorded by the scribe accurately reflects the service(s) I personally performed and the decisions I made. Signature Eliana Paez D.O. Date 07/18/24 Time 5:00PM. documented in this [facility]Cr[facility] [id number] History of Present illness Narrative* Jose Angel McdanielDO - 07/18/2024 11:00 AM EDT Images from the original note were not included. Chief Complaint: headaches Subjective Gwyn Garcia, 54 y.o., female Patient presents today for a neurologic consult at the request of Dr. Amin for headaches. Patient states she has a daily headache. These started in March. She was found to have high bp and this iscontrolled with medication. These are located on the right lutheran and can radiate down her face andinto her jaw. She takes tizanidine which is somewhat helpful but makes her very drowsy. She has tried qulipta, nurtec and ubrelvy which are not helpful. She does report a fall about three years ago when she fell and hit the right side of her face. She did see an ENT who thought she possibly had TMJ. Patient does not believe this is her issue. Review of Systems Constitutional: Negative for appetite change, fatigue and fever. Respiratory: Negative for cough, shortness of breath and wheezing. Cardiovascular: Negative for chest pain, palpitations and leg swelling. Gastrointestinal: Negative for abdominal pain, constipation, diarrhea and nausea. Musculoskeletal: Negative for arthralgias, gait problem and myalgias. Neurological: Positive for headaches. Negative for dizziness, tremors and numbness. Past Medical History: Diagnosis Date Actinic keratosis Arthritis COVID-19 05/2021 COVID-19 03/2022 ETD (Eustachian tube dysfunction), bilateral Helicobacter pylori gastritis Patient reports she was dx by [facility] History of varicose veins Past Surgical History: Procedure Laterality Date KNEE SURGERY 04/2021 RT KNEE SCOPE-DR WILL Family History Problem Relation Name Age of Onset Heart disease Father Dementia Sister Melanoma Neg Hx Social History Tobacco Use Smoking status: Former Current packs/day: 0.00 Types: Cigarettes Quit date: 03/31/2012 Years since quittin.3 Smokeless tobacco: Never Substance Use Topics Alcohol use: Yes Comment: Frequency: Monthly or less; Caffeine: 1 energy drink daily Allergies: Bee venom, Meloxicam, Trazodone, and Cyclobenzaprine Vitals: 07/18/24 1058 BP: 126/80 Pulse: 65 SpO2: 98% Body mass index is 26.54 kg/m . weight: 154 lb 9.6 oz Neurologic exam: Mental status: Awake, alert to person, place and time. Recent and remote memory are intact. Language is fluent without aphasia. Attention and concentration are normal. Fund of knowledge is appropriate for level of education. Cranial nerves: CN II: Visual acuity is normal. Visual rogel full to confrontation. CN III, IV, : pupils equal round and reactive to light. Extraocular movements intact. No ptosis present. CN V: Facial sensation is normal. CN VII: Full and symmetric facial movement. CN VIII: Hearing is normal to finger rub bilaterally: CN IX and X: Palate elevates symmetrically. CN XI: Shoulder shrug is normal bilaterally. CN XII: Tongue is midline without atrophy or fasciculation. Motor: RUE Strength deltoid, , biceps , triceps , wrist extensors , wrist flexor , cabin service agent strength 5/5. LUE Strength deltoid , biceps , triceps , wrist extensors , wrist flexor , cabin service agent strength 5/5. RLE Strength illopsoas, quadriceps, tibialis anterior, and gastrocnemius strength 5/5. LLE Strength illopsoas, quadriceps, tibialis anterior, and gastrocnemius strength 5/5. Normal tone x4 extremities. Bulk is normal. Sensory: Sensation is intact to light touch throughout Four extremities. Reflexes: RUE biceps reflex 2+ brachioradialis reflex 2+ . LUE biceps reflex 2+ brachioradialis reflex 2+ . RLE knee reflex 2+ . LLE knee reflex 2+ . Cramer's sign negative. Coordination: Oudtsa-cq-ldzw testing and rapid alternating movements are normal Gait: Normal Review and summary of old records: CT of the head without contrast on 04/28/2024: Negative non-contrast CT of the head I have reviewed the notations from temporomandibular joint dysfunction dentistry team Dr. Ashwin Carr, who has recommended the patient may be a candidate for supportive bite splint therapy Assessment/Plan Diagnoses and all orders for this visit: Trigeminal neuralgia of right side of face (CMS/HCC) It is my impression that the patient has trigeminal neuralgia affecting mostly the V1 distribution on the right side of the face. This has been going on for about 3 months. Patient has tried multiplemigraine medications and has had dental evaluation as well. There is a question that TMJ may be causing part of the problem per Dentistry. However, given the distribution, I am suspicious that trigeminal neuralgia may be playing a role. CT of scan of the brain without contrast on 04/28/2024 was unremarkable. Remainder of neurological examination was unremarkable. Plan: Start Trileptal 150 mg p.o. b.I.d.. Side effects discussed in detail. Patient understands and wishes to proceed. We will also send a pain management referral for consideration of trigeminal nerve blockade / ablation to Dr. Greenfield. I am certainly not convinced the patient's symptoms are migrainous. Would be unusual to have the onset of migraine at this age. Patient has not responded to typical migraine treatments also arguing against migraine. We may be able to stop these treatments in the future. Pt has been fully educated on their diagnosis, lab results, treatment options, follow up plan, and return instructions documented in this encounterCr[facility] [id number] Telephone encounter Note* Telephone Encounter - Eugenia Tyson MA - 06/30/2024 8:49 AM EDT Pt called stating her headaches are everyday now and the medication that was given is not helping her, she would like to know if something else could be called into [facility] She does see ENT on Thursday and then later this month neurology [facility] [id number] Miscellaneous Notes* Telephone Encounter - Eugenia Tyson MA - 06/30/2024 8:49 AM EDT Pt called stating her headaches are everyday now and the medication that was given is not helping her, she would like to know if something else could be called into [facility] She does see ENT on Thursday and then later this month neurology documented in this [facility]02-16-2025 Evaluation note* Diagnosis Onset Date Resolution Status Admit Date Acute effusion of both middle ears noneactive June 05, 2 025 1:21pm Impacted cerumen, right ear noneacti ve June 05, 2024 1:21pm Frontal headache acute August 032024 3:53pm Other chronic pain acute August 03, 2024 3:53pm Frontal headache acute August 152024 4:08pm Other chronic pain acute August 15, 2024 4:08pm [facility] Work Phone: 1(139) 659-807402-13-2025 History of Present illness Narrative* Kyrie Nettles, PATCHER WOOD WELDER - 06/02/2024 1:30 PM EST Images from the original note were not included. Subjective Patient ID: Gwyn Garcia is a 54 y.o. female who presents for a F/U for headaches. Gwyn presents today for a F/U visit for headaches that she has been going on for a few years. Theyhave gotten better since her HP is better. She does state that she had a fall 2 years ago and hit her head but didn't do anything about. Current Outpatient Medications on File Prior to Visit Medication Sig Dispense Refill albuterol HFA 90 mcg/act inhaler albuterol sulfate HFA 90 mcg/actuation aerosol inhaler EPINEPHrine (Epipen) 0.3 MG/0.3ML injection syringe Inject 0.3 mL (0.3 mg) as directed 1 (one) timefor 1 dose 0.3 mL 0 metoprolol succinate XL (Toprol-XL) 25 MG 24 hr tablet Take 1 tablet (25 mg) by mouth Daily for 6 days Do not crush or chew. 6 tablet 0 minoxidil (Rogaine) 2 % external solution Apply topically Daily 60 mL 11 omeprazole (PriLOSEC) [address] capsule Take 40 mg by mouth in the morning and 40 mg before bedtime. polyethylene glycol, PEG, 3350 (Glycolax) 17 GM/SCOOP powder Take 17 g by mouth Daily PRN saccharomyces boulardii (Florastor) 250 MG capsule Take 250 mg by mouth Daily tacrolimus (Protopic) 0.1 % ointment Apply to affected areas eyelids bid prn when flared 60 g 11 No current facility-administered medications on file prior to visit. I have reviewed and reconciled the history and medication list with the patient today. Allergies Allergen Reactions Bee Venom Unknown Meloxicam GI bleeding Trazodone Unknown Cyclobenzaprine Palpitations Other Reaction(s): Other: See Comments Social History Tobacco Use Smoking status: Former Current packs/day: 0.00 Types: Cigarettes Quit date: 03/31/2012 Years since quittin.1 Smokeless tobacco: Never Vaping Use Vaping status: Never Used Substance Use Topics Alcohol use: Yes Comment: Frequency: Monthly or less; Caffeine: 1 energy drink daily Drug use: Never Family History Problem Relation Name Age of Onset Heart disease Father Dementia Sister Melanoma Neg Hx Past Medical History: Diagnosis Date Actinic keratosis Arthritis COVID-19 05/2021 COVID-19 03/2022 ETD (Eustachian tube dysfunction), bilateral Helicobacter pylori gastritis Patient reports she was dx by [facility] History of varicose veins Past Surgical History: Procedure Laterality Date KNEE SURGERY 04/2021 RT KNEE SCOPE-DR WILL Visit Vitals OB Status Having periods Smoking Status Former Review of Systems Constitutional: Negative. HENT: Negative. Eyes: Negative. Respiratory: Negative. Cardiovascular: Negative. Gastrointestinal: Negative. Genitourinary: Negative. Musculoskeletal: Negative. Skin: Negative. Neurological: Positive for headaches. Psychiatric/Behavioral: Negative. Objective Physical Exam Vitals and nursing note reviewed. Constitutional: Appearance: Normal appearance. HENT: Head: Normocephalic. Nose: Nose normal. Mouth/Throat: Mouth: Mucous membranes are moist. Pharynx: Oropharynx is clear. Eyes: Conjunctiva/sclera: Conjunctivae normal. Cardiovascular: Rate and Rhythm: Normal rate. Pulmonary: Effort: Pulmonary effort is normal. Skin: General: Skin is warm and dry. Neurological: General: No focal deficit present. Mental Status: She is alert and oriented to person, place, and time. Psychiatric: Mood and Affect: Mood normal. Behavior: Behavior normal. Thought Content: Thought content normal. Assessment/Plan Diagnoses and all orders for this visit: Chronic migraine with aura without status migrainosus, not intractable (CMS/HCC) - Rimegepant Sulfate (Nurtec) 75 MG tablet dispersible; Take 75 mg by mouth 1 (one) time if needed (headaches) - Ambulatory referral to Neurology; Future Await referral to neurology. Ubrevly was ineffective for pt. Pt is not on any prophylactic. BMI 26.0-26.9,adult - Semaglutide-Weight Management (Wegovy) 0.25 MG/0.5ML solution auto-injector; Inject 0.25 mg underthe skin 1 (one) time per week Advised on weight loss options. Encouraged diet and exercise. Discussed with patient appropriate lifestyle modification changes necessary for weight management, heart healthy eating and overall health promotion. Discussed minimizing high carb, high sugar, high sodium, portion control, and processed foods while making healthy choice replacements. Additionally discussed recommendations of 30 minutes of aerobic exercise at least 5 days per week, that includes, walking, and chair exercises. . Instructed importance of drinking adequate water consumption (if not on fluid restriction) with minimal sugar and caffiene. Primary osteoarthritis of both knees - Semaglutide-Weight Management (Wegovy) 0.25 MG/0.5ML solution auto-injector; Inject 0.25 mg underthe skin 1 (one) time per week This is a chronic medical condition that is stable since last assessment. No changes in treatment are suggested at this time. Mild aortic valve regurgitation - Semaglutide-Weight Management (Wegovy) 0.25 MG/0.5ML solution auto-injector; Inject 0.25 mg underthe skin 1 (one) time per week This is a chronic medical condition that is stable since last assessment. No changes in treatment are suggested at this time. Nonrheumatic aortic valve insufficiency - Semaglutide-Weight Management (Wegovy) 0.25 MG/0.5ML solution auto-injector; Inject 0.25 mg underthe skin 1 (one) time per week This is a chronic medical condition that is stable since last assessment. No changes in treatment are suggested at this time. Tachycardia - Semaglutide-Weight Management (Wegovy) 0.25 MG/0.5ML solution auto-injector; Inject 0.25 mg underthe skin 1 (one) time per week Metoprolol has helped with her heart rate. Paroxysmal supraventricular tachycardia (CMS/HCC) - Semaglutide-Weight Management (Wegovy) 0.25 MG/0.5ML solution auto-injector; Inject 0.25 mg underthe skin 1 (one) time per week Metoprolol has helped with her heart rate. No follow-ups on file. documented in this encounterCrittenton Behavioral [id number] History of Present illness Narrative* Milton Wen MD - 05/02/2024 2:30 PM EST Images from the original note were not included. Lesions: Location: face/eyelids Duration: months Quality: itchy Modifying factors: none Associated symptoms: red, scaly Treatments: lotion- caused burning Patient declined any other area looked at today and denies any history of skin cancer. Follow up Diagnosis: Alopecia Location: Scalp Last visit: 06/22/2023 Symptoms: hair shedding Status: hair loss stable Current: Minoxidil solution daily, patient reports she is out of her prescription and she takes Nutrafol (2 pills daily instead of 4) and Finasteride 5 mg daily, increased from 2.5 to 5 mg at last visit. Patient reports she cannot take anything orally right now due to H pylori infection. Established patient All pertinent medical history, medications, and allergies were reviewed. General Exam: alert, oriented to person, place, and time, normal affect, well appearing Unaccompanied A focused exam completed based on patient reported problems, see below: 1. Other atopic dermatitis Left Upper Eyelid, Right Upper Eyelid Faint scaly plaques, not at treatment goal Discussed that atopic dermatitis is a chronic condition that can be controlled but not cured. Recommended using plain Vaseline first before trying medicated topical. Start Protopic cream bid prn whenflared, hold if smooth/asymptomatic. Patient would benefit from nonsteroidal given eyelid involvement, topical steroids contraindicated for use near the eyes. Encouraged daily moisturizing and gentle cleansers to prevent flares. Notify office if flaring despite treatment. Related Medications tacrolimus (Protopic) 0.1 % ointment Apply to affected areas eyelids bid prn when flared 2. Androgenic alopecia Scalp Frontal scalp thinning with intact frontal hairline and miniaturization. Regrowth present Patient was counseled that this condition is chronic and can be controlled, but not cured. Continue minoxadil solution apply topically daily to scalp and okay to restart Nutrafol and finasteride once GI condition has improved. Plan to follow up in 1 year or sooner if flaring despite treatment or side effects develop. minoxidil (Rogaine) 2 % external solution - Scalp Apply topically Daily 3. Seborrheic keratosis, inflamed (2) Left Malar Cheek, Right Malar Cheek [place] and brown stuck on verrucous scaly papule with surrounding erythema The patient was informed that symptomatic seborrheic keratoses are benign growths that become inflamed, itchy, tender, traumatized, caught on clothing, or bleed. Symptomatic lesions can be treated with cryotherapy or curretage. Thicker lesions treated with cryotherapy may require more than one treatment. The patient was instructed to notify the office if abnormal redness or tenderness develops atthe treatment site. Cryotherapy today, see procedure note. Diagnosis: Inflamed seborrheic keratosis Indication: Inflamed Consent: Verbal consent was obtained and risks were discussed, including, but not limited to risks of scarring, darker or haul cane brakeman pigmentary changes, recurrence, incomplete removal and infection. Method: Liquid nitrogen was used to treat the lesion(s) with two 5-10 second freeze-thaw cycles Used a 4x4 cotton gauges to shield eyes. Number of lesions treated: 2 Post-procedure instructions: Instructions were given orally and in writing. The office will be contacted if the lesion fails to resolve despite treatment, or if a side effect develops such as abnormal crusting, scabbing, redness or tenderness Cryotherapy, skin lesion - Left Malar Cheek, Right Malar Cheek Next Visit: 1 year follow up documented in this encounterCrittenton Behavioral [id number] Telephone encounter Note* Telephone Encounter - JEWELL Casey - 05/02/2024 1:12 PM EST Called and clarified with Kristi singh [facility]. Updated Rx sent. [facility] [id number] Miscellaneous Notes* Telephone Encounter - JEWELL Casey - 05/02/2024 1:12 PM EST Called and clarified with Kristi [facility]. Updated Rx sent. * Telephone Encounter - Sapna Williamson - 05/02/2024 10:36 AM EST Pt states that the Ubrogepant (Ubrelvy) 100 MG tablet that was just sent in has the wrong quantity and the pharmacy wouldn't fill it. Pt states she needs a new RX or the prescriber needs to call the pharmacy to clarify documented in this encounterCrittenton Behavioral [id number] Telephone encounter Note* Telephone Encounter - Sapna Williamson - 05/02/2024 10:36 AM EST Pt states that the Ubrogepant (Ubrelvy) 100 MG tablet that was just sent in has the wrong quantity and the pharmacy wouldn't fill it. Pt states she needs a new RX or the prescriber needs to call the pharmacy to clarify [facility] [id number] History of Present illness Narrative* JEWELL Casey - 04/26/2024 11:30 AM EST Images from the original note were not included. Subjective Patient ID: Gwyn Garcia is a 54 y.o. female who presents for migraines. Gwyn is present today for evaluation of migraines. Admits migraines started about 3 weeks ago, shewakes up with hot flashes around 3 am and migraines start then and they are getting worse. Has beenhappening every night. She called her [employer]NA[employer] thinking it had to do with menopause and was told they didn't think so and to call PCP. States she cannot take many OTC meds d/t all the medications she is on for the helicobacter pylori. When symptoms start it is usually around 3 am her heart rate increases to 110. Also c/o dizziness occur periodically throughout the day, feels off balance, also when she is driving at times. Has not had a period for 5 months. Migraines are intense, can be dull also, eyes feel like they are burning, throbbing. Symptoms more on the right side. Is sensitive to light and sound when she gets her migraines. Does get some improvement in her headaches when she is up and around. Does have nausea, but not sure if it is due to her chronic stomach issues. Not worse with migraines. Did get a massage yesterday, but that did not help. Migraines did start prior to her H pylori treatment. Does not check her BP at home. States was told by Cardiology to only take the Metoprolol if needed for tachycardia. Is drinking a lot of water and electrolytes. Has diarrhea due to H pylori treatment. Has a lot of stress right now. Current Outpatient Medications on File Prior to Visit Medication Sig Dispense Refill bismuth subsalicylate (Pepto Bismol) 262 MG chewable tablet Chew 262 mg in the morning and 262 mg at noon and 262 mg in the evening and 262 mg before bedtime. Chew before meals. metroNIDAZOLE (Flagyl) 500 MG tablet Take 500 mg by mouth in the morning and 500 mg in the evening and 500 mg before bedtime. omeprazole (PriLOSEC) [address] capsule Take 40 mg by mouth in the morning and 40 mg before bedtime. polyethylene glycol, PEG, 3350 (Glycolax) 17 GM/SCOOP powder Take 17 g by mouth Daily PRN tetracycline 500 MG capsule Take 500 mg by mouth in the morning and 500 mg at noon and 500 mg in the evening and 500 mg before bedtime. albuterol HFA 90 mcg/act inhaler albuterol sulfate HFA 90 mcg/actuation aerosol inhaler EPINEPHrine (Epipen) 0.3 MG/0.3ML injection syringe Inject 0.3 mL (0.3 mg) as directed 1 (one) timefor 1 dose 0.3 mL 0 saccharomyces boulardii (Florastor) 250 MG capsule Take 250 mg by mouth Daily [DISCONTINUED] metoprolol tartrate (Lopressor) 25 MG tablet Take 25 mg by mouth in the morning and 25 mg before bedtime. PRN palpitations. No current facility-administered medications on file prior to visit. I have reviewed and reconciled the history and medication list with the patient today. Allergies Allergen Reactions Bee Venom Unknown Meloxicam GI bleeding Trazodone Unknown Cyclobenzaprine Palpitations Other Reaction(s): Other: See Comments Social History Tobacco Use Smoking status: Former Current packs/day: 0.00 Types: Cigarettes Quit date: 03/31/2012 Years since quittin.0 Smokeless tobacco: Never Vaping Use Vaping status: Never Used Substance Use Topics Alcohol use: Yes Comment: Frequency: Monthly or less; Caffeine: 1 energy drink daily Drug use: Never Family History Problem Relation Name Age of Onset Heart disease Father Dementia Sister Past Medical History: Diagnosis Date Actinic keratosis Arthritis COVID-19 05/2021 COVID-19 03/2022 ETD (Eustachian tube dysfunction), bilateral History of varicose veins Past Surgical History: Procedure Laterality Date KNEE SURGERY 04/2021 RT KNEE SCOPE-DR WILL Visit Vitals BP 158/86 Pulse 108 Resp 16 Ht 5' 4 Wt 148 lb 9.6 oz SpO2 96% BMI 25.51 kg/m OB Status Having periods Smoking Status Former BSA 1.74 m Review of Systems Constitutional: Negative for chills, fatigue and fever. Respiratory: Negative for cough, shortness of breath and wheezing. Cardiovascular: Negative for chest pain, palpitations and leg swelling. Gastrointestinal: Positive for diarrhea. Negative for abdominal pain, constipation, nausea and vomiting. Skin: Negative for rash. Neurological: Positive for dizziness and headaches. Endocrine: Hot flashes Objective Physical Exam Constitutional: General: She is not in acute distress. Appearance: Normal appearance. She is well-developed. HENT: Head: Normocephalic and atraumatic. Ears: Comments: Moderate cerumen in canals Nose: Nose normal. Mouth/Throat: Mouth: Mucous membranes are moist. Pharynx: Uvula midline. No posterior oropharyngeal erythema. Eyes: General: No scleral icterus. Extraocular Movements: Extraocular movements intact. Conjunctiva/sclera: Conjunctivae normal. Pupils: Pupils are equal, round, and reactive to light. Cardiovascular: Rate and Rhythm: Normal rate and regular rhythm. Heart sounds: Normal heart sounds. No murmur heard. Pulmonary: Effort: Pulmonary effort is normal. No respiratory distress. Breath sounds: Normal breath sounds. No wheezing, rhonchi or rales. Musculoskeletal: General: No swelling. Normal range of motion. Cervical back: Normal range of motion. Tenderness (right side of neck) present. Muscular tendernesspresent. No spinous process tenderness. Lymphadenopathy: Cervical: Cervical adenopathy (Mild submandibular bilat) present. Skin: General: Skin is warm and dry. Neurological: General: No focal deficit present. Mental Status: She is alert and oriented to person, place, and time. Cranial Nerves: Cranial nerves 2-12 are intact. Sensory: Sensation is intact. Motor: Motor function is intact. No weakness or pronator drift. Coordination: Romberg sign negative. Coordination normal. Gait: Gait is intact. Deep Tendon Reflexes: Reflex Scores: Patellar reflexes are 2+ on the right side and 2+ on the left side. Psychiatric: Mood and Affect: Mood normal. Behavior: Behavior normal. Assessment/Plan Diagnoses and all orders for this visit: Paroxysmal supraventricular tachycardia (CMS/HCC) - metoprolol succinate XL (Toprol-XL) 25 MG 24 hr tablet; Take 1 tablet (25 mg) by mouth Daily Do not crush or chew. Will have her start Metoprolol Succinate daily for the elevated BP and persistent tachycardia. Reminded pt of potential s/e. Do not take the Metoprolol Tartrate. Dizziness - meclizine (Antivert) 25 MG tablet; Take 1 tablet (25 mg) by mouth 3 (three) times a day as neededfor dizziness for up to 10 days - CT head wo IV contrast; Future Meclizine prn for symptoms, cautioned may cause drowsiness. Neurologically patient is intact on exam today. Elevated blood pressure reading - CT head wo IV contrast; Future BP significantly elevated today. Will recheck after Metoprolol used daily. Pt does see Cardiology. Diarrhea, unspecified type Continue to stay hydrated, maintain good water/electrolyte balance. Continue treatment for H pylorias instructed by specialist. Frequent headaches - Ubrogepant (Ubrelvy) 100 MG tablet; Take 1 tablet by mouth Daily - CT head wo IV contrast; Future Will r/o intracranial cause of her symptoms with CT of the head, [facility] [place] Pt states that her sister had early onset of dementia in her 50's and her mother had a congenital brain abnormality that was found recently. Provided her with samples of Ubrelvy to take as needed for the migraine type headaches. Advised pt that if needed, we can consider preventative migraine medications, we could also refer her to Neurology for further evaluation. Follow up for After testing to review results and for medication follow up. documented in this encounterCrittenton Behavioral [id number] Evaluation note* Diagnosis Onset Date Resolution Status Admit Date Chronic constipation acute Dece mb2023 10:57am Epigastric pain acute March 21, 2024 10:57am Rectal bleeding acute March 21, 2024 10:57am Chronic constipation acute Eric lou 2024 8:44am Chronic Helicobacter pylori gastritis acute May 16 8:44am [facility] Work Phone: [phone] 440-170510-29-2024 History of Present illness Narrative* Kyrie Nettles, EMMA - 02/16/2024 11:00 AM EDT Images from the original note were not included. Subjective Patient ID: Gwyn Garcia is a 53 y.o. female who presents for Annual Exam. Pt here for wellness Completed mammogram yesterday She called and made appt for GI-appt sched for Mar 2024 due to rectal bleeding,nausea She has tried to eliminate NSAIDS which has seemed to help Current Outpatient Medications on File Prior to Visit Medication Sig Dispense Refill albuterol HFA 90 mcg/act inhaler albuterol sulfate HFA 90 mcg/actuation aerosol inhaler [DISCONTINUED] calcium 200 MG tablet Calcium EPINEPHrine (Epipen) 0.3 MG/0.3ML injection syringe Inject 0.3 mL (0.3 mg) as directed 1 (one) timefor 1 dose 0.3 mL 0 [DISCONTINUED] cholecalciferol (Vitamin D-3) 50 MCG (1999 UT) capsule Orally [DISCONTINUED] Ciclopirox 1 % shampoo Lather on wet hair, leave on 5 min, rinse 2-3 x week, 30 day supply 120 mL 11 [DISCONTINUED] hydrOXYzine HCl (Atarax) 25 MG tablet Take 1 tablet (25 mg) by mouth 4 (four) times a day as needed for itching (Anxiety) 180 tablet 0 [DISCONTINUED] Minoxidil 5 % solution Apply to scalp daily/90 days 180 mL 3 [DISCONTINUED] ondansetron (Zofran) 4 MG tablet Take 4 mg by mouth every 8 (eight) hours if needed No current facility-administered medications on file prior to visit. I have reviewed and reconciled the history and medication list with the patient today. Allergies Allergen Reactions Bee Venom Unknown Meloxicam GI bleeding Trazodone Unknown Cyclobenzaprine Palpitations Other Reaction(s): Other: See Comments Social History Tobacco Use Smoking status: Never Smokeless tobacco: Never Vaping Use Vaping status: Unknown Substance Use Topics Alcohol use: Yes Comment: Frequency: Monthly or less; Caffeine: 1 energy drink daily Drug use: Never Family History Problem Relation Name Age of Onset Heart disease Father Past Medical History: Diagnosis Date Actinic keratosis Arthritis COVID-19 05/2021 COVID-19 03/2022 ETD (Eustachian tube dysfunction), bilateral History of varicose veins Past Surgical History: Procedure Laterality Date KNEE SURGERY 04/2021 RT KNEE SCOPE-DR WILL Visit Vitals Ht 5' 4 BMI 25.75 kg/m OB Status Having periods Smoking Status Never BSA 1.75 m Review of Systems All other systems reviewed and are negative. Objective Physical Exam Vitals reviewed. Constitutional: Appearance: Normal appearance. HENT: Head: Normocephalic. Nose: Nose normal. Mouth/Throat: Mouth: Mucous membranes are moist. Pharynx: Oropharynx is clear. Eyes: Conjunctiva/sclera: Conjunctivae normal. Cardiovascular: Rate and Rhythm: Normal rate and regular rhythm. Heart sounds: Normal heart sounds. Pulmonary: Breath sounds: Normal breath sounds. Abdominal: General: Bowel sounds are normal. Palpations: Abdomen is soft. Musculoskeletal: General: Normal range of motion. Cervical back: Normal range of motion. Skin: General: Skin is warm and dry. Neurological: General: No focal deficit present. Mental Status: She is alert and oriented to person, place, and time. Psychiatric: Mood and Affect: Mood normal. Behavior: Behavior normal. Thought Content: Thought content normal. Assessment/Plan Diagnoses and all orders for this visit: Wellness examination - Vitamin B12; Future - Vitamin D 25 hydroxy; Future - Lipid panel; Future - TSH; Future - Comprehensive metabolic panel; Future - CBC; Future - CT lung screening low dose; Future Wellness form reviewed in detail with the patient. Encouraged patient to stay up to date on immunizations and preventative testing. Encouraged healthy diet, stay active. Will continue with yearly wellness exams. Exercise-induced asthma (CMS/HCC) This is a chronic medical condition that is stable since last assessment. No changes in treatment are suggested at this time. Epigastric pain This is a chronic medical condition that is stable since last assessment. No changes in treatment are suggested at this time. Shortness of breath - CBC; Future This is a chronic medical condition that is stable since last assessment. No changes in treatment are suggested at this time. Mild aortic valve regurgitation - Comprehensive metabolic panel; Future Followed by cardiology. Nonrheumatic aortic valve insufficiency - Comprehensive metabolic panel; Future Followed by cardiology. Tachycardia Followed by cardiology Primary osteoarthritis of both knees - CBC; Future This is a chronic medical condition that is stable since last assessment. No changes in treatment are suggested at this time. B12 deficiency - Vitamin B12; Future This is a chronic medical condition that is stable since last assessment. No changes in treatment are suggested at this time. Disorder of thyroid gland (CMS/HCC) - TSH; Future - Comprehensive metabolic panel; Future Await lab Vitamin D deficiency - Vitamin D 25 hydroxy; Future Await lab Acne rosacea, erythematous telangiectatic type This is a chronic medical condition that is stable since last assessment. No changes in treatment are suggested at this time. Seasonal allergic rhinitis due to pollen - CBC; Future This is a chronic medical condition that is stable since last assessment. No changes in treatment are suggested at this time. Screening for lipid disorders - Lipid panel; Future Await lab Screening for lung cancer - CT lung screening low dose; Future Await results of CT Personal history of nicotine dependence - CT lung screening low dose; Future Quit 12 years ago. Nausea and vomiting, unspecified vomiting type - ondansetron (Zofran) 4 MG tablet; Take 1 tablet (4 mg) by mouth every 6 (six) hours if needed fornausea or vomiting Awaiting appointment with GI No follow-ups on file. documented in this encounterCrittenton Behavioral [id number] History of Present illness Narrative* Salima Navarrete, PT - 02/15/2024 8:30 AM EDT Physical Therapy Treatment Visit Patient Name: Gwyn [...] really bad. 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 Has a heel lift for right shoe and states it helps when she uses it. States she has to lift a lot at work also, expectation is anything under 75lbs. Precautions: [employer] Subjective: Pt states she replaced mattress last [...] minutes) Strength, Endurance, Flexibility, ROM, HEP, Neural Mobilization,Power, and Core Stability as needed. Reviewed HEP and issued pictures this date. Added tband ex andissued bands and pictures for home program. Therapeutic [...] right hip. Core strength if good/fair. Will re- assess in 2-3 weeks; pt to continue withHEP. Outcome Measure: Back Index: 15/50 Rehab Diagnosis: low back pain Short Term Goal: To be met in 2 weeks Goal 1: Pt to be instructed in home exercise program. [employer] Goals: To be met in 10 weeks [...] Please sign below. Date: documented in this encounterCrittenton Behavioral [id number] History of Present illness Narrative* Salima Navarrete, PT - 02/08/2024 8:30 AM EDT Physical Therapy Evaluation Visit Patient Name: Gwyn Garcia Today's Date: 02/08/2024 Encounter Diagnoses Name Primary? Trigger point with back pain Yes Visit number: 3 Timed Code Treatment Minutes: 47 minutes Total Treatment Time: 57 minutes Time In: 0830 Time Out: 930 History: Pt states she [...] really bad. 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 Has a heel lift for right shoe and states it helps when she uses it. States she has to lift a lot at work also, expectation is anything under 75lbs. Precautions: [employer] Subjective: Pt reports getting a massage over the weekend which has helped quite a bit. Still has aching in LE's at night. Continues to feel tightness in back when trying to lift at work. Pain: 07/28 Objective: PT Evaluation (01/25/2024) LUMBAR [...] minutes) Strength, Endurance, Flexibility, ROM, HEP, Neural Mobilization,Power, and Core Stability as needed. Progressed core [...] to be instructed in home exercise program. Shelter Goals: To be met in 10 weeks [...] Please sign below. Date: documented in this encounterCrittenton Behavioral [id number] History of Present illness Narrative* Sulema Mata, PT - 02/01/2024 8:00 AM EDT Physical Therapy Evaluation Visit Patient Name: Gwyn [...] really bad. 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 Has a heel lift for right shoe and states it helps when she uses it. States she has to lift a lot at work also, expectation is anything under 75lbs. Precautions: [employer] Subjective: No change in her back pain. C/c is back feel really tight. Pain: 4-10 Objective: PT Evaluation (01/25/2024) LUMBAR SPINE AROM: [...] minutes) Strength, Endurance, Flexibility, ROM, HEP, Neural Mobilization,Power, and Core Stability as needed. Pt instructed in and performed home program with good pt understanding. Discussed frequent standing trunk extension ex; following trunk flexion and activities andwhen getting out of car. Therapeutic Activity: Exercises [...] to be instructed in home exercise program. [employer] Goals: To be met in 10 weeks [...] Please sign below. Date: documented in this [facility]10-03-2024 History of Present illness Narrative* Konstantin Chaves MD - 01/21/2024 9:50 AM EDT Cardiology Consultation- New Consult Reason for referral: [...] she had done earlier this year revealed n ormal ejection fraction and normal cardiac size and function with mild aortic regurgitation. Her examination revealed no cardiac murmurs. Her EKG revealed normal sinus rhythm and no abnormalities. She has no other significant medical history whatsoever. She is non-smoker nondrinker and her caffeineconsumption is normal. 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 Review of system was essentially unremarkable and [...] recur. An event monitor that was carried previouslydid not capture these events. We discussed about the ablation if this becomes recurrent and captured on EKG. She understands and is going to follow my recommendations. 2-mild aortic regurgitation based on echocardiogram and MRI. Last echocardiogram was done at [facility] January 12, 2023. I will try to [...] By signing my name below, Puja Pemberton LPN, Scribe attest that this documentation has been prepared under the direction and in the presence of Konstantin Chaves MD. Provider Attestation - Scribe documentation All medical record entries made by the Scribe were at my direction and personally dictated by me. Ihave reviewed the chart and agree that the record accurately reflects my personal performance of the history, physical exam, discussion and plan. documented in this [facility] Work Phone: 1(603) 381-169410-03-2024 Instructions* Patient Instructions* Puja Clinton LPN - 01/21/2024 9:50 AM [...] months Metoprolol as needed documented in this [facility] Work Phone: 1(838) 898-549409-30-2024 History of Present illness Narrative* JEWELL Cervantes - 01/18/2024 1:30 PM EDTAssociated Order(s): Trigger Point Injection (CPT 17673 [place] 11944) Post-Procedure Diagnose(s): Trigger point with back pain Images from the original note were not included. HISTORY OF PRESENT ILLNESS: EST PT Gwyn Garcia is an 53 y.o. @ female. (EST PT) NEW COMPLAINT, (R) SIDED LOWER BACK PAIN. SYMPTOMS FOR ~1 MONTH ; DENIES ANY INJURY XRAYS, L-SPINE DONE TODAY, 01/18/24 IN EPIC S/P (R) HIP BURSA CORTISONE INJ 11/29/21 S/P PHYSICAL THERAPY (5 SESSIONS) @ [facility] ; NOV - FEB 2022 CURRENT MASSAGE THERAPY ONCE MONTHLY ; WITH RELIEF. PAIN IS INTERMITTENT WITH ACTIVITY / MOVEMENT - PAIN IS IN HER LOWER BACK, (R) SIDED ; DENIES ANY RADIATING PAIN, NO N/T. NOTES GOOD ROM ; DENIES ANY WEAKNESS IN HER LEGS. TAKING TYLENOL PRN - DENIESANY RELIEF ; PREVIOUS TAKING MELOXICAM - STOPPED D/T BLEEDING PREVIOUS (R) KNEE SCOPE 05/10/21 - DR WILL ALLERGIES: Allergies Allergen Reactions Bee Venom Unknown Meloxicam GI bleeding Trazodone Unknown Cyclobenzaprine Palpitations Other Reaction(s): Other: See Comments HOME MEDICATIONS: Current Outpatient Medications Medication Instructions albuterol HFA 90 mcg/act inhaler albuterol sulfate HFA 90 mcg/actuation aerosol inhaler calcium 200 MG tablet Calcium cholecalciferol (Vitamin D-3) 50 MCG (2000 UT) capsule Orally Ciclopirox 1 % shampoo Lather on wet hair, leave on 5 min, rinse 2-3 x week, 30 day supply EPINEPHrine (EPIPEN) 0.3 mg, Injection, Once hydrOXYzine HCl (ATARAX) 25 mg, Oral, 4 times daily PRN Minoxidil 5 % solution Apply to scalp daily/90 days ondansetron (ZOFRAN) 4 mg, Oral, Every 8 hours PRN PHYSICAL EXAM: Hip Musculoskeletal Exam Gait Gait is normal. Inspection Leg length disparity: no discrepancy Right Erythema: none Ecchymosis: none Edema: none Deformity: none Palpation Right Right hip palpation is normal. Increased warmth: none Tenderness: present Lower lumbar region pain: moderate Lower lumbar region pain comment: No midline tenderness. + pain to right paravertebral lumbar, Point tender waistline right lower back trigger point. Range of Motion Right Right hip range of motion is within functional limits. Active ROM: normal. Passive ROM: normal. Strength Right Right hip strength is normal. Extension: 5/5. Flexion: 5/5. Internal rotation: 5/5. External rotation: 5/5. Adduction: 5/5. Abduction: 5/5. Neurovascular Right Right hip neurovascular exam is normal. Pulses - PT: normal Posterior tibial: 2+ Special Tests Right Log roll test: negative HELEN test (right): negative Special tests additional comments: Neg SLR + pain right lower back with forward flexion. Reflexes 2+ symmetric. Neg clonus. General Constitutional: appears stated age Labored breathing: no Psychiatric: normal mood and affect Neurological: alert and oriented x3 Skin: intact Lymphadenopathy: none Vitals: Body mass index is 25.75 kg/m . Tobacco Use: Low Risk (01/18/2024) Patient History Smoking Tobacco Use: Never Smokeless Tobacco Use: Never Passive Exposure: Not on file Alcohol Use: Not At Risk (10/05/2023) AUDIT-C Frequency of Alcohol Consumption: Monthly or less Average Number of Drinks: 1 or 2 Frequency of Binge Drinking: Never IMAGING: Trigger Point Injection ([place] 17961 [place] [address]) on 01/18/2024 2:58 PM Back muscles: Right lower lumbar paraverterbral Indications: pain and muscle spasm Details: 21 G needle Medications: 40 mg methylPREDNISolone acetate 40 MG/ML Consent was given by the patient. Patient was prepped and draped in the usual sterile fashion. Orders Placed This Encounter Procedures XR lumbar spine 2 or 3 views Order Specific Question: Is the patient ? Answer: No Order Specific Question: Reason for exam: Answer: PAIN Ambulatory referral to Physical Therapy Standing Status: Future Standing Expiration Date: 07/17/2024 Referral Priority: Routine Referral Type: Consultation Referral Reason: Consult and Treat Referred to Provider: Sulema Mata PT Requested Specialty: Physical Therapy Number of Visits Requested: 1 ASSESSMENT: ICD-10-CM 1. Lumbar pain M54.50 XR lumbar spine 2 or 3 views 2. Trigger point with back pain M54.9 Ambulatory referral to Physical Therapy PLAN: Recommend few visits with physical therapy for possible dry needle. 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 pt has point tenderness to right lower back agreeable to trigger point injection. Recheck in office if symptoms not improving with therapist. Questions answered in laymen terms at the bedside. The diagnosis, home exercise plan and any ongoing restrictions/ recommendations reviewed. If unable to be reached in office, I recommend evaluation at nearest Emergency Room if any symptoms worsened or new symptoms develop for requiring urgent evaluation. documented in this encounterCrittenton Behavioral [id number] Evaluation note* Encounter Date Diagnosis Assessment Notes Treatment Notes Treatment Clinical Notes Feb, Body aches (ICD-10 - R52) [...] Feb, Epigastric abdominal pain (ICD-10 - R10.13) [employer] Other 09-26-2023 NoteEchocardiology Procedure Exam Date/Time Accession # Ordering Dr. Grover Transthoracic 01/12/2023 13:48 EDT [id number] Karin ABEL CNP Complete CPT code 46929 08941 Reason for Exam (Echo Transthoracic Complete) Congenital heart problems;I35.1 Report Version: 1 Study ID: [id number] [facility] [address] [place] [address] Adult Echocardiogram Report Name: GWYN GARCIA Study Date: 01/12/2023, 1: 08 PM Patient Location: [facility] : 1970 (MM/DD/YYYY) Gender: Female Age: 52 [...] Signed (Electronic Signature): 12/20 (more content not included)...[facility]05-17-2023 Hospital Discharge instructions* Discharge Instructions * [...] sent through Care Everywhere. * Leg Pain (Cameroonian) documented in this encounterBON PAGE HOSPITALMedia Li²ght Entertainment Phone: 1(822) 544-814803-14-2023 Miscellaneous Notes* Telephone Encounter - Rachel Chicas MA - 07/01/2022 2:45 PM EDT Images from the original note were not included. Prior Auth approved for Azelaic Acid (Finacea) 15% gel. Rachel Chicas MA documented in this encounterUniversity [facility]als [facility]03-14-2023 History of Present illness Narrative* Florinda Martin - 07/01/2022 11:53 AM EDT POPULATION HEALTH [...] done DEPRESSION ASSESSMENT Never done Navigation Signature: Florinda Martin July 01, 2022 11:54 AM documented in this encounterUniversity Hospitals Parma [facility]03-14-2023 Miscellaneous Notes* Telephone Encounter - Ashley Delacruz MD - 07/01/2022 9:03 AM EDT New Rx for the 5% sent but will be once daily. * Telephone Encounter - Estefania Montero Pss - 06/30/2022 3:38 PM EDT [facility] [phone] can't order minoxidil 2% but has the 5%. Please advise pharmacy on what to fill for patient. documented in this encounterUniversity Hospitals Parma [facility] Center03-13-2023 Instructions* Patient Instructions* Ashley Delacruz MD - 06/30/2022 3:01 PM EDT CeraVe Facial Moisturizing Lotion with Sunscreen. [employer] or [employer] for clothing with sun protection documented in this encounterUniversity Hospitals Parma [facility] Center03-13-2023 History of Present illness Narrative* Ashley Delacruz MD - 06/30/2022 2:30 PM EDT Patient [...] She has an appointment with dermatology at [facility] for consultation. She also has a lesion [...] Reported eGFR is based on the CKD-EPI 2021 equation that does not use a race [...] dermatitis - ICD9: 690.10, ICD10: L21.9 3. Archie - ICD9: 700, ICD10: L84 - CONSULT TO PODIATRY 4. Inflamed seborrheic keratosis - ICD9: 702.11, ICD10: L82.0 Plan: Procedures: Cryotherapy Seborrheic Keratosis Indication: Inflamed Location: Right forearm x1 Consent: Verbal consent was obtained and risks were discussed, including, but not limited to risks of scarring, darker or haul cane brakeman pigmentary changes, recurrence, incomplete removal and infection. [...] weeks and send it to me through [employer] for follow-up. 6. Acne rosacea, erythematous telangiectatic type - ICD9: 695.3, ICD10: L71.8 - AZELAIC ACID 15 % TOPICAL GEL I spent a total of 23 minutes on the date of the service which included preparing to see the patient, [id number] patient care, completing clinical documentation, obtaining and/or reviewing separately obtained history, performing a medically appropriate examination, counseling and educating the pat ient/family/caregiver, ordering medications, tests, or procedures, independently interpreting results (not separately reported), and communicating results to the patient/family/caregiver. Ashley Delacruz MD documented in this encounterUniversity Hospitals [facility]ma [facility] Center07-29-2022 Hospital Discharge instructions Follow Up Care 11/15/2021 15:36:58 With:Tim Alcaraz MD Address: [address] [place] [address] [place] [address]- When:Within 1 Year(s) [facility]07-29-2022 Evaluation + Plan note Future Scheduled Tests Radiology* Echo Transthoracic Complete 12/10/22 * ECG Stress Exercise 11/15/21 [facility]09-09-2020 Evaluation + Plan note Future Appointments Appointment Date:12/13/2021 01:00:00 PM Scheduled Provider: Location:[facility] Appointment Type:CV Echo ([facility]) Appointment Date:12/27/2021 02:30:00 PM Scheduled Provider:Karin ABEL CNP Location:[facility] Appointment Type:Cardiology Follow Up ([facility]) Future Scheduled Tests Radiology* Echo Transthoracic Complete 12/13/21 * ECG Stress Exercise 11/15/21 [facility] Future Appointments Appointment Date:12/06/2021 09:00:00 AM Scheduled Provider: Location:.[facility] Appointment Type:CV Stress (FT) Appointment Date:12/06/2021 10:00:00 AM Scheduled Provider: Location:.[facility] Appointment Type:CV Holter/Event (FT) Appointment Date:12/27/2021 02:30:00 PM Scheduled Provider:Karin ABEL CNP Location:[facility] Appointment Type:Cardiology Follow Up (FT) Future Scheduled Tests Radiology* Echo Transthoracic Complete 11/15/21 * ECG Stress Exercise 12/06/21 * ECG Stress Exercise 11/15/21 [facility] Future Appointments Appointment Date:01/10/2022 11:15:00 AM Scheduled Provider:Karin ABEL CNP Location:[facility] Appointment Type:Cardiology Follow Up (FT) Future Scheduled Tests Radiology* ECG Stress Exercise 11/15/21 [facility] Future Appointments Appointment Date:02/02/2023 01:15:00 PM Scheduled Provider:Tim Alcaraz MD Location:[facility] Appointment Type:Cardiology Follow Up ([facility]) [facility]* Diagnosis Hair loss- Primary Alopecia, unspecified Seborrheic dermatitis Seborrheic dermatitis, unspecified Archie Corns and callosities Inflamed seborrheic keratosis Actinic keratosis Acne rosacea, erythematous telangiectatic type Rosacea [facility] Diagnosis Hair thinning- Primary Alopecia, unspecified [facility] this [facility]* Diagnosis Pain of left calf- Primary documented in this encounter [facility] Work Phone: evaluation note* Diagnosis Paroxysmal supraventricular tachycardia (CMS-HCC)- Primary Paroxysmal supraventricular tachycardia BMI 25.0-25.9,adult Former smoker Personal history of tobacco use, presenting hazards to health Mild aortic regurgitation Palpitations documented in this encounter [facility] Work Phone: Evaluation note* Diagnosis Trigger point with back pain- Primary Unspecified backache documented in this encounter [facility] HealthcareEvaluation note* Diagnosis Trigger point with back pain- Primary Unspecified backache documented in this encounter [facility] HealthcareEvaluation note* Diagnosis Wellness examination- Primary Exercise-induced asthma (CMS/HCC) Exercise induced bronchospasm Epigastric pain Abdominal pain, epigastric Shortness of breath Mild aortic valve regurgitation Nonrheumatic aortic valve insufficiency Tachycardia Unspecified tachycardia Primary osteoarthritis of both knees B12 deficiency Disorder of thyroid gland (CMS/HCC) Unspecified disorder of thyroid Vitamin D deficiency Acne rosacea, erythematous telangiectatic type Rosacea Seasonal allergic rhinitis due to pollen Screening for lipid disorders Screening for lung cancer Personal history of nicotine dependence Nausea and vomiting, unspecified vomiting type documented in this encounter [facility] HealthcareEvaluation note* Diagnosis Lumbar pain- Primary Lumbago Trigger point with back pain Unspecified backache documented in this encounter [facility] HealthcareEvaluation note* Diagnosis Paroxysmal supraventricular tachycardia (CMS/HCC)- Primary Paroxysmal supraventricular tachycardia Dizziness Dizziness and giddiness Elevated blood pressure reading Elevated blood pressure reading without diagnosis of hypertension Diarrhea, unspecified type Frequent headaches documented in this encounter [facility]* Diagnosis Frequent headaches documented in this encounter [facility]* Diagnosis Other atopic dermatitis- Primary Androgenic alopecia Other alopecia Seborrheic keratosis, inflamed documented in this encounter [facility] HealthcareEvaluation note* Diagnosis Chronic migraine with aura without status migrainosus, not intractable (CMS/HCC)- Primary BMI 26.0-26.9,adult Primary osteoarthritis of both knees Mild aortic valve regurgitation Nonrheumatic aortic valve insufficiency Tachycardia Unspecified tachycardia Paroxysmal supraventricular tachycardia ([facility]/HCC) Paroxysmal supraventricular tachycardia documented in this encounter [facility]* Diagnosis Chronic migraine with aura and with status migrainosus, not intractable (CMS/HCC)- Primary documented in this encounter [facility] HealthcareEvaluation note* Diagnosis Trigeminal neuralgia of right side of face (CMS/HCC)- Primary documented in this encounter [facility] HealthcareEvaluation note* Diagnosis Hot flashes- Primary documented in this encounter [facility]Evaluation [facility]* Diagnosis Screening for lipid disorders documented in this encounter [facility]Evaluation [facility]* Diagnosis Elevated LDL cholesterol level ([facility])- Primary Stress reaction Unspecified acute reaction to stress Overweight Recurrent headache Trigeminal neuralgia of right side of face (CMS/HCC) Skin irritation Unspecified disorder of skin and subcutaneous tissue Dizziness Dizziness and giddiness Tachycardia Unspecified tachycardia documented in this encounter [facility]* Diagnosis Acute mastoiditis of right side- Primary documented in this encounter [facility] HealthcareEvaluation note* Diagnosis Trigeminal neuralgia of right side of face (CMS/HCC)- Primary documented in this encounter [facility]Evaluation note* Diagnosis Ear lesion- Primary Unspecified disorder of external ear documented [facility] this encounter [facility]* Diagnosis Abnormal finding on radiology exam- Primary Mass of petrous temporal bone documented in this encounter [facility] HealthcareEvaluation note* Diagnosis Encounter for gynecological examination without abnormal finding- Primary Encounter for Papanicolaou smear of cervix Breast cancer screening by mammogram Hot flashes documented in this encounter [facility] HealthcareEvaluation note* Diagnosis Trigeminal neuralgia of right side of face documented in this encounter [facility] HealthcareHistory general Narrative - Reported* Type Description Date Medical History ANXIETY Surgical History LEFT KNEE SURGERY FOR A TEAR Hospitalization History 3 CHILD BIRTHS [employer] Other Hospital course Narrative No data available for this section [facility] No data available for this section [facility] HospitalProgress note No data available for this section [facility] HospitalReason for visit Narrative* Consultation (Routine) - Authorized Specialty Diagnoses / Procedures Referred By Contac t Referred To Contact Physical Therapy Diagnoses Trigger point with back pain Procedures [place] OFFICE/OUTPATIENT NEW HIGH MDM 60 MINUTES Cora Drake PA [address] [place] [address] Salima Navarreet PT Referral ID Status Reason Start Date Expiration Date Visits Requested Visits Authorized [id number] Authorized Consult and Treat 01/18/2024 07/16/2024 99 99 [facility] for [facility] Narrative* Consultation (Routine) - Authorized Specialty Diagnoses / Procedures Referred By Contac t Referred To Contact Physical Therapy Diagnoses Trigger point with back pain Procedures [place] OFFICE/OUTPATIENT NEW HIGH MDM 60 MINUTES Cora Drake PA [address] [facility] [address] [place] [address] Phone: tel: fax: Salima Navarrete, ROBERTA Referral ID Status Reason Start Date Expiration Date Visits Requested Visits Authorized [id number] Authorized Consult and Treat 01/18/2024 07/16/2024 99 99 [facility] HealthcareReason for visit Narrative* Consultation (Routine) - Closed Specialty Diagnoses / Procedures Referred By Contac t Referred To Contact Neurology Diagnoses Chronic migraine with aura without status migrainosus, not intractable ([facility]) Procedures [place] OFFICE/OUTPATIENT NEW HIGH MDM 60 MINUTES Kyrie Nettles NP [address] [facility] [address] [place] [address] Phone: tel: fax: Jose Angel Mcdaniel, [address] [place] [address] Phone: tel: fax: Referral ID Status Reason Start Date Expiration Date V isits Requested Visits Authorized [id number] Closed Specialty Services Required 06/02/2024 11/29/2024 1 1 [facility] Discharge Instructions * Instructions* Randall Morin APRN - [facility] - 01/02/2020 Return to the emergency department for worsening symptoms. * Attachments The following attachments cannot be sent through Care Everywhere. * Insect Stings and Bites (Cameroonian) documented in this encounter Assessments Diagnosis Bee sting reaction, accidental or unintentional, initial encounter Diagnosis Acne rosacea Rosacea Hair thinning Alopecia, unspecified Inflamed seborrheic keratosis Actinic keratosis Instructions * Patient Instructions* Ashley Delacruz - 06/27/2020 2:05 PM EST [address] [...] and pods, including burger, navy or peas Endeavor fruits, including tomatoes, bananas, red plums, raisins [...] those containing alcohol, witch alfreda or fragrances. Jasper-alcohol or acetone substances Any substance that causes redness or stinging documented in this encounter History of Present Illness * Ashley Delacruz - 06/27/2020 1:34 PM EST This note was created using [employer]. Subjective Gwyn Garcia is a 50 year [...] limited to risks of scarring, darker or haul cane brakeman pigmentary changes, recurrence, incomplete removal and infection. [...] limited to risks of scarring, darker or haul cane brakeman pigmentary changes, recurrence, incomplete removal and infection. [...] I can send her to a specific environmental studies department chair and she was open to that idea. I will look into whoto send her to and put in that order. Ashley Delacruz MD I spent a total of 16 minutes on the date of the service which included preparing to see the patient, [id number] patient care, completing clinical documentation, obtaining and/or reviewing separately obtained history, performing a medically appropriate examination, counseling and educating the pat ient/family/caregiver and ordering medications, tests, or procedures. documented in this encounter Summary Purpose Family History No Family History Records Found Relationship Condition Age at Onset Recorded Date/T paula father Heart disease Unknown sister Family history of other condition Unknown Relationship Condition Age at Onset Recorded Date/T paula father Heart disease Unknown sister Family history of other condition Unknown mother Hypertension Unknown sister Chronic mental illness Unknown Advance Directives No Advanced Directives Records Found Advance Directive Response Recorded Date/ Time Advance Directives No March 21, 2024 10:52am Advance Directive Response Recorded Date/ Time Advance Directives No March 21, 2024 11:52am Reason for Referral Specialty Diagnoses / Procedures Referred By Contac t Referred To Contact Diagnoses Trigger point with back pain Procedures Trigger Point Injection (CP[place] 11300 [place] [address]) Cora Drake PA [address] [place] [id number] Referral ID Status Reason Start Date Expiration Date V isits Requested Visits Authorized [id number] Incomplete 01/18/2024 07/16/2024 1 1 Specialty Diagnoses / Procedures Referred By Contac t Referred To Contact Physical Therapy Diagnoses Trigger point with back pain Procedures [place] OFFICE/OUTPATIENT NEW HIGH MDM 60 MINUTES Cora Drake, PA [address] [place] [address] Sulema Mata, PT [address] [place] [address] Referral ID Status Reason Start Date Expiration Date Visits Requested Visits Authorized [id number] Authorized Consult and Treat 01/18/2024 07/16/2024 99 99 Specialty Diagnoses / Procedures Referred By Contac t Referred To Contact Diagnoses Paroxysmal supraventricular tachycardia ([facility]) Procedures ECG 12 Lead Konstantin Chaves MD [address] [facility] [address] [place] [address] Referral ID Status Reason Start Date Expiration Date V isits Requested Visits Authorized [id number] Authorized 01/21/2024 01/20/2025 1 1 Specialty Diagnoses / Procedures Referred By Contac t Referred To Contact Cardiology Diagnoses Paroxysmal supraventricular tachycardia ([facility]) Procedures Follow Up In Cardiology Konstantin Chaves MD [address] [facility] [address] [place] [address] Konstantin Chaves MD [address] [facility] [address] [place] [address] Referral ID Status Reason Start Date Expiration Date V isits Requested Visits Authorized [id number] Authorized 01/21/2024 01/20/2025 1 1 Specialty Diagnoses / Procedures Referred By Contac t Referred To Contact Dermatology Diagnoses Hair loss Procedures CONSULT TO DERMATOLOGY OFFICE/OUTPATIENT NEW HIGH MDM 60-74 MINUTES Ashley Delacruz MD [address] [place] [address] Referral ID Status Reason Start Date Expiration Date Visits Requested Visits Authorized [id number] Pending Review PCP Requested Referral 06/30/2022 06/30/2023 1 1 Specialty Diagnoses / Procedures Referred By Cali smith Referred To Contact Podiatry Diagnoses Archie Procedures CONSULT TO PODIATRY OFFICE/OUTPATIENT [facility] MDM 60-74 MINUTES Ashley Delacruz MD [address] [place] [address] Referral ID Status Reason Start Date Expiration Date Visits Requested Visits Authorized [id number] Pending Review PCP Requested Referral 06/30/2022 06/30/2023 1 1 Chief Complaint and Reason for Visit Chief Complaint Admit Date Rectal Bleeding March 21, 2024 1 0:57am abd pain/rectal bleeding March 28 6:37am abd pain/rectal bleeding March 28 8:07am follow up/EGD/Colon May 16, 2024 8 :44am Reason for Visit Admit Date Chronic constipation March 21, 2024 10:57am Epigastric pain March 21, 2024 1 0:57am Rectal bleeding March 21, 2024 1 0:57am Chronic constipation May 16, 2024 8:44am Chronic Helicobacter pylori gastritis [facility] 2024 8:44am Chief Complaint Admit Date Rectal Bleeding March 21, 2024 1 0:57am abd pain/rectal bleeding March 28 6:37am abd pain/rectal bleeding March 28 8:07am follow up/EGD/Colon May 16, 2024 8 :44am right ear ache June 05, 2024 1:21pm Chief Complaint Admit Date right ear ache June 05, 2024 1:21pm Ref Neurology Headaches August 03, 2024 3:53pm supraorbital and supratrochlear nerve bl ock August 15, 2024 4:08pm Reason for Visit Admit Date Acute effusion of both middle ears Febru lou 2024 1:21pm Impacted cerumen, right ear May 1:21pm Frontal headache August 03, 2024 3:5 3pm Other chronic pain August 03, 2024 3:5 3pm Frontal headache August 15, 2024 4:0 8pm Other chronic pain August 15, 2024 4:0 8pm Chief Complaint Admit Date Ref Neurology Headaches August 03, 2024 3:53pm supraorbital and supratrochlear nerve bl ock August 15, 2024 4:08pm 4 week follow up September 19, 2024 3:48p m Reason for Visit Admit Date Frontal headache August 03, 2024 3:5 3pm Other chronic pain August 03, 2024 3:5 3pm Frontal headache August 15, 2024 4:0 8pm Other chronic pain August 15, 2024 4:0 8pm Frontal headache September 19, 2024 3:48p m Other chronic pain September 19, 2024 3:48p m Additional Source Comments Reason for Visit (unrecogniz [...] Referred To Contact Diagnoses Paroxysmal supraventricular tachycardia ([facility]) Procedures ECG 12 Lead Konstantin Chaves MD [address] [facility] [address], [address] [address] Referral ID Status Reason Start Date Expiration Date V isits Requested Visits Authorized [id number] Authorized 01/21/2024 01/20/2025 1 1 Reason Comments Annual Exam Reason Comments Pain Reason Comments Suspicious Skin Lesion Reason Comments Menopause Pt here to discuss i ncreased hot flashes/ night sweats. LMP 06/27/24 irregular, has skipped months. Headache Seeing neuro- HTN re lated to headaches. Found nerve RT side of face causing nerve migraines, too. Reason Comments skin irrritation She feels she is all ergic to the elastic in her underwear and she is wanting to get a cream for the irritation in the groin area. lab results Discuss lipid panel. She is hoping her numbers improved and she won't have to go on medicine. Reason Onset Date Comments plan 09/01/2024 Reason Comments Consult Reason Comments Gynecologic Exam LMP: 06/27/24BC: husb and- vasectomyLast pap 10-05-23 neg.Last mammogram 02-15-24 [facility]. Denies breast, urinary, or bowel concerns. Menopause Reports ongoing hot flashes, night sweats, body aches, mood swings. Did not try Veozah, since samples were , but admits she does not want to do blood work every 3 months. Would like to discuss HRT. Dyspareunia Occasional pain with intercourse- penetration and during. Does not think positional. Tries to use lube. Questions HRT cream? Headache Had CT d/t headaches - found Erosive, expansile lesion of the right petrous apex with cortical breakthrough. Has Darlin appt with ENT for fluid behind ear. Source Comments (unrecognize d section and content) In the event this informatio n is protected by the Federal Confidentiality of Alcohol and Drug Abuse Patient Records regulations: The Federal rules restrict any use of the information to criminally investigate or prosecute any alcohol or drug abuse patient.[facility] the event this information is protected by the Federal Confidentiality of Alcohol and Drug Abuse Patient Records regulations: The Federal rules restrict any use of the information to criminally investigate or prosecute any alcohol or drug abuse patient.[facility] Center[facility] the event this information is protected by the Federal Confidentiality of Alcohol and Drug Abuse Patient Records regulations: The Federal rules restrict any use of the information to criminally investigate or prosecute any alcohol or drug abuse patient.[facility] the event this information is protected by the Federal Confidentiality of Alcohol and Drug Abuse Patient Records regulations: The Federal rules restrict any use of the information to criminally investigate or prosecute any alcohol or drug abuse patient.[facility] Center[facility] the event this information is protected by the Federal Confidentiality of Alcohol and Drug Abuse Patient Records regulations: The Federal rules restrict any use of the information to criminally investigate or prosecute any alcohol or drug abuse patient.[facility] Center[facility] the event this information is protected by the Federal Confidentiality of Alcohol and Drug Abuse Patient Records regulations: The Federal rules restrict any use of the information to criminally investigate or prosecute any alcohol or drug abuse patient.[facility] INFORMATION SOURCE (unrecogn ized section and content) DATE CREATED AUTHOR 03/28/2021 [facility] DATE CREATED AUTHOR AUTHOR'S ORGANIZ ATION 03/22/2022 [facility] DATE CREATED AUTHOR AUTHOR'S ORGANIZ ATION 09/04/2022 [facility] DATE CREATED AUTHOR AUTHOR'S ORGANIZ ATION 03/15/2023 Juancarlos [facility] DATE CREATED AUTHOR AUTHOR'S ORGANIZ ATION 04/07/2024 [facility] DATE CREATED AUTHOR AUTHOR'S ORGANIZ ATION 08/26/2024 [facility] DATE CREATED AUTHOR AUTHOR'S ORGANIZ ATION 09/29/2024 [facility] DATE CREATED AUTHOR AUTHOR'S ORGANIZ ATION 10/02/2024 [facility] DATE CREATED AUTHOR AUTHOR'S ORGANIZ ATION 12/13/2024 [facility] d[facility] Specialists EPIC Care Team (unrecognized sect ion and content) Supervisor Tower Relationship Specialty Start Date [place] [address] PCP - General Family Medicine 06/27/20 Supervisor Tower Relationship Specialty Start Date End [place] [address] PCP - General Family Medicine 06/27/20 Supervisor Tower Relationship Specialty Start Date End [place] [address] PCP - General Family Medicine 06/27/20 Supervisor Tower Relationship Specialty Start Date End [place] [address] PCP - General Family Medicine 06/27/20 Supervisor Tower Relationship Specialty Start Date End Date Sharla Richter PCP - General Internal Medicine 01/02/20 Supervisor Tower Relationship Specialty Start Date End Date Kyrie Nettles, SEAT [employer] NURSE [address] [place] [address] PCP - General Family Medicine 12/18/23 Supervisor Tower Relationship Specialty Start Date End Date Mari Amin MD [address] [place] [address] PCP - General Family Medicine 11/16/23 Kyrie Nettles, PATCHER WOOD WELDER [address] [place] [address] Nurse Practitioner Family Medicine 11/16/23 Supervisor Tower Relationship Specialty Start Date End Date Mari Amin MD [address] [facility] [address] [place] [address] PCP - General Family Medicine 11/16/23 Kyrie Nettles, PATCHER WOOD WELDER [address] [facility] [address] [place] [address] Nurse Practitioner Family Medicine 11/16/23 Supervisor Tower Relationship Specialty Start Date End Date Mari Amin MD [address] [facility] [address] [place] [address] PCP - General Family Medicine 11/16/23 Kyrie Nettles, PATCHER WOOD WELDER [address] [facility] [address] [place] [address] Nurse Practitioner Family Medicine 11/16/23 Supervisor Tower Relationship Specialty Start Date End Date Mari Amin MD [address] [place] [address] PCP - General Family Medicine 11/16/23 Kyrie Nettles PATCHER WOOD WELDER [address] [place] [address] Nurse Practitioner Family Medicine 11/16/23 Supervisor Tower Relationship Specialty Start Date End Date Mari Amin MD [address] [place] [address] PCP - General Family Medicine 11/16/23 Kyrie Nettles, PATCHER WOOD WELDER [address] [place] [address] Nurse Practitioner Family Medicine 11/16/23 Supervisor Tower Relationship Specialty Start Date End Date Mari Amin MD [address] [place] [address] PCP - General Family Medicine 11/16/23 Kyrie Nettles, PATCHER WOOD WELDER [address] [place] [address] Nurse Practitioner Family Medicine 11/16/23 Supervisor Tower Relationship Specialty Start Date End Date Mari Amin MD [address] [place] [address] PCP - General Family Medicine 11/16/23 Kyrie Nettles, PATCHER WOOD WELDER [address] [place] [address] Nurse Practitioner Family Medicine 11/16/23 Supervisor Tower Relationship Specialty Start Date End Date Mari Amin MD [address] [place] [address] PCP - General Family Medicine 11/16/23 Kyrie Nettles, PATCHER WOOD WELDER [address] [place] [address] Nurse Practitioner Family Medicine 11/16/23 Supervisor Tower Relationship Specialty Start Date End Date Mari Amin MD [address] [place] [address] PCP - General Family Medicine 11/16/23 Kyrie Nettles, PATCHER WOOD WELDER [address] [place] [address] Nurse Practitioner Family Medicine 11/16/23 Supervisor Tower Relationship Specialty Start Date End Date Mari Amin MD [address] [place] [address] PCP - General Family Medicine 11/16/23 Kyrie Nettles PATCHER WOOD WELDER [address] [place] [address] Nurse Practitioner Family Medicine 11/16/23 Supervisor Tower Relationship Specialty Start Date End Date Mari Amin MD [address] [place] [address] PCP - General Family Medicine 11/16/23 Kyrie Nettles PATCHER WOOD WELDER [address] [place] [address] Nurse Practitioner Family Medicine 11/16/23 Supervisor Tower Relationship Specialty Start Date End Date Mari Amin MD [address] [place] [address] PCP - General Family Medicine 11/16/23 Kyrie Nettles NP [address] [place] [address] Nurse Practitioner Family Medicine 11/16/23 Team Status: Active Member Role Status Dates NON STAFF Primary Care Provider Active Team Status: Inactive Member Role Status Dates Natividad Omer DO Attending Provider Active St art: March 21, 2024 End: March 21, 2024 PHYSICIAN NO FAMILY Primary Care Provider Active Start: March 21, 2024 End: March 21, 2024 Team Status: Inactive Member Role Status Dates Natividad L Ly , DO Attending Provider Active St art: March 28, 2024 End: March 28, 2024 NON STAFF Primary Care Provider Active Start: March 28, 2024 End: March 28, 2024 Team Status: Active Member Role Status Dates Natividad L Ly , DO Attending Provider, Other Provider Active Start: March 28, 2024 NON STAFF Primary Care Provider Active Start: March 28, 2024 Team Status: Inactive Member Role Status Dates Natividad L Ly , DO Attending Provider Active St art: May 16, 2024 End: May 16, 2024 NON STAFF Primary Care Provider Active Start: May 16, 2024 End: May 16, 2024 Supervisor Tower Relationship Specialty Start Date End Date Mari Amin MD [address] [facility] [address] [place] [address] PCP - General Family Medicine 11/16/23 Kyrie Nettles, PATCHER WOOD WELDER [address] [place] [address] Nurse Practitioner Family Medicine 11/16/23 Supervisor Tower Relationship Specialty Start Date End Date Mari Amin MD [address] [facility] [address] [place] [address] PCP - General Family Medicine 11/16/23 Kyrie Nettles, PATCHER WOOD WELDER [address] [place] [address] Nurse Practitioner Family Medicine 11/16/23 Supervisor Tower Relationship Specialty Start Date End Date Mari Amin MD [address] [facility] [address] [place] [address] PCP - General Family Medicine 11/16/23 Kyrie Nettles, PATCHER WOOD WELDER [address] [facility] [address] [place] [address] Nurse Practitioner Family Medicine 11/16/23 Team Status: Inactive Member Role Status Dates NON STAFF Primary Care Provider Active Start: June 05, 2024 End: June 05, 2024 Laurie Esparza APRN Attending Provider Active Start: June 05, 2024 End: June 05, 2024 Supervisor Tower Relationship Specialty Start Date End Date Mari Amin MD [address] [facility] [address] [place] [address] PCP - General Family Medicine 11/16/23 Kyrie Nettles NP [address] [facility] [address] [place] [address] Nurse Practitioner Family Medicine 11/16/23 Supervisor Tower Relationship Specialty Start Date End Date Mari Amin MD [address] [facility] [address] [place] [address] PCP - General Family Medicine 11/16/23 Kyrie Nettles, PATCHER WOOD WELDER [address] [facility] [address] [place] [address] Nurse Practitioner Family Medicine 11/16/23 Jose Angel Mcdaniel DO [address] [facility] [address] [place] [address] Referring Physician Neurology 07/18/24 Supervisor Tower Relationship Specialty Start Date End Date Mari Amin MD [address] [facility] [address] [place] [address] PCP - General Family Medicine 11/16/23 Kyrie Nettles NP [address] [facility] [address] [place] [address] Nurse Practitioner Family Medicine 11/16/23 Jose Angel Mcdaniel DO [address] [address] Referring Physician Neurology 07/18/24 Supervisor Tower Relationship Specialty Start Date End Date Mari Amin MD [address] [place] [address] PCP - General Family Medicine 11/16/23 Kyrie Nettles, PATCHER WOOD WELDER [address] [place] [address] Nurse Practitioner Family Medicine 11/16/23 Jose Angel Mcdaniel DO [address] [address] Referring Physician Neurology 07/18/24 Team Status: Inactive Member Role Status Dates NON STAFF Primary Care Provider Active Start: August 03, 2024 End: August 03, 2024 Tan Greenfield MD Attending Provider Active Sta rt: August 03, 2024 End: August 03, 2024 Team Status: Inactive Member Role Status Dates NON STAFF Primary Care Provider Active Start: August 15, 2024 End: August 15, 2024 Tan Greenfield MD Attending Provider Active Sta rt: August 15, 2024 End: August 15, 2024 Supervisor Tower Relationship Specialty Start Date End Date Mari Amin MD [address] [place] [address] PCP - General Family Medicine 11/16/23 Kyrie Nettles, PATCHER WOOD WELDER [address] [place] [address] Nurse Practitioner Family Medicine 11/16/23 Jose Angel Mcdaniel DO [address] [place] [address] Referring Physician Neurology 07/18/24 Supervisor Tower Relationship Specialty Start Date End Date Mari Amin MD [address] [place] [address] PCP - General Family Medicine 11/16/23 Kyrie Nettles, PATCHER WOOD WELDER [address] [place] [address] Nurse Practitioner Family Medicine 11/16/23 Jose Angel Mcdaniel DO [address] [place] [address] Referring Physician Neurology 07/18/24 Supervisor Tower Relationship Specialty Start Date End Date Mari Amin MD [address] [place] [address] PCP - General Family Medicine 11/16/23 Kyrie Nettles, PATCHER WOOD WELDER [address] [place] [address] Nurse Practitioner Family Medicine 11/16/23 Jose Angel Mcdaniel DO [address] [place] [address] Referring Physician Neurology 07/18/24 Supervisor Tower Relationship Specialty Start Date End Date Mari Amin MD [address] [place] [address] PCP - General Family Medicine 11/16/23 Kyrie Nettles, PATCHER WOOD WELDER [address] [place] [address] Nurse Practitioner Family Medicine 11/16/23 Jose Angel Mcdaniel DO [address] [facility] [address] [place] [address] Referring Physician Neurology 07/18/24 Team Status: Inactive Member Role Status Dates NON STAFF Primary Care Provider Active Start: September 19, 2024 End: September 19, 2024 Tan Greenfield MD Attending Provider Active Sta rt: September 19, 2024 End: September 19, 2024 Supervisor Tower Relationship Specialty Start Date End Date Mari Amin MD [address] [facility] [address] [place] [address] PCP - General Family Medicine 11/16/23 Kyrie Nettles, PATCHER WOOD WELDER [address] [facility] [address] [place] [address] Nurse Practitioner Family Medicine 11/16/23 Jose Angel Mcdaniel DO [address] [facility] [address] [place] [address] Referring Physician Neurology 07/18/24 Supervisor Tower Relationship Specialty Start Date End Date Vivian Ortiz CNP [address] [place] [address] PCP - General Family Medicine 06/27/20 Supervisor Tower Relationship Specialty Start Date End Date Mari Amin MD [address] [facility] [address] [place] [address] PCP - General Family Medicine 11/16/23 Kyrie Nettles, PATCHER WOOD WELDER [address] [place] [address] Nurse Practitioner Family Medicine 11/16/23 Jose Angel Mcdaniel DO [address] [facility] [address] [place] [address] Referring Physician Neurology 07/18/24 Supervisor Tower Relationship Specialty Start Date End Date Mari Amin MD [address] [facility] [address] [place] [address] PCP - General Family Medicine 11/16/23 Kyrie Nettles NP [address] [facility] [address] [place] [address] Nurse Practitioner Family Medicine 11/16/23 Jose Angel Mcdaniel DO [address] [place] [address], [place] [address] Referring Physician Neurology 07/18/24 Supervisor Tower Relationship Specialty Start Date End Date Mari Amin MD [address] [facility] [address] [place] [address] PCP - General Family Medicine 11/16/23 Kyrie Nettles NP [address] [facility] [address] [place] [address] Nurse Practitioner Family Medicine 11/16/23 Jose Angel Mcdaniel DO [address] [place] [address] Referring Physician Neurology 07/18/24 Goals (unrecognized section and content) Goals may be documented in a n alternate section FOR RECORDS PERTAINING TO PATIENTS WHO ARE [...] BE BASED ON THE PRIMARY CLINICAL RECORDS. [facility] [facility]. provides no warranty or guarantee of the accuracy or completeness of information in this document.
== END 2025-01-02 07:54 | disposition home or self-care (01) ==
LOC: MAMMO 07:53
PROVIDERS: PCP Nurse Practitioner Family; Visit Provider Obstetrics & Gynecology
DX: Z12.31 Encounter for screening mammogram for malignant neoplasm of breast (principal)
CPT/HCPCS: 77063; 77067